=== PATIENT | female | born 1945 | race Caucasian/White ===

== ENCOUNTER 2016-04-18 10:36 | Inpatient (IN) | payer MEDICARE ==
[~2016-04-18] VITALS: Ht 154.9 cm; Wt 52.3 kg
[~2016-04-18 10:36] MED LIST: ALBU1AER INH; ZITH250T PO
[2016-04-18 11:09] VITALS: BP 95/50; PULSE 73; RESP 18; TEMP 98.3; O2SAT 96
[2016-04-18] MEDS: LACTATED RINGER'S 1000 ML IV SCH (11:30)
[2016-04-18] MEDS ORDERED: ceFAZolin 1,000 MG/NS 100 ML IV SCH ×2 (11:45)
[2016-04-18] MEDS ORDERED: METOPROLOL TARTRATE 25 MG TAB PO PRN (11:45)
[2016-04-18] MEDS ORDERED: SODIUM CHLORID 0.9% 500 ML IV SCH (11:45)
[2016-04-18] MEDS ORDERED: INSULIN HUMAN REGULAR 1,000 UNITS/10 ML VIAL SQ PRN (11:45)
[2016-04-18] MEDS ORDERED: PHENYLEPH/NS 1000 MCG/10 ML SYR IV ONE (12:00)
[2016-04-18] MEDS ORDERED: ePHEDrine/NS 50 MG/5 ML SYR IV ONE (12:00)
[2016-04-18] MEDS ORDERED: NITROGLYCERIN 1000 MCG/5 ML VIAL IV ONE (12:00)
[2016-04-18] MEDS ORDERED: PROPOFOL 500 MG/50 ML BTL IV ONE (12:00)
[2016-04-18] MEDS ORDERED: LACTATED RINGER'S 1000 ML INJ 1,000 ML IV ONE (12:00)
[2016-04-18 12:09] LABS: AUTOMATED NEUTROPHIL # 6.6 TH/MM3 (1.8-7.7); BASOPHIL # 0.1 TH/MM3 (0-0.2); BASOPHIL % 0.7 % (0.0-2.0); EOSINOPHIL # 0.3 TH/MM3 (0-0.4); EOSINOPHIL % 2.6 % (0.0-4.0); HEMATOCRIT 39.5 % (35.0-46.0); HEMO FLAGS DIFF FINAL; LYMPH % 18.9 % (9.0-44.0); MEAN CELL VOLUME 97.2 FL (80.0-100.0); MEAN CORPUSCULAR HEMOGLOBIN 33.1 PG (27.0-34.0); MEAN CORPUSCULAR HGB CONC 34.1 % (32.0-36.0); MONO % 14.4 % (0.0-8.0); NEUT % 63.4 % (16.0-70.0); PLATELET COUNT 378 TH/MM3 (150-450); RED BLOOD COUNT 4.06 MIL/MM3 (4.00-5.30); RED CELL DISTRIBUTION WIDTH 13.1 % (11.6-17.2); WHITE BLOOD COUNT 10.4 TH/MM3 (4.0-11.0)
[2016-04-18 12:23] LABS: APTT (PATIENT) 22.2 SEC (24.3-30.1); PROTHROMBIN TIME - PATIENT 10.6 SEC (9.8-11.6)
[2016-04-18 12:29] LABS: HDL CHOLESTEROL 48.1 MG/DL (40.0-60.0)
[2016-04-18 12:34] LABS: BICARBONATE 27.3 MEQ/L (21.0-32.0)
[2016-04-18 12:42] LABS: POTASSIUM 4.2 MEQ/L (3.5-5.1)
[2016-04-18] MEDS ORDERED: BUPIVACAINE/EPINEPHRINE 0.5% PF 10 ML VIAL INFIL ONE (13:13)
[2016-04-18] MEDS ORDERED: IOHEXOL 300 MG/ML 50 ML BTL (for RAD DIAG) OTHER ONE (13:13)
[2016-04-18] MEDS ORDERED: HEPARIN SODIUM - SQ 10,000 UNITS/ML VIAL ONE (13:48)
[2016-04-18] MEDS ORDERED: fentaNYL CITRATE 250 MCG/5 ML AMP ONE (15:10)
[2016-04-18] MEDS ORDERED: MIDAZOLAM HCL 2 MG/2 ML VIAL ONE (15:11)
[2016-04-18 15:29] LABS: BLOOD GAS BASE EXCESS -3.4 mmol/L (-2-2); BLOOD GAS CARBOXYHEMOGLOBIN 0.7 % (0-4); BLOOD GAS HCO3 23 mmol/L (22-26); BLOOD GAS METHEMOGLOBIN 1.4 % (0-2); BLOOD GAS O2 HGB SATURATION 97 % (90-100); BLOOD GAS OXYGEN CONTENT 17.9 Vol % (12.0-20.0); BLOOD GAS PCO2 61 mmHg (38-42); BLOOD GAS PO2 183 mmHg (61-120); BLOOD GAS TOTAL HGB 12.9 G/DL (12.0-16.0); TEMP CORR TO 98.6
[2016-04-18 15:33] LABS: CRITICAL VALUE YES; DRAW SITE OR GAS; OXYGEN DEVICE OR GAS; STAT YES
[2016-04-18] MEDS ORDERED: *morphine SULFATE 8 MG/ML PERIprocedure ONLY ONE ×2 (15:59→16:10)
[2016-04-18] MEDS ORDERED: ONDANSETRON HCL 4 MG/2 ML VIAL IV PRN (16:30)
[2016-04-18] MEDS ORDERED: ENALAPRILAT 1.25 MG/ML VIAL IV PRN (16:30)
[2016-04-18] MEDS ORDERED: POTASSIUM CHLORIDE 20 MEQ CONTROLLED RELEASE TAB PO PRN (16:30)
[2016-04-18] MEDS ORDERED: LABETALOL HCL 100 MG/20 ML VIAL IVP PRN (16:30)
[2016-04-18] MEDS ORDERED: SODIUM NITROPRUSSIDE 50 MG/250 ML D5W IV SCH ×2 (16:30)
[2016-04-18] MEDS ORDERED: METOCLOPRAMIDE HCL 10 MG/2 ML VIAL IVS PRN (16:30)
[2016-04-18] MEDS ORDERED: cloNIDine HCL 0.1 MG TAB PO PRN (16:30)
[2016-04-18] MEDS ORDERED: ATROPINE SULFATE 1 MG/ML VIAL IV PUSH PRN (16:30)
[2016-04-18] MEDS ORDERED: HOLD GLUCOPHAGE, GLUCOPHAGE XR, AND AVANDAMET XX PRN (16:30)
[2016-04-18] MEDS ORDERED: SODIUM CHLORIDE 0.9% 1000 ML @ 75 ML/HR IV SCH (16:30)
[2016-04-18] MEDS ORDERED: SODIUM CHLOR 0.9% 250 ML IV PRN (16:30)
[2016-04-18] MEDS ORDERED: SODIUM CHLORIDE 5 ML FLUSH PRN IVF (16:30)
[2016-04-18] MEDS ORDERED: DO NOT ADM ANY ANTICOAGULANT DRUGS XX PRN (16:30)
--- NOTE | 2016-04-18 16:33 | RADRPT ---
EXAM DATE/TIME: 04/18/2016 15:57 [facility] COMPARISON: CHEST SINGLE AP, September 01, 2015, 12:58. INDICATIONS : Aspiration. MEDICAL HISTORY : Chronic obstructive pulmonary disease. asthma SURGICAL HISTORY : None. ENCOUNTER: Initial ACUITY: 1 day PAIN SCORE: Non-responsive. LOCATION: Bilateral chest FINDINGS: A single view of the chest demonstrates the lungs to be symmetrically aerated without evidence of mas s, infiltrate or effusion. Tracheal calcifications are again noted. There are mild atherosclerotic ch anges in the aorta. The cardiomediastinal contours are unremarkable. Osseous structures are intact. CONCLUSION: No acute disease. There is no evidence of pneumonia. Sang Leahy MD on April 18, 2016 at 16:31 Board Certified Radiologist. This report was verified electronically.
[2016-04-18] MEDS ORDERED: ASPIRIN EC 81 MG TABEC PO ONE (17:00)
[2016-04-18] MEDS: ATORVASTATIN 20 MG TAB PO SCH (17:51)
[2016-04-18] MEDS: ENOXAPARIN SODIUM 40 MG/0.4 ML SYRINGE SQ SCH (17:52)
[2016-04-18] MEDS: ASPIRIN EC 81 MG TABEC PO SCH (18:00)
[2016-04-18 19:00] VITALS: PULSE 60
[2016-04-18 20:00] VITALS: PULSE 63
[2016-04-18 21:00] VITALS: BP_SYST 122; BP_SYST 130; BP_DIAS 56; BP_DIAS 62; PULSE 67; PULSE 69; RESP 20; TEMP 97.3; TEMP 97.6; O2SAT 100
[2016-04-18] MEDS: SODIUM CHLORIDE 5 ML FLUSH BID IVF SCH (21:00)
[2016-04-18 22:00] VITALS: PULSE 73
[2016-04-18 23:00] VITALS: BP 115/68; PULSE 67; PULSE 78; PULSE 88; RESP 20; TEMP 97.3; TEMP 99.3; O2SAT 100
[2016-04-19] VITALS (23 sets, daily range): BP systolic 82–128; BP diastolic 48–64; PULSE 61–89; RESP 18–20; TEMP 98.3–99.4; O2SAT 95–100
[2016-04-19] MEDS: oxyCODONE/ACETAMINOPHEN 5 MG/325 MG TAB PO PRN ×4 (00:31→20:05)
[2016-04-19] MEDS: ENOXAPARIN SODIUM 40 MG/0.4 ML SYRINGE SQ SCH (06:11)
[2016-04-19] MEDS: ATORVASTATIN 20 MG TAB PO SCH (10:16)
[2016-04-19] MEDS: SODIUM CHLORIDE 5 ML FLUSH BID IVF SCH (10:17)
[2016-04-19] MEDS: ASPIRIN EC 81 MG TABEC PO SCH (10:17)
[2016-04-19] MEDS: LACTATED RINGER'S 1000 ML IV SCH (11:45)
--- NOTE | 2016-04-19 23:03 | EKG ---
Date Performed: 04/18/2016 Time Performed: 11:10:03 PTAGE: 71 years EKG: Sinus rhythm POSSIBLE RIGHT VENTRICULAR CONDUCTION DELAY POSSIBLE SEPTAL MYOCARDIAL INFARCTION , OF INDETERMINATE AGE MODERATE T-WAVE ABNORMALITY, CONSIDER ANTERIOR ISCHEMIA ABNORMAL ECG PREVIOUS TRACING : 02/18/2003 17.10 DOCTOR: Elizabeth Cook Interpretating Date/Time 04/19/2016 22:53:41
--- NOTE | 2016-04-23 20:45 | MP ---
cc: WANDA MAHARAJ M.D. DATE OF SURGERY: 04/18/2016. PREOPERATIVE DIAGNOSIS: Limb threatening left lower extremity ischemia - gangrenous necrosis plantar aspect left first metatarsophalangeal joint. POSTOPERATIVE DIAGNOSIS: Limb threatening left lower extremity ischemia - gangrenous necrosis plantar aspect left first metatarsophalangeal joint. OPERATIVE PROCEDURE PERFORMED: Selective left femorotibial angiography, left popliteal and anterior tibial orbital atherectomy / percutaneous balloon angioplasty. SURGEON: Wanda Maharaj M.D. ANESTHESIA: General MAC. PIG CASTER: DALILA Garcia. ANESTHESIA: Local MAC DESCRIPTION OF THE OPERATIVE PROCEDURE IN DETAIL: With the patient in the supine position, IV sedation was induced, the lower abdomen, both groins and thighs were prepped with Betadine and draped in a sterile fashion. One gram of Ancef was administered intravenously and following a protocol time-out, the skin and subcutaneous tissue overlying the proposed left common femoral access site was preemptively infiltrated with 0.5% Marcaine with epinephrine. Utilizing ultrasound guidance, an 18 gauge needle was navigated into the left mid common femoral lumen, antegrade approach. A J-wire was navigated under fluoroscopic guidance into the proximal superficial femoral artery. A 5-Swazi hemostatic sheath was deployed over the J-wire. Dilute contrast was injected through the sheath side-arm in conjunction with digital C-arm fluoroscopic imaging outlining a relatively non-diseased common femoral, profunda and superficial femoral arteries. The popliteal was healthy above the knee but focally stenosed by about 60% immediately at and distal to the knee joint. Severe tibial disease was documented as suggested by preoperative CT angiogram. The posterior tibial was occluded throughout. The peroneal was patent proximally but occluded several centimeters distal to its origin. The anterior tibial was also patent proximally but occluded at the mid calf level. Collaterals reconstituted the anterior tibial just above the ankle but a long segment occlusion of the anterior tibial was noted. A 0.014 Advantage guidewire and Quick-Cross catheter combination were carefully guided into the proximal left anterior tibial artery and utilizing roadmapping guidance, the anterior tibial occlusion carefully crossed intraluminally. The Advantage wire was then replaced with a ViperWire which was parked within the dorsalis pedis artery. Orbital atherectomy of the anterior tibial occlusion was then completed with a CSI micro crown SpineNet 60 and 90,000 RPM followed by a balloon angioplasty of the atherectomized anterior tibial segment with a tapered 2.5 - 3.0 x 210 mm balloon inflated to 12 atmospheres, two separate inflations of 3 minutes each. It should be noted that prior to atherectomy, the patient received 5000 units of heparin, ACT measured ___. An additional 1000 units was delivered and during the atherectomy and balloon angioplasty, several aliquots of nitroglycerin 100 micrograms injected. The popliteal stenosis was also orbitally atherectomized with the CSI MicroCrown spun at 60, 90 and 120,000 RPM followed by angioplasty with a 4 x 40 mm balloon inflated to 8 atmospheres, two separate inflations of 2 minutes each. Completion angiogram revealed wide patency of the popliteal with no residual stenosis. Also, the anterior tibial was patent into the dorsalis pedis with no residual stenotic disease evident. The 5-Swazi sheath was secured with a skin suture. At the conclusion of the procedure, the Doppler flow was robust and biphasic within the left dorsalis pedis. Heparin was not reversed. The patient was returned to the recovery room in stable condition. It should be noted that toward the end of the procedure, the patient experienced an episode of emesis with bilious aspiration. The anesthesiologist, Dr. Krueger, performed bronchoscopy, suction irrigation and reported "minimal aspiration / contamination". She received appropriate aspiration prophylaxis. Chest x-ray will be obtained in recovery along with pulmonary consult. MD ANDRE Peña/NOBLE /4:26 PM /8:28 PM
== END 2016-04-19 20:21 | disposition home or self-care (01) | DRG 272 ==
LOC: HSDC 10:36 → HCIN 18:05 → HSDC 19:25
PROVIDERS: ADMIT Surgery Vascular Surgery; ATTEND Surgery Vascular Surgery
PROC: 04CN3ZZ Extirpation of Matter from Left Popliteal Artery, Percutaneous Approach (ICD-10-PCS; 2016-04-18)
PROC: 047N3ZZ Dilation of Left Popliteal Artery, Percutaneous Approach (ICD-10-PCS; 2016-04-18)
PROC: 0BJ08ZZ Inspection of Tracheobronchial Tree, Via Natural or Artificial Opening Endoscopic (ICD-10-PCS; 2016-04-18)
PROC: 04CQ3ZZ Extirpation of Matter from Left Anterior Tibial Artery, Percutaneous Approach (ICD-10-PCS; principal; 2016-04-18 12:30)
PROC: 047Q3ZZ Dilation of Left Anterior Tibial Artery, Percutaneous Approach (ICD-10-PCS; 2016-04-18 12:30)
DX: I70.262 Atherosclerosis of native arteries of extremities with gangrene, left leg (principal); T17.918A Gastric contents in respiratory tract, part unspecified causing other injury, initial encounter; X58.XXXA Exposure to other specified factors, initial encounter; Y93.89 Activity, other specified; Y92.234 Operating room of hospital as the place of occurrence of the external cause
CPT/HCPCS: 71010; 75710; 76937; 80048; 80061; 82805; 85025; 85610; 85730; 86850; 86900; 86901; 93005; C1725; C1769; C1887; J0690; J1644; J1650; J2250; J2270; J2370; J3010; J7030; J7120; Q9967

== ENCOUNTER 2016-04-29 11:48 | Inpatient (IN) | payer MEDICARE ==
[~2016-04-29] VITALS: Ht 152.4 cm; Wt 52.6 kg
[2016-04-30] MEDS ORDERED: LIDOCAINE HCL 1% 50 ML VIAL ONE (10:14)
[2016-04-30] MEDS ORDERED: BUPIVACAINE/EPINEPHRINE 0.5% 50 ML VIAL ONE (10:14)
[2016-04-30] MEDS ORDERED: HEPARIN SODIUM - IV 10,000 UNITS/10 ML VIAL ONE (10:14)
[2016-04-30] MEDS ORDERED: SODIUM CHLORIDE 0.9% 20 ML VIAL ONE (10:14)
[2016-04-30] MEDS ORDERED: PROTAMINE SULFATE 50 MG/5 ML VIAL ONE (10:15)
[2016-04-30] MEDS ORDERED: HEPARIN SODIUM - SQ 10,000 UNITS/ML VIAL ONE (10:15)
[2016-04-30] MEDS ORDERED: ceFAZolin 1,000 MG/NS 100 ML IV SCH ×2 (10:30)
[2016-04-30] MEDS ORDERED: METOPROLOL TARTRATE 25 MG TAB PO PRN (10:30)
[2016-04-30] MEDS ORDERED: LACTATED RINGER'S 1000 ML IV SCH (10:30)
[2016-04-30] MEDS ORDERED: SODIUM CHLORID 0.9% 500 ML IV SCH (10:30)
[2016-04-30] MEDS ORDERED: INSULIN HUMAN REGULAR 1,000 UNITS/10 ML VIAL SQ PRN (10:30)
[2016-04-30] MEDS ORDERED: CYAN500S SL (11:05)
[2016-04-30] MEDS ORDERED: ATOR20TA15 PO (11:05)
[2016-04-30 11:07] VITALS: BP 96/73; PULSE 105; RESP 18; TEMP 99.1; O2SAT 98
[2016-04-30 11:42] LABS: AUTOMATED NEUTROPHIL # 7.8 TH/MM3 (1.8-7.7); BASOPHIL # 0.1 TH/MM3 (0-0.2); BASOPHIL % 0.6 % (0.0-2.0); EOSINOPHIL # 0.1 TH/MM3 (0-0.4); EOSINOPHIL % 1.1 % (0.0-4.0); HEMATOCRIT 37.8 % (35.0-46.0); HEMO FLAGS DIFF FINAL; LYMPH % 17.9 % (9.0-44.0); MEAN CELL VOLUME 94.5 FL (80.0-100.0); MEAN CORPUSCULAR HEMOGLOBIN 32.3 PG (27.0-34.0); MEAN CORPUSCULAR HGB CONC 34.1 % (32.0-36.0); MONO % 11.8 % (0.0-8.0); NEUT % 68.6 % (16.0-70.0); PLATELET COUNT 578 TH/MM3 (150-450); WHITE BLOOD COUNT 11.3 TH/MM3 (4.0-11.0)
[2016-04-30 12:00] LABS: BICARBONATE 28.1 MEQ/L (21.0-32.0); POTASSIUM 3.9 MEQ/L (3.5-5.1)
[2016-04-30] MEDS ORDERED: fentaNYL CITRATE 250 MCG/5 ML AMP IV ONE (12:00)
[2016-04-30] MEDS ORDERED: NEOSTIGMINE 3 MG/3 ML SYR IV ONE (12:00)
[2016-04-30] MEDS ORDERED: PROPOFOL 200 MG/20 ML AMP IV ONE (12:00)
[2016-04-30] MEDS ORDERED: LACTATED RINGER'S 1000 ML INJ 2,000 ML IV ONE (12:00)
[2016-04-30] MEDS ORDERED: SODIUM CHLOR 0.9% 250 ML INJ 250 ML IV ONE (12:00)
[2016-04-30] MEDS ORDERED: PHENYLEPHRINE HCL 10 MG/ML VIAL IV ONE (12:00)
[2016-04-30 12:03] LABS: PROTHROMBIN TIME - PATIENT 10.9 SEC (9.8-11.6)
[2016-04-30] MEDS ORDERED: RESP: ALBUTEROL 2.5 MG/IPRATROPIUM 0.5 MG NEB (PRN) ONE (12:03)
[2016-04-30] MEDS ORDERED: MIDAZOLAM HCL 2 MG/2 ML VIAL ONE (12:17)
[2016-04-30] MEDS ORDERED: FAMOTIDINE 20 MG/2 ML VIAL ONE (12:17)
[2016-04-30] MEDS ORDERED: IOHEXOL 300 MG/ML 50 ML BTL (for RAD DIAG) OTHER ONE (13:40)
[2016-04-30] MEDS ORDERED: BUPIVACAINE/EPINEPHRINE 0.5% 50 ML VIAL INFIL ONE (15:01)
[2016-04-30] MEDS ORDERED: ceFAZolin INJ 1,000 MG VIAL ONE (15:39)
[2016-04-30] MEDS ORDERED: ACETAMINOPHEN 325 MG TAB PO PRN (18:30)
[2016-04-30] MEDS ORDERED: ONDANSETRON HCL 4 MG/2 ML VIAL IV PUSH PRN (18:30)
[2016-04-30] MEDS ORDERED: REMOVE OLD DURAGESIC (FENTANYL) PATCH TD SCH (18:30)
[2016-04-30] MEDS ORDERED: DO NOT ADM ANY ANTICOAGULANT DRUGS XX PRN (18:30)
[2016-04-30] MEDS ORDERED: fentaNYL 50 MCG/HR PATCH TD SCH (18:30)
[2016-04-30 18:45] VITALS: BP 136/75; PULSE 72; RESP 18; TEMP 97.7; O2SAT 100
[2016-04-30] MEDS ORDERED: SODIUM CHLORIDE 0.9% FLUSH 5 ML FLUSH IV FLUSH PRN (18:45)
[2016-04-30] MEDS: MORPHINE SULFATE 4 MG/ML INJ IV PRN ×2 (19:58→22:18)
[2016-04-30 20:02] VITALS: BP 127/75; PULSE 75; RESP 16; TEMP 97.6; O2SAT 100
[2016-04-30] MEDS: ACETAMINOPHEN/HYDROcodone 325 MG/5 MG TAB PO PRN (22:17)
[2016-04-30] MEDS: SODIUM CHLORIDE 0.9% FLUSH 5 ML FLUSH IV FLUSH SCH (22:18)
[2016-04-30 23:00] VITALS: BP 111/72; PULSE 76; RESP 16; TEMP 97.8; O2SAT 100
[2016-05-01] VITALS (18 sets, daily range): BP systolic 92–108; BP diastolic 50–71; PULSE 71–132; RESP 16–18; TEMP 97.4–98.7; O2SAT 96–99
[2016-05-01] MEDS: ACETAMINOPHEN/HYDROcodone 325 MG/5 MG TAB PO PRN (03:05)
[2016-05-01] MEDS: MORPHINE SULFATE 4 MG/ML INJ IV PRN ×3 (03:05→17:41)
[2016-05-01 07:03] LABS: HEMATOCRIT 30.3 % (35.0-46.0); REVIEW FLAG FINAL
[2016-05-01 07:52] LABS: BICARBONATE 29.7 MEQ/L (21.0-32.0); POTASSIUM 3.8 MEQ/L (3.5-5.1)
[2016-05-01] MEDS: SODIUM CHLORIDE 0.9% FLUSH 5 ML FLUSH IV FLUSH SCH ×2 (09:50→20:28)
[2016-05-01] MEDS: GABAPENTIN 300 MG CAP PO SCH ×3 (09:51→16:41)
[2016-05-01] MEDS: ATORVASTATIN 20 MG TAB PO SCH (09:51)
[2016-05-01] MEDS: PANTOPRAZOLE SOD 40 MG DELAYED RELEASE TAB PO SCH (10:00)
[2016-05-01] MEDS ORDERED: CLOPIDOGREL 300 MG TAB PO ONE (10:00)
[2016-05-01] MEDS: ENOXAPARIN SODIUM 30 MG/0.3 ML SYRINGE SQ SCH ×2 (10:30→20:27)
[2016-05-01] MEDS ORDERED: METOPROLOL TARTRATE 25 MG TAB PO SCH (22:30)
[2016-05-01] MEDS ORDERED: SODIUM CHLORID 0.9% 500 ML INJ 500 ML IV SCH (22:45)
[2016-05-02] VITALS (16 sets, daily range): BP systolic 80–99; BP diastolic 56–60; PULSE 69–104; RESP 18–20; TEMP 98.1–98.8; O2SAT 99–100
[2016-05-02] MEDS: MORPHINE SULFATE 4 MG/ML INJ IV PRN
[2016-05-02] MEDS ORDERED: fentaNYL CITRATE 250 MCG/5 ML AMP ONE (08:15)
[2016-05-02] MEDS: GABAPENTIN 300 MG CAP PO SCH ×3 (08:29→17:46)
[2016-05-02] MEDS: CLOPIDOGREL 75 MG TAB PO SCH (08:29)
[2016-05-02] MEDS: PANTOPRAZOLE SOD 40 MG DELAYED RELEASE TAB PO SCH (08:29)
[2016-05-02] MEDS: SODIUM CHLORIDE 0.9% FLUSH 5 ML FLUSH IV FLUSH SCH ×2 (08:31→21:19)
[2016-05-02] MEDS: ATORVASTATIN 20 MG TAB PO SCH (08:31)
[2016-05-02] MEDS: ENOXAPARIN SODIUM 30 MG/0.3 ML SYRINGE SQ SCH ×2 (10:10→21:19)
[2016-05-03] VITALS (20 sets, daily range): BP systolic 91–126; BP diastolic 57–72; PULSE 61–92; RESP 16–20; TEMP 97.9–98.6; O2SAT 98–100
[2016-05-03] MEDS: ACETAMINOPHEN/HYDROcodone 325 MG/5 MG TAB PO PRN ×4 (02:10→17:57)
--- NOTE | 2016-05-03 06:57 | EKG ---
Date Performed: 05/01/2016 Time Performed: 22:31:16 PTAGE: 71 years EKG: Supraventricular tachycardia Lateral infarct - age undetermined Possible septal infarct - a ge undetermined Inferior T wave changes are nonspecific Abnormal ECG NO PREVIOUS TRACING DOCTOR: Terry Alegre Interpretating Date/Time 05/03/2016 06:56:10
[2016-05-03] MEDS: GABAPENTIN 300 MG CAP PO SCH ×3 (09:32→17:57)
[2016-05-03] MEDS: ENOXAPARIN SODIUM 30 MG/0.3 ML SYRINGE SQ SCH (09:33)
[2016-05-03] MEDS: PANTOPRAZOLE SOD 40 MG DELAYED RELEASE TAB PO SCH (09:33)
[2016-05-03] MEDS: ATORVASTATIN 20 MG TAB PO SCH (09:33)
[2016-05-03] MEDS: CLOPIDOGREL 75 MG TAB PO SCH (09:33)
[2016-05-03] MEDS: SODIUM CHLORIDE 0.9% FLUSH 5 ML FLUSH IV FLUSH SCH (09:33)
[2016-05-03] MEDS ORDERED: PROT40TA PO (15:38)
[2016-05-03] MEDS ORDERED: ATOR20TA15 PO (15:38)
[2016-05-03] MEDS ORDERED: ATOR10TA15 PO (15:38)
[2016-05-03] MEDS ORDERED: NEUR300C PO (15:38)
[2016-05-03] MEDS ORDERED: NORC5TAB PO (15:38)
[2016-05-03] MEDS ORDERED: ENOX30P SQ (15:38)
--- NOTE | 2016-05-06 08:44 | MP ---
cc: CLEMENCIA GONZALEZ JAMES T. M.D. DATE OF SURGERY: 04/30/2016 PREOPERATIVE DIAGNOSIS Progressive ischemic necrosis left forefoot/limb threatening left lower extremity ischemia status post failed left tibial endovascular revascularization on April 18. POSTOPERATIVE DIAGNOSIS Progressive ischemic necrosis left forefoot/limb threatening left lower extremity ischemia status post failed left tibial endovascular revascularization on April 18. OPERATIVE PROCEDURE Left superficial femoral - dorsalis pedis bypass with reverse saphenous vein. Intraoperative arteriogram. SURGEON Kunal Johnson MD ANESTHESIA General endotracheal/local. HISTORY This 71-year-old female presented with progressive ischemic necrosis involving the left first and second toes, distal left forefoot with associated severe, disabling ischemic rest pain. Contrast angiographic evaluation on April 18 disclosed severe infrapopliteal arterial occlusive disease. Both the posterior tibial and peroneal arteries were occluded throughout. The anterior tibial was severely diseased with multiple areas of calcific stenosis and one area of short segment occlusion. Orbital atherectomy reestablished patency of the disease, small anterior tibial. However, postprocedure the vessel reoccluded resulting in recurrent, severe ischemic rest pain. She was admitted today for exploration of the dorsalis pedis artery and potential femoral-tibial bypass for limb salvage versus primary amputation, depending upon the dorsalis pedis angiographic findings. During this procedure, the initial dorsalis pedis angiogram revealed patency of the distal left anterior tibial and dorsalis pedis to the proximal forefoot region. The dorsalis pedis, metatarsal and digital arteries beyond had intervally occluded since the angiographic findings from the . Nonetheless, I felt that retrograde flow within the residual dorsalis pedis/ anterior tibial segment should be adequate to allow bypass success. DESCRIPTION OF OPERATIVE PROCEDURE With the patient in the supine position and under general anesthesia the lower abdomen and left groin and entire left lower extremity were prepped with Betadine and draped in a sterile fashion. Skin and subcutaneous tissue directly overlying the left dorsalis pedis was infiltrated with 0.5% Marcaine with epinephrine. A vertical 3 cm incision was performed through which the dorsalis pedis artery was circumferentially mobilized. The artery was cannulated with an 18-gauge butterfly needle and diluted contrast injected in conjunction with digital C-arm fluoroscopic imaging. This revealed patency of the distal left anterior tibial transitioning into the dorsalis pedis. The dorsalis pedis occluded immediately distal to the access needle puncture site. As noted above, angiographic imaging on April 18 had suggested patency of the dorsalis pedis, tarsal and metatarsal arteries. However, interval occlusion of the forefoot runoff had developed. The skin and subcutaneous tissue overlying the greater saphenous vein was infiltrated with 1% Xylocaine with epinephrine. A vertical incision was performed from the left groin to the left ankle regions. The entire greater saphenous vein was mobilized, branches ligated in continuity with free ties of 4-0 silk and ligated. The vein was ligated proximally and distally with 4-0 silk, divided between ligatures, cannulated with the vein cannula and flushed with cool heparinized saline. It should be noted that the more distal section of the vein, particularly below the proximal calf level was diminished luminal caliber, did not appear to be adequate for use of an arterial conduit. However, the more proximal aspect did appear adequate. Short length of saphenous vein conduit required originating the bypass at the popliteal level. The incision was deepened into the proximal popliteal space. The popliteal artery was circumferentially mobilized distal to the adductor canal and encircled with double loop vessel loops. The patient was systemically heparinized with 5000 units. The dorsalis pedis artery was occluded proximally and distally with Yasargil clips. A vertical 2-cm arteriotomy was performed. The vein was reversed, spatulated on end, anastomosed end-to-side to the dorsalis pedis arteriotomy with interrupted 7-0 Prolene. The vein was placed within the saphenous vein harvest incision/ wound, tunneled through the popliteal space to the proximal popliteal exposure site. The popliteal artery was occluded proximally and distally with double loop vessel loops. A vertical 2-cm arteriotomy was performed along the anteromedial surface. The vein graft was spatulated on end and anastomosed end-to-side to the popliteal arteriotomy with continuous 6-0 Prolene. Yasargil clips and double loop vessel loops were removed establishing pulsatile flow within the vein graft as well as into the [place] circulation. The saphenous vein bypass graft was cannulated immediately distal to the popliteal anastomosis. Diluted contrast was injected in conjunction with digital C-arm fluoroscopic imaging. This confirmed wide patency of the reverse saphenous vein bypass graft and distal anastomosis. It also reconfirmed occlusion of the dorsalis pedis, tarsal and metatarsal arteries distal to the distal anastomosis but robust retrograde flow within the proximal dorsalis pedis and anterior tibial. Heparin was reversed with 20 mg of protamine. Hemostasis was achieved. The incisions were closed with continuous subcutaneous 4-0 Monocryl and xochitl, covered with sterile gauze. Instrument, needle, sponge count correct x2. No operative complications and at the conclusion of the procedure robust triphasic Doppler flow was reconfirmed within the vein graft at the dorsalis pedis anastomosis. Kunal Johnson MD JTS/TLL /2:45 PM /8:17 AM
--- NOTE | 2016-05-07 22:04 | MD ---
cc: CLEMENCIA AHUMADA JAMES ADMISSION DATE: 04/30/2016 DISCHARGE DATE: 05/03/2016 DISCHARGE DIAGNOSES 1. Ischemic necrosis left foot / limb threatening left lower extremity ischemia. 2. Hypercholesterolemia. PROCEDURE Left femoral dorsalis pedis bypass on April 30. HISTORY OF THE PRESENT ILLNESS This 71-year-old female for the past year complained of disabling left calf claudication. Several months ago she began experiencing pain within the left foot. She describes evaluation by various "specialists" without benefit. According to the patient, one of the podiatrists told her that "her shoes were too tight." She eventually saw Dr. Ahumada who detected advanced ischemic changes within the left foot and arranged for vascular surgery consultation. On April 18, I performed contrast angiogram confirming severe left infrapopliteal tibial arterial occlusive disease. A heroic attempt at left anterior tibial atherectomy of a long stenosis / occlusion did not remain patent. She continued to experience ischemic rest pain within the left foot with gradually progressing necrotic changes involving the left great, second and fifth toes. She was hospitalized for revascularization versus a possible primary amputation, depending upon intraoperative angiographic findings. Further historical details along with pertinent physical findings and lab data are documented in my admission summary. HOSPITAL COURSE Ms. Rodrigues was prepared for and on the day of admission underwent left femoral dorsalis pedis bypass. Intraoperative angiograms of the runoff, dorsalis pedis artery disclosed occlusion of the vessel across the forefoot area. In addition the digital arteries which appeared patent on April 18 angiogram, no longer appeared patent. However, retrograde flow into the dorsalis pedis and distal anterior tibial remained fairly robust and for this reason, I have proceeded with an attempt at revascularization for limb salvage. Postprocedure she was maintained on her regular prehospitalization statin. In addition, aspirin, Plavix and subcu Lovenox were added. She has experienced no postoperative complications. Specifically no cardiopulmonary problems. She is tolerating a low cholesterol diet, having regular bowel movements, ambulating with assistance of physical therapy. Her bypass remains patent with robust retrograde flow within the dorsalis pedis and distal anterior tibial artery. The preexisting ischemic necrosis involving the left great and second toe is becoming well demarcated. In addition, her preoperative ischemic rest pain has resolved. DISPOSITION Ms. Rodrigues will be transferred to a rehab facility for ambulatory rehabilitation. Medications are detailed in the discharge medication reconciliation form. I instructed the patient and granddaughter in appropriate activities, restrictions, precautions and diet. I will see her in followup in 2 weeks. She will require readmission within the next month to pursue debridement of necrotic forefoot tissues once demarcation has completed / become well established. Kunal Johnson MD JTS/KK /2:30 PM /9:51 PM
== END 2016-05-03 20:14 | DRG 254 ==
LOC: HSDI 04-30 10:08 → HCIN 04-30 18:40
PROVIDERS: ADMIT Surgery Vascular Surgery; ATTEND Surgery Vascular Surgery
PROC: 041 Lower Arteries, Bypass (ICD-10-PCS; principal; 2016-04-30 12:30)
DX: I70.222 Atherosclerosis of native arteries of extremities with rest pain, left leg (principal); E78.00 Pure hypercholesterolemia, unspecified
CPT/HCPCS: 76000; 80048; 85014; 85018; 85025; 85610; 85730; 86850; 86900; 86901; 93005; J0690; J1644; J1650; J2250; J2270; J2370; J2710; J2720; J3010; J7050; J7120; Q9967

== ENCOUNTER 2016-05-14 11:11 | Observation (INO) | payer MEDICARE ==
[~2016-05-14] VITALS: Ht 152.4 cm; Wt 53.0 kg
[~2016-05-14 11:11] MED LIST changes: -ALBU1AER INH; +ATOR10TA15 PO; +ATOR20TA15 PO; +CYAN500S SL; +ENOX30P SQ; +NEUR300C PO; +NORC5TAB PO; +PROT40TA PO; -ZITH250T PO
[2016-05-14] MEDS ORDERED: PLAV75TA29 PO (11:52)
[2016-05-14] MEDS ORDERED: FERR325T PO (11:52)
[2016-05-14] MEDS ORDERED: ENOX30P SQ (11:52)
[2016-05-14] MEDS ORDERED: CEPH-460 PO (11:52)
[2016-05-14] MEDS ORDERED: ASPI-110 PO (11:52)
[2016-05-14] MEDS ORDERED: LACTCAP8 PO (11:56)
[2016-05-14] MEDS ORDERED: TYLE325T PO (11:56)
[2016-05-14] MEDS ORDERED: ONDANSETRON HCL 4 MG/2 ML VIAL IV PUSH ONE (12:00)
[2016-05-14] MEDS ORDERED: PROPOFOL 200 MG/20 ML AMP IV ONE (12:00)
[2016-05-14] MEDS ORDERED: SODIUM CHLORIDE 0.9% INJ 100 ML ONE (12:04)
[2016-05-14] MEDS ORDERED: ceFAZolin INJ 1,000 MG VIAL ONE (12:04)
[2016-05-14 12:08] VITALS: BP 113/68; PULSE 77; RESP 16; TEMP 98.1; O2SAT 98
[2016-05-14 12:40] LABS: APTT (PATIENT) 28.4 SEC (24.3-30.1); PROTHROMBIN TIME - PATIENT 10.5 SEC (9.8-11.6)
[2016-05-14] MEDS ORDERED: ceFAZolin 1,000 MG/NS 100 ML IV SCH ×2 (13:00)
[2016-05-14] MEDS ORDERED: INSULIN HUMAN REGULAR 1,000 UNITS/10 ML VIAL SQ PRN (13:00)
[2016-05-14] MEDS ORDERED: LACTATED RINGER'S 1000 ML IV SCH (13:00)
[2016-05-14] MEDS ORDERED: METOPROLOL TARTRATE 25 MG TAB PO PRN (13:00)
[2016-05-14] MEDS ORDERED: SODIUM CHLORID 0.9% 500 ML IV SCH (13:00)
[2016-05-14] MEDS ORDERED: LIDOCAINE HCL 1% 50 ML VIAL ONE (14:29)
[2016-05-14] MEDS ORDERED: VANCOMYCIN HCL 1000 MG ON-CALL/NS 250 ML IV SCH ×2 (14:30)
[2016-05-14] MEDS ORDERED: MIDAZOLAM HCL 2 MG/2 ML VIAL ONE (14:30)
[2016-05-14] MEDS ORDERED: FAMOTIDINE 20 MG/2 ML VIAL ONE (14:30)
[2016-05-14] MEDS ORDERED: DEXAMETHASONE SOD PHOS 4 MG/ML VIAL ONE (14:30)
[2016-05-14] MEDS ORDERED: SODIUM CHLOR 0.9% 250 ML INJ 250 ML ONE (14:33)
[2016-05-14] MEDS ORDERED: VANCOMYCIN HCL 1000 MG VIAL ONE (14:33)
[2016-05-14] MEDS ORDERED: DO NOT ADM ANY ANTICOAGULANT DRUGS XX PRN (15:53)
[2016-05-14] MEDS ORDERED: fentaNYL CITRATE 250 MCG/5 ML AMP ONE (15:56)
[2016-05-14] MEDS ORDERED: *morphine SULFATE 8 MG/ML PERIprocedure ONLY ONE ×3 (16:03→16:30)
[2016-05-14] MEDS ORDERED: ACETAMINOPHEN 325 MG TAB PO PRN (17:00)
[2016-05-14] MEDS ORDERED: fentaNYL 25 MCG/HR PATCH TD SCH (18:00)
--- NOTE | 2016-05-14 18:23 | EKG ---
Date Performed: 05/14/2016 Time Performed: 11:54:37 PTAGE: 71 years EKG: Sinus rhythm POSSIBLE RIGHT VENTRICULAR CONDUCTION DELAY MODERATE T-WAVE ABNORMALITY, CONSIDER ANTEROLATERAL ISCH EMIA PT IS NO LONGER IS SVT COMPARED TO THE PRIOR TRACING ABNORMAL ECG PREVIOUS TRACING : 05/01/2016 22.31 DOCTOR: Jay Pimentel Interpretating Date/Time 05/14/2016 18:22:43
[2016-05-14] MEDS: GABAPENTIN 300 MG CAP PO SCH (18:49)
[2016-05-14 20:17] VITALS: BP 93/51; PULSE 89; RESP 16; TEMP 97.6; O2SAT 97
[2016-05-14] MEDS: ENOXAPARIN SODIUM 30 MG/0.3 ML SYRINGE SQ SCH (20:50)
[2016-05-14] MEDS: CEPHALEXIN MONOHYDRATE 500 MG CAP PO SCH (21:01)
[2016-05-14] MEDS: ACETAMINOPHEN/HYDROcodone 325 MG/5 MG TAB PO PRN (21:01)
[2016-05-15] VITALS (8 sets, daily range): BP systolic 100–117; BP diastolic 54–57; PULSE 65–79; RESP 16–19; TEMP 96.4–96.9; O2SAT 93–98
[2016-05-15] MEDS: CEPHALEXIN MONOHYDRATE 500 MG CAP PO SCH ×3 (04:51→22:18)
[2016-05-15] MEDS: ACETAMINOPHEN/HYDROcodone 325 MG/5 MG TAB PO PRN ×4 (04:52→18:10)
[2016-05-15] MEDS: GABAPENTIN 300 MG CAP PO SCH ×3 (07:44→18:07)
[2016-05-15] MEDS: FERROUS SULFATE 325 MG (65 MG ELEMENTAL IRON) TAB PO SCH ×3 (07:45→18:07)
[2016-05-15] MEDS: ENOXAPARIN SODIUM 30 MG/0.3 ML SYRINGE SQ SCH ×2 (07:45→22:19)
[2016-05-15] MEDS: LACTOBACILLUS ACIDOPHILUS TAB PO SCH ×4 (07:45→22:19)
[2016-05-15] MEDS: CLOPIDOGREL 75 MG TAB PO SCH (07:45)
[2016-05-15] MEDS: ASPIRIN EC 81 MG TABEC PO SCH (07:45)
[2016-05-15] MEDS: ATORVASTATIN 20 MG TAB PO SCH (07:45)
[2016-05-15] MEDS: PANTOPRAZOLE SOD 40 MG DELAYED RELEASE TAB PO SCH (07:45)
[2016-05-16 00:20] VITALS: BP 102/54; PULSE 68; RESP 16; TEMP 96.6; O2SAT 94
[2016-05-16] MEDS: CEPHALEXIN MONOHYDRATE 500 MG CAP PO SCH ×2 (04:38→12:52)
--- NOTE | 2016-05-16 06:34 | MP ---
cc: CLEMENCIA GONZALEZ,WANDA Georges M.D. DATE OF SURGERY May 14, 2016 PREOPERATIVE DIAGNOSIS Demarcated, dry ischemic gangrene left medial forefoot - status post limb-salvaging left SFA-dorsalis pedis bypass. POSTOPERATIVE DIAGNOSIS Demarcated, dry ischemic gangrene left medial forefoot - status post limb-salvaging left SFA-dorsalis pedis bypass. PROCEDURE Amputation left first, second toes - transmetatarsal debridement left medial forefoot gangrenous necrosis. SURGEON Jacek Johnson MD [address] [facility] [employer] DALILA Garcia ANESTHESIA General. DESCRIPTION OF THE OPERATIVE PROCEDURE With the patient in the supine position and under general anesthesia, the left foot was prepped with Betadine and draped in a sterile fashion. One gram of Ancef and 1 gram of vancomycin were administered intravenously and following a protocol time-out, an incision was performed around the demarcated, dry necrotic tissue involving the first, second toes and extending across the dorsal and plantar aspects of the medial forefoot. The incision was deepened through the soft tissue, extensor and flexor tendons. The left great toe was disarticulated at the metatarsal/tarsal joint. The second metatarsal was transected near its base and all of the necrotic tissue within the medial forefoot including the two toes removed from the operative field. The skin edges were debrided to viable, bleeding tissue. The wound was then copiously irrigated with saline. Strict hemostasis was assured. A significant plantar flap had been created by removal of the toes and the medial forefoot necrotic tissues allowing a simple, primary closure. The skin was reapproximated with skin xochitl, covered with Xeroform, fluff gauze and Jose. Instrument, needle, sponge counts correct x 2. No operative complications. The patient returned to the recovery room in stable condition having tolerated the procedure well. Wanda Johnson MD JTS/SSB /4:27 PM /6:29 AM
[2016-05-16] MEDS: ACETAMINOPHEN/HYDROcodone 325 MG/5 MG TAB PO PRN ×2 (06:42→12:07)
[2016-05-16 08:00] VITALS: BP 109/59; PULSE 77; RESP 16; TEMP 98.1; O2SAT 97
[2016-05-16] MEDS: LACTOBACILLUS ACIDOPHILUS TAB PO SCH ×2 (09:27→12:06)
[2016-05-16] MEDS: FERROUS SULFATE 325 MG (65 MG ELEMENTAL IRON) TAB PO SCH ×2 (09:27→12:06)
[2016-05-16] MEDS: CLOPIDOGREL 75 MG TAB PO SCH (09:27)
[2016-05-16] MEDS: ENOXAPARIN SODIUM 30 MG/0.3 ML SYRINGE SQ SCH ×2 (09:27→09:31)
[2016-05-16] MEDS: GABAPENTIN 300 MG CAP PO SCH ×2 (09:27→12:06)
[2016-05-16] MEDS: PANTOPRAZOLE SOD 40 MG DELAYED RELEASE TAB PO SCH (09:27)
[2016-05-16] MEDS: ASPIRIN EC 81 MG TABEC PO SCH (09:28)
[2016-05-16] MEDS: ATORVASTATIN 20 MG TAB PO SCH (09:28)
[2016-05-16] MEDS ORDERED: fentaNYL 50 MCG/HR PATCH TD ONE (12:30)
[2016-05-16 12:31] VITALS: O2SAT 96
[2016-05-17] MEDS ORDERED: REMOVE OLD PATCH TD SCH (18:00)
[2016-05-19] MEDS ORDERED: REMOVE OLD DURAGESIC (FENTANYL) PATCH TD SCH (12:30)
== END 2016-05-16 14:18 ==
LOC: HSDC 11:11 → N07B 15:45
PROVIDERS: ADMIT Surgery Vascular Surgery; ATTEND Surgery Vascular Surgery
DX: I70.262 Atherosclerosis of native arteries of extremities with gangrene, left leg (principal); M86.172 Other acute osteomyelitis, left ankle and foot; R94.31 Abnormal electrocardiogram [ECG] [EKG]; I10 Essential (primary) hypertension; J44.9 Chronic obstructive pulmonary disease, unspecified; Z79.01 Long term (current) use of anticoagulants
CPT/HCPCS: 01480; 11042; 28810; 85610; 85730; 88305; 88311; 93005; 97162; G0378; J0690; J1100; J1650; J2250; J2270; J2405; J3010; J3370; J7050

== ENCOUNTER 2016-08-29 09:20 | Inpatient (IN) | payer MEDICARE ==
[2016-08-29] VITALS (11 sets, daily range): BP systolic 120–153; BP diastolic 69–88; PULSE 68–86; RESP 16–18; TEMP 98.2–99; O2SAT 94–97
[~2016-08-29 09:20] MED LIST changes: +ASPI-110 PO; -ATOR10TA15 PO; +CEPH-460 PO; -CYAN500S SL; +FERR325T PO; +LACTCAP8 PO; +PLAV75TA29 PO; +TYLE325T PO
[2016-08-29] MEDS ORDERED: HYDR-3580 PO (11:57)
[2016-08-29 13:03] LABS: AUTOMATED NEUTROPHIL # 8.3 TH/MM3 (1.8-7.7); BASOPHIL # 0.1 TH/MM3 (0-0.2); BASOPHIL % 0.6 % (0.0-2.0); EOSINOPHIL # 0.1 TH/MM3 (0-0.4); EOSINOPHIL % 0.9 % (0.0-4.0); HEMO FLAGS DIFF FINAL; LYMPH % 17.8 % (9.0-44.0); MEAN CELL VOLUME 92.2 FL (80.0-100.0); MEAN CORPUSCULAR HEMOGLOBIN 30.5 PG (27.0-34.0); MEAN CORPUSCULAR HGB CONC 33.1 % (32.0-36.0); MONO % 8.4 % (0.0-8.0); NEUT % 72.3 % (16.0-70.0); PLATELET COUNT 491 TH/MM3 (150-450); RED BLOOD COUNT 4.33 MIL/MM3 (4.00-5.30); RED CELL DISTRIBUTION WIDTH 13.4 % (11.6-17.2); WHITE BLOOD COUNT 11.4 TH/MM3 (4.0-11.0)
[2016-08-29 13:13] LABS: APTT (PATIENT) 27.8 SEC (24.3-30.1); PROTHROMBIN TIME - PATIENT 10.7 SEC (9.8-11.6)
[2016-08-29 13:16] LABS: BICARBONATE 30.1 MEQ/L (21.0-32.0); POTASSIUM 3.8 MEQ/L (3.5-5.1)
[2016-08-29] MEDS ORDERED: MIDAZOLAM HCL 5 MG/5 ML VIAL ONE ×2 (14:34→16:13)
[2016-08-29] MEDS ORDERED: fentaNYL CITRATE 250 MCG/5 ML AMP ONE ×2 (14:34→16:14)
[2016-08-29] MEDS ORDERED: HEPARIN-D5W INJ 250 ML ONE ×2 (14:56→16:38)
[2016-08-29] MEDS ORDERED: ceFAZolin 2 GM PREMIX 50 ML ONE (16:24)
[2016-08-29] MEDS ORDERED: VERAPAMIL HCL 5 MG/2 ML VIAL ONE (16:30)
[2016-08-29] MEDS ORDERED: HEPARIN SODIUM - IV 10,000 UNITS/10 ML VIAL ONE (16:30)
[2016-08-29] MEDS ORDERED: IODIXANOL 320 MG/ML 50 ML VIAL (for RAD SPEC) ONE (16:40)
[2016-08-29] MEDS ORDERED: HEPARIN-D5W INJ 250 ML IV SCH (17:00)
[2016-08-29 17:47] LABS: HEMATOCRIT 37.9 % (35.0-46.0); MEAN CELL VOLUME 91.9 FL (80.0-100.0); MEAN CORPUSCULAR HEMOGLOBIN 30.8 PG (27.0-34.0); MEAN CORPUSCULAR HGB CONC 33.5 % (32.0-36.0); PLATELET COUNT 436 TH/MM3 (150-450); RED BLOOD COUNT 4.13 MIL/MM3 (4.00-5.30); RED CELL DISTRIBUTION WIDTH 13.5 % (11.6-17.2); REVIEW FLAG FINAL; WHITE BLOOD COUNT 9.9 TH/MM3 (4.0-11.0)
[2016-08-29 17:59] LABS: APTT (PATIENT) 69.2 SEC (24.3-30.1); PROTHROMBIN TIME - PATIENT 11.4 SEC (9.8-11.6)
[2016-08-29] MEDS: ACETAMINOPHEN/HYDROcodone 325 MG/5 MG TAB PO PRN (23:14)
[2016-08-30] VITALS (25 sets, daily range): BP systolic 103–133; BP diastolic 65–76; PULSE 70–126; RESP 16–20; TEMP 98.5–99.4; O2SAT 95–97
[2016-08-30 00:37] LABS: APTT (PATIENT) 50.3 SEC (24.3-30.1)
[2016-08-30] MEDS: ACETAMINOPHEN/HYDROcodone 325 MG/5 MG TAB PO PRN ×2 (08:06→20:51)
--- NOTE | 2016-08-30 10:40 | RADRPT ---
EXAM DATE/TIME: 08/29/2016 14:58 [facility] COMPARISON: No previous studies available for comparison. INDICATIONS : Patient with gangrene of left foot in need of angiogram with interventions. MEDICAL HISTORY : Left foot gangrene Asthma HTN CAD COPD HX of right leg DVT HX of PE SURGICAL HISTORY : Limb salvaging SFA-dordalis pedis bypass 05/17 Amputation left first, second toes Appendectomy Cholecystectomy Rt hip repair 2002 ENCOUNTER: Initial ACUITY: 4-6 months PAIN SCORE: 8/10 LOCATION: Left foot FLUORO TIME: 32.8 minutes IMAGE SERIES: 24 ACCESS SITE: Right Femoral artery SEDATION TIME: 90 minutes CONTRAST: 1.) 150 cc Visipaque (iodixanol) MEDICATION(S): 1.) 5 mg midazolam (Versed) IV 2.) 250 mcg fentanyl (Sublimaze) IV DEVICE(S): 1.) Left popliteal artery 5.0mm X 20mm PRESS OPERATOR HELPER balloon 5.0mm X 20mm Theatre Arts Professor 2.) Left SFA-dorsalis pedis bypass PRESS OPERATOR HELPER balloon 2.5mm X 20mm Roland 3.) Right common femoral artery Perclose 6FR PROCEDURE : 1. Ultrasound-guided puncture of the access site. 2. Angiography of the access site prior to closure device. 3. Conscious sedation with continuous EKG and Oximetry monitoring. 4. Percutaneous closure of the access site. 5. Angiography of the left popliteal-dorsalis pedis bypass graft. 6. balloon angioplasty, distal above-knee popliteal 7. balloon angioplasty, popliteal-dorsalis pedis bypass graft The risks, benefits and alternatives to the procedure were explained and verbal and written consent w as obtained. The site was prepped in sterile fashion. Full sterile technique was used, including ca p, mask, sterile gloves and gown and a large sterile sheet. Hand hygiene and 2% chlorhexidine and/or betadine/alcohol prep was utilized per protocol for cutaneous antisepsis. The skin and subcutaneous tissues were infiltrated with local anesthetic solution. With ultrasound and fluoroscopic guidance the selected artery was punctured and a vascular sheath was placed. Angiography of the common femoral artery was performed for evaluation prior to percutaneous closure device placement. An Omni Flush catheter was utilized to select the contralateral iliac system. Contrast injection show ed the distal common and external iliac to be patent. The profunda and SFA were also patent with some calcification of the latter but no significant stenosis. SFA remains patent down to the popliteal. O ff the above-knee popliteal, there is a very small, 2-3 mm bypass graft which tracked medially along the lower leg and anastomosis 2 small full threaded vessels in the region of the dorsalis pedis. The graft is patent there appear to be a moderately severe stenosis in the proximal bypass. Also noted wi th severe atherosclerotic irregularity and significant stenosis in the above-knee popliteal which fed small collateral vessels in the upper calf. We initially traversed the above-knee popliteal and balloon angioplasty the stenotic area to 5 mm wit h an excellent angiographic result. Attempted to traverse the popliteal vascular [place] bypass gra ft with a hockey-stick catheter and angle Glidewire but became subintimal in the region of the stenos is. Eventually was able to reestablish an intraluminal path and the stenotic area was ballooned angio plastied to 2.5 mm again, with an excellent angiographic result. The graft remained patent in the kinga t. At the termination of the procedure, there was a strong palpable pulse in the distribution of the dorsalis pedis. Hemostasis was obtained with the prescribed medicated closure device. Conscious sedation was perform ed with the prescribed dosages and duration as above in the presence of an independent trained radiol ogy nurse to assist in the monitoring of the patient. EKG and oximetry remained stable throughout th e procedure. CONCLUSION: 1. High grade stenosis in the [place] above-knee popliteal. This was successfully balloon angioplastie d to 5 mm. 2. Focal high-grade stenosis in the proximal popliteal-dorsalis pedis bypass graft successfully ballo on angioplastied to 2.5 mm with a good angiographic result. 3. Otherwise, inflow is patent. The bypass graft terminates in small threadlike vessels of the foot i n the region of the dorsalis pedis but does remain patent. Giovanni Phan MD on August 30, 2016 at 9:28 Board Certified Radiologist. This report was verified electronically.
[2016-08-30 12:00] LABS: APTT (PATIENT) 55.3 SEC (24.3-30.1)
--- NOTE | 2016-08-30 14:23 | EKG ---
Date Performed: 08/29/2016 Time Performed: 12:11:48 PTAGE: 71 years EKG: Sinus rhythm . Possible sequence error: V2,V3 omitted Leftward axis Anterolateral T wave changes may be due to flores cardial ischemia Q-waves noted v1-v3, cannot rule out injury, age undetermined No significant change since prior tracing Abnormal ECG PREVIOUS TRACING : 05/14/2016 11.54 DOCTOR: Juan Luis Beach Interpretating Date/Time 08/30/2016 14:23:11
[2016-08-30] MEDS ORDERED: DILTIAZEM 125 MG/NS 100 ML IV SCH ×2 (22:00)
[2016-08-30 22:17] LABS: HEMATOCRIT 37.7 % (35.0-46.0)
[2016-08-31] VITALS (23 sets, daily range): BP systolic 105–119; BP diastolic 62–75; PULSE 58–84; RESP 18–20; TEMP 98–98.5; O2SAT 95–98
[2016-08-31] MEDS: ACETAMINOPHEN/HYDROcodone 325 MG/5 MG TAB PO PRN ×6 (01:41→23:03)
[2016-08-31 05:38] LABS: APTT (PATIENT) 57.4 SEC (24.3-30.1)
--- NOTE | 2016-08-31 15:01 | EKG ---
Date Performed: 08/30/2016 Time Performed: 21:39:56 PTAGE: 71 years EKG: Underlying Sinus rhythm with a rate of 80-85 with runs of PACs of usually five or more in a row with a heart rate of around 135-140. There is some aberrant conduction intermittently. Nonspecific ST-T change Incomplete right b undle branch block Overall axis borderline leftward Since PREVIOUS TRACING 08/29/2016, the supraventricular arrhythmia is new. ST-T changes mery laterally are slightly improved. Clinical correlation is recommended. PREVIOUS TRACIN08/29/2016 12 .11 DOCTOR: Catracho Mcdonnell Interpretating Date/Time 08/31/2016 14:59:53
[2016-08-31] MEDS ORDERED: ASPIRIN 81 MG CHEW TAB CHEW ONE (15:15)
[2016-08-31] MEDS ORDERED: ASPIRIN EC 81 MG TABEC PO ONE ×2 (15:15→16:30)
[2016-08-31] MEDS ORDERED: DILTIAZEM 125 MG/NS 100 ML IV SCH ×4 (15:15→16:30)
[2016-08-31] MEDS: ENOXAPARIN SODIUM 30 MG/0.3 ML SYRINGE SQ SCH (18:00)
[2016-08-31] MEDS: MUPIROCIN 2% OINT 22 GM TUBE TOPICAL SCH (18:00)
[2016-09-01] VITALS (23 sets, daily range): BP systolic 104–148; BP diastolic 58–84; PULSE 54–80; RESP 18–20; TEMP 98–98.3; O2SAT 93–98
[2016-09-01] MEDS: MUPIROCIN 2% OINT 22 GM TUBE TOPICAL SCH ×2 (05:30→18:00)
[2016-09-01] MEDS: ENOXAPARIN SODIUM 30 MG/0.3 ML SYRINGE SQ SCH ×2 (05:30→18:00)
[2016-09-01 05:46] LABS: HEMATOCRIT 34.6 % (35.0-46.0); MEAN CELL VOLUME 90.7 FL (80.0-100.0); MEAN CORPUSCULAR HEMOGLOBIN 31.9 PG (27.0-34.0); MEAN CORPUSCULAR HGB CONC 35.2 % (32.0-36.0); PLATELET COUNT 431 TH/MM3 (150-450); RED BLOOD COUNT 3.81 MIL/MM3 (4.00-5.30); RED CELL DISTRIBUTION WIDTH 13.6 % (11.6-17.2); REVIEW FLAG FINAL; WHITE BLOOD COUNT 9.1 TH/MM3 (4.0-11.0)
[2016-09-01 05:54] LABS: APTT (PATIENT) 27.8 SEC (24.3-30.1)
[2016-09-01] MEDS: ACETAMINOPHEN/HYDROcodone 325 MG/5 MG TAB PO PRN ×4 (07:56→21:13)
[2016-09-01] MEDS: ASPIRIN EC 81 MG TABEC PO SCH (07:56)
[2016-09-01] MEDS ORDERED: ASPIRIN EC 81 MG TABEC PO SCH (09:00)
[2016-09-02] VITALS (25 sets, daily range): BP systolic 112–136; BP diastolic 68–76; PULSE 52–88; RESP 18–20; TEMP 97.9–98.6; O2SAT 96–98
[2016-09-02] MEDS: MUPIROCIN 2% OINT 22 GM TUBE TOPICAL SCH ×2 (05:12→18:00)
[2016-09-02] MEDS: ENOXAPARIN SODIUM 30 MG/0.3 ML SYRINGE SQ SCH (05:12)
[2016-09-02 07:06] LABS: APTT (PATIENT) 28.3 SEC (24.3-30.1)
[2016-09-02] MEDS: ACETAMINOPHEN/HYDROcodone 325 MG/5 MG TAB PO PRN ×3 (10:16→22:54)
[2016-09-02] MEDS: ASPIRIN EC 81 MG TABEC PO SCH (10:16)
[2016-09-02] MEDS ORDERED: PROPOFOL 200 MG/20 ML AMP IV ONE (10:39)
[2016-09-02] MEDS ORDERED: ONDANSETRON HCL 4 MG/2 ML VIAL IV PUSH ONE (10:39)
[2016-09-02] MEDS ORDERED: BUPIVACAINE/EPINEPHRINE 0.5% PF 30 ML VIAL ONE (13:59)
[2016-09-02] MEDS ORDERED: SODIUM CHLOR 0.9% 250 ML INJ 250 ML ONE (15:33)
[2016-09-02] MEDS ORDERED: VANCOMYCIN HCL 1000 MG VIAL ONE (15:33)
[2016-09-02] MEDS ORDERED: DO NOT ADM ANY ANTICOAGULANT DRUGS PRN (16:10)
[2016-09-02] MEDS ORDERED: ENOXAPARIN SODIUM 30 MG/0.3 ML SYRINGE SQ SCH (18:00)
[2016-09-02] MEDS: MORPHINE SULFATE 4 MG/ML INJ IV PUSH PRN (21:28)
[2016-09-03] VITALS (26 sets, daily range): BP systolic 61–151; BP diastolic 39–81; PULSE 64–162; RESP 18–22; TEMP 97–98.6; O2SAT 95–100
[2016-09-03 00:37] LABS: REVIEW FLAG FINAL
[2016-09-03] MEDS ORDERED: DILTIAZEM 125 MG/NS 100 ML IV SCH ×2 (01:30)
[2016-09-03] MEDS ORDERED: SODIUM CHLORID 0.9% 500 ML INJ 500 ML IV ONE (01:30)
[2016-09-03] MEDS ORDERED: DIGOXIN 0.5 MG/2 ML VIAL IV PUSH ONE (05:45)
--- NOTE | 2016-09-03 05:46 | PD.CONS ---
HPI Service Critical Care Medicine Consult Requested By Primary Care Physician No Primary Care Physician History of Present Illness 71-year-old very pleasant female with history of severe peripheral vascular disease status post femoral bypass surgery, never smoked history of asthma per patient some emphysema, she underwent left transmetatarsal amputation due to demarcated ischemic gangrene of the left third toe metatarsophalangeal joint and ischemic necrosis of the left forefoot. She was on [facility] floor where she had multiple episodes of SVTs with low blood pressure. She'll resume the responded well to IV fluids however due to multiple relapses of SVT with hypotension she was transferred to ICU for high level of care. Review of Systems Constitutional: DENIES: Diaphoretic episodes, Fatigue, Fever, Weight gain, Weight loss, Chills, Dizziness, Change in appetite, Night Sweats Endocrine: DENIES: Abnorml menstrual pattern, Heat/cold intolerance, Polydipsia , Polyuria, Polyphagia Eyes: DENIES: Blurred vision, Diplopia, Eye inflammation, Eye pain, Vision loss , Photosensitivity, Double Vision Ears, nose, mouth, throat: DENIES: Tinnitus, Hearing loss, Vertigo, Nasal discharge, Oral lesions, Throat pain, Hoarseness, Ear Pain, Running Nose, Epistaxis, Sinus Pain, Toothache, Odynophagia Respiratory: DENIES: Apneas, Cough, Snoring, Wheezing, Hemoptysis, Sputum production, Shortness of breath Cardiovascular: DENIES: Chest pain, Palpitations, Syncope, Dyspnea on Exertion , PND, Lower Extremity Edema, Orthopnea, Claudication Gastrointestinal: DENIES: Abdominal pain, Black stools, Bloody stools, Constipation, Diarrhea, Nausea, Vomiting, Difficulty Swallowing, Anorexia Genitourinary: DENIES: Abnormal vaginal bleeding, Dysmenorrhea, Dyspareunia, Sexual dysfunction, Urinary frequency, Urinary incontinence, Urgency, Hematuria , Dysuria, Nocturia, Vaginal discharge Past Family Social History Allergies: Coded Allergies: No Known Allergies (Verified , 05/14/16) Past Medical History Peripheral vascular disease Asthma Emphysema Past Surgical History Appendectomy Cholecystectomy Femoral bypass Now status post left transmetatarsal amputation Reported Medications Reported Meds & Active Scripts Active Reported Hydrocodone-Acetaminophen 7.5-325 mg Tab 1 Tab PO Q6H PRN Tylenol (Acetaminophen) 325 Mg Tab 650 Mg PO Q6H PRN Plavix (Clopidogrel Bisulfate) 75 Mg Tab 75 Mg PO DAILY Atorvastatin (Atorvastatin Calcium) 20 Mg Tab 20 Mg PO DAILY Active Ordered Medications Current Medications Medications (Trade) Dose Ordered Sig/Miguel Route PRN Reason Start Time Stop Time Status Last Admin Dose Admin Acetaminophen/ Hydrocodone Bitart (Deary 5-325 Mg) 1 tab Q4H PRN PO PAIN 1-10 08/29/16 12:45 09/02/16 22:54 Aspirin (Ecotrin Ec) 81 mg DAILY PO 09/01/16 09:00 09/02/16 10:16 Mupirocin (Bactroban 2% Oint) 1 applic BID@06,18 TOPICAL 08/31/16 18:00 09/01/16 18:00 Miscellaneous Information ALL NURSING DEPARTME... UNSCH PRN .XX SEE LABEL COMMENTS 09/02/16 16:10 09/03/16 16:09 Enoxaparin Sodium (Lovenox Inj) 30 mg Q12H SQ 09/02/16 18:00 09/02/16 18:14 Morphine Sulfate 2 mg 2 mg Q1H PRN IV PUSH BREAKTHROUGH PAIN 6-09/02/16 21:30 09/02/16 21:28 Diltiazem HCl 125 mg/Sodium Chloride 125 ml @ 0 mls/hr TITRATE IV 09/03/16 01:30 Sodium Chloride 1,000 ml @ 125 mls/hr Q8H IV 09/03/16 06:00 Sodium Chloride (NS 1000 ml Inj) 1,000 ml @ 0 mls/hr BOLUS ONCE IV 09/03/16 06:00 09/03/16 06:01 Family History Noncontributory Social History Never smoked Drinks one beer per day No illicit drug abuse Physical Exam Vital Signs Vital Signs Date Time Temp Pulse Resp B/P Pulse Ox O2 Delivery O2 Flow Rate FiO2 09/03/16 04:35 112/75 09/03/16 04:15 128 09/03/16 04:13 61/39 09/03/16 04:00 102 09/03/16 03:00 96 09/03/16 03:00 97.9 97 18 81/55 98 09/03/16 02:00 94 09/03/16 01:30 100/68 09/03/16 01:16 80/63 09/03/16 01:00 162 09/03/16 00:46 89/57 09/03/16 00:45 158 09/03/16 00:30 144 09/03/16 00:00 99 09/03/16 00:00 98.6 107 18 118/76 98 09/02/16 23:00 88 09/02/16 22:00 74 09/02/16 21:00 21 09/02/16 21:00 84 09/02/16 20:00 62 09/02/16 20:00 98.2 65 18 112/70 98 09/02/16 19:15 Room Air 09/02/16 19:00 66 09/02/16 18:01 62 09/02/16 17:08 57 09/02/16 16:45 97.7 49 14 128/65 100 Room Air 09/02/16 16:30 48 12 129/67 100 Nasal Cannula 3 09/02/16 16:15 55 18 118/62 100 Nasal Cannula 3 09/02/16 16:10 97.5 63 22 107/61 100 Nasal Cannula 3 09/02/16 16:01 98.6 54 18 136/75 98 09/02/16 14:00 66 09/02/16 13:00 54 09/02/16 12:00 54 09/02/16 11:45 98.5 62 18 119/68 97 09/02/16 11:30 18 09/02/16 11:00 65 09/02/16 10:00 70 09/02/16 09:00 66 09/02/16 08:45 97 Room Air 09/02/16 08:45 98.6 88 18 122/76 97 09/02/16 08:00 60 09/02/16 07:01 52 09/02/16 06:00 58 Laboratory Laboratory Tests Test 09/03/16 00:28 Hemoglobin 11.5 Hematocrit 35.0 Result Diagram: 09/03/16 0028 Assessment and Plan Assessment and Plan Paroxysmal atrial fibrillation - Admit to ICU - Telemetry - Digoxin - H&H stat to rule out anemia as a underlying source - IV fluid bolus - No anticoagulation due to blood oozing from the left foot after amputation Hypotension - H&H stat - IV fluid bolus - Rate control History of asthma - DuoNeb's - Chest x-ray - O2 nasal cannula to keep sat above 92 - BiPAP when necessary Demarcated ischemic gangrene of the left third toe with ischemic necrosis of left forefoot - Status post transmetatarsal amputation - Management per vascular surgeon DVT GI prophylaxis Teds SCDs - No chemical pharmacological prophylaxis at this time due to bloody oozing - Pepcid Critical Care: The total critical care time was 35 minutes. Time to perform other separately billable procedures was not included in the critical care time. Nba Schwartz MD Sep 03, 2016 05:46
[2016-09-03] MEDS ORDERED: SODIUM CHLOR 0.9% 1000 ML INJ 1,000 ML IV ONE (06:00)
[2016-09-03] MEDS: MUPIROCIN 2% OINT 22 GM TUBE TOPICAL SCH ×2 (06:00→18:00)
[2016-09-03] MEDS: SODIUM CHLOR 0.9% 1000 ML INJ 1,000 ML IV SCH ×6 (06:00→22:07)
[2016-09-03 06:02] LABS: BASOPHIL # 0.1 TH/MM3 (0-0.2); BASOPHIL % 0.6 % (0.0-2.0); EOSINOPHIL # 0.1 TH/MM3 (0-0.4); EOSINOPHIL % 0.3 % (0.0-4.0); HEMATOCRIT 28.8 % (35.0-46.0); HEMO FLAGS DIFF FINAL; LYMPH % 17.7 % (9.0-44.0); LYMPHOCYTE # 2.8 TH/MM3 (1.0-4.8); MEAN CELL VOLUME 92.1 FL (80.0-100.0); MEAN CORPUSCULAR HEMOGLOBIN 30.3 PG (27.0-34.0); MEAN CORPUSCULAR HGB CONC 32.9 % (32.0-36.0); MONO % 4.8 % (0.0-8.0); NEUT % 76.6 % (16.0-70.0); PLATELET COUNT 485 TH/MM3 (150-450); RED BLOOD COUNT 3.12 MIL/MM3 (4.00-5.30); RED CELL DISTRIBUTION WIDTH 13.6 % (11.6-17.2); WHITE BLOOD COUNT 15.6 TH/MM3 (4.0-11.0)
[2016-09-03] MEDS ORDERED: LACTULOSE SYRUP 20 GM/30 ML CUP PO PRN (06:15)
[2016-09-03] MEDS ORDERED: SODIUM CHLORIDE 0.9% FLUSH 10 ML FLUSH PRN (06:15)
[2016-09-03] MEDS ORDERED: RESP: ALBUTEROL 2.5 MG/IPRATROPIUM 0.5 MG NEB (PRN) INH (06:15)
[2016-09-03] MEDS ORDERED: CHLORHEXIDINE GLUCONATE 2 % 1 PACK (2 CLOTHS) TOP PRN (06:15)
[2016-09-03] MEDS ORDERED: BISACODYL 10 MG SUPP RECTAL PRN (06:15)
[2016-09-03] MEDS ORDERED: ACETAMINOPHEN 325 MG TAB PO PRN (06:15)
[2016-09-03] MEDS ORDERED: MISCELLANEOUS NURSING INFORMATION XX SCH (06:15)
[2016-09-03] MEDS ORDERED: ZOLPIDEM TARTRATE 5 MG TAB PO PRN (06:15)
[2016-09-03] MEDS ORDERED: SENNOSIDES 8.6 MG TAB PO PRN (06:15)
[2016-09-03] MEDS ORDERED: MAGNESIUM HYDROXIDE SUSP 30 ML CUP PO PRN (06:15)
[2016-09-03 06:28] LABS: APTT (PATIENT) 25.6 SEC (24.3-30.1)
[2016-09-03] MEDS ORDERED: TERBUTALINE INJ 1 MG/ML AMP SQ PRN (06:30)
[2016-09-03] MEDS ORDERED: ETOMIDATE 40 MG/20 ML VIAL IV PUSH ONE (06:30)
[2016-09-03] MEDS ORDERED: PHENYLEPHRINE INJ 160 MG in DEXTROSE 5% IN WATE 500 ML INJ 484 ML IV SCH ×2 (06:30)
[2016-09-03] MEDS ORDERED: ROCURONIUM INJ 100 MG/10 ML VIAL IV ONE (06:30)
[2016-09-03 06:39] LABS: POTASSIUM 4.9 MEQ/L (3.5-5.1)
[2016-09-03 06:40] LABS: BICARBONATE 24.5 MEQ/L (21.0-32.0)
--- NOTE | 2016-09-03 06:55 | RADRPT ---
EXAM DATE/TIME: 09/03/2016 06:33 [facility] COMPARISON: CHEST SINGLE AP, April 18, 2016, 15:57. INDICATIONS : Shortness of breath. MEDICAL HISTORY : Chronic obstructive pulmonary disease. asthma. SURGICAL HISTORY : None. ENCOUNTER: Subsequent ACUITY: 1 week PAIN SCORE: 0/10 LOCATION: Bilateral chest FINDINGS: A single view of the chest demonstrates the lungs to be symmetrically aerated without evidence of mas s, infiltrate or effusion. The cardiomediastinal contours are unremarkable. Osseous structures are intact. CONCLUSION: Normal examination. Stable healed fractures of the proximal right humerus Balwinder Salomon MD on September 03, 2016 at 6:54 Board Certified Radiologist. This report was verified electronically.
[2016-09-03 07:15] LABS: MAGNESIUM 2.2 MG/DL (1.5-2.5)
[2016-09-03 07:32] LABS: PROTHROMBIN TIME - PATIENT 10.9 SEC (9.8-11.6)
[2016-09-03] MEDS: RESP: ALBUTEROL 2.5 MG/IPRATROPIUM 0.5 MG NEB (SCH) INH ×5 (08:00→23:52)
--- NOTE | 2016-09-03 08:26 | PD.PROCEDR ---
Central Line Procedure REASON FOR PROCEDURE Central venous access PROCEDURE PERFORMED Central line placement: Left IJ CVL CONSENT Informed consent for procedure was obtained from competent patient. The risks and benefits of the procedure were discussed to include but limited to bleeding , clot formation, infection, and even . ANESTHESIA Local injection of 1% Lidocaine DESCRIPTION OF THE PROCEDURE The patient was placed in supine, mild Trendelenburg position. The area was exposed and cleansed with ChloraPrep, times two. Large sterile drape was used to cover the patient, with the site exposed, under sterile conditions including cap, face mask, sterile gown, and sterile gloves. On single attempt, the introducer needle was inserted with negative pressure in syringe and venous flash was obtained. The guide wire was then advanced without any restriction and the needle was removed. The dilator was used without any complications. Using Seldinger technique the triple-lumen antibiotic-coated catheter was advanced over the guide wire to a depth of 20 centimeters. The guide wire was removed. All ports were aspirated with dark venous blood return and flushed easily with sterile saline. All ports were capped. Antibiotic disc was placed around central line at puncture site. The central line was secured to the skin with two interrupted 2.0 silk sutures. The area was bandaged with sterile see- through central line bandage. RADIOLOGICAL DATA Ultrasound guidance was used to locate left internal jugular vein. Doppler/ color flow was used to confirm venous flow. COMPLICATIONS: No apparent complications ESTIMATED BLOOD LOSS: Less than 1 cc. Vince Subramanian MD Sep 03, 2016 08:26
[2016-09-03] MEDS ORDERED: RESP: ALBUTEROL 2.5 MG/3 ML NEB (PRN) NEB (08:30)
[2016-09-03] MEDS ORDERED: SODIUM CHLORIDE 0.9% FLUSH 10 ML FLUSH IVF PRN (08:30)
--- NOTE | 2016-09-03 08:46 | HHI.CCPN ---
Subjective Remarks/Hospital Course 71-year-old very pleasant female with history of severe peripheral vascular disease status post femoral bypass surgery, never smoked history of asthma per patient some emphysema, she underwent left transmetatarsal amputation due to demarcated ischemic gangrene of the left third toe metatarsophalangeal joint and ischemic necrosis of the left forefoot. She was on [facility] floor where she had multiple episodes of SVTs with low blood pressure. She'll resume the responded well to IV fluids however due to multiple relapses of SVT with hypotension she was transferred to ICU for high level of care. Subjective 09/03: Discussed with Dr. Johnson. Discussed with Dr. Jackson. Discussed with patient. Denies chest pain. Remains in A. fib with RVR and relative hypotension. Graft remains intact with good perfusion. Central line placed. Not shortness of breath on BiPAP. Will remove after ABG and see responds. Per chest x-ray revealed no acute cardio pulmonary findings. Objective Vital Signs Date Time Temp Pulse Resp B/P Pulse Ox O2 Delivery O2 Flow Rate FiO2 09/03/16 05:10 95 40 09/03/16 04:35 112/75 09/03/16 04:15 128 09/03/16 03:00 97.9 18 09/02/16 19:15 Room Air 09/02/16 16:30 3 Intake and Output 09/02/16 09/02/16 09/03/16 08:00 16:00 00:00 Intake Total 490 ml 590 ml Output Total 750 ml 305 ml Balance -260 ml 285 ml Result Diagram: 09/03/16 0544 09/03/16 0544 Imaging Last Impressions Chest X-Ray 09/03/16 0000 Signed Impressions: Service Date/Time: Saturday, September 03, 2016 06:33 - CONCLUSION: Normal examination. Stable healed fractures of the proximal right humerus Balwinder Salomon MD Lower Extremity Angiography 08/29/16 0000 Signed Impressions: Service Date/Time: August 14:58 - CONCLUSION: 1. High grade stenosis in the holy cross above-knee popliteal. This was successfully balloon angioplastied to 5 mm. 2. Focal high-grade stenosis in the proximal popliteal-dorsalis pedis bypass graft successfully balloon angioplastied to 2.5 mm with a good angiographic result. 3. Otherwise, inflow is patent. The bypass graft terminates in small threadlike vessels of the foot in the region of the dorsalis pedis but does remain patent. Giovanni Phan MD Objective Remarks GENERAL: 71-year-old female, critically ill currently resting in bed on BiPAP SKIN: Warm and dry. See muscle skeletal HEAD: Atraumatic. Normocephalic. EYES: Pupils equal and round around 3 Olivia's bilaterally and reactive. No scleral icterus. No injection or drainage. ENT: No nasal bleeding or discharge. Poor dentition Mucous membranes pink and dry. Oropharynx without erythema NECK: Trachea midline. No JVD. Supple. No thyromegaly CARDIOVASCULAR: Tachycardia, IR. S1, S2 no S4 without murmur RESPIRATORY: Essentially clear to auscultation without wheezes GASTROINTESTINAL: Abdomen soft, non-tender, nondistended. I Hernández bowel sounds MUSCULOSKELETAL: Patent anterior tibial graft left lower extremity. Warm and perfused with oozing granulation tissue NEUROLOGICAL: Awake and alert. No obvious cranial nerve deficits. Motor grossly within normal limits. Five out of 5 muscle strength in the arms and legs. Normal speech. Urinary Catheter: Yes Assessment to: Continue Mack insert reason: Prolonged Immobilization Vascular Central Line Catheter: Yes Assessment to: Continue Date of Insertion: Sep 03, 2016 Line: Central Venous Catheter Side: Left Location: Internal, Jugular A/P Assessment and Plan Neuro/Psych: Anxiety disorder [place] Acetaminophen for fever [place]/Morphine as needed for pain management CV: ST elevation in leads V2 through V4 Postop day #1 left third toe transmetatarsal amputation secondary ischemic gangrene/Dr. Johnson History of left infrapopliteal anterior tibial bypass History of first/second toe amputation secondary to gangrene Coronary artery disease Peripheral vascular disease Peripheral arterial disease Discussed with Dr. Johnson - kelli for heparin drip Discussed with Dr. Jackson - currently on aspirin/atorvastatin 20 mg daily for dyslipidemia and heparin drip Rate control important. 1 dose Lopressor iv now and start Cardizem drip with Johnathan-Synephrine for vasopressors support if needed Serial troponins Check echocardiogram Postoperative cares per Dr. Johnson Resp: Acute hypoxemic respiratory failure History of COPD/asthma? PFTs in past revealed restrictive lung disease? Currently on duo nebs every 4 hours with albuterol every 2 hours when necessary dyspnea Oxygen to maintain saturations greater than equal to 92%. Currently on BiPAP hopefully will wean off after ABG Incentive spirometry while awake Chest x-ray reveals no acute cardiopulmonary findings. ABG pending GI: Currently nothing by mouth medications Pepcid for GI prophylaxis Eryn-Colace for bowel regimen : Mack catheter will be placed for accurate I's nose any critically ill patient Endo: Sliding-scale insulin if indicated to maintain euglycemia Check TSH with A. fib with RVR Renal: Creatinine currently within normal limits Accurate I's and O's Monitor urine output Heme: Leukocytosis Normocytic anemia Serial hemoglobins every 6 hours Transfuse 1 unit. She is currently at 9.5 ID: Monitor for infection MSK: History gangrene left lower extremity Postop care per Dr. Johnson. Keep left lower extremity elevated. Do not occlude left anterior tibial graft graft FEN: Replace electrolytes as clinically indicated Access - Left IJ CVL day 1 placed 09/03 Prophylaxis - GI - Pepcid - DVT - SCD/heparin drip (okayed with Dr. Johnson) Critical Care: The total critical care time was 35 minutes. Time to perform other separately billable procedures was not included in the critical care time. Vince Subramanian MD Sep 03, 2016 08:46
[2016-09-03] MEDS: ASPIRIN EC 81 MG TABEC PO SCH (09:00)
[2016-09-03] MEDS ORDERED: METOPROLOL TARTRATE 5 MG/5 ML VIAL IV PUSH ONE (09:00)
[2016-09-03] MEDS: FAMOTIDINE 20 MG TAB PO SCH ×2 (09:00→20:45)
[2016-09-03] MEDS ORDERED: DILTIAZEM INJ 125 MG in SODIUM CHLORIDE 0.9% INJ 100 ML IV SCH (09:00)
[2016-09-03] MEDS ORDERED: DILTIAZEM HCL 25 MG/5 ML VIAL IVP ONE (09:00)
[2016-09-03] MEDS: DOCUSATE SODIUM 50 MG/SENNA 8.6 MG TAB PO SCH ×2 (09:00→20:45)
[2016-09-03] MEDS: SODIUM CHLORIDE 0.9% FLUSH 10 ML FLUSH IVF SCH (09:00)
--- NOTE | 2016-09-03 09:37 | RADRPT ---
EXAM DATE/TIME: 09/03/2016 08:26 [facility] COMPARISON: CHEST SINGLE AP, September 03, 2016, 6:33. INDICATIONS : Central line placement. MEDICAL HISTORY : Left foot gangrene SURGICAL HISTORY : Limb salvaging SFA-dordalis pedis bypass 05/17 ENCOUNTER: Subsequent ACUITY: 4 - 6 days PAIN SCORE: 0/10 LOCATION: Bilateral chest FINDINGS: Interval placement of left internal jugular central venous catheter with tip near the atrial junction . No pneumothorax. No significant new pleural or parenchymal opacities. Cardiomedial contours are sta ble. Redemonstration of right humeral fracture. Remainder of the exam is unchanged. CONCLUSION: 1. Left IJ central line in good position. No pneumothorax. Caio Cuellar MD on September 03, 2016 at 9:34 Board Certified Radiologist. This report was verified electronically.
[2016-09-03 09:41] LABS: HEMATOCRIT 23.6 % (35.0-46.0); MEAN CELL VOLUME 92.5 FL (80.0-100.0); MEAN CORPUSCULAR HEMOGLOBIN 30.2 PG (27.0-34.0); MEAN CORPUSCULAR HGB CONC 32.6 % (32.0-36.0); PLATELET COUNT 390 TH/MM3 (150-450); RED BLOOD COUNT 2.55 MIL/MM3 (4.00-5.30); RED CELL DISTRIBUTION WIDTH 13.4 % (11.6-17.2); REVIEW FLAG FINAL; WHITE BLOOD COUNT 13.4 TH/MM3 (4.0-11.0)
[2016-09-03 09:43] LABS: BLOOD GAS BASE EXCESS -4.5 mmol/L (-2-2); BLOOD GAS CARBOXYHEMOGLOBIN 0.4 % (0-4); BLOOD GAS HCO3 20 mmol/L (22-26); BLOOD GAS METHEMOGLOBIN 0.9 % (0-2); BLOOD GAS PCO2 36 mmHg (38-42); BLOOD GAS PO2 164 mmHg (61-120)
[2016-09-03 09:44] LABS: BLOOD GAS O2 HGB SATURATION 98 % (90-100); BLOOD GAS OXYGEN CONTENT 11.1 Vol % (12.0-20.0); BLOOD GAS TOTAL HGB 7.9 G/DL (12.0-16.0); CRITICAL VALUE NO; DRAW SITE RT RADIAL; FIO2 35 %; NUMBER OF ARTERIAL PUNCTURES 1; OXYGEN DEVICE BIPAP; STAT YES; TEMP CORR TO 98.6; ULNAR PULSE PRESENT; VENT SETTINGS IPAP 10/EPAP 5
[2016-09-03 09:50] LABS: APTT (PATIENT) 23.4 SEC (24.3-30.1); PROTHROMBIN TIME - PATIENT 11.2 SEC (9.8-11.6)
[2016-09-03] MEDS: HEPARIN-D5W INJ 250 ML IV SCH (09:59)
[2016-09-03 10:18] LABS: INDIRECT BILIRUBIN 0.1 MG/DL (0.0-0.8); TOTAL BILIRUBIN ADULT 0.2 MG/DL (0.2-1.0)
[2016-09-03] MEDS ORDERED: FUROSEMIDE 20 MG/2 ML VIAL IV PUSH ONE (15:00)
[2016-09-03 18:00] LABS: APTT (PATIENT) 37.4 SEC (24.3-30.1)
--- NOTE | 2016-09-03 19:02 | MB ---
cc: JAIRO CRUZ M.D. DATE OF CONSULTATION 09/03/2016 HISTORY Bernie Rodrigues is a very pleasant 71-year-old lady who underwent transmetatarsal amputation of the left foot. I was called by Dr. Subramanian this morning due to EKG showing a fib with rapid ventricular spots and new ST elevation lead V3. The patient is completely asymptomatic, denying chest pain, denies shortness of breath. We did a stat CK and troponin elevation. There was no significant CK elevation and troponin was mildly elevated. The patient's hemoglobin also dropped very significantly from 12 down to 9 and then a repeat later this morning was down to 7. Currently she is undergoing blood transfusion, appears comfortable. She is actually asleep, easily arousable. Denies chest pain, shortness of breath, fever, chills, cough, GI or bleeding, paroxysmal nocturnal dyspnea, orthopnea, syncope or dizziness. PAST MEDICAL HISTORY As per history of present illness. 1. History of asthma. 2. Emphysema. 3. Appendectomy. 4. Cholecystectomy. 5. Femoral bypass. SOCIAL HISTORY Never smoked. Drinks one beer per day. No illicit drug use. MEDICATIONS 1. Pepcid 20. Q.12h. 2. Eryn-Colace twice a day. 3. Cardizem drip. 4. Albuterol. 5. IV heparin. 6. Aspirin 81 mg a day. PHYSICAL EXAMINATION VITAL SIGNS: Blood pressure 138/66, pulse 74, temperature 98.2, pulse 92. GENERAL: She is alert and oriented times three in no acute distress. NECK: Supple. No JVD, no bruit. CARDIOVASCULAR: S1-S2. No murmurs, rubs or gallops. LUNGS: Clear to auscultation bilaterally. ABDOMEN: Soft, nontender, nondistended with positive bowel sounds. EXTREMITIES: No lower extremity edema. IMAGING Chest x-ray no pneumothorax. Normal examination. Stable healed fractures of the proximal right humerus. EKG at 06:15 a.m. showed SVT at a rate of 135 beats per minute. 1-[address]-segment elevation in lead V1, V2, V3. EKG at 07:45 a.m. showed again 1-[address]-segment elevation in lead V1, V2, V3, V4 and SVT at a rate of 148 beats per minute. EKG on 08/30/2016 shows T-wave inversion V1, V2, V3 with biphasic T-waves V4, V5, left anterior fascicular block. LABORATORY DATA White count 13.4, hemoglobin 7.7, hematocrit 23.6, platelet count 390. Lactic acid 2.2. Troponin is 0.02 followed by 0.10. CK is 102, followed by 41. TSH is 1.380. INR is 1.0. Blood gas pH 7.36, pCO2 36, pO2 164 on 35% BiPap. DIAGNOSES She has the following diagnoses: 1. Non ST-elevation myocardial infarction. 2. Anemia. 3. Elevated white count. 4. Profound hypotension. 5. Lactic acidosis. 6. Peripheral vascular disease. 7. SVT. DISCUSSION At this point in time I doubt the patient is actually having a STEMI although her EKG does suggest at baseline she has ischemia in the LAD distribution. I agree that the repeat EKGs definitely were concerning for ST-elevation however, the patient is completely asymptomatic with negative serial troponin and CK. I do think she should have another CK and troponin checked. Due to her precipitous drop in hemoglobin and also given the fact that she is asymptomatic, it is reasonable to treat her medically in the short run. I have recommended transfusion with 3 units of blood to keep the hemoglobin greater than 10. She is being treated with a Cardizem drip for the SVT. Obviously we will need to monitor her CBC. I suspect her troponin elevation was probably more likely due to severe hypotension, pressure was documented to be in the 60s systolic. Recommend continued supportive care and again will continue to follow. MD OSMAN Lowry/KK /4:20 PM /6:36 PM
[2016-09-03] MEDS: SODIUM CHLORIDE 0.9% FLUSH 10 ML FLUSH SCH ×2 (20:45→23:05)
--- NOTE | 2016-09-03 22:36 | MP ---
cc: WANDA JOHNSON DATE OF SURGERY 09/03/16 PREOPERATIVE DIAGNOSIS Demarcated ischemic necrosis left third toe, left forefoot status post re-establishment of left femoral dorsalis pedis bypass patency. POSTOPERATIVE DIAGNOSIS Demarcated ischemic necrosis left third toe, left forefoot status post re-establishment of left femoral dorsalis pedis bypass patency. OPERATIVE PROCEDURE Transmetatarsal amputation left third toe, debridement demarcated ischemic necrosis distal left forefoot. SURGEON Michelle Johnson MD ANESTHESIA General DESCRIPTION OF PROCEDURE With the patient in the supine position, general anesthesia was induced. The left foot prepped with Betadine, draped in a sterile fashion. One gram of vancomycin was administered intravenously and, following a protocol time-out, left third toe digital block was accomplished at the distal metatarsal level with 1% Xylocaine. The demarcated gangrenous third toe was excised. Dissection was continued along the third metatarsal shaft which was transected at the mid shaft level. Demarcated necrotic tissue along the dorsal and plantar aspects of the third toe were sharply debrided to viable, well-perfused bleeding tissue. The wound was then copiously irrigated with saline. Strict hemostasis was assured. The wound was then dressed with hydrogel, fluff gauze and Jose. There were no operative complications. The patient returned to the recovery room in stable condition having tolerated procedure well. Wanda Johnson MD JTS/ /6:27 PM /10:25 PM
[2016-09-04] VITALS (12 sets, daily range): BP systolic 114–157; BP diastolic 55–74; PULSE 60–83; RESP 12–31; TEMP 98.3–99; O2SAT 97–100
[2016-09-04 01:17] LABS: HEMATOCRIT 33.7 % (35.0-46.0); REVIEW FLAG FINAL
[2016-09-04 01:35] LABS: APTT (PATIENT) 36.8 SEC (24.3-30.1)
[2016-09-04] MEDS: RESP: ALBUTEROL 2.5 MG/IPRATROPIUM 0.5 MG NEB (SCH) INH ×5 (02:56→20:00)
[2016-09-04] MEDS: SODIUM CHLOR 0.9% 1000 ML INJ 1,000 ML IV SCH (06:00)
[2016-09-04] MEDS: MUPIROCIN 2% OINT 22 GM TUBE TOPICAL SCH ×2 (06:00→18:00)
[2016-09-04] MEDS: CHLORHEXIDINE GLUCONATE 2 % 1 PACK (2 CLOTHS) TOP SCH (06:05)
--- NOTE | 2016-09-04 07:01 | EKG ---
Date Performed: 09/03/2016 Time Performed: 00:21:16 PTAGE: 71 years EKG: Sinus tachycardia with aberrantly conducted supraventricular complexes with multifocal PVCs . Septal and lateral ST-T changes are nonspecific Compared to the previous tracing there are runs of probable atrial tachycardia and occasional sinus beats Abnormal ECG PREVIOUS TRACING : 08/30/2016 21.39 DOCTOR: Sandro Case Interpretating Date/Time 09/04/2016 06:59:58
--- NOTE | 2016-09-04 07:01 | EKG ---
Date Performed: 09/03/2016 Time Performed: 06:40:50 PTAGE: 71 years EKG: CONSIDER ACUTE ST ELEVATION [place] Sinus tachycardia with sinus arrhythmia with PVC(s) Anteroseptal ST elevation, CONSIDER ACUTE INFARCT Lateral T wave changes are nonspecific Compared to the previous tracing there is now some ST elevation anteriorly suggesting acute anteroseptal infarcti on Abnormal ECG PREVIOUS TRACING : 08/03/16@00:21 DOCTOR: Sandro Case Interpretating Date/Time 09/04/2016 07:01:29
--- NOTE | 2016-09-04 07:04 | EKG ---
Date Performed: 09/03/2016 Time Performed: 07:45:32 PTAGE: 71 years EKG: Atrial flutter with rapid ventricular response with 2:1 A-V block. Leftward axis Inferior/l ateral ST-T changes are nonspecific Compared to previous tracing there is evidence of an acute mery septal infarction, there may presence of new atrial flutter, clinical correlation strongly recommende d Abnormal ECG PREVIOUS TRACING : 09/03/2016 00.21 DOCTOR: Sandro Case Interpretating Date/Time 09/04/2016 07:03:29
[2016-09-04 07:05] LABS: AUTOMATED NEUTROPHIL # 8.9 TH/MM3 (1.8-7.7); BASOPHIL % 0.3 % (0.0-2.0); EOSINOPHIL # 0.2 TH/MM3 (0-0.4); EOSINOPHIL % 1.6 % (0.0-4.0); HEMATOCRIT 32.1 % (35.0-46.0); HEMO FLAGS DIFF FINAL; LYMPH % 24.7 % (9.0-44.0); LYMPHOCYTE # 3.4 TH/MM3 (1.0-4.8); MEAN CELL VOLUME 90.4 FL (80.0-100.0); MEAN CORPUSCULAR HEMOGLOBIN 30.3 PG (27.0-34.0); MEAN CORPUSCULAR HGB CONC 33.6 % (32.0-36.0); NEUT % 64.4 % (16.0-70.0); PLATELET COUNT 283 TH/MM3 (150-450); RED BLOOD COUNT 3.55 MIL/MM3 (4.00-5.30); RED CELL DISTRIBUTION WIDTH 14.4 % (11.6-17.2); WHITE BLOOD COUNT 13.9 TH/MM3 (4.0-11.0)
[2016-09-04 07:08] LABS: PROTHROMBIN TIME - PATIENT 10.7 SEC (9.8-11.6)
[2016-09-04 07:23] LABS: ALT (GPT) 19 U/L (10-53); ANION GAP 7 MEQ/L (5-15); AST (GOT) 15 U/L (15-37); BICARBONATE 27.5 MEQ/L (21.0-32.0); BLOOD UREA NITROGEN 13 MG/DL (7-18); CHLORIDE 107 MEQ/L (98-107); GLOMERULAR FILTRATION RATE 96 ML/MIN (>89); POTASSIUM 3.6 MEQ/L (3.5-5.1); SODIUM (NA) 141 MEQ/L (136-145)
[2016-09-04 07:26] LABS: ALKALINE PHOSPHATASE 65 U/L (45-117); TOTAL BILIRUBIN ADULT 0.6 MG/DL (0.2-1.0)
[2016-09-04 07:42] LABS: APTT (PATIENT) 41.5 SEC (24.3-30.1)
[2016-09-04] MEDS: DOCUSATE SODIUM 50 MG/SENNA 8.6 MG TAB PO SCH ×2 (09:00→23:51)
[2016-09-04] MEDS: FAMOTIDINE 20 MG TAB PO SCH ×2 (09:49→23:50)
[2016-09-04] MEDS: SODIUM CHLORIDE 0.9% FLUSH 10 ML FLUSH IVF SCH (09:50)
[2016-09-04] MEDS: ASPIRIN EC 81 MG TABEC PO SCH (09:50)
[2016-09-04] MEDS: SODIUM CHLORIDE 0.9% FLUSH 10 ML FLUSH SCH ×2 (09:50→23:50)
[2016-09-04] MEDS: HEPARIN-D5W INJ 250 ML IV SCH (10:00)
[2016-09-04] MEDS: ACETAMINOPHEN/HYDROcodone 325 MG/5 MG TAB PO PRN ×2 (10:03→23:50)
--- NOTE | 2016-09-04 10:29 | HHI.CCPN ---
Subjective Remarks/Hospital Course 71-year-old very pleasant female with history of severe peripheral vascular disease status post femoral bypass surgery, never smoked history of asthma per patient some emphysema, she underwent left transmetatarsal amputation due to demarcated ischemic gangrene of the left third toe metatarsophalangeal joint and ischemic necrosis of the left forefoot. [facility] where she had multiple episodes of SVTs with low blood pressure. She'll resume the responded well to IV fluids however due to multiple relapses of SVT with hypotension she was transferred to ICU for high level of care. 09/03: Discussed with Dr. Johnson. Discussed with Dr. Jackson. Discussed with patient. Denies chest pain. Remains in A. fib with RVR and relative hypotension. Graft remains intact with good perfusion. Central line placed. Not shortness of breath on BiPAP. Will remove after ABG and see responds. Per chest x-ray revealed no acute cardio pulmonary findings. Subjective 09/04: Afebrile. More awake and alert and appropriate. Back in normal sinus rhythm. Graft remains intact some perfusion. Minimal bleeding from her lower extremity dressing site. Objective Vital Signs Date Time Temp Pulse Resp B/P Pulse Ox O2 Delivery O2 Flow Rate FiO2 09/04/16 10:00 83 09/04/16 08:21 98 09/04/16 08:00 98.6 24 157/74 09/04/16 07:00 Nasal Cannula 2.00 09/03/16 05:10 40 Intake and Output 09/03/16 09/03/16 09/04/16 08:00 16:00 00:00 Intake Total 1240 ml 2777 ml 3465 ml Output Total 250 ml 275 ml 2650 ml Balance 990 ml 2502 ml 815 ml Result Diagram: 09/04/16 0626 09/04/16 0626 Imaging Last Impressions Chest X-Ray 09/03/16 0000 Signed Impressions: Service Date/Time: Saturday, September 03, 2016 06:33 - CONCLUSION: Normal examination. Stable healed fractures of the proximal right humerus Balwinder Salomon MD Lower Extremity Angiography 08/29/16 0000 Signed Impressions: Service Date/Time: August 14:58 - CONCLUSION: 1. High grade stenosis in the [place] above-knee popliteal. This was successfully balloon angioplastied to 5 mm. 2. Focal high-grade stenosis in the proximal popliteal-dorsalis pedis bypass graft successfully balloon angioplastied to 2.5 mm with a good angiographic result. 3. Otherwise, inflow is patent. The bypass graft terminates in small threadlike vessels of the foot in the region of the dorsalis pedis but does remain patent. Giovanni Phan MD Objective Remarks GENERAL: 71-year-old female, critically ill currently resting in bed on BiPAP SKIN: Warm and dry. See muscle skeletal HEAD: Atraumatic. Normocephalic. EYES: Pupils equal and round around 3 Olivia's bilaterally and reactive. No scleral icterus. No injection or drainage. ENT: No nasal bleeding or discharge. Poor dentition Mucous membranes pink and dry. Oropharynx without erythema NECK: Trachea midline. No JVD. Supple. No thyromegaly CARDIOVASCULAR: Tachycardia, IR. S1, S2 no S4 without murmur RESPIRATORY: Essentially clear to auscultation without wheezes GASTROINTESTINAL: Abdomen soft, non-tender, nondistended. I Hernández bowel sounds MUSCULOSKELETAL: Patent anterior tibial graft left lower extremity. Warm and perfused with oozing granulation tissue NEUROLOGICAL: Awake and alert. No obvious cranial nerve deficits. Motor grossly within normal limits. Five out of 5 muscle strength in the arms and legs. Normal speech. Date of Insertion: Sep 03, 2016 Line: Central Venous Catheter Side: Left Location: Internal, Jugular A/P Assessment and Plan Neuro/Psych: Anxiety disorder [place] Acetaminophen for fever [place]/Morphine as needed for pain management CV: ST elevation in leads V2 through V4 -likely from hypotension Elevated troponin peaked at 0.36 Postop day #2 left third toe transmetatarsal amputation secondary ischemic gangrene/Dr. Johnson History of left infrapopliteal anterior tibial bypass History of first/second toe amputation secondary to gangrene Coronary artery disease Peripheral vascular disease Peripheral arterial disease Discussed with Dr. Johnson - kelli for heparin drip Discussed with Dr. Jackson - currently on aspirin 81 mg daily/atorvastatin 20 mg daily for dyslipidemia and heparin drip. Following up today Serial troponins peaked at 0.36 Check echocardiogram - completed 09/03. Results pending. Preliminary 35% EF. Postoperative cares per Dr. Johnson Resp: Acute hypoxemic respiratory failure - History of COPD/asthma? PFTs in past revealed restrictive lung disease? Currently on duo nebs every 4 hours with albuterol every 2 hours when necessary dyspnea Oxygen to maintain saturations greater than equal to 92%. Currently on room air Incentive spirometry while awake Chest x-ray reveals no acute cardiopulmonary findings. GI: Currently on healthy diet Pepcid for GI prophylaxis Eryn-Colace for bowel regimen : Mack catheter will be placed for accurate I's and O's in a critically ill patient Endo: Sliding-scale insulin if indicated to maintain euglycemia TSH normal Renal: Creatinine currently within normal limits Accurate I's and O's Monitor urine output Heme: Leukocytosis Normocytic anemia Serial hemoglobins every 6 hours Transfuse 3 unit PRBCs since admission. She is currently at 10.8 ID: Monitor for infection MSK: History gangrene left lower extremity Postop care per Dr. Johnson. Keep left lower extremity elevated. Do not occlude left anterior tibial graft graft FEN: Replace electrolytes as clinically indicated Access - Left IJ CVL day 2 placed 09/03 Prophylaxis - GI - Pepcid - DVT - SCD/heparin drip (okayed with Dr. Johnson) Critical Care: The total care time was 35 minutes. Time to perform other separately billable procedures was not included in the critical care time. Vince Subramanian MD Sep 04, 2016 10:29
[2016-09-04] MEDS ORDERED: POTASSIUM CHLORIDE 10 MEQ CONTROLLED RELEASE TAB PO ONE (15:00)
--- NOTE | 2016-09-04 15:14 | PD.CARD.PN ---
Subjective Subjective Remarks alert in nad Objective Vital Signs / I&O Vital Signs Date Time Temp Pulse Resp B/P Pulse Ox O2 Delivery O2 Flow Rate FiO2 09/04/16 12:00 98.8 61 12 114/56 97 09/04/16 12:00 61 09/04/16 10:00 83 09/04/16 08:21 98 09/04/16 08:00 98.6 60 24 157/74 100 09/04/16 08:00 60 09/04/16 07:00 100 Nasal Cannula 2.00 09/04/16 06:00 60 09/04/16 04:00 64 09/04/16 04:00 98.6 68 17 123/59 100 09/04/16 02:00 69 09/04/16 00:00 69 09/04/16 00:00 99.0 69 19 142/71 100 09/03/16 22:00 81 09/03/16 20:00 98.6 70 20 151/68 100 09/03/16 20:00 100 Nasal Cannula 2.00 09/03/16 20:00 64 09/03/16 19:00 100 Nasal Cannula 2.00 09/03/16 18:00 64 09/03/16 16:00 79 I/O 09/03/16 09/03/16 09/03/16 09/04/16 09/04/16 09/04/16 07:00 15:00 23:00 07:00 15:00 23:00 Intake Total 1240 ml 2777 ml 3465 ml 319 ml Output Total 250 ml 275 ml 2650 ml 200 ml Balance 990 ml 2502 ml 815 ml 119 ml Intake Oral 240 ml 120 ml 238 ml IV Total 1000 ml 2477 ml 3045 ml 81 ml Packed Cells 300 ml 300 ml Output Urine Total 250 ml 275 ml 2650 ml 200 ml # Bowel Movements 0 Laboratory GENERAL: SKIN: Warm and dry. HEAD: Normocephalic. EYES: No scleral icterus. No injection or drainage. NECK: Supple, trachea midline. No JVD or lymphadenopathy. CARDIOVASCULAR: Regular rate and rhythm without murmurs, gallops, or rubs. RESPIRATORY: Breath sounds equal bilaterally. No accessory muscle use. GASTROINTESTINAL: Abdomen soft, non-tender, nondistended. MUSCULOSKELETAL: No cyanosis, or edema. BACK: Nontender without obvious deformity. No CVA tenderness. Laboratory Tests Test 09/03/16 09/03/16 09/04/16 09/04/16 17:30 18:30 00:28 06:26 Activated Partial 37.4 SEC 36.8 SEC 41.5 SEC Thromboplast Time Total Creatine Kinase 73 U/L Troponin I 0.39 NG/ML 0.36 NG/ML Hemoglobin 11.5 GM/DL 10.8 GM/DL Hematocrit 33.7 % 32.1 % White Blood Count 13.9 TH/MM3 Red Blood Count 3.55 MIL/MM3 Mean Corpuscular Volume 90.4 FL Mean Corpuscular Hemoglobin 30.3 PG Mean Corpuscular Hemoglobin 33.6 % Concent Red Cell Distribution Width 14.4 % Platelet Count 283 TH/MM3 Mean Platelet Volume 7.5 FL Neutrophils (%) (Auto) 64.4 % Lymphocytes (%) (Auto) 24.7 % Monocytes (%) (Auto) 9.0 % Eosinophils (%) (Auto) 1.6 % Basophils (%) (Auto) 0.3 % Neutrophils # (Auto) 8.9 TH/MM3 Lymphocytes # (Auto) 3.4 TH/MM3 Monocytes # (Auto) 1.2 TH/MM3 Eosinophils # (Auto) 0.2 TH/MM3 Basophils # (Auto) 0.0 TH/MM3 CBC Comment DIFF FINAL Differential Comment Prothrombin Time 10.7 SEC Prothromb Time International 1.0 RATIO Ratio Sodium Level 141 MEQ/L Potassium Level 3.6 MEQ/L Chloride Level 107 MEQ/L Carbon Dioxide Level 27.5 MEQ/L Anion Gap 7 MEQ/L Blood Urea Nitrogen 13 MG/DL Creatinine 0.61 MG/DL Estimat Glomerular Filtration 96 ML/MIN Rate Random Glucose 121 MG/DL Calcium Level 8.3 MG/DL Phosphorus Level 2.5 MG/DL Magnesium Level 2.0 MG/DL Total Bilirubin 0.6 MG/DL Aspartate Amino Transf 15 U/L (AST/SGOT) Alanine Aminotransferase 19 U/L (ALT/SGPT) Alkaline Phosphatase 65 U/L Total Protein 5.4 GM/DL Albumin 2.2 GM/DL Test 09/04/16 14:15 Hemoglobin 10.4 GM/DL Assessment and Plan Problem List: (1) Anemia (2) Arrhythmia (3) SVT (supraventricular tachycardia) (4) PVD (peripheral vascular disease) (5) Cardiomyopathy (6) NSTEMI (non-ST elevated myocardial infarction) Assessment and Plan 1.) PVD - check lipids 2.) NSTEMI - due to hypotension, anemia, resolved, continue aspirin 81 mg qd, dc heparin 3.) Cardiomyopathy - apical wma, suspect cad, continue aspirin 81 mg qd, check lipids, start coreg/kavitha if/when hemodynamically stable; rec rhc/lhc when hgb stable Pravin Jackson MD Sep 04, 2016 15:14
[2016-09-04] MEDS ORDERED: CARVEDILOL 3.125 MG TAB PO ONE (15:15)
[2016-09-04] MEDS ORDERED: RAMIPRIL 2.5 MG CAP PO ONE (15:15)
[2016-09-04 15:34] LABS: POTASSIUM 2.9 MEQ/L (3.5-5.1)
[2016-09-04] MEDS ORDERED: POTASSIUM CHLOR 40 MEQ PREMIX 100 ML IV ONE (16:30)
[2016-09-04] MEDS: POTASSIUM CHLOR 20 MEQ PREMIX 100 ML IV SCH ×2 (16:33→18:38)
[2016-09-04] MEDS: ENOXAPARIN SODIUM 30 MG/0.3 ML SYRINGE SQ SCH (16:47)
--- NOTE | 2016-09-04 17:22 | ECHRPT ---
Indication: Indication: CONCLUSIONS The left ventricular systolic function is cfjmkdul-[id number] reduced with an estimated ejection fra ction in the range of 35-40%. Akinetic apical cap wall motion.The left atrial size is upper limits of normal.Calcification of both mitral valve leaflets.There is trace tricuspid valve regurgitationThe p ulmonary valve is not well visualized.There is no pericardial effusion. BP: 130 / 66 HR: 74 Rhythm: Other MEASUREMENTS (Male / Female) Normal Values Technical Quality:Fair 2D ECHO LVOT Diameter 1.9 cm LV Ejection Fraction MOD 4C 35.1 % LV Cardiac Index MOD 4C 1307.6 cm/minm LV Ejection Fraction 4C AL 35.8 % LV Cardiac Index 4C AL 1367.4 cm/minm M-MODE Aortic Root Diameter MM 2.7 cm AV Cusp Separation MM 1.9 cm DOPPLER AV Peak Velocity 169.0 cm/s AV Peak Gradient 11.4 mmHg LVOT Peak Velocity 99.7 cm/s LVOT Peak Gradient 4.0 mmHg AV Area Cont Eq pk 1.7 cm MV Peak Velocity 111.0 cm/s MV Peak Gradient 4.9 mmHg MV Mean Velocity 61.3 cm/s MV Mean Gradient 2.0 mmHg MV Area PHT 4.2 cm Mitral E Point Velocity 59.7 cm/s Mitral A Point Velocity 101.0 cm/s Mitral E to A Ratio 0.6 LV E' Lateral Velocity 4.8 cm/s Mitral E to LV E' Lateral Ratio 12.5 LV E' Septal Velocity 5.0 cm/s Mitral E to LV E' Septal Ratio 12.0 TV Peak Velocity 244.0 cm/s PV Peak Velocity 90.2 cm/s PV Peak Gradient 3.3 mmHg FINDINGS Left Ventricle The left ventricular systolic function is jinpusmy-ce-gkfgowu reduced with an estimated ejection fra ction in the range of 35-40%. Akinetic apical cap wall motion. Right Ventricle Normal right ventricular size and systolic function. Left Atrium The left atrial size is upper limits of normal. Right Atrium The right atrial size is normal. Atrial Septum Normal atrial septal thickness without atrial level shunting by limited color doppler interrogation. Aorta The aortic root and proximal ascending aorta are normal in size on limited imaging. Mitral Valve Calcification of both mitral valve leaflets. Aortic Valve Trileaflet aortic valve. No aortic valve stenosis or regurgitation. Tricuspid Valve Structurally normal tricuspid valve. There is trace tricuspid valve regurgitation Pulmonary Valve The pulmonary valve is not well visualized. Vessels The inferior vena cava is normal in size. Pericardium There is no pericardial effusion. Pravin Jackson MD, FACC, FSCAI Edited by: [employer] Paraprofessional (Electronically Signed) Final Date:04 September 2016 14:36 Amended: 04 September 2016 17:21
--- NOTE | 2016-09-04 19:18 | EKG ---
Date Performed: 09/03/2016 Time Performed: 18:01:57 PTAGE: 71 years EKG: Sinus rhythm WITH OCCASIONAL VENTRICULAR PREMATURE COMPLEXES POSSIBLE RIGHT VENTRICULAR CONDUCTION DELAY PROBABLE SEPTAL MYOCARDIAL INFARCTION , OF INDETERMINATE AGE NON-SPECIFIC ST/T WAVE CHANGES ABNORMAL ECG PREVIOUS TRACING : 09/03/2016 13.19 Compared to prior tracing no significant change DOCTOR: Aydin Del Valle Interpretating Date/Time 09/04/2016 19:15:57
--- NOTE | 2016-09-04 19:53 | EKG ---
Date Performed: 09/03/2016 Time Performed: 13:19:23 PTAGE: 71 years EKG: Sinus rhythm POSSIBLE RIGHT VENTRICULAR CONDUCTION DELAY PROBABLE SEPTAL MYOCARDIAL INFARCTION , OF INDETERMINATE AGE ABNORMAL ECG PREVIOUS TRACING : 09/03/2016 07.45 Compared to the previous tracing, rhythm is now normal sinu s rhythm, ST elevations have resolved DOCTOR: Aydin Del Valle Interpretating Date/Time 09/04/2016 19:52:28
[2016-09-04] MEDS ORDERED: ATORVASTATIN 10 MG TAB PO SCH (21:00)
[2016-09-04] MEDS: CARVEDILOL 3.125 MG TAB PO SCH (23:50)
[2016-09-05] VITALS (9 sets, daily range): BP systolic 107–146; BP diastolic 52–63; PULSE 58–88; RESP 19–22; TEMP 97.7–98.7; O2SAT 95–99
[2016-09-05] MEDS: RESP: ALBUTEROL 2.5 MG/IPRATROPIUM 0.5 MG NEB (SCH) INH ×7 (02:53→23:54)
[2016-09-05 05:23] LABS: HEMATOCRIT 31.4 % (35.0-46.0); MEAN CORPUSCULAR HEMOGLOBIN 31.1 PG (27.0-34.0); MEAN CORPUSCULAR HGB CONC 34.5 % (32.0-36.0); PLATELET COUNT 282 TH/MM3 (150-450); RED BLOOD COUNT 3.49 MIL/MM3 (4.00-5.30); RED CELL DISTRIBUTION WIDTH 13.9 % (11.6-17.2); REVIEW FLAG FINAL; WHITE BLOOD COUNT 11.6 TH/MM3 (4.0-11.0)
[2016-09-05] MEDS: CHLORHEXIDINE GLUCONATE 2 % 1 PACK (2 CLOTHS) TOP SCH (05:24)
[2016-09-05] MEDS: ENOXAPARIN SODIUM 30 MG/0.3 ML SYRINGE SQ SCH ×2 (05:35→15:01)
[2016-09-05] MEDS: MUPIROCIN 2% OINT 22 GM TUBE TOPICAL SCH ×2 (06:00→17:02)
[2016-09-05 06:07] LABS: POTASSIUM 4.1 MEQ/L (3.5-5.1)
[2016-09-05 06:09] LABS: HDL CHOLESTEROL 33.8 MG/DL (40.0-60.0)
[2016-09-05] MEDS: SODIUM CHLORIDE 0.9% FLUSH 10 ML FLUSH IVF SCH (09:00)
[2016-09-05] MEDS: RAMIPRIL 2.5 MG CAP PO SCH (09:10)
[2016-09-05] MEDS: FAMOTIDINE 20 MG TAB PO SCH ×2 (09:11→21:22)
[2016-09-05] MEDS: ASPIRIN EC 81 MG TABEC PO SCH (09:11)
[2016-09-05] MEDS: DOCUSATE SODIUM 50 MG/SENNA 8.6 MG TAB PO SCH ×2 (09:11→21:22)
[2016-09-05] MEDS: ACETAMINOPHEN/HYDROcodone 325 MG/5 MG TAB PO PRN ×3 (09:11→23:34)
[2016-09-05] MEDS: CARVEDILOL 3.125 MG TAB PO SCH ×2 (09:11→21:22)
[2016-09-05] MEDS: SODIUM CHLORIDE 0.9% FLUSH 10 ML FLUSH SCH ×2 (09:12→21:00)
--- NOTE | 2016-09-05 09:54 | HHI.CCPN ---
Subjective Remarks/Hospital Course 71-year-old very pleasant female with history of severe peripheral vascular disease status post femoral bypass surgery, never smoked history of asthma per patient some emphysema, she underwent left transmetatarsal amputation due to demarcated ischemic gangrene of the left third toe metatarsophalangeal joint and ischemic necrosis of the left forefoot. She was on [facility] floor where she had multiple episodes of SVTs with low blood pressure. She'll resume the responded well to IV fluids however due to multiple relapses of SVT with hypotension she was transferred to ICU for high level of care. 09/03: Discussed with Dr. Johnson. Discussed with Dr. Jackson. Discussed with patient. Denies chest pain. Remains in A. fib with RVR and relative hypotension. Graft remains intact with good perfusion. Central line placed. Not shortness of breath on BiPAP. Will remove after ABG and see responds. Per chest x-ray revealed no acute cardio pulmonary findings. 09/04: Afebrile. More awake and alert and appropriate. Back in normal sinus rhythm. Graft remains intact some perfusion. Minimal bleeding from her lower extremity dressing site. Subjective 09/05: Awake and alert. Episodic dystrophy yesterday likely secondary to hypokalemia resolved. Tolerating low-dose beta derik and RUSSELL inhibitor. Currently no acute distress. Objective Vital Signs Date Time Temp Pulse Resp B/P Pulse Ox O2 Delivery O2 Flow Rate FiO2 09/05/16 08:21 96 21 09/05/16 08:00 98.0 78 22 122/56 09/05/16 07:00 Room Air 09/04/16 07:00 2.00 Intake and Output 09/04/16 09/04/16 09/05/16 08:00 16:00 00:00 Intake Total 319 ml 200 ml Output Total 200 ml 475 ml Balance 119 ml -275 ml Result Diagram: 09/05/16 0510 09/05/16 0510 Imaging Last Impressions Chest X-Ray 09/03/16 0823 Signed Impressions: Service Date/Time: Saturday, September 03, 2016 08:26 - CONCLUSION: 1. Left IJ central line in good position. No pneumothorax. Caio Cuellar MD Lower Extremity Angiography 08/29/16 0000 Signed Impressions: Service Date/Time: August 14:58 - CONCLUSION: 1. High grade stenosis in the [place] above-knee popliteal. This was successfully balloon angioplastied to 5 mm. 2. Focal high-grade stenosis in the proximal popliteal-dorsalis pedis bypass graft successfully balloon angioplastied to 2.5 mm with a good angiographic result. 3. Otherwise, inflow is patent. The bypass graft terminates in small threadlike vessels of the foot in the region of the dorsalis pedis but does remain patent. Giovanni Phan MD Objective Remarks GENERAL: 71-year-old female, critically ill currently resting in bed on room air in no acute distress SKIN: Warm and dry. See muscle skeletal HEAD: Atraumatic. Normocephalic. EYES: Pupils equal and round around 3 mm bilaterally and reactive. No scleral icterus. No injection or drainage. ENT: No nasal bleeding or discharge. Poor dentition Mucous membranes pink and dry. Oropharynx without erythema NECK: Trachea midline. No JVD. Supple. No thyromegaly CARDIOVASCULAR: RRR. S1, S2 no S4 without murmur RESPIRATORY: Essentially clear to auscultation without wheezes GASTROINTESTINAL: Abdomen soft, non-tender, nondistended. Hypoactive bowel sounds MUSCULOSKELETAL: Patent anterior tibial graftwith palpable pulse left lower extremity. Warm and perfused with minimally oozing granulation tissue NEUROLOGICAL: Awake and alert. No obvious cranial nerve deficits. Motor grossly within normal limits. Five out of 5 muscle strength in the arms and legs. Normal speech. Vascular Central Line Catheter: Yes Assessment to: Continue Date of Insertion: Sep 03, 2016 Line: Central Venous Catheter Side: Left Location: Internal, Jugular A/P Assessment and Plan Neuro/Psych: Anxiety disorder [place] Acetaminophen for fever [place]/Morphine as needed for pain management CV: ST elevation in leads V2 through V4 -likely from hypotension Elevated troponin peaked at 0.36 Postop day #3 left third toe transmetatarsal amputation secondary ischemic gangrene/Dr. Johnson History of left infrapopliteal anterior tibial bypass History of first/second toe amputation secondary to gangrene Coronary artery disease Peripheral vascular disease Peripheral arterial disease Systolic heart failure ejection fraction 35%. Unknown if acute or chronic. Discussed with Dr. Johnson - kelli for heparin drip since discontinued back on subcutaneous Lovenox 30 mg subcutaneous twice a day Discussed with Dr. Jackson - currently on aspirin 81 mg daily/atorvastatin 20 mg daily for dyslipidemia Heart on Coreg 3.125 mg twice a day, Altase 2.5 mg daily for hypertension/ congestive heart failure Serial troponins peaked at 0.36 Check echocardiogram - completed 09/03. EF 35%. Apical akinesis. Postoperative cares per Dr. Johnson Resp: Acute hypoxemic respiratory failure - History of COPD/asthma? PFTs in past revealed restrictive lung disease? Currently on duo nebs every 4 hours with albuterol every 2 hours when necessary dyspnea Oxygen to maintain saturations greater than equal to 92%. Currently on room air Incentive spirometry while awake Chest x-ray reveals no acute cardiopulmonary findings. GI: Currently on healthy diet Pepcid for GI prophylaxis Eryn-Colace for bowel regimen : Mack catheter will be placed for accurate I's and O's in a critically ill patient. Can discontinue today Endo: Sliding-scale insulin if indicated to maintain euglycemia TSH normal Renal: Creatinine currently within normal limits Accurate I's and O's Monitor urine output Heme: Leukocytosis Normocytic anemia Serial hemoglobins can be discontinued Transfuse 3 unit PRBCs since admission. She is currently at around 10 ID: Monitor for infection MSK: History gangrene left lower extremity Postop care per Dr. Johnson. Keep left lower extremity elevated. Do not occlude left anterior tibial graft graft FEN: Replace electrolytes as clinically indicated Access - Left IJ CVL day 3 placed 09/03 Prophylaxis - GI - Pepcid - DVT - SCD/Lovenox 30 mg subcutaneous twice a day Critical Care: The total care time was 35 minutes. Time to perform other separately billable procedures was not included in the critical care time. Patient is stable from a critical care medicine standpoint. We'll sign off. Call if questions arise. Vince Subramanian MD Sep 05, 2016 09:53
--- NOTE | 2016-09-05 13:29 | PD.CARD.PN ---
Subjective Subjective Remarks alert in nad Objective Vital Signs / I&O Vital Signs Date Time Temp Pulse Resp B/P Pulse Ox O2 Delivery O2 Flow Rate FiO2 09/05/16 12:00 98.7 66 19 146/63 96 09/05/16 12:00 66 09/05/16 10:11 22 09/05/16 08:21 96 21 09/05/16 08:00 98.0 78 22 122/56 95 09/05/16 08:00 88 09/05/16 07:00 100 Room Air 09/05/16 04:00 58 09/05/16 04:00 97.7 58 19 107/52 95 09/05/16 00:00 98.0 66 20 112/62 96 09/05/16 00:00 66 09/04/16 22:00 64 09/04/16 20:17 99 Nasal Cannula 09/04/16 20:00 70 09/04/16 20:00 98.3 70 20 119/55 99 09/04/16 19:00 100 Room Air 09/04/16 16:00 98.5 76 31 130/62 98 09/04/16 16:00 76 I/O 09/04/16 09/04/16 09/04/16 09/05/16 09/05/16 09/05/16 07:00 15:00 23:00 07:00 15:00 23:00 Intake Total 319 ml 200 ml 120 ml Output Total 200 ml 475 ml Balance 119 ml -275 ml 120 ml Intake Oral 238 ml 120 ml IV Total 81 ml 200 ml Output Urine Total 200 ml 475 ml # Voids 2 2 # Bowel Movements 0 1 Laboratory Laboratory Tests Test 09/04/16 09/05/16 09/05/16 14:15 00:00 05:10 Hemoglobin 10.4 GM/DL 10.8 GM/DL Potassium Level 2.9 MEQ/L 4.0 MEQ/L 4.1 MEQ/L Calcium Level 7.7 MG/DL 8.4 MG/DL Magnesium Level 2.0 MG/DL White Blood Count 11.6 TH/MM3 Red Blood Count 3.49 MIL/MM3 Hematocrit 31.4 % Mean Corpuscular Volume 90.0 FL Mean Corpuscular Hemoglobin 31.1 PG Mean Corpuscular Hemoglobin 34.5 % Concent Red Cell Distribution Width 13.9 % Platelet Count 282 TH/MM3 Mean Platelet Volume 7.6 FL Sodium Level 143 MEQ/L Chloride Level 105 MEQ/L Carbon Dioxide Level 30.0 MEQ/L Anion Gap 8 MEQ/L Blood Urea Nitrogen 11 MG/DL Creatinine 0.57 MG/DL Estimat Glomerular Filtration 104 ML/MIN Rate Random Glucose 93 MG/DL Triglycerides Level 114 MG/DL Cholesterol Level 93 MG/DL LDL Cholesterol 36 MG/DL HDL Cholesterol 33.8 MG/DL Cholesterol/HDL Ratio 2.75 RATIO Assessment and Plan Problem List: (1) Anemia (2) Arrhythmia (3) SVT (supraventricular tachycardia) (4) PVD (peripheral vascular disease) (5) Cardiomyopathy (6) NSTEMI (non-ST elevated myocardial infarction) Assessment and Plan 1.) PVD - check lipids 2.) NSTEMI - due to hypotension, anemia, resolved, continue aspirin 81 mg qd, dc heparin 3.) Cardiomyopathy - apical wma, suspect cad, continue aspirin 81 mg qd, check lipids, cont coreg/kavitha, rec rhc/lhc when hgb stable, patient undecided, statin held due to low ldl=36 Pravin Jackson MD Sep 05, 2016 13:29
--- NOTE | 2016-09-05 15:16 | PD.VS.PN ---
Subjective Subjective/Hospital Course Asked to see patient re: L foot wound. Pt doing well Foot feels ok, no complaints. Objective Vitals/I&O Date Time Temp Pulse Resp B/P Pulse Ox O2 Delivery O2 Flow Rate FiO2 09/05/16 14:34 20 09/05/16 12:00 98.7 66 19 146/63 96 09/05/16 12:00 66 09/05/16 08:21 96 21 09/05/16 08:00 98.0 78 22 122/56 95 09/05/16 08:00 88 09/05/16 07:00 100 Room Air 09/05/16 04:00 58 09/05/16 04:00 97.7 58 19 107/52 95 09/05/16 00:00 98.0 66 20 112/62 96 09/05/16 00:00 66 09/04/16 22:00 64 09/04/16 20:17 99 Nasal Cannula 09/04/16 20:00 70 09/04/16 20:00 98.3 70 20 119/55 99 09/04/16 19:00 100 Room Air 09/04/16 16:00 98.5 76 31 130/62 98 09/04/16 16:00 76 09/05/16 09/05/16 09/05/16 07:00 15:00 23:00 Intake Total 120 ml 400 ml Output Total 500 ml Balance 120 ml -100 ml Physical Exam L bypass with palpable graft pulse foot dressed from OR Laboratory Laboratory Tests Test 09/05/16 09/05/16 00:00 05:10 Potassium Level 4.0 4.1 White Blood Count 11.6 Red Blood Count 3.49 Hemoglobin 10.8 Hematocrit 31.4 Mean Corpuscular Volume 90.0 Mean Corpuscular Hemoglobin 31.1 Mean Corpuscular Hemoglobin 34.5 Concent Red Cell Distribution Width 13.9 Platelet Count 282 Mean Platelet Volume 7.6 Sodium Level 143 Chloride Level 105 Carbon Dioxide Level 30.0 Anion Gap 8 Blood Urea Nitrogen 11 Creatinine 0.57 Estimat Glomerular Filtration 104 Rate Random Glucose 93 Calcium Level 8.4 Triglycerides Level 114 Cholesterol Level 93 LDL Cholesterol 36 HDL Cholesterol 33.8 Cholesterol/HDL Ratio 2.75 Assessment and Plan Plan continue to monitor graft will coordinate with wound care re: foot dressing changes Daniel Astorga MD Sep 05, 2016 15:16
[2016-09-05] MEDS: MORPHINE SULFATE 4 MG/ML INJ IV PRN (15:55)
--- NOTE | 2016-09-05 17:39 | PD.WCN.NOT ---
Wound Consult Description: Patient seen on [address] [place] [address] for evaluation of L foot wound management. Removed rolled gauze, and gauze dressing in place to L foot to reveal L foot surgical wound. Wound bed presents with ~30% clean red non granulation tissue,~ 50% dried sanguinous drainage in wound bed that obscures depth and ~20% white tissue.Periwound is unremarkable. Wound has minimal sero-sanguinous drainage without odor. Cleansed wound with normal saline and applied oil emulsion gauze just over wound bed and covered wound with Optifoam basic. Secured dressing with rolled gauze and tape. Dated dressing. Patient tolerated dressing change fairly with some complaints of intense pain with dressing removal. Patient was pre-medicated for pain prior to dressing change. Dressings that were removed were moistened with normal saline prior to removal. Communicated with: MATT Lee 3rd floor [facility] and Joie JOSEPH for vascular surgery. OPAL Salter is in agreement with recommendations and will write orders Recommendation: Recommend to apply wound VAC dressing to L foot surgical wound starting tomorrow. Please change Friday-Friday and Friday. Please apply oil emulsion gauze to wound bed covering exposed tendon or bone. Me[facility]shi [facility]uevas [facility] Sep 05, 2016 17:39
[2016-09-06] VITALS (12 sets, daily range): BP systolic 87–125; BP diastolic 51–73; PULSE 54–70; RESP 18–23; TEMP 97.3–98.4; O2SAT 94–100
[2016-09-06] MEDS: CHLORHEXIDINE GLUCONATE 2 % 1 PACK (2 CLOTHS) TOP SCH (03:37)
[2016-09-06] MEDS: ENOXAPARIN SODIUM 30 MG/0.3 ML SYRINGE SQ SCH ×2 (03:37→16:51)
[2016-09-06] MEDS: RESP: ALBUTEROL 2.5 MG/IPRATROPIUM 0.5 MG NEB (SCH) INH ×5 (03:53→23:06)
[2016-09-06 04:22] LABS: HEMATOCRIT 33.9 % (35.0-46.0); MEAN CELL VOLUME 91.4 FL (80.0-100.0); MEAN CORPUSCULAR HEMOGLOBIN 30.4 PG (27.0-34.0); MEAN CORPUSCULAR HGB CONC 33.3 % (32.0-36.0); PLATELET COUNT 325 TH/MM3 (150-450); RED BLOOD COUNT 3.71 MIL/MM3 (4.00-5.30); RED CELL DISTRIBUTION WIDTH 14.4 % (11.6-17.2); REVIEW FLAG FINAL; WHITE BLOOD COUNT 12.9 TH/MM3 (4.0-11.0)
[2016-09-06 04:54] LABS: BICARBONATE 30.6 MEQ/L (21.0-32.0); POTASSIUM 4.1 MEQ/L (3.5-5.1)
[2016-09-06] MEDS: MUPIROCIN 2% OINT 22 GM TUBE TOPICAL SCH ×2 (06:00→18:00)
[2016-09-06] MEDS: MORPHINE SULFATE 4 MG/ML INJ IV PRN ×2 (06:39→14:32)
--- NOTE | 2016-09-06 07:06 | PD.VS.PN ---
Subjective Subjective/Hospital Course Pt c/o pain in foot at wound, unchanged no fevers Objective Vitals/I&O Date Time Temp Pulse Resp B/P Pulse Ox O2 Delivery O2 Flow Rate FiO2 09/06/16 04:00 60 09/06/16 04:00 98.4 60 20 121/51 96 09/06/16 00:00 58 09/06/16 00:00 98.1 58 20 125/62 96 09/05/16 22:00 62 09/05/16 21:22 99 21 09/05/16 20:00 98.3 77 21 112/57 99 09/05/16 20:00 67 09/05/16 19:00 99 Room Air 09/05/16 16:00 77 09/05/16 16:00 98.2 77 20 132/60 96 09/05/16 16:00 20 09/05/16 14:34 20 09/05/16 12:00 98.7 66 19 146/63 96 09/05/16 12:00 66 09/05/16 08:21 96 21 09/05/16 08:00 98.0 78 22 122/56 95 09/05/16 08:00 88 Physical Exam palpable graft pulse foot without erythema wound healing - changed at BS this morning Laboratory Laboratory Tests Test 09/06/16 03:43 White Blood Count 12.9 Red Blood Count 3.71 Hemoglobin 11.3 Hematocrit 33.9 Mean Corpuscular Volume 91.4 Mean Corpuscular Hemoglobin 30.4 Mean Corpuscular Hemoglobin 33.3 Concent Red Cell Distribution Width 14.4 Platelet Count 325 Mean Platelet Volume 7.6 Sodium Level 141 Potassium Level 4.1 Chloride Level 103 Carbon Dioxide Level 30.6 Anion Gap 7 Blood Urea Nitrogen 11 Creatinine 0.64 Estimat Glomerular Filtration 91 Rate Random Glucose 99 Calcium Level 8.3 Assessment and Plan Plan continue to monitor graft ok to place VAC on foot OOB and WBAT, needs PT Daniel Astorga MD Sep 06, 2016 07:06
[2016-09-06] MEDS: FAMOTIDINE 20 MG TAB PO SCH ×2 (08:03→20:28)
[2016-09-06] MEDS: CARVEDILOL 3.125 MG TAB PO SCH ×2 (08:03→20:27)
[2016-09-06] MEDS: DOCUSATE SODIUM 50 MG/SENNA 8.6 MG TAB PO SCH ×2 (08:03→20:28)
[2016-09-06] MEDS: RAMIPRIL 2.5 MG CAP PO SCH (08:03)
[2016-09-06] MEDS: ASPIRIN EC 81 MG TABEC PO SCH (08:03)
[2016-09-06] MEDS: SODIUM CHLORIDE 0.9% FLUSH 10 ML FLUSH SCH ×2 (08:03→20:28)
[2016-09-06] MEDS: SODIUM CHLORIDE 0.9% FLUSH 10 ML FLUSH IVF SCH (08:04)
--- NOTE | 2016-09-06 09:25 | PD.CARD.PN ---
Subjective Subjective Remarks alert in nad Objective Vital Signs / I&O Vital Signs Date Time Temp Pulse Resp B/P Pulse Ox O2 Delivery O2 Flow Rate FiO2 09/06/16 08:59 96 21 09/06/16 08:00 58 09/06/16 08:00 97.3 58 23 123/73 94 09/06/16 07:00 99 Room Air 09/06/16 06:44 18 09/06/16 04:00 60 09/06/16 04:00 98.4 60 20 121/51 96 09/06/16 00:00 58 09/06/16 00:00 98.1 58 20 125/62 96 09/05/16 22:00 62 09/05/16 21:22 99 21 09/05/16 20:00 98.3 77 21 112/57 99 09/05/16 20:00 67 09/05/16 19:00 99 Room Air 09/05/16 16:00 77 09/05/16 16:00 98.2 77 20 132/60 96 09/05/16 14:34 20 09/05/16 12:00 98.7 66 19 146/63 96 09/05/16 12:00 66 I/O 09/05/16 09/05/16 09/05/16 09/06/16 09/06/16 09/06/16 06:59 14:59 22:59 06:59 14:59 22:59 Intake Total 120 ml 400 ml 460 ml 460 ml Output Total 500 ml 550 ml 600 ml Balance 120 ml -100 ml -90 ml -140 ml Intake Oral 120 ml 400 ml 460 ml 460 ml Output Urine Total 500 ml 550 ml 600 ml # Voids 2 3 # Bowel Movements 1 1 0 0 Laboratory GENERAL: SKIN: Warm and dry. HEAD: Normocephalic. EYES: No scleral icterus. No injection or drainage. NECK: Supple, trachea midline. No JVD or lymphadenopathy. CARDIOVASCULAR: Regular rate and rhythm without murmurs, gallops, or rubs. RESPIRATORY: Breath sounds equal bilaterally. No accessory muscle use. GASTROINTESTINAL: Abdomen soft, non-tender, nondistended. MUSCULOSKELETAL: No cyanosis, or edema. BACK: Nontender without obvious deformity. No CVA tenderness. Laboratory Tests Test 09/06/16 03:43 White Blood Count 12.9 TH/MM3 Red Blood Count 3.71 MIL/MM3 Hemoglobin 11.3 GM/DL Hematocrit 33.9 % Mean Corpuscular Volume 91.4 FL Mean Corpuscular Hemoglobin 30.4 PG Mean Corpuscular Hemoglobin 33.3 % Concent Red Cell Distribution Width 14.4 % Platelet Count 325 TH/MM3 Mean Platelet Volume 7.6 FL Sodium Level 141 MEQ/L Potassium Level 4.1 MEQ/L Chloride Level 103 MEQ/L Carbon Dioxide Level 30.6 MEQ/L Anion Gap 7 MEQ/L Blood Urea Nitrogen 11 MG/DL Creatinine 0.64 MG/DL Estimat Glomerular Filtration 91 ML/MIN Rate Random Glucose 99 MG/DL Calcium Level 8.3 MG/DL Assessment and Plan Problem List: (1) Anemia (2) Arrhythmia (3) SVT (supraventricular tachycardia) (4) PVD (peripheral vascular disease) (5) Cardiomyopathy (6) NSTEMI (non-ST elevated myocardial infarction) Assessment and Plan 1.) PVD - check lipids 2.) NSTEMI - due to hypotension, anemia, resolved, continue aspirin 81 mg qd, dc heparin 3.) Cardiomyopathy - apical wma, suspect cad, continue aspirin 81 mg qd, check lipids, cont coreg/kavitha, rec rhc/lhc when hgb stable, patient undecided, statin held due to low ldl=36 Pravin Jackson MD Sep 06, 2016 09:25
[2016-09-06] MEDS: ACETAMINOPHEN/HYDROcodone 325 MG/5 MG TAB PO PRN (10:00)
[2016-09-06] MEDS: MORPHINE SULFATE 4 MG/ML INJ IV PUSH PRN (15:14)
--- NOTE | 2016-09-06 17:32 | PD.WCN.NOT ---
Wound Consult Description: Patient seen on [address] [place] [address] for evaluation of L foot wound management. Removed rolled gauze, and gauze dressing in place to L foot to reveal L foot surgical wound. Wound bed presents with ~30% clean red non granulation tissue,~ 50% dried sanguinous drainage in wound bed that obscures depth and ~20% white tissue.Periwound is unremarkable. Wound has minimal sero-sanguinous drainage without odor. Cleansed wound with normal saline and applied oil emulsion gauze just over wound bed and covered wound with Optifoam basic. Secured dressing with rolled gauze and tape. Dated dressing. Patient tolerated dressing change fairly with some complaints of intense pain with dressing removal. Patient was pre-medicated for pain prior to dressing change. Dressings that were removed were moistened with normal saline prior to removal. Recommendation: Recommend to apply wound VAC dressing to L foot surgical wound starting tomorrow. Please change Friday-Friday and Friday. Please apply oil emulsion gauze to wound bed covering exposed tendon or bone. Neg Pressure Wound Therapy Wound Location Wound Location: Patient seen on [address] [place] [address] for evaluation of L foot wound management. Removed rolled gauze, and gauze dressing in place to L foot to reveal L foot surgical wound. Wound bed presents with ~30% clean red non granulation tissue,~ 50% dried sanguinous drainage in wound bed that obscures depth and ~20% white tissue.Periwound is unremarkable. Wound has minimal sero-sanguinous drainage without odor. Cleansed wound with normal saline and applied oil emulsion gauze just over wound bed and covered wound with Optifoam basic. Secured dressing with rolled gauze and tape. Dated dressing. Patient tolerated dressing change fairly with some complaints of intense pain with dressing removal. Patient was pre-medicated for pain prior to dressing change. Dressings that were removed were moistened with normal saline prior to removal. Meenakshi Cuevas [facility] Sep 06, 2016 17:32
--- NOTE | 2016-09-06 17:45 | PD.WCN.NOT ---
Neg Pressure Wound Therapy Wound Location Wound Location: L foot surgical wound Wound Description Length: 5.2 Width: 2.4 Depth: 0.6 Wound bed appearance: Wound bed presents with ~30% clean red non granulation tissue,~ 50% dried sanguinous drainage in wound bed that obscures depth and ~20% white tissue.Periwound is unremarkable. Wound has minimal sero-sanguinous drainage without odor. Periwound appearance: Unremarkable Settings Suction: 125 mmHg, Continuous Intensity: Low Other Information: Bridged, Windowpaned Foam type: Black Number of pieces: 1 Additonal Information One piece of black granufoam was placed in wound bed. Second piece of black granufoam was cut in one long strip and bridged to L anterior batista. Third piece of black foam cut into mushroom cap and placed on bridge. Placed sensi trac pad over mushroom cap. Covered all exposed foam with VAC drape. Stoma paste applied to base of toe to seal wound VAC. Wound VAC suctioning without leaks upon leaving the room. [facility]vas [facility] Sep 06, 2016 17:45
[2016-09-07] VITALS (27 sets, daily range): BP systolic 94–117; BP diastolic 45–68; PULSE 52–70; RESP 16; TEMP 97.8–98.6; O2SAT 94–100
[2016-09-07] MEDS: CHLORHEXIDINE GLUCONATE 2 % 1 PACK (2 CLOTHS) TOP SCH (04:00)
[2016-09-07] MEDS: RESP: ALBUTEROL 2.5 MG/IPRATROPIUM 0.5 MG NEB (SCH) INH ×2 (04:15→08:00)
[2016-09-07] MEDS: MUPIROCIN 2% OINT 22 GM TUBE TOPICAL SCH ×2 (05:12→16:25)
[2016-09-07] MEDS: ENOXAPARIN SODIUM 30 MG/0.3 ML SYRINGE SQ SCH ×2 (05:50→15:12)
[2016-09-07] MEDS: MORPHINE SULFATE 4 MG/ML INJ IV PRN (06:04)
[2016-09-07] MEDS: ASPIRIN EC 81 MG TABEC PO SCH (08:16)
[2016-09-07] MEDS: ACETAMINOPHEN/HYDROcodone 325 MG/5 MG TAB PO PRN ×2 (08:17→15:12)
[2016-09-07] MEDS: FAMOTIDINE 20 MG TAB PO SCH ×2 (08:17→22:06)
[2016-09-07] MEDS: RAMIPRIL 2.5 MG CAP PO SCH (08:17)
[2016-09-07] MEDS: DOCUSATE SODIUM 50 MG/SENNA 8.6 MG TAB PO SCH ×2 (08:17→22:06)
[2016-09-07] MEDS: CARVEDILOL 3.125 MG TAB PO SCH ×2 (08:17→22:06)
[2016-09-07] MEDS: SODIUM CHLORIDE 0.9% FLUSH 10 ML FLUSH IVF SCH (08:18)
[2016-09-07] MEDS: SODIUM CHLORIDE 0.9% FLUSH 10 ML FLUSH SCH ×2 (08:18→22:07)
--- NOTE | 2016-09-07 10:04 | PD.CARD.PN ---
Subjective Subjective Remarks alert in nad Objective Vital Signs / I&O Vital Signs Date Time Temp Pulse Resp B/P Pulse Ox O2 Delivery O2 Flow Rate FiO2 09/07/16 09:08 97 21 09/07/16 08:57 16 09/07/16 08:00 97.8 67 16 113/68 97 09/07/16 08:00 59 09/07/16 07:46 Room Air 09/07/16 06:37 70 09/07/16 05:00 62 09/07/16 04:16 66 09/07/16 04:06 98.6 63 108/58 94 09/07/16 03:00 58 09/07/16 02:00 68 09/07/16 01:00 60 09/07/16 00:46 63 09/07/16 00:18 98.2 64 107/56 96 09/06/16 23:00 58 09/06/16 22:00 64 09/06/16 21:00 70 09/06/16 20:35 65 95/53 98 09/06/16 20:32 95 21 09/06/16 20:00 65 09/06/16 19:00 Room Air 09/06/16 16:04 97.9 65 18 108/58 100 09/06/16 16:04 65 09/06/16 15:19 16 09/06/16 14:44 16 09/06/16 12:00 98.2 54 18 87/52 94 09/06/16 12:00 54 I/O 09/06/16 09/06/16 09/06/16 09/07/16 09/07/16 09/07/16 07:00 15:00 23:00 07:00 15:00 23:00 Intake Total 460 ml 600 ml 480 ml 480 ml Output Total 600 ml 500 ml 300 ml 300 ml Balance -140 ml 100 ml 180 ml 180 ml Intake Oral 460 ml 600 ml 480 ml 480 ml Output Urine Total 600 ml 500 ml 300 ml 300 ml # Voids 2 # Bowel Movements 0 2 Laboratory GENERAL: SKIN: Warm and dry. HEAD: Normocephalic. EYES: No scleral icterus. No injection or drainage. NECK: Supple, trachea midline. No JVD or lymphadenopathy. CARDIOVASCULAR: Regular rate and rhythm without murmurs, gallops, or rubs. RESPIRATORY: Breath sounds equal bilaterally. No accessory muscle use. GASTROINTESTINAL: Abdomen soft, non-tender, nondistended. MUSCULOSKELETAL: No cyanosis, or edema. BACK: Nontender without obvious deformity. No CVA tenderness. Assessment and Plan Problem List: (1) Anemia (2) Arrhythmia (3) SVT (supraventricular tachycardia) (4) PVD (peripheral vascular disease) (5) Cardiomyopathy (6) NSTEMI (non-ST elevated myocardial infarction) Assessment and Plan 1.) PVD - check lipids 2.) NSTEMI - due to hypotension, anemia, resolved, continue aspirin 81 mg qd, dc heparin 3.) Cardiomyopathy - apical wma, suspect cad, continue aspirin 81 mg qd, check lipids, cont coreg/kavitha, rec rhc/lhc, her left toe appears necrotic, may need to delay cath until healing improves, also patient undecided, statin held due to low ldl=36 Pravin Jackson MD Sep 07, 2016 10:04
[2016-09-08] VITALS (21 sets, daily range): BP systolic 92–108; BP diastolic 52–63; PULSE 46–74; RESP 12–18; TEMP 97.5–98.7; O2SAT 96–98
[2016-09-08] MEDS: ENOXAPARIN SODIUM 30 MG/0.3 ML SYRINGE SQ SCH ×2 (03:30→17:33)
[2016-09-08] MEDS: ACETAMINOPHEN/HYDROcodone 325 MG/5 MG TAB PO PRN ×3 (03:31→23:03)
[2016-09-08] MEDS: CHLORHEXIDINE GLUCONATE 2 % 1 PACK (2 CLOTHS) TOP SCH (04:00)
[2016-09-08] MEDS: MUPIROCIN 2% OINT 22 GM TUBE TOPICAL SCH ×2 (06:00→17:05)
[2016-09-08] MEDS: CARVEDILOL 3.125 MG TAB PO SCH ×2 (09:01→21:14)
[2016-09-08] MEDS: RAMIPRIL 2.5 MG CAP PO SCH (09:01)
[2016-09-08] MEDS: DOCUSATE SODIUM 50 MG/SENNA 8.6 MG TAB PO SCH ×2 (09:01→21:14)
[2016-09-08] MEDS: FAMOTIDINE 20 MG TAB PO SCH ×2 (09:01→21:14)
[2016-09-08] MEDS: ASPIRIN EC 81 MG TABEC PO SCH (09:01)
[2016-09-08] MEDS: SODIUM CHLORIDE 0.9% FLUSH 10 ML FLUSH SCH ×2 (09:02→21:16)
[2016-09-08] MEDS: SODIUM CHLORIDE 0.9% FLUSH 10 ML FLUSH IVF SCH (09:02)
--- NOTE | 2016-09-08 10:27 | PD.CARD.PN ---
Subjective Subjective Remarks alert in nad Objective Vital Signs / I&O Vital Signs Date Time Temp Pulse Resp B/P Pulse Ox O2 Delivery O2 Flow Rate FiO2 09/08/16 08:13 63 09/08/16 08:00 98.3 54 18 107/63 97 09/08/16 08:00 100 Room Air 09/08/16 06:00 46 09/08/16 05:00 50 09/08/16 04:00 98.2 53 12 108/60 97 09/08/16 04:00 50 09/08/16 03:00 59 09/08/16 02:00 56 09/08/16 01:00 54 09/08/16 00:00 54 09/08/16 00:00 98.7 56 12 93/52 96 09/07/16 23:00 53 09/07/16 22:00 64 09/07/16 21:00 66 09/07/16 20:00 97.9 62 16 94/45 100 09/07/16 20:00 66 09/07/16 19:00 100 Room Air 09/07/16 19:00 70 09/07/16 18:00 52 09/07/16 17:00 54 09/07/16 16:00 57 09/07/16 16:00 98.1 60 16 117/65 97 09/07/16 15:51 16 09/07/16 15:00 56 09/07/16 14:00 54 09/07/16 13:00 52 09/07/16 12:00 53 09/07/16 12:00 97.9 67 16 97/46 95 09/07/16 11:00 56 I/O 09/07/16 09/07/16 09/07/16 09/08/16 09/08/16 09/08/16 07:00 15:00 23:00 07:00 15:00 23:00 Intake Total 480 ml 600 ml 240 ml Output Total 300 ml 800 ml 350 ml Balance 180 ml -200 ml -110 ml Intake Oral 480 ml 600 ml 240 ml Output Urine Total 300 ml 800 ml 350 ml # Voids 2 1 # Bowel Movements 0 Laboratory GENERAL: SKIN: Warm and dry. HEAD: Normocephalic. EYES: No scleral icterus. No injection or drainage. NECK: Supple, trachea midline. No JVD or lymphadenopathy. CARDIOVASCULAR: Regular rate and rhythm without murmurs, gallops, or rubs. RESPIRATORY: Breath sounds equal bilaterally. No accessory muscle use. GASTROINTESTINAL: Abdomen soft, non-tender, nondistended. MUSCULOSKELETAL: No cyanosis, or edema. BACK: Nontender without obvious deformity. No CVA tenderness. Assessment and Plan Problem List: (1) Anemia (2) Arrhythmia (3) SVT (supraventricular tachycardia) (4) PVD (peripheral vascular disease) (5) Cardiomyopathy (6) NSTEMI (non-ST elevated myocardial infarction) Assessment and Plan 1.) PVD - check lipids 2.) NSTEMI - due to hypotension, anemia, resolved, continue aspirin 81 mg qd, dc heparin 3.) Cardiomyopathy - apical wma, suspect cad, continue aspirin 81 mg qd, check lipids, cont coreg/kavitha, rec rhc/lhc, her left toe appears necrotic, will delay cath until healing improves, also patient undecided, statin held due to low ldl= 36 4.) OK to dc from cv standpoint f/u in my office buzz; d/w patient and nurse Pravin Jackson MD Sep 08, 2016 10:27
--- NOTE | 2016-09-08 10:43 | PD.VS.PN ---
Subjective Subjective/Hospital Course Pt feels well, notes tired Foot ok; vac in place Objective Vitals/I&O Date Time Temp Pulse Resp B/P Pulse Ox O2 Delivery O2 Flow Rate FiO2 09/08/16 08:13 63 09/08/16 08:00 98.3 54 18 107/63 97 09/08/16 08:00 100 Room Air 09/08/16 06:00 46 09/08/16 05:00 50 09/08/16 04:00 98.2 53 12 108/60 97 09/08/16 04:00 50 09/08/16 03:00 59 09/08/16 02:00 56 09/08/16 01:00 54 09/08/16 00:00 54 09/08/16 00:00 98.7 56 12 93/52 96 09/07/16 23:00 53 09/07/16 22:00 64 09/07/16 21:00 66 09/07/16 20:00 97.9 62 16 94/45 100 09/07/16 20:00 66 09/07/16 19:00 100 Room Air 09/07/16 19:00 70 09/07/16 18:00 52 09/07/16 17:00 54 09/07/16 16:00 57 09/07/16 16:00 98.1 60 16 117/65 97 09/07/16 15:51 16 09/07/16 15:00 56 09/07/16 14:00 54 09/07/16 13:00 52 09/07/16 12:00 53 09/07/16 12:00 97.9 67 16 97/46 95 09/07/16 11:00 56 09/08/16 09/08/16 09/08/16 07:00 15:00 23:00 Intake Total 240 ml Output Total 350 ml Balance -110 ml Physical Exam palpable graft pulse VAC sealed on foot Assessment and Plan Plan continue PT/pain meds continue pulse checks VAC down tomorrow Daniel Astorga MD Sep 08, 2016 10:43
[2016-09-09] VITALS (25 sets, daily range): BP systolic 89–123; BP diastolic 48–77; PULSE 54–85; RESP 12–16; TEMP 97.7–98.5; O2SAT 93–100
[2016-09-09] MEDS: ENOXAPARIN SODIUM 30 MG/0.3 ML SYRINGE SQ SCH ×2 (03:00→15:29)
[2016-09-09] MEDS: CHLORHEXIDINE GLUCONATE 2 % 1 PACK (2 CLOTHS) TOP SCH (03:39)
[2016-09-09] MEDS: MUPIROCIN 2% OINT 22 GM TUBE TOPICAL SCH ×2 (06:00→17:37)
[2016-09-09] MEDS: SODIUM CHLORIDE 0.9% FLUSH 10 ML FLUSH IVF SCH (09:00)
[2016-09-09] MEDS: SODIUM CHLORIDE 0.9% FLUSH 10 ML FLUSH SCH ×2 (09:00→21:36)
[2016-09-09] MEDS: CARVEDILOL 3.125 MG TAB PO SCH ×2 (09:05→21:35)
[2016-09-09] MEDS: RAMIPRIL 2.5 MG CAP PO SCH (09:05)
[2016-09-09] MEDS: FAMOTIDINE 20 MG TAB PO SCH ×2 (09:05→21:35)
[2016-09-09] MEDS: ASPIRIN EC 81 MG TABEC PO SCH (09:05)
[2016-09-09] MEDS: DOCUSATE SODIUM 50 MG/SENNA 8.6 MG TAB PO SCH ×2 (09:05→21:35)
[2016-09-09] MEDS: ACETAMINOPHEN/HYDROcodone 325 MG/5 MG TAB PO PRN ×3 (09:08→19:18)
--- NOTE | 2016-09-09 13:27 | PD.CARD.PN ---
Subjective Subjective Remarks asleep in nad Objective Vital Signs / I&O Vital Signs Date Time Temp Pulse Resp B/P Pulse Ox O2 Delivery O2 Flow Rate FiO2 09/09/16 13:08 79 09/09/16 12:08 62 09/09/16 12:05 97.7 64 16 101/48 95 09/09/16 11:25 61 09/09/16 10:33 16 09/09/16 10:32 63 09/09/16 09:23 64 09/09/16 08:18 71 09/09/16 08:17 94 Room Air 09/09/16 08:13 97.9 71 16 117/67 94 09/09/16 06:00 58 09/09/16 05:00 60 09/09/16 04:00 98.4 60 12 89/52 97 09/09/16 04:00 58 09/09/16 03:00 55 09/09/16 02:00 58 09/09/16 01:00 56 09/09/16 00:00 54 09/09/16 00:00 98.3 62 12 114/65 100 09/08/16 23:00 60 09/08/16 22:00 60 09/08/16 21:00 60 09/08/16 20:00 60 09/08/16 20:00 98.4 57 12 92/52 98 09/08/16 19:00 57 09/08/16 19:00 98 Room Air 09/08/16 18:22 61 09/08/16 17:04 63 09/08/16 16:56 49 09/08/16 16:50 98.4 56 18 97/58 98 09/08/16 15:00 72 I/O 09/08/16 09/08/16 09/08/16 09/09/16 09/09/16 09/09/16 07:00 15:00 23:00 07:00 15:00 23:00 Intake Total 240 ml 480 ml 240 ml Output Total 350 ml 650 ml 750 ml Balance -110 ml -170 ml -510 ml Intake Oral 240 ml 480 ml 240 ml Output Urine Total 350 ml 650 ml 750 ml # Bowel Movements 2 Laboratory GENERAL: SKIN: Warm and dry. HEAD: Normocephalic. EYES: No scleral icterus. No injection or drainage. NECK: Supple, trachea midline. No JVD or lymphadenopathy. CARDIOVASCULAR: Regular rate and rhythm without murmurs, gallops, or rubs. RESPIRATORY: Breath sounds equal bilaterally. No accessory muscle use. GASTROINTESTINAL: Abdomen soft, non-tender, nondistended. MUSCULOSKELETAL: No cyanosis, or edema. BACK: Nontender without obvious deformity. No CVA tenderness. Assessment and Plan Problem List: (1) Anemia (2) Arrhythmia (3) SVT (supraventricular tachycardia) (4) PVD (peripheral vascular disease) (5) Cardiomyopathy (6) NSTEMI (non-ST elevated myocardial infarction) Assessment and Plan 1.) PVD - check lipids 2.) NSTEMI - due to hypotension, anemia, resolved, continue aspirin 81 mg qd, dc heparin 3.) Cardiomyopathy - apical wma, suspect cad, continue aspirin 81 mg qd, check lipids, cont coreg/kavitha, rec rhc/lhc, her left toe appears necrotic, will delay cath until healing improves, also patient undecided, statin held due to low ldl= 36 4.) OK to dc from cv standpoint f/u in my office buzz; d/w patient and nurse Pravin Jackson MD Sep 09, 2016 13:27
[2016-09-10] VITALS (18 sets, daily range): BP systolic 92–107; BP diastolic 49–62; PULSE 56–70; RESP 12; TEMP 97.8–98; O2SAT 98–99
[2016-09-10] MEDS: CHLORHEXIDINE GLUCONATE 2 % 1 PACK (2 CLOTHS) TOP SCH (04:00)
[2016-09-10] MEDS: ENOXAPARIN SODIUM 30 MG/0.3 ML SYRINGE SQ SCH ×2 (04:58→16:00)
[2016-09-10] MEDS: MUPIROCIN 2% OINT 22 GM TUBE TOPICAL SCH (05:00)
[2016-09-10] MEDS: ACETAMINOPHEN/HYDROcodone 325 MG/5 MG TAB PO PRN (06:09)
--- NOTE | 2016-09-10 08:28 | PD.WCN.NOT ---
Wound Consult Description: L foot surgical wound Neg Pressure Wound Therapy Wound Location Wound Location: L foot surgical wound Wound Description Length: 5 Width: 2 Depth: 0.6 Wound bed appearance: Wound bed presents with ~70% red granulation tissue,and ~30% pink tissue.Periwound is unremarkable. Wound has minimal sero-sanguinous drainage without odor.Wound has improved in appearance since previous assessment. Periwound appearance: Unremarkable Settings Suction: 125 mmHg, Continuous Intensity: Low Other Information: Bridged, Windowpaned Foam type: Black Number of pieces: 1 Additonal Information Late Entry from 09/09/2016 1500: One piece of black granufoam was placed in wound bed. Second piece of black granufoam was cut in one long strip and bridged to L anterior batista. Third piece of black foam cut into mushroom cap and placed on bridge. Placed sensi trac pad over mushroom cap. Covered all exposed foam with VAC drape. Stoma paste applied to base of toe to seal wound VAC. Wound VAC suctioning without leaks upon leaving the room. Meenakshi Cuevas [facility] Sep 10, 2016 08:27
[2016-09-10] MEDS: SODIUM CHLORIDE 0.9% FLUSH 10 ML FLUSH IVF SCH (09:00)
[2016-09-10] MEDS: SODIUM CHLORIDE 0.9% FLUSH 10 ML FLUSH SCH (09:00)
[2016-09-10] MEDS: DOCUSATE SODIUM 50 MG/SENNA 8.6 MG TAB PO SCH (09:07)
[2016-09-10] MEDS: FAMOTIDINE 20 MG TAB PO SCH (09:07)
[2016-09-10] MEDS: ASPIRIN EC 81 MG TABEC PO SCH (09:07)
[2016-09-10] MEDS: CARVEDILOL 3.125 MG TAB PO SCH (09:07)
[2016-09-10] MEDS: RAMIPRIL 2.5 MG CAP PO SCH (09:07)
[2016-09-10] MEDS ORDERED: ALTA2.5C4 PO (11:37)
[2016-09-10] MEDS ORDERED: CARV3.125 PO (11:37)
--- NOTE | 2016-09-10 13:41 | PD.CARD.PN ---
Subjective Subjective Remarks alert in nad Objective Vital Signs / I&O Vital Signs Date Time Temp Pulse Resp B/P Pulse Ox O2 Delivery O2 Flow Rate FiO2 09/10/16 13:02 60 09/10/16 12:18 97.8 67 12 92/49 98 09/10/16 12:18 56 09/10/16 11:12 61 09/10/16 10:20 60 09/10/16 09:09 65 09/10/16 08:51 68 09/10/16 08:48 97.9 62 12 106/60 99 09/10/16 07:37 99 Room Air 09/10/16 07:37 61 09/10/16 07:37 16 09/10/16 06:00 64 09/10/16 05:00 70 09/10/16 04:00 98.0 69 12 107/62 98 09/10/16 04:00 60 09/10/16 03:00 68 09/10/16 02:00 64 09/10/16 01:00 66 09/10/16 00:00 60 09/10/16 00:00 98.0 64 12 97/57 99 09/09/16 23:00 58 09/09/16 22:00 58 09/09/16 21:00 60 09/09/16 20:00 97.9 85 14 123/77 93 09/09/16 20:00 62 09/09/16 19:00 70 09/09/16 19:00 93 Room Air 09/09/16 18:04 65 09/09/16 17:28 67 09/09/16 16:36 98.5 78 16 119/69 98 09/09/16 16:36 77 09/09/16 15:36 78 09/09/16 14:35 76 I/O 09/09/16 09/09/16 09/09/16 09/10/16 09/10/16 09/10/16 07:00 15:00 23:00 07:00 15:00 23:00 Intake Total 240 ml 480 ml 720 ml Output Total 750 ml 500 ml 1050 ml Balance -510 ml -20 ml -330 ml Intake Oral 240 ml 480 ml 720 ml Output Urine Total 750 ml 500 ml 1050 ml # Bowel Movements 1 1 Laboratory GENERAL: SKIN: Warm and dry. HEAD: Normocephalic. EYES: No scleral icterus. No injection or drainage. NECK: Supple, trachea midline. No JVD or lymphadenopathy. CARDIOVASCULAR: Regular rate and rhythm without murmurs, gallops, or rubs. RESPIRATORY: Breath sounds equal bilaterally. No accessory muscle use. GASTROINTESTINAL: Abdomen soft, non-tender, nondistended. MUSCULOSKELETAL: No cyanosis, or edema. BACK: Nontender without obvious deformity. No CVA tenderness. Assessment and Plan Problem List: (1) Anemia (2) Arrhythmia (3) SVT (supraventricular tachycardia) (4) PVD (peripheral vascular disease) (5) Cardiomyopathy (6) NSTEMI (non-ST elevated myocardial infarction) Assessment and Plan 1.) PVD - check lipids 2.) NSTEMI - due to hypotension, anemia, resolved, continue aspirin 81 mg qd, dc heparin 3.) Cardiomyopathy - apical wma, suspect cad, continue aspirin 81 mg qd, check lipids, cont coreg/kavitha, rec rhc/lhc, her left toe appears necrotic, will delay cath until healing improves, also patient undecided, statin held due to low ldl= 36 4.) OK to dc from cv standpoint f/u in my office buzz; d/w patient and nurse Pravin Jackson MD Sep 10, 2016 13:41
--- NOTE | 2016-09-11 11:12 | MD ---
cc: WANDA MAHARAJ M.D. ADMISSION DATE: 08/29/2016 DISCHARGE DATE: 09/10/2016 DISCHARGE DIAGNOSES 1. 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 2. Hypertension. PROCEDURE 1. Endovascular percutaneous balloon angioplasty/revascularization left SFA dorsalis pedis bypass on August 29. 2. Amputation left third toe, debridement ischemic necrosis left mid forefoot on September 02, 2016. HISTORY This 71-year-old hypertensive female smoker on April 30 of this year underwent left SFA dorsalis pedis bypass for ischemic necrosis of the left forefoot. Subsequently, left first, second toes and medial forefoot demarcated and the necrosis was removed. Her left medial forefoot open wound was granulating and gradually epithelializing. Two weeks prior to this admission, she suddenly developed ischemic symptoms within her left foot which she did not report. When I saw her in my office on August 28, we discovered the interval ischemic symptoms and at that point, developing ischemic necrosis within the third toe and mid forefoot. Her bypass graft was obviously occluded. Further historical details along with pertinent physical findings are detailed in my admission summary. HOSPITAL COURSE Ms. Rodrigues was prepared for and on the day of admission underwent endovascular revascularization to reestablish patency of her left SFA dorsalis pedis bypass. Four days later, I removed the ischemically demarcated left third toe and additional necrotic tissue within the mid forefoot. Postprocedure, she experienced quite a bit of oozing from the debridement wound, became hypotensive and tachycardia. She was transferred to the intensive care unit, transfused to a hemoglobin of above 10 and heart rate controlled with Cardizem. She was seen in consultation by Pravin Jackson MD. He added Coreg and Altace to her medical regimen and recommended cardiac catheterization for non-STEMI. The patient declined cardiac catheterization. She presently is tolerating a regular diet and is ambulating with weightbearing on her left heel. A Vac-pack dressing has been applied to the left forefoot wound. The bypass remains patent with adequate perfusion of the left foot. She has had no further cardiopulmonary complaints or instability. DISPOSITION Ms. Rodrigues will be transferred to a rehab facility. Medications are detailed in the discharge medication reconciliation form. She will continue a heart healthy diet. I will see her in followup in my office in one week or sooner if needed. MD ANDRE Peña/GEREMIAS /2:56 PM /11:05 AM
== END 2016-09-10 16:50 | DRG 252 ==
LOC: HCIS 11:33 → N03B 09-03 04:59 → HCIS 09-06 14:15
PROVIDERS: ADMIT Surgery Vascular Surgery; ATTEND Surgery Vascular Surgery
PROC: 047N3ZZ Dilation of Left Popliteal Artery, Percutaneous Approach (ICD-10-PCS; principal; 2016-08-29)
PROC: 047Y3ZZ Dilation of Lower Artery, Percutaneous Approach (ICD-10-PCS; 2016-08-29)
PROC: 0Y6U0Z0 Detachment at Left 3rd Toe, Complete, Open Approach (ICD-10-PCS; 2016-09-02)
PROC: 5A09357 Assistance with Respiratory Ventilation, Less than 24 Consecutive Hours, Continuous Positive Airway Pressure (ICD-10-PCS; 2016-09-03)
PROC: 02HV33Z Insertion of Infusion Device into Superior Vena Cava, Percutaneous Approach (ICD-10-PCS; 2016-09-03)
PROC: B544ZZA Ultrasonography of Left Jugular Veins, Guidance (ICD-10-PCS; 2016-09-03)
PROC: 30233N1 Transfusion of Nonautologous Red Blood Cells into Peripheral Vein, Percutaneous Approach (ICD-10-PCS; 2016-09-03)
DX: I70.262 Atherosclerosis of native arteries of extremities with gangrene, left leg (principal); J96.01 Acute respiratory failure with hypoxia; I21.4 Non-ST elevation (NSTEMI) myocardial infarction; I95.9 Hypotension, unspecified; E87.2 Acidosis; I42.9 Cardiomyopathy, unspecified; I11.0 Hypertensive heart disease with heart failure; I50.20 Unspecified systolic (congestive) heart failure; I47.1 Supraventricular tachycardia; I70.462 Atherosclerosis of autologous vein bypass graft(s) of the extremities with gangrene, left leg; I48.0 Paroxysmal atrial fibrillation; I44.4 Left anterior fascicular block; D64.9 Anemia, unspecified; I25.10 Atherosclerotic heart disease of native coronary artery without angina pectoris; J43.9 Emphysema, unspecified; J45.909 Unspecified asthma, uncomplicated; D72.829 Elevated white blood cell count, unspecified; E87.6 Hypokalemia; F41.9 Anxiety disorder, unspecified; Z86.711 Personal history of pulmonary embolism; Z86.718 Personal history of other venous thrombosis and embolism; Z89.422 Acquired absence of other left toe(s)
CPT/HCPCS: 36247; 36430; 36556; 36600; 37224; 37228; 71010; 75710; 76937; 80048; 80053; 80061; 80076; 82310; 82550; 82805; 82948; 83605; 83735; 84100; 84132; 84443; 84484; 85014; 85018; 85025; 85027; 85384; 85610; 85730; 86850; 86900; 86901; 86920; 88305; 88311; 93005; 93306; 94002; 94640; 99152; 99153; C1725; C1760; C1769; C1887; C1894; J0690; J1160; J1644; J1650; J1940; J2250; J2270; J2405; J3010; J3370; J3480; J7030; J7040; J7050; P9016; Q9967

== ENCOUNTER 2017-04-15 16:01 | Emergency (ER) | payer MEDICARE ==
[~2017-04-15] VITALS: Ht 152.4 cm; Wt 57.0 kg
[~2017-04-15 16:01] MED LIST changes: +ALTA2.5C4 PO; -ASPI-110 PO; +CARV3.125 PO; -CEPH-460 PO; -ENOX30P SQ; -FERR325T PO; +HYDR-3580 PO; -LACTCAP8 PO; -NEUR300C PO; -NORC5TAB PO; -PROT40TA PO
[2017-04-15 16:07] VITALS: BP 114/59; PULSE 66; RESP 18; TEMP 97.4; O2SAT 99
[2017-04-15] MEDS ORDERED: RANI150T PO (16:23)
[2017-04-15 17:15] VITALS: O2SAT 97
--- NOTE | 2017-04-15 17:15 | PD ---
HPI Chief Complaint: Pain: Acute or Chronic Time Seen by Provider: 17:00 Travel History International Travel<30 days: No Contact w/Intl Traveler<30days: No Traveled to known affect area: No History of Present Illness HPI 72-year-old female states that last summer she had a clot in her leg that they fixed. She states she's not on any current blood thinners. She states they had to do bypass to her leg. She states now she is having pain to her right leg and is also had history of DVTs. She is concerned she has a clot. She denies any fever, trauma or other concurrent complaints. LOCATION: Right leg QUALITY: Cramp SEVERITY: Moderate TIMING: intermittent DURATION: couple days CONTACTS: h/o dvt MODIFYING FACTORS: with movement ASSOCIATED TIME AND SYMPTOMS: denies PFSH Past Medical History Hx Anticoagulant Therapy: Yes Asthma: Yes Autoimmune Disease: No Anxiety: No Depression: No Heart Rhythm Problems: No Cancer: No Cardiovascular Problems: Yes (NH, DVT) High Cholesterol: No Chest Pain: No Congestive Heart Failure: No COPD: Yes Diabetes: No Diminished Hearing: No Endocrine: No Genitourinary: No Hepatitis: No Hiatal Hernia: No Hypertension: Yes Immune Disorder: No Medical other: Yes (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) Neurologic: No Psychiatric: No Reproductive: No Respiratory: Yes (COPD) Immunizations Current: Yes (FLU AND PNEUMONIA VACCINES) Sleep Apnea: No Thyroid Disease: No Tetanus Vaccination: > 5 Years Influenza Vaccination: Yes ?: Not Menopausal: Yes Tubal Ligation: Yes Past Surgical History Abdominal Surgery: No AICD: No Appendectomy: Yes Cardiac Surgery: Yes (LEFT FEM BYPASS ) Cholecystectomy: Yes Ear Surgery: No Endocrine Surgery: No Eye Surgery: No Genitourinary Surgery: No Gynecologic Surgery: No Joint Replacement: No Oral Surgery: No Pacemaker: No Thoracic Surgery: No Other Surgery: Yes Social History Alcohol Use: Yes (BEER 2XWEEK) Tobacco Use: No Substance Use: No Allergies-Medications (Allergen,Severity, Reaction): Coded Allergies: No Known Allergies (Verified Adverse Reaction, Unknown, 04/15/17) Reported Meds & Prescriptions Reported Meds & Active Scripts Active Reported Ranitidine (Ranitidine HCl) 150 Mg Tab 150 Mg PO BID Coreg (Carvedilol) 3.125 Mg Tab 3.125 Mg PO BID Hydrocodone-Acetaminophen 7.5-325 mg Tab 1 Tab PO Q6H PRN Atorvastatin (Atorvastatin Calcium) 20 Mg Tab 20 Mg PO DAILY Review of Systems Except as stated in HPI: all other systems reviewed are Neg Physical Exam Narrative GENERAL: Well-nourished, well-developed patient. SKIN: Warm and dry. HEAD: Normocephalic and atraumatic. EYES: No injection or drainage. ENT: No nasal drainage noted. NECK: Supple, trachea midline. CARDIOVASCULAR: Regular rate and rhythm RESPIRATORY: no increased effort. No accessory muscle use. GASTROINTESTINAL: Abdomen soft, non-tender, nondistended. EXTREMITIES: No edema. Pain with palpation of right calf, no pain with other joints , neurovascularly intact, no lacerations over, compartments soft. NEUROLOGICAL: Awake. Motor and sensory grossly within normal limits. Normal speech. Data Data Last Documented VS Vital Signs Date Time Temp Pulse Resp B/P (MAP) Pulse Ox O2 Delivery O2 Flow Rate FiO2 04/15/17 18:12 59 16 106/60 (75) 97 Room Air 04/15/17 16:07 97.4 Orders Orders Complete Blood Count With Diff (04/15/17 17:03) Basic Metabolic Panel (Bmp) (04/15/17 17:03) Act Partial Throm Time (Ptt) (04/15/17 17:03) Prothrombin Time / Inr (Pt) (04/15/17 17:03) Iv Access Insert/Monitor (04/15/17 17:03) Ecg Monitoring (04/15/17 17:03) Oximetry (04/15/17 17:03) Us Leg Venous Doppler (04/15/17 ) Labs Laboratory Tests Test 04/15/17 17:10 White Blood Count 7.2 TH/MM3 Red Blood Count 4.41 MIL/MM3 Hemoglobin 13.4 GM/DL Hematocrit 42.0 % Mean Corpuscular Volume 95.3 FL Mean Corpuscular Hemoglobin 30.4 PG Mean Corpuscular Hemoglobin Concent 31.9 % Red Cell Distribution Width 14.3 % Platelet Count 239 TH/MM3 Mean Platelet Volume 7.6 FL Neutrophils (%) (Auto) 57.0 % Lymphocytes (%) (Auto) 31.1 % Monocytes (%) (Auto) 9.3 % Eosinophils (%) (Auto) 1.9 % Basophils (%) (Auto) 0.7 % Neutrophils # (Auto) 4.1 TH/MM3 Lymphocytes # (Auto) 2.2 TH/MM3 Monocytes # (Auto) 0.7 TH/MM3 Eosinophils # (Auto) 0.1 TH/MM3 Basophils # (Auto) 0.1 TH/MM3 CBC Comment DIFF FINAL Differential Comment Prothrombin Time 9.7 SEC Prothromb Time International Ratio 1.0 RATIO Activated Partial Thromboplast Time 24.0 SEC Blood Urea Nitrogen 12 MG/DL Creatinine 1.10 MG/DL Random Glucose 106 MG/DL Calcium Level 9.2 MG/DL Sodium Level 141 MEQ/L Potassium Level 3.9 MEQ/L Chloride Level 105 MEQ/L Carbon Dioxide Level 32.0 MEQ/L Anion Gap 4 MEQ/L Estimat Glomerular Filtration Rate 49 ML/MIN MDM Medical Decision Making Medical Screen Exam Complete: Yes Emergency Medical Condition: Yes Medical Record Reviewed: Yes (pmh confirmed) Interpretation(s) CBC & BMP Diagram 04/15/17 17:10 Calcium Level 9.2 Differential Diagnosis DVT, strain, claudication Narrative Course Will check blood work, ultrasound and reevaluate. Patient with strong pulse currently Physician Communication Physician Communication dr sanders to follow ultrasound and reevaluate Joan Boss MD Apr 15, 2017 17:15
[2017-04-15 17:23] LABS: AUTOMATED NEUTROPHIL # 4.1 TH/MM3 (1.8-7.7); BASOPHIL # 0.1 TH/MM3 (0-0.2); BASOPHIL % 0.7 % (0.0-2.0); EOSINOPHIL # 0.1 TH/MM3 (0-0.4); EOSINOPHIL % 1.9 % (0.0-4.0); HEMOGLOBIN 13.4 GM/DL (11.6-15.3); LYMPH % 31.1 % (9.0-44.0); LYMPHOCYTE # 2.2 TH/MM3 (1.0-4.8); MEAN CELL VOLUME 95.3 FL (80.0-100.0); MEAN CORPUSCULAR HEMOGLOBIN 30.4 PG (27.0-34.0); MEAN CORPUSCULAR HGB CONC 31.9 % (32.0-36.0); MEAN PLATELET VOLUME 7.6 FL (7.0-11.0); MONO % 9.3 % (0.0-8.0); MONOCYTE # 0.7 TH/MM3 (0-0.9); PLATELET COUNT 239 TH/MM3 (150-450); RED BLOOD COUNT 4.41 MIL/MM3 (4.00-5.30); RED CELL DISTRIBUTION WIDTH 14.3 % (11.6-17.2); WHITE BLOOD COUNT 7.2 TH/MM3 (4.0-11.0)
[2017-04-15 17:36] LABS: CALCIUM 9.2 MG/DL (8.5-10.1)
[2017-04-15 17:40] LABS: CREATININE 1.1 MG/DL (0.50-1.00)
[2017-04-15 18:02] LABS: PROTHROMBIN TIME - PATIENT 9.7 SEC (9.8-11.6)
[2017-04-15 18:12] VITALS: BP 106/60; PULSE 59; RESP 16; O2SAT 97
--- NOTE | 2017-04-15 19:06 | PD ---
Physical Exam Date Seen by Provider: Apr 15, 2017 Time Seen by Provider: 19:04 Narrative The patient is a 72-year-old female was initially evaluate by the previous physician, Dr. Boss. Please refer to the initial history, physical, diagnostic evaluation, and treatment modality plan. The patient was signed out at 7 PM with ultrasound of lower extremity pending for calf pain and cramping. Data Data Last Documented VS Vital Signs Date Time Temp Pulse Resp B/P (MAP) Pulse Ox O2 Delivery O2 Flow Rate FiO2 04/15/17 18:12 59 16 106/60 (75) 97 Room Air 04/15/17 16:07 97.4 Orders Orders Complete Blood Count With Diff (04/15/17 17:03) Basic Metabolic Panel (Bmp) (04/15/17 17:03) Act Partial Throm Time (Ptt) (04/15/17 17:03) Prothrombin Time / Inr (Pt) (04/15/17 17:03) Iv Access Insert/Monitor (04/15/17 17:03) Ecg Monitoring (04/15/17 17:03) Oximetry (04/15/17 17:03) Us Leg Venous Doppler (04/15/17 ) Rivaroxaban (Xarelto) (04/15/17 20:15) Labs Laboratory Tests Test 04/15/17 17:10 White Blood Count 7.2 TH/MM3 Red Blood Count 4.41 MIL/MM3 Hemoglobin 13.4 GM/DL Hematocrit 42.0 % Mean Corpuscular Volume 95.3 FL Mean Corpuscular Hemoglobin 30.4 PG Mean Corpuscular Hemoglobin Concent 31.9 % Red Cell Distribution Width 14.3 % Platelet Count 239 TH/MM3 Mean Platelet Volume 7.6 FL Neutrophils (%) (Auto) 57.0 % Lymphocytes (%) (Auto) 31.1 % Monocytes (%) (Auto) 9.3 % Eosinophils (%) (Auto) 1.9 % Basophils (%) (Auto) 0.7 % Neutrophils # (Auto) 4.1 TH/MM3 Lymphocytes # (Auto) 2.2 TH/MM3 Monocytes # (Auto) 0.7 TH/MM3 Eosinophils # (Auto) 0.1 TH/MM3 Basophils # (Auto) 0.1 TH/MM3 CBC Comment DIFF FINAL Differential Comment Prothrombin Time 9.7 SEC Prothromb Time International Ratio 1.0 RATIO Activated Partial Thromboplast Time 24.0 SEC Blood Urea Nitrogen 12 MG/DL Creatinine 1.10 MG/DL Random Glucose 106 MG/DL Calcium Level 9.2 MG/DL Sodium Level 141 MEQ/L Potassium Level 3.9 MEQ/L Chloride Level 105 MEQ/L Carbon Dioxide Level 32.0 MEQ/L Anion Gap 4 MEQ/L Estimat Glomerular Filtration Rate 49 ML/MIN [facility] Medical Record Reviewed: Yes Supervised Visit with AICHA: No Interpretation(s) Laboratory Tests Test 04/15/17 17:10 White Blood Count 7.2 TH/MM3 Red Blood Count 4.41 MIL/MM3 Hemoglobin 13.4 GM/DL Hematocrit 42.0 % Mean Corpuscular Volume 95.3 FL Mean Corpuscular Hemoglobin 30.4 PG Mean Corpuscular Hemoglobin Concent 31.9 % Red Cell Distribution Width 14.3 % Platelet Count 239 TH/MM3 Mean Platelet Volume 7.6 FL Neutrophils (%) (Auto) 57.0 % Lymphocytes (%) (Auto) 31.1 % Monocytes (%) (Auto) 9.3 % Eosinophils (%) (Auto) 1.9 % Basophils (%) (Auto) 0.7 % Neutrophils # (Auto) 4.1 TH/MM3 Lymphocytes # (Auto) 2.2 TH/MM3 Monocytes # (Auto) 0.7 TH/MM3 Eosinophils # (Auto) 0.1 TH/MM3 Basophils # (Auto) 0.1 TH/MM3 CBC Comment DIFF FINAL Differential Comment Prothrombin Time 9.7 SEC Prothromb Time International Ratio 1.0 RATIO Activated Partial Thromboplast Time 24.0 SEC Blood Urea Nitrogen 12 MG/DL Creatinine 1.10 MG/DL Random Glucose 106 MG/DL Calcium Level 9.2 MG/DL Sodium Level 141 MEQ/L Potassium Level 3.9 MEQ/L Chloride Level 105 MEQ/L Carbon Dioxide Level 32.0 MEQ/L Anion Gap 4 MEQ/L Estimat Glomerular Filtration Rate 49 ML/MIN Ultrasound of the right leg reveals small volume nonocclusive thrombus involving the posterior tibial vein. Differential Diagnosis Differential diagnosis includes DVT, hypokalemia, hyperkalemia, hypocalcemia, claudication, arterial occlusion, ischemic lower extremity. Narrative Course The patient was initially evaluated by the previous physician, Dr. Boss. Please refer to the initial history, physical, diagnostic evaluation, and treatment modality plan. The patient was signed out at 7 PM with ultrasound of the lower extremity pending. I evaluated the patient at 7:30 PM. We attempted to palpate pulses, I cannot palpate a dorsalis pedis or posterior tibialis on the right. We then attempted to Doppler the pulses, unable to Doppler either pulse. I then placed the linear probe from the ultrasound machine over the affected areas and marked the arteries. With pressure there was no visible pulsations. With Doppler over the actual artery I could not Doppler the dorsalis or posterior tibialis pulse. The right foot was cool to touch, however, she did not have any pain. I was able to Doppler of the right popliteal pulse and I was able to palpate the right femoral pulse. Ultrasound reveals small volume nonocclusive thrombus involving the posterior tibial vein. The patient does have a nonocclusive thrombus involving the posterior tibial vein, however, her pain has been over the last 3-4 days, worse with ambulation, relieved at rest. It appears to be claudication pain. The patient does have a history of significant peripheral vascular disease and is followed by her vascular surgeon, Dr. Johnson. The right lower extremity is cool over the foot, however, she is currently without pain. The patient may have collaterals that she does have a dopplerable popliteal pulse. Therefore, call was placed to the patient's vascular surgeon, Dr. Johnson, at 7:51 PM. I discussed the patient with Dr. Johnson at 7:57 PM who agrees with appropriate anticoagulation for the DVT and he recommends that the patient call the office in the morning to be evaluated for the claudication pain. The patient is currently pain-free, is worse with activity, consistent with claudication. Diagnosis Primary Impression: DVT (deep venous thrombosis) Qualified Codes: I82.431 - Acute embolism and thrombosis of right popliteal vein Additional Impression: Claudication, intermittent Patient Instructions: General Instructions Additional Instruction: Please provide the patient a copy of her lab work and ultrasound report at discharge. Call Dr. Johnson's office in the morning to make an appointment. Return if symptoms worsen or progress. Med/Other Pt SpecificInfo: Prescription(s) given Scripts Rivaroxaban (Xarelto) 15 Mg Tab 15 MG PO Q12HR for Blood Clot Prevention for 21 Days, TAB 0 Refills Prov: Agustin Mcgill MD 04/15/17 Disposition: 01 DISCHARGE HOME Condition: Stable Agustin Mcgill MD Apr 15, 2017 19:06
--- NOTE | 2017-04-15 19:50 | RADRPT ---
EXAM DATE/TIME: 04/15/2017 18:59 [facility] COMPARISON: No previous studies available for comparison. INDICATIONS : Right leg pain. MEDICAL HISTORY : Myocardial infarction. Chronic obstructive pulmonary disease. Hard of hearing. Deep vein thrombos is. Asthma. Gangrene left foot. SURGICAL HISTORY : Appendectomy. Cholecystectomy. Tubal ligation. Left femoral bypass. Right hip surgery. Left great an d second toe amputation. ENCOUNTER: Subsequent ACUITY: 4 - 6 days PAIN SCORE: 6/10 LOCATION: Right leg. TECHNIQUE: Venous ultrasound of the leg was performed from the inguinal ligament to the proximal calf. Real-jeremy e, color Doppler and spectral tracing, compression and augmentation techniques were used. FINDINGS: There is normal compressibility of the deep venous system from the inguinal region to the proximal ca lf. Echogenic noncompressible material seen involving the posterior tibial vein. The remaining deep v enous structures are free of thrombus. Normal venous waveforms and augmentation. CONCLUSION: 1. Small volume nonocclusive thrombus involving the posterior tibial vein. Ancelmo Hernandez Jr., MD on April 15, 2017 at 19:46 Board Certified Radiologist. This report was verified electronically.
[2017-04-15] MEDS ORDERED: XARE15TA PO (20:04)
[2017-04-15] MEDS ORDERED: RIVAROXABAN 15 MG TAB PO ONE (20:15)
== END 2017-04-15 20:35 | disposition home or self-care (01) ==
LOC: PHEFT 16:01
DX: I82.431 Acute embolism and thrombosis of right popliteal vein (principal); I73.9 Peripheral vascular disease, unspecified; I25.2 Old myocardial infarction; I10 Essential (primary) hypertension; J44.9 Chronic obstructive pulmonary disease, unspecified; Z86.718 Personal history of other venous thrombosis and embolism
CPT/HCPCS: 80048; 85025; 85610; 85730; 93971; 99284

== ENCOUNTER 2017-04-22 13:22 | Inpatient (IN) | payer MEDICARE ==
[~2017-04-22] VITALS: Ht 152.4 cm; Wt 55.0 kg
[~2017-04-22 13:22] MED LIST changes: -ALTA2.5C4 PO; -PLAV75TA29 PO; +RANI150T PO; -TYLE325T PO; +XARE15TA PO
[2017-04-22 13:30] VITALS: BP 125/66; PULSE 71; RESP 16; TEMP 98.3; O2SAT 97
--- NOTE | 2017-04-22 14:22 | PD ---
HPI Chief Complaint: Musculoskeletal Complaint Time Seen by Provider: 13:34 Travel History International Travel<30 days: No Contact w/Intl Traveler<30days: No Traveled to known affect area: No History of Present Illness HPI This 72-year-old female is complaining of pain in her right great toe. The pain started 2 or 3 days ago. She says is been quite severe. She has taken some pain medication without much response. She has a history of DVT and she has had vascular bypass surgery on her left leg. 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 Her right leg generally has not been affected. She was here a few days ago with pain in the right leg and had an ultrasound which showed a small clot. She was started on Xarelto at that time. 2 days after starting the Xarelto she woke up with significant pain in her right great toe. The pain has been unrelenting and has not responded to medication. She does not smoke PFSH Past Medical History Hx Anticoagulant Therapy: Yes Asthma: Yes Autoimmune Disease: No Anxiety: No Depression: No Heart Rhythm Problems: No Cancer: No Cardiovascular Problems: Yes (AR, DVT) High Cholesterol: No Chest Pain: No Congestive Heart Failure: No COPD: Yes Diabetes: No Diminished Hearing: No Endocrine: No Genitourinary: No Hepatitis: No Hiatal Hernia: No Hypertension: Yes Immune Disorder: No Musculoskeletal: Yes (LEFT FOOT GANGRENE) Neurologic: No Psychiatric: No Reproductive: No Respiratory: Yes (COPD) Immunizations Current: Yes (FLU AND PNEUMONIA VACCINES) Sleep Apnea: No Thyroid Disease: No Menopausal: Yes Tubal Ligation: Yes Past Surgical History Abdominal Surgery: No AICD: No Appendectomy: Yes Cardiac Surgery: Yes (LEFT FEM BYPASS ) Cholecystectomy: Yes Ear Surgery: No Endocrine Surgery: No Eye Surgery: No Genitourinary Surgery: No Gynecologic Surgery: No Joint Replacement: No Oral Surgery: No Pacemaker: No Thoracic Surgery: No Other Surgery: Yes Social History Alcohol Use: Yes (BEER 2XWEEK) Tobacco Use: No Substance Use: No Allergies-Medications (Allergen,Severity, Reaction): Coded Allergies: No Known Allergies (Verified Adverse Reaction, Unknown, 04/22/17) Reported Meds & Prescriptions Reported Meds & Active Scripts Active Xarelto (Rivaroxaban) 15 Mg Tab 15 Mg PO Q12HR 21 Days Reported Ranitidine (Ranitidine HCl) 150 Mg Tab 150 Mg PO BID Coreg (Carvedilol) 3.125 Mg Tab 3.125 Mg PO BID Hydrocodone-Acetaminophen 7.5-325 mg Tab 1 Tab PO Q6H PRN Atorvastatin (Atorvastatin Calcium) 20 Mg Tab 20 Mg PO DAILY Review of Systems General / Constitutional: No: Fever, Chills Eyes: No: Diploplia, Blurred Vision HENT: No: Headaches, Vertigo Cardiovascular: No: Chest Pain or Discomfort, Palpitations Respiratory: No: Cough, Shortness of Breath Gastrointestinal: No: Vomiting, Diarrhea Genitourinary: No: Urgency, Frequency Musculoskeletal: Positive: Pain, No: Myalgias Skin: No Rash, No Itching Neurologic: No: Weakness, Dizziness Endocrine: No: Heat Intolerance, Cold Intolerance Hematologic/Lymphatic: No: Easy Bruising Physical Exam Narrative GENERAL: Thin female complaining of pain SKIN: Focused skin assessment warm/dry. HEAD: Atraumatic. Normocephalic. EYES: Pupils equal and round. No scleral icterus. No injection or drainage. ENT: No nasal bleeding or discharge. Mucous membranes pink and moist. NECK: Trachea midline. No JVD. CARDIOVASCULAR: Regular rate and rhythm. No murmur appreciated. RESPIRATORY: No accessory muscle use. Clear to auscultation. Breath sounds equal bilaterally. GASTROINTESTINAL: Abdomen soft, non-tender, nondistended. Hepatic and splenic margins not palpable. MUSCULOSKELETAL: No obvious deformities. No clubbing. No cyanosis. No edema. There is been an amputation of the medial aspect of the left foot. The right toe is tender to palpation. There is no warmth or erythema. The nailbed appears somewhat pale. I am not able to obtain pulses in either the posterior tibial or the dorsalis pedal on the right. I am able to obtain a popliteal pulse with the vascular Doppler. NEUROLOGICAL: Awake and alert. No obvious cranial nerve deficits. Motor grossly within normal limits. Normal speech. PSYCHIATRIC: Appropriate mood and affect; insight and judgment normal. Data Data Last Documented VS Vital Signs Date Time Temp Pulse Resp B/P (MAP) Pulse Ox O2 Delivery O2 Flow Rate FiO2 04/22/17 13:30 98.3 71 16 125/66 (85) 97 Orders Orders Electrocardiogram (04/22/17 14:05) Complete Blood Count With Diff (04/22/17 14:05) Basic Metabolic Panel (Bmp) (04/22/17 14:05) Prothrombin Time / Inr (Pt) (04/22/17 14:05) Act Partial Throm Time (Ptt) (04/22/17 14:05) Ondansetron Inj (Zofran Inj) (04/22/17 14:30) Morphine Inj (Morphine Inj) (04/22/17 14:30) MDM Medical Decision Making Medical Screen Exam Complete: Yes Emergency Medical Condition: Yes Medical Record Reviewed: Yes Differential Diagnosis Differential includes ischemic pain, vascular insufficiency, Narrative Course Patient There is no redness or other symptoms of inflammation. There appears to be poor circulation to the right foot which was initiated with the left foot also. I have spoken with Dr. Astorga and he asked that the patient be transferred to the main hospital. Diagnosis Primary Impression: Vascular insufficiency of extremity Admitting Information Admitting Physician Requests: Admit Delfino Cuenca MD Apr 22, 2017 14:22
[2017-04-22] MEDS ORDERED: MORPHINE SULFATE 4 MG/ML INJ IV PUSH ONE (14:30)
[2017-04-22] MEDS ORDERED: ONDANSETRON HCL 4 MG/2 ML VIAL IV PUSH ONE (14:30)
[2017-04-22 14:51] LABS: AUTOMATED NEUTROPHIL # 5.2 TH/MM3 (1.8-7.7); BASOPHIL % 0.3 % (0.0-2.0); EOSINOPHIL # 0.1 TH/MM3 (0-0.4); EOSINOPHIL % 1.6 % (0.0-4.0); HEMATOCRIT 41.2 % (35.0-46.0); LYMPH % 23.1 % (9.0-44.0); LYMPHOCYTE # 1.9 TH/MM3 (1.0-4.8); MEAN CELL VOLUME 96.8 FL (80.0-100.0); MEAN CORPUSCULAR HEMOGLOBIN 30.6 PG (27.0-34.0); MEAN CORPUSCULAR HGB CONC 31.6 % (32.0-36.0); MEAN PLATELET VOLUME 7.6 FL (7.0-11.0); MONO % 11.2 % (0.0-8.0); MONOCYTE # 0.9 TH/MM3 (0-0.9); NEUT % 63.8 % (16.0-70.0); PLATELET COUNT 278 TH/MM3 (150-450); RED BLOOD COUNT 4.26 MIL/MM3 (4.00-5.30); RED CELL DISTRIBUTION WIDTH 14.4 % (11.6-17.2); WHITE BLOOD COUNT 8.1 TH/MM3 (4.0-11.0)
[2017-04-22] MEDS: SODIUM CHLOR 0.9% 1000 ML INJ 1,000 ML IV SCH (15:07)
[2017-04-22 15:11] LABS: BICARBONATE 28.6 MEQ/L (21.0-32.0); CALCIUM 8.9 MG/DL (8.5-10.1)
[2017-04-22 15:13] LABS: INTERNATIONAL NORMALIZED RATIO 1.7 RATIO
[2017-04-22 15:15] LABS: CREATININE 0.97 MG/DL (0.50-1.00)
--- NOTE | 2017-04-22 15:49 | HHI.HP ---
[facility] Unknown Admission Diagnosis VASCULAR INSUFFICIENCY RIGHT LEG Diagnoses: Chief Complaint: Foot pain Travel History International Travel<30 Days: No Contact w/Intl Traveler <30 Da: No Traveled to Known Affected Are: No History of Present Illness 72-year-old white female being a minute for possible cold foot. Patient was in her usual state of health until a few days ago she began noticing worsening of her right foot pain, mainly in her great toe. States that the pain would fluctuate from a throbbing to a burning sensation and has progressed from being intermittent and not being constant. Ambulating does not worsen the pain but simply touching the medial aspect of her great toe irritates it and palpating any further causes exacerbation. She was just recently diagnosed with a DVT in the same leg and states that her calf pain is better but this toe pain is now overshadowing. Says she's been compliant with her Xarelto. Walks with a cane at home. She denies any past medical history of coronary artery disease. She does report a history of left foot surgeries didn't appear to involve amputations to which the patient cannot specify as to whether this was gangrene or a cold foot, etc. Review of Systems Except as stated in HPI: all other systems reviewed are Neg Past Family Social History Past Medical History DVT Past Surgical History Left foot partial amputation Allergies: Coded Allergies: No Known Allergies (Verified Adverse Reaction, Unknown, 04/22/17) Family History Hypertension Social History Denies ever smoking Physical Exam Vital Signs Vital Signs Date Time Temp Pulse Resp B/P (MAP) Pulse Ox O2 Delivery O2 Flow Rate FiO2 04/22/17 15:37 16 04/22/17 13:30 98.3 71 16 125/66 (85) 97 Physical Exam VS: afebrile GENERAL: Elderly white female, well-nourished, lying in bed, mild distress secondary to pain SKIN: Warm and dry. EYES: No scleral icterus. No injection or drainage. ENT: No nasal bleeding or discharge. Mucous membranes pink and moist. CARDIOVASCULAR: Regular rate and rhythm. no murmurs. Entire right foot is cool to the touch, Refill is about 1-2 seconds in all 4 lesser toes, great toe on the other hand has a Refill is around 2-3 seconds. Patient has tenderness to deep palpation over the great toe as well as the medial aspect of the first MTP joint and medial aspect of the first metatarsal. No tenderness on the plantar aspect of the entire foot. Has intact pulse over the ankle joint anteriorly on the left foot. Has intact sensation over entire right foot including great toe. RESPIRATORY: No accessory muscle use. Clear to auscultation. GASTROINTESTINAL: Abdomen soft, non-tender, nondistended. Extremities: No clubbing, cyanosis, or edema. No edema of right foot. chronic left foot deformity of left foot postsurgically. MUSCULOSKELETAL: Grossly intact range of motion of all 4 extremities NEUROLOGICAL: Awake and alert. No obvious cranial nerve deficits. No facial droop nor slurred speech noted. PSYCHIATRIC: Appropriate mood and affect; insight and judgment normal. Laboratory Laboratory Tests Test 04/22/17 14:15 White Blood Count 8.1 Red Blood Count 4.26 Hemoglobin 13.0 Hematocrit 41.2 Mean Corpuscular Volume 96.8 Mean Corpuscular Hemoglobin 30.6 Mean Corpuscular Hemoglobin Concent 31.6 Red Cell Distribution Width 14.4 Platelet Count 278 Mean Platelet Volume 7.6 Neutrophils (%) (Auto) 63.8 Lymphocytes (%) (Auto) 23.1 Monocytes (%) (Auto) 11.2 Eosinophils (%) (Auto) 1.6 Basophils (%) (Auto) 0.3 Neutrophils # (Auto) 5.2 Lymphocytes # (Auto) 1.9 Monocytes # (Auto) 0.9 Eosinophils # (Auto) 0.1 Basophils # (Auto) 0.0 CBC Comment DIFF FINAL Differential Comment Prothrombin Time 17.0 Prothromb Time International Ratio 1.7 Activated Partial Thromboplast Time 40.9 Blood Urea Nitrogen 19 Creatinine 0.97 Random Glucose 101 Calcium Level 8.9 Sodium Level 139 Potassium Level 4.0 Chloride Level 105 Carbon Dioxide Level 28.6 Anion Gap 5 Estimat Glomerular Filtration Rate 56 Result Diagram: 04/22/17 1415 04/22/17 1415 Caprini VTE Risk Assessment Caprini VTE Risk Assessment: Mod/High Risk (score >= 2) Caprini Risk Assessment Model Point Value = 1 Point Value = 2 Point Value = 3 Point Value = 5 Age 41-60 Minor surgery BMI > 25 kg/m2 Swollen legs Varicose veins or History of unexplained or recurrent spontaneous Oral contraceptives or hormone replacement Sepsis (< 1 month) Serious lung disease, including pneumonia (< 1 month) Abnormal pulmonary function Acute myocardial infarction Congestive heart failure (< 1 month) History of inflammatory bowel disease Medical patient at bed rest Age 61-74 Arthroscopic surgery Major open surgery (> 45 min) Laparoscopic surgery (> 45 min) Malignancy Confined to bed (> 72 hours) Immobilizing plaster cast Central venous access Age >= 75 History of VTE Family history of VTE Factor V Leiden Prothrombin [id number] Lupus anticoagulant Anticardiolipin antibodies Elevated serum homocysteine Heparin-induced thrombocytopenia Other congenital or acquired thrombophilia Stroke (< 1 month) Elective arthroplasty Hip, pelvis, or leg fracture Acute spinal cord injury (< 1 month) Prophylaxis Regimen Total Risk Factor Score Risk Level Prophylaxis Regimen 0-1 Low Early ambulation 2 Moderate Order ONE of the following: *Sequential Compression Device (SCD) *Heparin 5000 units SQ BID 3-4 Higher Order ONE of the following medications: *Heparin 5000 units SQ TID *Enoxaparin/Lovenox 40 mg SQ daily (WT < 150 kg, CrCl > 30 mL/min) *Enoxaparin/Lovenox 30 mg SQ daily (WT < 150 kg, CrCl > 10-29 mL/min) *Enoxaparin/Lovenox 30 mg SQ BID (WT < 150 kg, CrCl > 30 mL/min) AND/OR *Sequential Compression Device (SCD) 5 or more Highest Order ONE of the following medications: *Heparin 5000 units SQ TID (Preferred with Epidurals) *Enoxaparin/Lovenox 40 mg SQ daily (WT < 150 kg, CrCl > 30 mL/min) *Enoxaparin/Lovenox 30 mg SQ daily (WT < 150 kg, CrCl > 10-29 mL/min) *Enoxaparin/Lovenox 30 mg SQ BID (WT < 150 kg, CrCl > 30 mL/min) AND *Sequential Compression Device (SCD) Assessment and Plan Assessment and Plan 72-year-old white female being admitted for possible right cold foot Right great toe pain - Possible acute arterial occlusion. Consulting vascular surgery. We'll increase patient's home Lipitor from 20-40 mg and start heparin drip, we'll hold home Xarelto, last dose taken earlier this morning. DVT in right leg - Diagnosed a few days ago, see above treatment with heparin for now HTN - Resume home medications D/w vasc surgery, may need angioplasty. heparin Physician Certification 2 Midnight Certification Type: Admission for Inpatient Services Order for Inpatient Services The services are ordered in accordance with Medicare regulations or non- Medicare payer requirements, as applicable. In the case of services not specified as inpatient-only, they are appropriately provided as inpatient services in accordance with the 2-midnight benchmark. Estimated LOS (days): 2 2 days is the estimated time the patient will need to remain in the hospital, assuming treatment plan goals are met and no additional complications. Post-Hospital Plan: Not yet determined Robin Holland MD Apr 22, 2017 15:49
[2017-04-22 16:47] VITALS: BP 128/81; PULSE 66; RESP 16; O2SAT 97
[2017-04-22] MEDS: HEPARIN-D5W 25,000 U/250 ML 250 ML IV PRN (17:19)
[2017-04-22 18:35] VITALS: BP 114/59; PULSE 59; RESP 18; O2SAT 97
[2017-04-22 19:35] VITALS: BP 132/64; PULSE 56; RESP 16; O2SAT 99
[2017-04-22 20:00] VITALS: BP 159/69; PULSE 56; RESP 18; TEMP 97.4; O2SAT 100
--- NOTE | 2017-04-22 21:33 | EKG ---
Date Performed: 04/22/2017 Time Performed: 14:20:10 PTAGE: 72 years EKG: Sinus rhythm POSSIBLE RIGHT VENTRICULAR CONDUCTION DELAY POSSIBLE SEPTAL MYOCARDIAL INFARCTION MODERATE T-WAVE AB NORMALITY ABNORMAL ECG PREVIOUS TRACING : 09/03/2016 18.01 Since previous tracing, no significant change noted DOCTOR: Li Ordaz Interpretating Date/Time 04/22/2017 21:32:06
[2017-04-22] MEDS: ATORVASTATIN 40 MG TAB PO SCH (21:40)
[2017-04-22] MEDS: CARVEDILOL 3.125 MG TAB PO SCH (21:40)
[2017-04-23] VITALS: BP 139/62; PULSE 54; RESP 18; TEMP 97.2; O2SAT 97
[2017-04-23] MEDS: SODIUM CHLOR 0.9% 1000 ML INJ 1,000 ML IV SCH ×4 (00:30→19:04)
--- NOTE | 2017-04-23 07:05 | PD.VS.CON ---
History of Present Illness Chief Complaint: great toe pain Consult Requested by: Medical service History of Present Illness 72 yo female with R LE great toe pain that has been present for about a week, slightly improved at present. No rest pain and no tissue loss. Questionable antecedent claudication. Able to bear weight on it at present. No wounds. Pt has a history of L LE bypass and then angioplasty of bypass last year for tissue loss, with partial foot amputation. That has healed. She denies DM. Past/Family/Social History Past Medical History HTN PAD R LE DVT diagnosed last week denies other medical troubles Past Surgical History L LE bypass L toe amputations Social History nonsmoker Family History NC Home Medications Active Scripts Rivaroxaban (Xarelto) 15 Mg Tab, 15 MG PO Q12HR for Blood Clot Prevention for 21 Days, TAB 0 Refills Prov:Agustin Mcgill MD 04/15/17 Reported Medications Ranitidine (Ranitidine) 150 Mg Tab, 150 MG PO BID for Heartburn Management, #60 TAB 0 Refills 04/15/17 Carvedilol (Coreg) 3.125 Mg Tab, 3.125 MG PO BID, #60 TAB 0 Refills 09/10/16 Atorvastatin (Atorvastatin) 20 Mg Tab, 20 MG PO DAILY for Cholesterol Management , #30 TAB 0 Refills 04/30/16 Discontinued Reported Medications Hydrocodone-Acetaminophen (Hydrocodone-Acetaminophen) 7.5-325 mg Tab, 1 TAB PO Q6H Y for PAIN, TAB 0 Refills 08/29/16 Coded Allergies: No Known Allergies (Verified Adverse Reaction, Unknown, 04/22/17) Review of Systems Constitutional: DENIES: Fever, Chills Cardiovascular: COMPLAINS OF: Claudication, DENIES: Chest pain, Lower Extremity Edema Physical Exam Vitals/I&O Date Time Temp Pulse Resp B/P (MAP) Pulse Ox O2 Delivery O2 Flow Rate FiO2 04/23/17 00:00 97.2 54 18 139/62 (87) 97 04/22/17 20:05 04/22/17 20:00 97.4 56 18 159/69 (99) 100 04/22/17 19:35 56 16 132/64 (86) 99 Room Air 04/22/17 19:30 56 16 04/22/17 18:35 59 18 114/59 (77) 97 Room Air 04/22/17 16:47 66 16 128/81 (97) 97 Room Air 04/22/17 15:37 16 04/22/17 13:30 98.3 71 16 125/66 (85) 97 04/23/17 04/23/17 04/23/17 07:00 15:00 23:00 Intake Total 1036 ml Balance 1036 ml Neuro: alert, oriented, no distress HEENT: NC/AT, poor dentition Neck: no JVD trachea midline Heart: reg rate, no M Lungs: clear B Abdomen: NT Vascular: difficult to appreciate femoral pulses no palpable pedal pulses R LE Extremities: Palpable L LE graft pulse. Healed partial foot amputation, no ongoing tissue loss R great toe with dependent erythema but no kayley tissue loss Laboratory Tests Test 04/22/17 14:15 04/22/17 23:01 04/23/17 03:38 White Blood Count 8.1 Red Blood Count 4.26 Hemoglobin 13.0 Hematocrit 41.2 Mean Corpuscular Volume 96.8 Mean Corpuscular Hemoglobin 30.6 Mean Corpuscular Hemoglobin Concent 31.6 Red Cell Distribution Width 14.4 Platelet Count 278 Mean Platelet Volume 7.6 Neutrophils (%) (Auto) 63.8 Lymphocytes (%) (Auto) 23.1 Monocytes (%) (Auto) 11.2 Eosinophils (%) (Auto) 1.6 Basophils (%) (Auto) 0.3 Neutrophils # (Auto) 5.2 Lymphocytes # (Auto) 1.9 Monocytes # (Auto) 0.9 Eosinophils # (Auto) 0.1 Basophils # (Auto) 0.0 CBC Comment DIFF FINAL Differential Comment Prothrombin Time 17.0 Prothromb Time International Ratio 1.7 Activated Partial Thromboplast Time 40.9 93.1 38.9 Blood Urea Nitrogen 19 Creatinine 0.97 Random Glucose 101 Calcium Level 8.9 Sodium Level 139 Potassium Level 4.0 Chloride Level 105 Carbon Dioxide Level 28.6 Anion Gap 5 Estimat Glomerular Filtration Rate 56 ABIs pending Assessment and Plan Plan Likely chronic arterial insufficiency R LE 1. ABIs today - ordered 2. LE vein survey 3. Tentatively plan for angiogram tomorrow () Daniel Astorga MD FACS RPVI hay sorter [facility] - [facility] V[facility] at [facility] [phone] Daniel Astorga MD Apr 23, 2017 07:05
[2017-04-23 08:00] VITALS: BP 129/60; PULSE 55; RESP 15; TEMP 97.3; O2SAT 98
--- NOTE | 2017-04-23 08:40 | RADRPT ---
EXAM DATE/TIME: 04/23/2017 08:07 [facility] COMPARISON: No previous studies available for comparison. INDICATIONS : Lower extremity arterial bypass. MEDICAL HISTORY : Myocardial infarction. Chronic obstructive pulmonary disease. Hard of hearing. DVT. Asthma. Gangre ne left foot. SURGICAL HISTORY : Appendectomy. Cholecystectomy. Tubal ligation. Left femoral bypass.Right hip surgery. Left great and second toe amputation. ENCOUNTER: Initial ACUITY: 2 day PAIN SCORE: 7/10 LOCATION: Right leg. GREATER SAPHENOUS VEIN THIGH: PROXIMAL: 3 mm MID: 3 mm DISTAL: 3 mm CALF: PROXIMAL: 2 mm MID: 1 mm DISTAL: 2 mm FINDINGS: The venous system of the lower extremity is patent by color Doppler imaging. Measurements of the leg veins (in mm) are listed above. CONCLUSION: 1. Right lower extremity mapping, as above. Caio Cuellar MD on April 23, 2017 at 8:36 Board Certified Radiologist. This report was verified electronically.
--- NOTE | 2017-04-23 08:42 | RADRPT ---
EXAM DATE/TIME: 04/23/2017 07:58 [facility] COMPARISON: No previous studies available for comparison. INDICATIONS : Lower extremity arterial bypass. MEDICAL HISTORY : Myocardial infarction. Chronic obstructive pulmonary disease. Hard of hearing. DVT. Asthma. Gangre ne left foot. SURGICAL HISTORY : Appendectomy. Cholecystectomy. Tubal ligation. Left femoral bypass.Right hip surgery. Left great and second toe amputation. ENCOUNTER: Subsequent ACUITY: 2 day PAIN SCORE: 7/10 LOCATION: Right leg. TECHNIQUE: Venous ultrasound of the leg was performed from the inguinal ligament to the proximal calf. Real-jeremy e, color Doppler and spectral tracing, compression and augmentation techniques were used. FINDINGS: There is normal compressibility of the deep venous system from the inguinal region to the proximal ca lf. No echogenic clot is seen in the lumen of the common femoral, femoral, popliteal, and posterior tibial veins. There is a normal response of the venous system to proximal and distal augmentation an d respiration. Atherosclerotic vascular disease. CONCLUSION: No DVT in right leg. Giles Cleaning MD on April 23, 2017 at 8:34 Board Certified Radiologist. This report was verified electronically.
--- NOTE | 2017-04-23 08:54 | RADRPT ---
EXAM DATE/TIME: 04/23/2017 00:00 [facility] COMPARISON: ANGIOGRAM, LEFT LEG, August 29, 2016, 14:58. INDICATIONS : Vascular insufficiency right leg TECHNIQUE: Four-cuff ankle and brachial pressures were obtained. Pulse cuff waveform tracings of the ankles were recorded, and ankle-brachial indices were calculated. PRESSURES (mmHg): Brachial (arm): Right 134 Left IV SITE Ankle: Right 18 Left 125 JEOVANY: Right 0.13 Left 0.93 TBI: Right 0.00 Left 0.31 TECH NOTE: 3RD DIGIT USED FOR LEFT TBI- 1, 2 ND DIGIT AMPUTEDAVIN DAMIAN MR#: [id number] Exam D T/Desc: April 23, 2017[facility] ANKLE BRACHIAL INDEX PULSED CUFF WAVEFORMS: Critical nearly flat line amplitude on the right. Normal-appearing on the left. CONCLUSION: 1. Severe right lower extremity peripheral arterial disease with no detectable pressures in the right foot. 2. Normal range left JEOVANY with evidence for left lower extremity small vessel disease. Caio Cuellar MD on April 23, 2017 at 8:45 Board Certified Radiologist. This report was verified electronically.
[2017-04-23] MEDS: CARVEDILOL 3.125 MG TAB PO SCH ×2 (09:28→20:15)
[2017-04-23 12:00] VITALS: BP 126/58; PULSE 61; RESP 16; TEMP 96.3; O2SAT 97
[2017-04-23] MEDS ORDERED: ACETAMINOPHEN/HYDROcodone 325 MG/5 MG TAB PO PRN (13:15)
[2017-04-23] MEDS ORDERED: ACETAMINOPHEN 325 MG TAB PO PRN (13:15)
[2017-04-23 16:00] VITALS: BP 115/60; PULSE 59; RESP 16; TEMP 96.6; O2SAT 90
--- NOTE | 2017-04-23 16:22 | HHI.PR ---
Subjective Remarks Pain is under control with [place]. Further imaging and process. Intervention anticipated. Objective Vital Signs Date Time Temp Pulse Resp B/P (MAP) Pulse Ox O2 Delivery O2 Flow Rate FiO2 04/23/17 14:30 18 04/23/17 12:00 96.3 61 16 126/58 (80) 97 04/23/17 08:00 97.3 55 15 129/60 (83) 98 04/23/17 00:00 97.2 54 18 139/62 (87) 97 04/22/17 20:05 04/22/17 20:00 97.4 56 18 159/69 (99) 100 04/22/17 19:35 56 16 132/64 (86) 99 Room Air 04/22/17 19:30 56 16 04/22/17 18:35 59 18 114/59 (77) 97 Room Air 04/22/17 16:47 66 16 128/81 (97) 97 Room Air I/O 04/22/17 04/22/17 04/22/17 04/23/17 04/23/17 04/23/17 07:00 15:00 23:00 07:00 15:00 23:00 Intake Total 1036 ml Balance 1036 ml Intake Oral 360 ml IV Total 676 ml # Voids 1 Result Diagram: 04/22/17 1415 04/22/17 1415 Objective Remarks GENERAL: NAD, A&Ox3 HEAD: Normocephalic. NECK: Supple, trachea midline. No lymphadenopathy. EYES: No scleral icterus. No injection or drainage. CARDIOVASCULAR: Regular rate and rhythm without murmurs, gallops, or rubs. RESPIRATORY: Breath sounds equal bilaterally. No accessory muscle use. GASTROINTESTINAL: Abdomen soft, non-tender, nondistended. MUSCULOSKELETAL: No cyanosis, or edema. Right foot has some erythema distally and is cold to touch. Left foot has medial aspect of distal foot amputated. SKIN: Warm and dry. NEURO: No focal neurological deficitis. A/P Problem List: (1) Vascular insufficiency of extremity ICD Code: I99.8 - Other disorder of circulatory system Status: Acute Assessment and Plan 72-year-old white female being admitted for arterial occlusion of the right distal foot arterial occlusion of the right distal foot Right great toe pain Vascular surgery following Continue statin Continue heparin IV Patient had been on Xarelto during onset of clot Continue pain treatments as needed History of DVT in right leg Continuing heparin Follow clinically Hypertension Continue baseline treatment Follow blood pressures Adjust treatments as needed DVT prophylaxis heparin Albert Olivia MD Apr 23, 2017 16:22
[2017-04-23 20:00] VITALS: BP 165/74; PULSE 70; RESP 20; TEMP 97.9; O2SAT 98
[2017-04-23] MEDS: ATORVASTATIN 40 MG TAB PO SCH (20:15)
[2017-04-24] VITALS: BP 153/67; PULSE 62; RESP 20; TEMP 97.5; O2SAT 97
[2017-04-24] MEDS ORDERED: CHLORHEXIDINE GLUCONATE 2 % 1 PACK (2 CLOTHS) TOPICAL PRN (01:30)
[2017-04-24] MEDS ORDERED: POVIDONE IODINE 5% (ANTISEPSIS KIT) 4 APPLICATIONS EACH NARE PRN (01:30)
[2017-04-24] MEDS ORDERED: LACTATED RINGER'S 1000 ML IV PRN (01:30)
[2017-04-24] MEDS: SODIUM CHLOR 0.9% 1000 ML INJ 1,000 ML IV SCH ×2 (04:02→17:14)
[2017-04-24 07:23] LABS: AUTOMATED NEUTROPHIL # 3.4 TH/MM3 (1.8-7.7); BASOPHIL % 0.5 % (0.0-2.0); EOSINOPHIL # 0.3 TH/MM3 (0-0.4); EOSINOPHIL % 3.3 % (0.0-4.0); HEMATOCRIT 33.9 % (35.0-46.0); HEMOGLOBIN 11.7 GM/DL (11.6-15.3); LYMPH % 41.2 % (9.0-44.0); LYMPHOCYTE # 3.2 TH/MM3 (1.0-4.8); MEAN CELL VOLUME 94.8 FL (80.0-100.0); MEAN CORPUSCULAR HEMOGLOBIN 32.6 PG (27.0-34.0); MEAN CORPUSCULAR HGB CONC 34.4 % (32.0-36.0); MEAN PLATELET VOLUME 7.9 FL (7.0-11.0); MONOCYTE # 0.9 TH/MM3 (0-0.9); PLATELET COUNT 242 TH/MM3 (150-450); RED BLOOD COUNT 3.58 MIL/MM3 (4.00-5.30); RED CELL DISTRIBUTION WIDTH 14.4 % (11.6-17.2); WHITE BLOOD COUNT 7.9 TH/MM3 (4.0-11.0)
[2017-04-24 07:56] LABS: ALBUMIN 2.8 GM/DL (3.4-5.0); AST (GOT) 21 U/L (15-37); BICARBONATE 26.8 MEQ/L (21.0-32.0); BLOOD UREA NITROGEN 15 MG/DL (7-18); CALCIUM 8.8 MG/DL (8.5-10.1); CHLORIDE 108 MEQ/L (98-107); CREATININE 0.88 MG/DL (0.50-1.00); GLOMERULAR FILTRATION RATE 63 ML/MIN (>89); GLUCOSE,RANDOM 92 MG/DL (74-106); SODIUM (NA) 141 MEQ/L (136-145)
[2017-04-24 07:57] LABS: ALT (GPT) 16 U/L (10-53)
[2017-04-24] MEDS ORDERED: IOHEXOL 350 MG/ML 50 ML BTL (for Cath Lab) OTHER ONE (07:57)
[2017-04-24 08:00] VITALS: BP 157/75; PULSE 62; RESP 17; TEMP 97.1; O2SAT 98
[2017-04-24 08:00] LABS: ALKALINE PHOSPHATASE 63 U/L (45-117); TOTAL BILIRUBIN ADULT 0.4 MG/DL (0.2-1.0); TOTAL PROTEIN 6.3 GM/DL (6.4-8.2)
[2017-04-24] MEDS: CARVEDILOL 3.125 MG TAB PO SCH ×2 (08:58→21:24)
[2017-04-24] MEDS: HEPARIN-D5W 25,000 U/250 ML 250 ML IV PRN (09:06)
--- NOTE | 2017-04-24 11:24 | HHI.PR ---
Subjective Remarks Imaging shows severe right lower extremity peripheral artery disease without measurable pressures in the right foot. Patient still has symptoms. No fevers. No new complaints. Objective Vital Signs Date Time Temp Pulse Resp B/P (MAP) Pulse Ox O2 Delivery O2 Flow Rate FiO2 04/24/17 08:00 97.1 62 17 157/75 (102) 98 04/24/17 00:00 97.5 62 20 153/67 (95) 97 04/23/17 20:00 97.9 70 20 165/74 (104) 98 04/23/17 16:00 96.6 59 16 115/60 (78) 90 04/23/17 14:30 18 04/23/17 12:00 96.3 61 16 126/58 (80) 97 I/O 04/23/17 04/23/17 04/23/17 04/24/17 04/24/17 04/24/17 06:59 14:59 22:59 06:59 14:59 22:59 Intake Total 1036 ml 1677.5 ml 1176 ml Balance 1036 ml 1677.5 ml 1176 ml Intake Oral 360 ml 480 ml 360 ml IV Total 676 ml 1197.5 ml 816 ml # Voids 1 3 6 # Bowel Movements 0 0 Result Diagram: 04/24/17 0545 04/24/17 0545 Objective Remarks GENERAL: NAD, A&Ox3 HEAD: Normocephalic. NECK: Supple, trachea midline. No lymphadenopathy. EYES: No scleral icterus. No injection or drainage. CARDIOVASCULAR: Regular rate and rhythm without murmurs, gallops, or rubs. RESPIRATORY: Breath sounds equal bilaterally. No accessory muscle use. GASTROINTESTINAL: Abdomen soft, non-tender, nondistended. MUSCULOSKELETAL: No cyanosis, or edema. Right foot has some erythema distally and is cold to touch. Left foot has medial aspect of distal foot amputated. SKIN: Warm and dry. NEURO: No focal neurological deficitis. A/P Problem List: (1) Vascular insufficiency of extremity ICD Code: I99.8 - Other disorder of circulatory system Status: Acute Assessment and Plan 72-year-old white female being admitted for arterial occlusion of the right distal foot. Determination for intervention pending. Continue to monitor for evidence of bleeding. Follow CBC. Labs ordered for a.m. arterial occlusion of the right distal foot Right great toe pain Vascular surgery following Continue statin Continue heparin IV Patient had been on Xarelto during onset of clot Continue pain treatments as needed History of DVT in right leg Continuing heparin Follow clinically Hypertension Continue baseline treatment Follow blood pressures Adjust treatments as needed DVT prophylaxis heparin Albert Olivia MD Apr 24, 2017 11:24
[2017-04-24 12:00] VITALS: BP 153/71; PULSE 64; RESP 16; TEMP 96.3; O2SAT 97
[2017-04-24 16:00] VITALS: BP 168/79; PULSE 61; RESP 17; TEMP 98; O2SAT 98
[2017-04-24] MEDS ORDERED: HEPARIN SODIUM - IV 10,000 UNITS/10 ML VIAL ONE (17:17)
[2017-04-24] MEDS ORDERED: MIDAZOLAM HCL 2 MG/2 ML VIAL ONE (17:17)
[2017-04-24] MEDS ORDERED: HEPARIN-NS/PF INJ 500 ML ONE (17:17)
--- NOTE | 2017-04-24 18:03 | HHI.PR ---
cc: Daniel Astorga MD Immediate Post Op Note Procedure Date: Apr 24, 2017 Pre Op Diagnosis: ischemic rest pain R LE, PAD Post Op Diagnosis: ischemic rest pain R LE, PAD Surgeon: Daniel Astorga Implementation Project Manager(s): none Procedure: Aortogram w/ R LE angiogram Findings: 1. Occluded popliteal, PT, peroneal 2. Reconstitution at distal AT Additional Information: will need fem-AT vs continued pain control Complications: none Specimen(s) removed: none Estimated blood loss: 10mL Anesthesia: MAC Drains: None Fluids: 200mL IVF Patient to: Other (DOCU) Patient Condition: Good Date/Time of Procedure: SEE SURGICAL CARE RECORD Daniel Astorga MD Apr 24, 2017 18:03
--- NOTE | 2017-04-24 18:11 | CATHPROC ---
Tripology HIS Report Study Information Study Number Admission Scheduled Start Study Start [id number] Apr 22 2017 2:35PM 04/24/2017 Apr 24 2017 5:24PM [place] Service Cath Endovascular Study Admit Source Facility Department Emergency department [facility] - Tire Adjuster Physician and Clinical Staff Initial Daniel Carranza Chemical Production EngineerHillary Torres BSN Chemical Production Engineer Ericka Law,MATT Recorder Jose Manuel Fraser,RT(R) Scrub Nicolás Oh,RT(R) Procedures Performed Procedure Location (Site) Vessel Name Abdominal Angiogram Abd Aorta (A3) Aorta Abdominal Angiogram Fem R. Com (R7) Femoral Art Abdominal Angiogram Popliteal R (R10) Popliteal Abdominal Angiogram SFA (right) Femoral Art Abdominal Angiogram Tib, Ant. (right) Popliteal Equipment Time Experimental Mechanic Spacecraft Description Size Mfg Part Number Used/Scraped [id number] 17:45 ANGIO-DYNAMICS OMNI FLUSH 65CM CATHETER FR 4 Used *[id number] INTRODUCER SET, 17:45 [employer] FR 5 [id number] *[id number] Used MICROPUNCTURE, STIFFENED [id number] 17:45 [employer] IND[employer]RIES PACK, CCL CUSTOM * Used *[id number] 17:45 [employer] MEDICAL PRESSURE TUBING 48" 48" [id number] 17:45 NAMIC TUBING, HIGH PRESSURE 20" 20" Used *[id number] TUBING, PRESSURE MONITORING [id number] 17:45 NAMIC PACER 72" Used 72" *[id number] 17:45 [employer]ED OMNIPAQUE, 300 MG, 150ML 150ML [id number] Used 17:45 [employer] OMNIPAQUE, 300 MG, 50ML 50ML [id number] Used [id number] 17:45 [employer],WARM AIR CCL * Used *[id number] 17:45 [employer] MEDICAL SHEATH, FR4 TERUMO (10CM) FR 4 Used *[id number] WIRE, ANGLED GLIDE .035 [id number] 17:45 [employer]UM[employer] MEDICAL/ALEXANDRO 260CM Used 260CM *[id number] History: Allergies Allergy Reaction No Known Allergies Medication Medication Total Dose (Bolus/Oral) Medication Total Dosage/Unit 1% XYLOCAINE 20 mL FENTANYL 50 mcg VERSED 2 mg Medications (Bolus/Oral) Medication Time Given Dosage/Unit Administered By Reason VERSED 04/24/2017 5:45:31 PM 2 mg Hillary Calderón 2 mg VERSED given in lab by Hillary Calderón BSN via Peripheral IV. Ordered by Daniel Astorga. 1% XYLOCAINE 04/24/2017 5:46:07 PM 20 mL Daniel Astorga 20 mL 1% XYLOCAINE given in lab by Daniel Astorga in Right Groin via Subcutaneous. Ordered by Daniel Astorga. FENTANYL 04/24/2017 5:46:41 PM 50 mcg Hillary Calderón 50 mcg FENTANYL given in lab by Hillary Claderón BSN via Peripheral IV. Ordered by Daniel Astorga . Medication (Drip) Medication Time Given Dosage/Unit Concentration/Unit Diluent (ml) Solution IV Solutions 04/24/2017 5:42:07 PM 0 mL (IV) 500 NaCl .9 Patient arrived on IV Solutions given by Daniel Astorga in Left Antecubital via Peripheral IV. Pump/D rip Flow = 20 ml/hr using NaCl .9. Ordered by Daniel Astorga. Initial Case Assessment Cardiovascular HR Rhythm NIBP Chest Pain 73 sr 185/100 0 Edema Present Skin color Skin None Normal Warm Dry Circulatory - Right Pulses Femoral 3 Scale (0,1,2,3,4,d) Circulatory - Left Pulses Femoral 3 Scale (0,1,2,3,4,d) Neurological State Oriented to time-place- Alert Moves all extremities person Respiration - General Respiration Rate SpO2 (%) O2 (lpm) (B/min) 16 100 0 Chronological Log Time Study Chronological Log 17:32:14 Patient arrived via Bed. 17:32:15 Patient Name, D.O.B, / Armband Verified By R.N. 17:32:17 Consent signed by the physician and the patient and verified by the T[employer] Adjuster staff. 17:32:18 Pre-op and post- op instructions given; patient acknowledges understanding of instructions. 17:32:55 Verbal Stimulation=2 Physical Stimulation=2 Airway=2 Respiration=2 TOTAL=8. (0=absent, 1=li mited, 2=present) 17:33:05 Presedation assessment performed by Tire Adjuster RN. Vitals capture started with the following parameters, Patient=Adult, Interval=5 min, Initial Pr rznryb=734 mmHg, 17:40:50 Deflation Rate=5 mmHg, Cuff placed on Right Arm 17:41:12 Patient has been NPO for More than 6Hrs. 17:41:17 Skin Breakdown-wound present on right great toe. 17:41:53 A # 20 IV was noted in the Antecubital (left). Grade = 0 Patient arrived on IV Solutions given by Daniel Astorga in Left Antecubital via Peripheral IV. Pump/Drip Flow = 20 ml/hr 17:42:07 using NaCl .9. Ordered by Daniel Astorga. 17:42:18 HR=74 bpm, FEJM=311/100 mmhg, EhA7=799.0 %, Resp=13 B/min, Leo=2 17:42:28 History and physical on the chart or being dictated. 17:42:39 Reference ECG taken Assessment: Initial Case, HR=73 BPM, Rhythm=sr, NFCK=712/100 mmhg, Chest Pain=0, Edema=None, Co neva=Normal, Skin = Warm, Dry Right Pulses: Femoral=3 17:43:46 Left Pulses: Femoral=3 Neurological: State=Alert, Ox3, CHEATHAM Respiration: Resp=16 B/min, RcZ0=183 %, O2=0 lpm 17:44:34 Bilateral groins prepped with 2% chlorhexidine, and draped after a 3 minute waiting time. Time Out. Correct patient, correct procedure, correct physician, power injector loaded with con trast with surgical team 17:45:18 present. Time Out Concurred by MD and individual staff in procedure. Loaded by Franny Law rn, ve rified by Nicolás Oh. 17:45:31 2 mg VERSED given in lab by Hillary Calderón BSN via Peripheral IV. Ordered by Daniel Astorga. 17:46:03 Presedation re-assessment performed by Tire Adjuster RN. 17:46:05 Case Start 17:46:07 20 mL 1% XYLOCAINE given in lab by Daniel Astorga in Right Groin via Subcutaneous. Ordered by Daniel Astorga. 17:46:30 HR=77 bpm, QUPM=318/95 mmhg, CnR8=789.0 %, Resp=10 B/min, Leo=2 17:46:41 50 mcg FENTANYL given in lab by Hillary Calderón BSN via Peripheral IV. Ordered by Daniel Harris. 17:47:35 Access site was Left Femoral Artery. A INTRODUCER SET, MICROPUNCTURE, STIFFENED FR 5 was advanced into the Fem Art (left) using the Percutaneous 17:47:42 technique. A SHEATH, FR4 TERUMO (10CM) FR 4 was exchanged in the Fem Art (left). This was necessary in ord er to 17:48:11 accomodate a larger catheter. A OMNI FLUSH 65CM CATHETER FR 4 was advanced over a wire. OMNIPAQUE, 300 MG, 150ML 150ML was us ed for 17:48:53 injections. 17:49:43 Wire removed 17:50:22 Through a OMNI FLUSH 65CM CATHETER FR 4, The Abdominal Aorta was injected with 10 cc's of c ontrast. 17:51:03 Through a OMNI FLUSH 65CM CATHETER FR 4, The r fem. com was injected with 4 cc's of contras t. 17:51:33 HR=57 bpm, QHAP=236/78 mmhg, SpO2=99.0 %, Resp=15 B/min, Leo=2 17:53:07 Through a OMNI FLUSH 65CM CATHETER FR 4, right sfa was injected with 4 cc's of contrast. 17:54:50 Through a OMNI FLUSH 65CM CATHETER FR 4, The Abdominal Aorta was injected with 4 cc's of co ntrast. 17:55:05 Through a OMNI FLUSH 65CM CATHETER FR 4, The Abdominal Aorta was injected with 4 cc's of co ntrast. 17:56:28 HR=57 bpm, LHOV=599/78 mmhg, SpO2=99.0 %, Resp=18 B/min, Leo=2 17:57:53 Catheter was removed OTW 17:58:43 Case End 17:58:46 No case complications noted. 18:00:35 Sheath removed; pressure applied to access site. 18:01:20 Cine recording checked. 18:01:22 Bedside Report will be given. 18:01:25 Contrast Scanned 18:01:27 HR=57 bpm, VDRQ=621/82 mmhg, UyK9=914.0 %, Resp=10 B/min, Leo=2 18:06:30 HR=57 bpm, WJAH=373/80 mmhg, SsP2=655.0 %, Resp=13 B/min, Leo=2 18:10:57 Sterile dressing applied to site 18:11:11 Patient moved to stretcher End Study - Contrast Media Used In Study Contrast Total Opened (mL) Total Used (mL) Total Wasted (mL) Omnipaque 30 30 0 End Study - Radiation Exposure Fluoro Time (minutes) 1.4 End Study - Patient Disposition Complications Transferred To Telemetry Bed
[2017-04-24] MEDS: ATORVASTATIN 40 MG TAB PO SCH (21:24)
[2017-04-24 21:30] VITALS: BP 171/82; PULSE 62; RESP 18; TEMP 97.1; O2SAT 99
[2017-04-25] VITALS: BP 134/68; PULSE 62; RESP 18; TEMP 97.6; O2SAT 97
[2017-04-25] MEDS: SODIUM CHLOR 0.9% 1000 ML INJ 1,000 ML IV SCH (00:43)
[2017-04-25 07:28] LABS: AUTOMATED NEUTROPHIL # 3.8 TH/MM3 (1.8-7.7); BASOPHIL % 0.6 % (0.0-2.0); EOSINOPHIL # 0.2 TH/MM3 (0-0.4); EOSINOPHIL % 3.2 % (0.0-4.0); HEMATOCRIT 35.4 % (35.0-46.0); HEMOGLOBIN 12.3 GM/DL (11.6-15.3); LYMPH % 36.4 % (9.0-44.0); LYMPHOCYTE # 2.8 TH/MM3 (1.0-4.8); MEAN CELL VOLUME 94.5 FL (80.0-100.0); MEAN CORPUSCULAR HGB CONC 34.9 % (32.0-36.0); MONOCYTE # 0.8 TH/MM3 (0-0.9); NEUT % 49.8 % (16.0-70.0); PLATELET COUNT 266 TH/MM3 (150-450); RED BLOOD COUNT 3.75 MIL/MM3 (4.00-5.30); RED CELL DISTRIBUTION WIDTH 14.3 % (11.6-17.2); WHITE BLOOD COUNT 7.6 TH/MM3 (4.0-11.0)
[2017-04-25 07:37] LABS: ALBUMIN 2.9 GM/DL (3.4-5.0); ALT (GPT) 16 U/L (10-53); AST (GOT) 21 U/L (15-37); BICARBONATE 29.1 MEQ/L (21.0-32.0); CALCIUM 8.6 MG/DL (8.5-10.1); CHLORIDE 106 MEQ/L (98-107); CREATININE 0.78 MG/DL (0.50-1.00); GLOMERULAR FILTRATION RATE 72 ML/MIN (>89); GLUCOSE,RANDOM 82 MG/DL (74-106); SODIUM (NA) 141 MEQ/L (136-145)
[2017-04-25 07:42] LABS: ALKALINE PHOSPHATASE 72 U/L (45-117); BLOOD UREA NITROGEN 10 MG/DL (7-18); TOTAL BILIRUBIN ADULT 0.5 MG/DL (0.2-1.0); TOTAL PROTEIN 6.7 GM/DL (6.4-8.2)
[2017-04-25 08:00] VITALS: BP 146/77; PULSE 68; RESP 18; TEMP 96.8; O2SAT 97
--- NOTE | 2017-04-25 08:10 | PD.VS.PN ---
Subjective Subjective/Hospital Course POD#1 s/p R LE angiogram Pt majo procedure well and no troubles Objective Vitals/I&O Date Time Temp Pulse Resp B/P (MAP) Pulse Ox O2 Delivery O2 Flow Rate FiO2 04/25/17 00:00 97.6 62 18 134/68 (90) 97 04/24/17 21:30 97.1 62 18 171/82 (111) 99 04/24/17 16:00 98.0 61 17 168/79 (108) 98 04/24/17 12:00 96.3 64 16 153/71 (98) 97 04/25/17 04/25/17 04/25/17 07:00 15:00 23:00 Intake Total 1360 ml Output Total 1550 ml Balance -190 ml Physical Exam L groin soft, NT R foot perfused, no tissue loss Laboratory Laboratory Tests Test 04/24/17 13:04 04/25/17 05:15 Activated Partial Thromboplast Time 45.5 34.5 White Blood Count 7.6 Red Blood Count 3.75 Hemoglobin 12.3 Hematocrit 35.4 Mean Corpuscular Volume 94.5 Mean Corpuscular Hemoglobin 33.0 Mean Corpuscular Hemoglobin Concent 34.9 Red Cell Distribution Width 14.3 Platelet Count 266 Mean Platelet Volume 8.0 Neutrophils (%) (Auto) 49.8 Lymphocytes (%) (Auto) 36.4 Monocytes (%) (Auto) 10.0 Eosinophils (%) (Auto) 3.2 Basophils (%) (Auto) 0.6 Neutrophils # (Auto) 3.8 Lymphocytes # (Auto) 2.8 Monocytes # (Auto) 0.8 Eosinophils # (Auto) 0.2 Basophils # (Auto) 0.0 CBC Comment DIFF FINAL Differential Comment Blood Urea Nitrogen 10 Creatinine 0.78 Random Glucose 82 Total Protein 6.7 Albumin 2.9 Calcium Level 8.6 Alkaline Phosphatase 72 Aspartate Amino Transf (AST/SGOT) 21 Alanine Aminotransferase (ALT/SGPT) 16 Total Bilirubin 0.5 Sodium Level 141 Potassium Level 3.6 Chloride Level 106 Carbon Dioxide Level 29.1 Anion Gap 6 Estimat Glomerular Filtration Rate 72 Date/Time Source Procedure Growth Status 04/24/17 16:32 Stool Stool Stool Occult Blood (NACHO) - Final HEMOCCULT NEGATIVE Complete Assessment and Plan Plan R LE ischemic rest pain 1. Will need distal bypass - discussed with patient 2. Ok to d/c home with pain meds and anticoagulation 3. Will schedule surgery within 1-2 weeks Discussed with patient who agrees. Daniel Astorga MD FACS RPVI flight coordinator [facility] - Heart and Vascular Surgery at [facility] [phone] Daniel Astorga MD Apr 25, 2017 08:10
[2017-04-25] MEDS: CARVEDILOL 3.125 MG TAB PO SCH (09:19)
[2017-04-25 09:47] VITALS: O2SAT 98
[2017-04-25] MEDS ORDERED: XARE15TA PO (10:08)
[2017-04-25] MEDS ORDERED: XARE20TA PO (10:08)
[2017-04-25] MEDS ORDERED: HYDR-3516 PO (10:08)
--- NOTE | 2017-04-25 11:08 | HHI.FF ---
Face to Face Verification Diagnosis: (1) Vascular insufficiency of extremity (2) PVD (peripheral vascular disease) Home Health Nursing Order: Signs/symptoms of disease process Instructions: Right foot ischemia, outpatient surgery planned - distal bypass planned. Monitor for symptoms of pain and temperature/color; to ensure no worsening. I have seen patient Bernie Rodrigues on 04/25/17. My clinical findings support the need for the requested home health care services because: Ltd mobility - disease progression Deconditioned w/ increased weakness Limited ability to care for self I certify that my clinical findings support that this patient is homebound because: Unsteady gait/balance Unsafe to leave home unassisted Unable to use public transportation Albert Olivia MD Apr 25, 2017 11:08
[2017-04-25 12:00] VITALS: BP 124/58; PULSE 66; RESP 17; TEMP 96.1; O2SAT 98
--- NOTE | 2017-04-25 14:20 | HHI.DS ---
Discharge Summary Admission Date Apr 22, 2017 at 14:35 Discharge Date: Apr 25, 2017 Admitting Diagnosis VASCULAR INSUFFICIENCY RIGHT LEG (1) Vascular insufficiency of extremity ICD Code: I99.8 - Other disorder of circulatory system Diagnosis: Principal Status: Acute (2) PVD (peripheral vascular disease) ICD Code: I73.9 - Peripheral vascular disease, unspecified Diagnosis: Principal Status: Acute Procedures Angiogram Brief History - From Admission 72-year-old white female being a minute for possible cold foot. Patient was in her usual state of health until a few days ago she began noticing worsening of her right foot pain, mainly in her great toe. States that the pain would fluctuate from a throbbing to a burning sensation and has progressed from being intermittent and not being constant. Ambulating does not worsen the pain but simply touching the medial aspect of her great toe irritates it and palpating any further causes exacerbation. She was just recently diagnosed with a DVT in the same leg and states that her calf pain is better but this toe pain is now overshadowing. Says she's been compliant with her Xarelto. Walks with a cane at home. She denies any past medical history of coronary artery disease. She does report a history of left foot surgeries didn't appear to involve amputations to which the patient cannot specify as to whether this was gangrene or a cold foot, etc. CBC/BMP: 04/25/17 0515 04/25/17 0515 Significant Findings Laboratory Tests Test 04/22/17 23:01 04/23/17 03:38 04/23/17 12:35 04/23/17 20:57 Activated Partial Thromboplast Time 93.1 SEC (24.3-30.1) 38.9 SEC (24.3-30.1) 34.5 SEC (24.3-30.1) 35.0 SEC (24.3-30.1) Test 04/24/17 05:30 04/24/17 05:45 04/24/17 13:04 04/25/17 05:15 Activated Partial Thromboplast Time 43.5 SEC (24.3-30.1) 45.5 SEC (24.3-30.1) 34.5 SEC (24.3-30.1) Red Blood Count 3.58 MIL/MM3 (4.00-5.30) 3.75 MIL/MM3 (4.00-5.30) Hematocrit 33.9 % (35.0-46.0) Monocytes (%) (Auto) 12.0 % (0.0-8.0) 10.0 % (0.0-8.0) Total Protein 6.3 GM/DL (6.4-8.2) Albumin 2.8 GM/DL (3.4-5.0) 2.9 GM/DL (3.4-5.0) Chloride Level 108 MEQ/L (98-107) Estimat Glomerular Filtration Rate 63 ML/MIN (>89) 72 ML/MIN (>89) Hospital Course Mrs. Rodrigues is a 72-year-old female. She was admitted secondary to an acute onset of a painful and cold right distal foot was prominent at the right great toe. Workup was done here and patient was found not to be a candidate for an acute intravascular treatment. Distal bypass is recommended as a modality to treat her condition. Her vascular surgeon has recommended outpatient follow-up and arrangements for outpatient vascular bypass surgery. Patient has been cleared by vascular surgery for discharge to home. She will discharge to home today and is medically stable for this. As recommended by vascular surgery she is discharged home with pain medicines and anticoagulants. Reiterated that she needs to follow up with outpatient vascular surgery is recommended. Additionally home health will be sent to her home for monitoring. Pt Condition on Discharge: Stable Discharge Disposition: Disch w/ Home Health Serv Discharge Time: <= 30 minutes Discharge Instructions DIET: Follow Instructions for: As Tolerated, No Restrictions Activities you can perform: Regular-No Restrictions Follow up Referrals: PCP Follow-up - 2 Weeks PCP Follow-up Vascular Surgery - 1 Week with Daniel Astorga MD Vascular Surgery New Medications: Rivaroxaban (Xarelto) 20 Mg Tab 20 MG PO DAILY for Blood Clot Prevention, #30 TAB 0 Refills This perscription is to start AFTER 15mg Xarelto script completed. Hydrocodone/Acetaminophen (Hydrocodone-Acetamin 5-325 mg) 5 Mg-325 Mg Tablet 1 TAB PO Q6HR PRN for Pain, #60 TAB Continued Medications: Atorvastatin (Atorvastatin) 20 Mg Tab 20 MG PO DAILY for Cholesterol Management, #30 TAB 0 Refills Carvedilol (Coreg) 3.125 Mg Tab 3.125 MG PO BID, #60 TAB 0 Refills Ranitidine (Ranitidine) 150 Mg Tab 150 MG PO BID for Heartburn Management, #60 TAB 0 Refills Rivaroxaban (Xarelto) 15 Mg Tab 15 MG PO Q12HR for Blood Clot Prevention, #42 TAB 0 Refills (This prescription has been renewed) Albert Olivia MD Apr 25, 2017 14:20
--- NOTE | 2017-04-28 06:18 | MP ---
cc: DANIEL ASTORGA MD DATE OF SURGERY 04/24/2017 PREOPERATIVE DIAGNOSIS Right lower extremity rest pain of her hallux. POSTOPERATIVE DIAGNOSIS Right lower extremity rest pain of her hallux. PROCEDURE Aortogram and right lower extremity angiogram. ATTENDING SURGEON Daniel Astorga MD ANESTHESIA Local with sedation. INDICATION Ms. Rodrigues is a 72-year-old lady with a previous left lower exam bypass who presents to the emergency department with right lower extremity rest pain. She was taken to the operating room for angiographic evaluation and treatment. There is no prior cath-based imaging available for my review. DESCRIPTION OF PROCEDURE Informed consent was obtained from the patient. She was taken to the operating room and placed supine on the operating room table. An appropriate time-out was taken to ensure the patient's identify, the operative site and the planned procedure. The administration of antibiotics was not necessary as this was a clean procedure without a planned implantation of any foreign object. Everyone in the room agreed with the time-out and we proceeded. Her bilateral groins were prepped and draped. The left groin was anesthetized with 1% lidocaine. A 21-gauge micropuncture needle was used to access the left common femoral artery. This was exchanged using Seldinger technique for a micropuncture sheath through which a 0.035 Glidewire was introduced and the micropuncture sheath was exchanged for a 4-Armenian sheath. A VCF catheter was placed over the wire into the sheath and the aortogram and pelvic arteriograms obtained. The Glidewire was reintroduced and navigated down to the right common femoral artery and the VCF catheter advanced over this and the right lower extremity arteriograms obtained. The wire was reintroduced. The wire, catheter and sheath were removed and pressure held for hemostasis. There were no complications. I was present and scrubbed and performed the entire procedure. INTERPRETATION OF IMAGES The patient has a patent infrarenal aorta with no hemodynamically significant stenoses. The common iliac arteries, hypogastric arteries and external iliac arteries are all patent. The right common femoral artery and SFA are patent. The popliteal artery has an abrupt occlusion and nasreen-geniculate collaterals and profunda-based collaterals give rise to a very distal anterior tibial artery as her only main runoff to the foot. MD SID Lowe/SSB /7:06 PM /6:04 AM
== END 2017-04-25 14:39 | disposition home health service (06) | DRG 301 ==
LOC: PHED 13:22 → PHEDA 14:35 → N07A 20:35
PROVIDERS: ADMIT Hospitalist; ATTEND Hospitalist
PROC: B41D1ZZ Fluoroscopy of Aorta and Bilateral Lower Extremity Arteries using Low Osmolar Contrast (ICD-10-PCS; principal; 2017-04-24 16:30)
DX: I73.9 Peripheral vascular disease, unspecified (principal); I10 Essential (primary) hypertension; Z79.02 Long term (current) use of antithrombotics/antiplatelets; Z86.718 Personal history of other venous thrombosis and embolism
CPT/HCPCS: 36245; 75625; 75710; 80048; 80053; 82272; 85025; 85610; 85730; 93005; 93922; 93971; 99152; 99285; C1769; C1893; J1644; J2250; J2270; J2405; J3010; J7030; Q9967

== ENCOUNTER 2017-05-12 07:47 | Inpatient (IN) | payer MEDICARE ==
[~2017-05-12] VITALS: Ht 152.4 cm; Wt 52.5 kg
[2017-05-12] VITALS (13 sets, daily range): BP systolic 115–160; BP diastolic 58–70; PULSE 51–74; RESP 16–19; TEMP 97.5–97.6; O2SAT 95–100
[~2017-05-12 07:47] MED LIST changes: +HYDR-3516 PO; -HYDR-3580 PO; +XARE20TA PO
[2017-05-12] MEDS ORDERED: METOPROLOL TARTRATE 25 MG TAB PO PRN (08:45)
[2017-05-12] MEDS: CHLORHEXIDINE GLUCONATE 2 % 1 PACK (2 CLOTHS) TOPICAL PRN (08:45)
[2017-05-12] MEDS ORDERED: SODIUM CHLORID 0.9% 500 ML IV PRN (08:45)
[2017-05-12] MEDS ORDERED: POVIDONE IODINE 5% (ANTISEPSIS KIT) 4 APPLICATIONS EACH NARE PRN (08:45)
[2017-05-12] MEDS ORDERED: INSULIN HUMAN REGULAR 1,000 UNITS/10 ML VIAL SQ PRN (08:45)
[2017-05-12] MEDS ORDERED: LACTATED RINGER'S 1000 ML IV PRN (08:45)
[2017-05-12 08:58] LABS: AUTOMATED NEUTROPHIL # 6.9 TH/MM3 (1.8-7.7); BASOPHIL # 0.1 TH/MM3 (0-0.2); BASOPHIL % 0.7 % (0.0-2.0); EOSINOPHIL # 0.4 TH/MM3 (0-0.4); EOSINOPHIL % 3.3 % (0.0-4.0); HEMATOCRIT 38.6 % (35.0-46.0); HEMOGLOBIN 13.3 GM/DL (11.6-15.3); LYMPH % 23.5 % (9.0-44.0); LYMPHOCYTE # 2.7 TH/MM3 (1.0-4.8); MEAN CELL VOLUME 93.1 FL (80.0-100.0); MEAN CORPUSCULAR HEMOGLOBIN 32.1 PG (27.0-34.0); MEAN CORPUSCULAR HGB CONC 34.5 % (32.0-36.0); MEAN PLATELET VOLUME 6.9 FL (7.0-11.0); MONO % 11.5 % (0.0-8.0); MONOCYTE # 1.3 TH/MM3 (0-0.9); PLATELET COUNT 427 TH/MM3 (150-450); RED BLOOD COUNT 4.14 MIL/MM3 (4.00-5.30); RED CELL DISTRIBUTION WIDTH 13.7 % (11.6-17.2); WHITE BLOOD COUNT 11.3 TH/MM3 (4.0-11.0)
--- NOTE | 2017-05-12 09:04 | HHI.HP ---
History of Present Illness Chief Complaint: R LE rest pain History of Present Illness 72 yo female with PAD and profound R LE ischemia and new tissue loss Past/Family/Social History Past Medical History PAD HTN COPD Past Surgical History L LE bypass with vein L foot partial amputation Social History + tobacco Family History NC Home Medications Active Scripts Rivaroxaban (Xarelto) 20 Mg Tab, 20 MG PO DAILY for Blood Clot Prevention, #30 TAB 0 Refills This perscription is to start AFTER 15mg Xarelto script completed. Prov:Albert Olivia MD 04/25/17 Hydrocodone/Acetaminophen (Hydrocodone-Acetamin 5-325 mg) 5 Mg-325 Mg Tablet, 1 TAB PO Q6HR Y for Pain, #60 TAB Prov:Albert Olivia MD 04/25/17 Rivaroxaban (Xarelto) 15 Mg Tab, 15 MG PO Q12HR for Blood Clot Prevention, #42 TAB 0 Refills Prov:Albert Olivia MD 04/25/17 Reported Medications Ranitidine (Ranitidine) 150 Mg Tab, 150 MG PO BID for Heartburn Management, #60 TAB 0 Refills 04/15/17 Carvedilol (Coreg) 3.125 Mg Tab, 3.125 MG PO BID, #60 TAB 0 Refills 09/10/16 Atorvastatin (Atorvastatin) 20 Mg Tab, 20 MG PO DAILY for Cholesterol Management , #30 TAB 0 Refills 04/30/16 Coded Allergies: No Known Allergies (Verified Adverse Reaction, Unknown, 05/12/17) Review of Systems Constitutional: DENIES: Fever, Chills Cardiovascular: DENIES: Chest pain Physical Exam Neuro: alert, oriented HEENT: NC/AT Neck: no JVD Heart: reg rate, no M Lungs: clear B Vascular: palpable R femoral but no pedal pulses Extremities: profound forefoot ischemia rubor Laboratory Tests Test 05/12/17 08:41 White Blood Count 11.3 Red Blood Count 4.14 Hemoglobin 13.3 Hematocrit 38.6 Mean Corpuscular Volume 93.1 Mean Corpuscular Hemoglobin 32.1 Mean Corpuscular Hemoglobin Concent 34.5 Red Cell Distribution Width 13.7 Platelet Count 427 Mean Platelet Volume 6.9 Neutrophils (%) (Auto) 61.0 Lymphocytes (%) (Auto) 23.5 Monocytes (%) (Auto) 11.5 Eosinophils (%) (Auto) 3.3 Basophils (%) (Auto) 0.7 Neutrophils # (Auto) 6.9 Lymphocytes # (Auto) 2.7 Monocytes # (Auto) 1.3 Eosinophils # (Auto) 0.4 Basophils # (Auto) 0.1 CBC Comment DIFF FINAL Differential Comment angio reviewed Caprini VTE Risk Assessment Caprini VTE Risk Assessment: Mod/High Risk (score >= 2) Caprini Risk Assessment Model Point Value = 1 Point Value = 2 Point Value = 3 Point Value = 5 Age 41-60 Minor surgery BMI > 25 kg/m2 Swollen legs Varicose veins or History of unexplained or recurrent spontaneous Oral contraceptives or hormone replacement Sepsis (< 1 month) Serious lung disease, including pneumonia (< 1 month) Abnormal pulmonary function Acute myocardial infarction Congestive heart failure (< 1 month) History of inflammatory bowel disease Medical patient at bed rest Age 61-74 Arthroscopic surgery Major open surgery (> 45 min) Laparoscopic surgery (> 45 min) Malignancy Confined to bed (> 72 hours) Immobilizing plaster cast Central venous access Age >= 75 History of VTE Family history of VTE Factor V Leiden Prothrombin [id number] Lupus anticoagulant Anticardiolipin antibodies Elevated serum homocysteine Heparin-induced thrombocytopenia Other congenital or acquired thrombophilia Stroke (< 1 month) Elective arthroplasty Hip, pelvis, or leg fracture Acute spinal cord injury (< 1 month) Prophylaxis Regimen Total Risk Factor Score Risk Level Prophylaxis Regimen 0-1 Low Early ambulation 2 Moderate Order ONE of the following: *Sequential Compression Device (SCD) *Heparin 5000 units SQ BID 3-4 Higher Order ONE of the following medications: *Heparin 5000 units SQ TID *Enoxaparin/Lovenox 40 mg SQ daily (WT < 150 kg, CrCl > 30 mL/min) *Enoxaparin/Lovenox 30 mg SQ daily (WT < 150 kg, CrCl > 10-29 mL/min) *Enoxaparin/Lovenox 30 mg SQ BID (WT < 150 kg, CrCl > 30 mL/min) AND/OR *Sequential Compression Device (SCD) 5 or more Highest Order ONE of the following medications: *Heparin 5000 units SQ TID (Preferred with Epidurals) *Enoxaparin/Lovenox 40 mg SQ daily (WT < 150 kg, CrCl > 30 mL/min) *Enoxaparin/Lovenox 30 mg SQ daily (WT < 150 kg, CrCl > 10-29 mL/min) *Enoxaparin/Lovenox 30 mg SQ BID (WT < 150 kg, CrCl > 30 mL/min) AND *Sequential Compression Device (SCD) Assessment and Plan Plan R LE revascularization, hybrid or open bypass discussed risks again with patient and daughter Discharge Planning likely 5 days Daughter [phone] Daniel Astorga MD May 12, 2017 09:04
[2017-05-12 09:07] LABS: INTERNATIONAL NORMALIZED RATIO 1.1 RATIO; PROTHROMBIN TIME - PATIENT 10.7 SEC (9.8-11.6)
--- NOTE | 2017-05-12 09:07 | RADRPT ---
EXAM DATE/TIME: 05/12/2017 08:14 [place] COMPARISON: CHEST SINGLE AP, September 03, 2016, 8:26. INDICATIONS : Evaluate for pneumonia, pneumothorx and communicable diseases. Pre-op for distal bypass. MEDICAL HISTORY : Deep venous thrombosis. Chronic obstructive pulmonary disease. Myocardial infarction. Asthma. SURGICAL HISTORY : Appendectomy. Cholecystectomy. Tubal ligation. Left femoral bypass.Right hip surgery. Left great and second toe amputation. ENCOUNTER: Initial ACUITY: 1 day PAIN SCORE: 0/10 LOCATION: Bilateral chest FINDINGS: No new focal pleural or parenchymal opacities. Cardiomediastinal contours are within normal limits. R edemonstration of healed right humeral fracture. Remainder of the exam is unchanged. CONCLUSION: 1. No acute abnormality or significant interval change. Caio Cuellar MD on May 12, 2017 at 9:04 Board Certified Radiologist. This report was verified electronically.
[2017-05-12 09:21] LABS: BICARBONATE 28.5 MEQ/L (21.0-32.0); CALCIUM 9.5 MG/DL (8.5-10.1); CREATININE 1.14 MG/DL (0.50-1.00)
--- NOTE | 2017-05-12 09:33 | HHI.HP ---
History of Present Illness History of Present Illness 72 yo female with PAD and profound R LE ischemia and new tissue loss Past/Family/Social History Home Medications Active Scripts Hydrocodone/Acetaminophen (Hydrocodone-Acetamin 5-325 mg) 5 Mg-325 Mg Tablet, 1 TAB PO Q6HR Y for Pain, #60 TAB Prov:Albert Olivia MD 04/25/17 Rivaroxaban (Xarelto) 15 Mg Tab, 15 MG PO Q12HR for Blood Clot Prevention, #42 TAB 0 Refills Prov:Albert Olivia MD 04/25/17 Reported Medications Ranitidine (Ranitidine) 150 Mg Tab, 150 MG PO BID for Heartburn Management, #60 TAB 0 Refills 04/15/17 Carvedilol (Coreg) 3.125 Mg Tab, 3.125 MG PO BID, #60 TAB 0 Refills 09/10/16 Atorvastatin (Atorvastatin) 20 Mg Tab, 20 MG PO DAILY for Cholesterol Management , #30 TAB 0 Refills 04/30/16 Discontinued Scripts Rivaroxaban (Xarelto) 20 Mg Tab, 20 MG PO DAILY for Blood Clot Prevention, #30 TAB 0 Refills This perscription is to start AFTER 15mg Xarelto script completed. Prov:Albert Olivia MD 04/25/17 Coded Allergies: No Known Allergies (Verified Adverse Reaction, Unknown, 05/12/17) Physical Exam Vitals/I&O Date Time Temp Pulse Resp B/P (MAP) Pulse Ox O2 Delivery O2 Flow Rate FiO2 05/12/17 08:51 98.7 77 18 129/72 (91) 98 Laboratory Tests Test 05/12/17 08:41 White Blood Count 11.3 Red Blood Count 4.14 Hemoglobin 13.3 Hematocrit 38.6 Mean Corpuscular Volume 93.1 Mean Corpuscular Hemoglobin 32.1 Mean Corpuscular Hemoglobin Concent 34.5 Red Cell Distribution Width 13.7 Platelet Count 427 Mean Platelet Volume 6.9 Neutrophils (%) (Auto) 61.0 Lymphocytes (%) (Auto) 23.5 Monocytes (%) (Auto) 11.5 Eosinophils (%) (Auto) 3.3 Basophils (%) (Auto) 0.7 Neutrophils # (Auto) 6.9 Lymphocytes # (Auto) 2.7 Monocytes # (Auto) 1.3 Eosinophils # (Auto) 0.4 Basophils # (Auto) 0.1 CBC Comment DIFF FINAL Differential Comment Prothrombin Time 10.7 Prothromb Time International Ratio 1.1 Blood Urea Nitrogen 15 Creatinine 1.14 Random Glucose 129 Calcium Level 9.5 Sodium Level 134 Potassium Level 4.4 Chloride Level 98 Carbon Dioxide Level 28.5 Anion Gap 8 Estimat Glomerular Filtration Rate 47 Last 48 hours Impressions Chest X-Ray 05/12/17 0000 Signed Impressions: Service Date/Time: Friday, May 12, 2017 08:14 - CONCLUSION: 1. No acute abnormality or significant interval change. MD Josee Licea VTE Risk Assessment Josee VTE Risk Assessment: Mod/High Risk (score >= 2) Caprini Risk Assessment Model Point Value = 1 Point Value = 2 Point Value = 3 Point Value = 5 Age 41-60 Minor surgery BMI > 25 kg/m2 Swollen legs Varicose veins or History of unexplained or recurrent spontaneous Oral contraceptives or hormone replacement Sepsis (< 1 month) Serious lung disease, including pneumonia (< 1 month) Abnormal pulmonary function Acute myocardial infarction Congestive heart failure (< 1 month) History of inflammatory bowel disease Medical patient at bed rest Age 61-74 Arthroscopic surgery Major open surgery (> 45 min) Laparoscopic surgery (> 45 min) Malignancy Confined to bed (> 72 hours) Immobilizing plaster cast Central venous access Age >= 75 History of VTE Family history of VTE Factor V Leiden Prothrombin [id number] Lupus anticoagulant Anticardiolipin antibodies Elevated serum homocysteine Heparin-induced thrombocytopenia Other congenital or acquired thrombophilia Stroke (< 1 month) Elective arthroplasty Hip, pelvis, or leg fracture Acute spinal cord injury (< 1 month) Prophylaxis Regimen Total Risk Factor Score Risk Level Prophylaxis Regimen 0-1 Low Early ambulation 2 Moderate Order ONE of the following: *Sequential Compression Device (SCD) *Heparin 5000 units SQ BID 3-4 Higher Order ONE of the following medications: *Heparin 5000 units SQ TID *Enoxaparin/Lovenox 40 mg SQ daily (WT < 150 kg, CrCl > 30 mL/min) *Enoxaparin/Lovenox 30 mg SQ daily (WT < 150 kg, CrCl > 10-29 mL/min) *Enoxaparin/Lovenox 30 mg SQ BID (WT < 150 kg, CrCl > 30 mL/min) AND/OR *Sequential Compression Device (SCD) 5 or more Highest Order ONE of the following medications: *Heparin 5000 units SQ TID (Preferred with Epidurals) *Enoxaparin/Lovenox 40 mg SQ daily (WT < 150 kg, CrCl > 30 mL/min) *Enoxaparin/Lovenox 30 mg SQ daily (WT < 150 kg, CrCl > 10-29 mL/min) *Enoxaparin/Lovenox 30 mg SQ BID (WT < 150 kg, CrCl > 30 mL/min) AND *Sequential Compression Device (SCD) Assessment and Plan Plan R LE revascularization, hybrid or open bypass discussed risks again with patient and daughter Discharge Planning likely 5 days Daughter [phone] Daniel Astorga MD May 12, 2017 09:33
[2017-05-12] MEDS ORDERED: HEPARIN SODIUM - SQ 10,000 UNITS/ML VIAL ONE ×2 (09:47→10:49)
[2017-05-12] MEDS ORDERED: HEPARIN-NS/PF INJ 500 ML ONE (09:47)
[2017-05-12] MEDS ORDERED: PROTAMINE SULFATE 50 MG/5 ML VIAL ONE (09:51)
[2017-05-12] MEDS ORDERED: BUPIVACAINE HCL PF 0.5% 30 ML VIAL ONE (09:51)
[2017-05-12] MEDS ORDERED: ceFAZolin 2 GM PREMIX 0 ML ONE (09:51)
[2017-05-12] MEDS ORDERED: THROMBIN (TOPICAL) 20,000 UNIT SPRAY KIT ONE (09:51)
[2017-05-12] MEDS ORDERED: HEPARIN SODIUM - IV 10,000 UNITS/10 ML VIAL ONE ×2 (09:51→11:49)
[2017-05-12] MEDS ORDERED: ceFAZolin INJ 1,000 MG VIAL ONE (10:49)
--- NOTE | 2017-05-12 11:07 | EKG ---
Date Performed: 05/12/2017 Time Performed: 08:23:59 PTAGE: 72 years EKG: Sinus rhythm POSSIBLE RIGHT VENTRICULAR CONDUCTION DELAY MINIMAL VOLTAGE CRITERIA FOR LVH, CONSIDER NORMAL VARIAN T PROBABLE SEPTAL MYOCARDIAL INFARCTION , OF INDETERMINATE AGE MODERATE T-WAVE ABNORMALITY, CONSIDER ANTEROLATERAL ISCHEMIA ABNORMAL ECG Since the prior tracing, there has been no significant change PREVIOUS TRACING : 04/22/2017 14.20 DOCTOR: Royer Perera Interpretating Date/Time 05/12/2017 11:02:55
[2017-05-12] MEDS ORDERED: ceFAZolin INJ 1,000 MG VIAL IV ONE (12:00)
[2017-05-12] MEDS ORDERED: PROPOFOL 200 MG/20 ML AMP IV ONE (12:00)
[2017-05-12] MEDS ORDERED: NEOSTIGMINE 5 MG/5 ML SYRINGE IV PUSH ONE (12:00)
[2017-05-12] MEDS ORDERED: DEXAMETHASONE SOD PHOS 4 MG/ML VIAL IV ONE (12:00)
[2017-05-12] MEDS ORDERED: PHENYLEPH/NS 1000 MCG/10 ML SYR IV ONE (12:00)
[2017-05-12] MEDS ORDERED: SODIUM CHLORIDE 0.9% 20 ML VIAL IV ONE (12:00)
[2017-05-12] MEDS ORDERED: ROCURONIUM INJ 50 MG/5 ML SYRINGE IV PUSH ONE (12:00)
[2017-05-12] MEDS ORDERED: ONDANSETRON HCL 4 MG/2 ML VIAL IV ONE (12:00)
[2017-05-12] MEDS ORDERED: LIDOCAINE HCL 1% PF 5 ML SYRINGE OTHER ONE (12:00)
[2017-05-12] MEDS ORDERED: GLYCOPYRROLATE 1 MG/5 ML SYRINGE IV PUSH ONE (12:00)
[2017-05-12] MEDS ORDERED: IOHEXOL 300 INJ 50 ML IV ONE (12:04)
--- NOTE | 2017-05-12 12:41 | HHI.PR ---
cc: Daniel Astorga MD Immediate Post Op Note Procedure Date: May 12, 2017 Pre Op Diagnosis: PAD, ischemic rest pain R LE Post Op Diagnosis: PAD, ischemic rest pain R LE Surgeon: Daniel Astorga Shackler(s): Daniel Amezcua Procedure: R SFA-AT bypass (cryo) Findings: small, calcified vessels Additional Information: patent bypass at conclusion Complications: none Specimen(s) removed: none Estimated blood loss: 50mL Anesthesia: General Drains: None Fluids: 1500mL IVF Urinary Output (mLs): 400 Patient to: PACU Patient Condition: Good Implant/Devices: SEE IMPLANT LOG (if applicable) Date/Time of Procedure: SEE SURGICAL CARE RECORD Daniel Astorga MD May 12, 2017 12:41
[2017-05-12] MEDS ORDERED: SENNOSIDES 8.6 MG TAB PO PRN (12:45)
[2017-05-12] MEDS ORDERED: ASPIRIN 81 MG CHEW TAB PO ONE (12:45)
[2017-05-12] MEDS ORDERED: MAGNESIUM HYDROXIDE SUSP 30 ML CUP PO PRN (12:45)
[2017-05-12] MEDS ORDERED: LACTULOSE SYRUP 20 GM/30 ML CUP PO PRN (12:45)
[2017-05-12] MEDS ORDERED: BISACODYL 10 MG SUPP RECTAL PRN (12:45)
[2017-05-12] MEDS ORDERED: *morphine SULFATE 10 MG/ML PERIprocedure ONLY ONE ×2 (13:26→13:57)
[2017-05-12 13:40] LABS: HEMATOCRIT 35.5 % (35.0-46.0); HEMOGLOBIN 12.4 GM/DL (11.6-15.3); MEAN CELL VOLUME 92.7 FL (80.0-100.0); MEAN CORPUSCULAR HEMOGLOBIN 32.4 PG (27.0-34.0); MEAN CORPUSCULAR HGB CONC 34.9 % (32.0-36.0); MEAN PLATELET VOLUME 6.9 FL (7.0-11.0); PLATELET COUNT 419 TH/MM3 (150-450); RED BLOOD COUNT 3.83 MIL/MM3 (4.00-5.30); RED CELL DISTRIBUTION WIDTH 13.7 % (11.6-17.2); WHITE BLOOD COUNT 10.1 TH/MM3 (4.0-11.0)
[2017-05-12] MEDS ORDERED: DO NOT ADM ANY ANTICOAGULANT DRUGS PRN (13:45)
[2017-05-12 14:01] LABS: INTERNATIONAL NORMALIZED RATIO 1.1 RATIO; PROTHROMBIN TIME - PATIENT 11.4 SEC (9.8-11.6)
--- NOTE | 2017-05-12 14:39 | PD.VS.PN ---
Subjective POD #: 0 Procedure(s): RIGHT femoral anterior tibial bypass w/ cryovein Subjective/Hospital Course 72/F with a hx of PAD and profound R LE ischemia/rest pain Pt S/p RIGHT femoral anterior tibial bypass w/ cryovein Pain controlled R LE w/ Biphasic DP/PT heard via Doppler LE warm Objective Vitals/I&O Date Time Temp Pulse Resp B/P (MAP) Pulse Ox O2 Delivery O2 Flow Rate FiO2 05/12/17 08:51 98.7 77 18 129/72 (91) 98 05/12/17 05/12/17 05/12/17 07:00 15:00 23:00 Intake Total 1500 ml Output Total 550 ml Balance 950 ml Exam: GENERAL: Pt post op RIGHT femoral anterior tibial bypass w/ cryo/ Alert in NAD SKIN: LE Warm and dry Incisions to R LE I/C/D MUSCULOSKELETAL: No cyanosis, or edema. Right foot with dependent erythema (mid to distal end) R foot Cap Refill less than 3 sec Biphasic R DP/PT heard via Doppler Triphasic L DP heard via Doppler Laboratory Laboratory Tests Test 05/12/17 08:41 05/12/17 13:05 White Blood Count 11.3 10.1 Red Blood Count 4.14 3.83 Hemoglobin 13.3 12.4 Hematocrit 38.6 35.5 Mean Corpuscular Volume 93.1 92.7 Mean Corpuscular Hemoglobin 32.1 32.4 Mean Corpuscular Hemoglobin Concent 34.5 34.9 Red Cell Distribution Width 13.7 13.7 Platelet Count 427 419 Mean Platelet Volume 6.9 6.9 Neutrophils (%) (Auto) 61.0 Lymphocytes (%) (Auto) 23.5 Monocytes (%) (Auto) 11.5 Eosinophils (%) (Auto) 3.3 Basophils (%) (Auto) 0.7 Neutrophils # (Auto) 6.9 Lymphocytes # (Auto) 2.7 Monocytes # (Auto) 1.3 Eosinophils # (Auto) 0.4 Basophils # (Auto) 0.1 CBC Comment DIFF FINAL Differential Comment Prothrombin Time 10.7 11.4 Prothromb Time International Ratio 1.1 1.1 Blood Urea Nitrogen 15 Creatinine 1.14 Random Glucose 129 Calcium Level 9.5 Sodium Level 134 Potassium Level 4.4 Chloride Level 98 Carbon Dioxide Level 28.5 Anion Gap 8 Estimat Glomerular Filtration Rate 47 Activated Partial Thromboplast Time GREATER THAN 277.5 Assessment and Plan Assessment: (1) Ischemia of right lower extremity (2) PVD (peripheral vascular disease) Status: Acute Plan Pt s/p R LE revascularization POD 0 Doing well/pain controlled LE warm Biphasic R DP/PT heard via Doppler Plan Continue Pain control Continue Distal pulse checks Continue post op orders as written Joie Kruse NP [facility]/[employer] [phone] Discharge Planning likely 5 days Daughter [phone] Joie Kruse [facility] May 12, 2017 14:39
[2017-05-12] MEDS: HEPARIN-D5W 25,000 U/250 ML 250 ML IV PRN (18:58)
[2017-05-12] MEDS: DOCUSATE SODIUM 50 MG/SENNA 8.6 MG TAB PO SCH (20:13)
[2017-05-12] MEDS: FAMOTIDINE 20 MG TAB PO SCH (20:13)
[2017-05-12] MEDS: CARVEDILOL 3.125 MG TAB PO SCH (20:13)
[2017-05-12] MEDS: ATORVASTATIN 40 MG TAB PO SCH (20:14)
[2017-05-12] MEDS: MORPHINE SULFATE 2 MG/ML INJ IV PUSH PRN (20:16)
[2017-05-13] VITALS (29 sets, daily range): BP systolic 120–149; BP diastolic 31–78; PULSE 52–132; RESP 16–19; TEMP 97.5–98.1; O2SAT 95–99
[2017-05-13 01:38] LABS: HEMATOCRIT 35.4 % (35.0-46.0); HEMOGLOBIN 12.1 GM/DL (11.6-15.3); MEAN CELL VOLUME 94.1 FL (80.0-100.0); MEAN CORPUSCULAR HEMOGLOBIN 32.2 PG (27.0-34.0); MEAN CORPUSCULAR HGB CONC 34.2 % (32.0-36.0); MEAN PLATELET VOLUME 7.1 FL (7.0-11.0); PLATELET COUNT 396 TH/MM3 (150-450); RED BLOOD COUNT 3.76 MIL/MM3 (4.00-5.30); RED CELL DISTRIBUTION WIDTH 13.8 % (11.6-17.2); WHITE BLOOD COUNT 10.7 TH/MM3 (4.0-11.0)
[2017-05-13 02:03] LABS: BICARBONATE 32.8 MEQ/L (21.0-32.0); CALCIUM 8.6 MG/DL (8.5-10.1); CREATININE 0.84 MG/DL (0.50-1.00)
[2017-05-13] MEDS: HYDROmorphone HCL 2 MG TAB PO PRN (06:38)
--- NOTE | 2017-05-13 07:02 | PD.VS.PN ---
Subjective POD #: 1 Procedure(s): RIGHT femoral anterior tibial bypass w/ cryovein Subjective/Hospital Course No problems overnight except complaints of leg pain Mack removed on hep gtt for graft protection Objective Vitals/I&O Date Time Temp Pulse Resp B/P (MAP) Pulse Ox O2 Delivery O2 Flow Rate FiO2 05/13/17 06:01 53 05/13/17 05:05 52 05/13/17 04:09 17 05/13/17 04:00 59 05/13/17 03:18 97.6 54 16 132/70 (90) 97 05/13/17 03:00 56 05/13/17 02:05 55 05/13/17 01:00 54 05/13/17 00:00 54 05/12/17 23:32 97.6 58 16 133/63 (86) 100 05/12/17 23:01 51 05/12/17 22:00 56 05/12/17 21:00 57 05/12/17 20:48 16 05/12/17 20:00 56 05/12/17 19:59 97.5 67 17 115/58 (77) 99 05/12/17 19:00 55 05/12/17 18:09 123/65 (84) 05/12/17 18:00 67 05/12/17 18:00 68 05/12/17 17:00 65 05/12/17 16:00 64 05/12/17 15:00 62 05/12/17 14:45 97.5 74 19 160/70 (100) 95 05/12/17 14:00 68 16 147/73 (97) 97 Nasal Cannula 2 05/12/17 13:45 70 16 147/78 (101) 97 Nasal Cannula 2 05/12/17 13:30 70 16 159/83 (108) 98 Nasal Cannula 2 05/12/17 13:15 72 16 156/72 (100) 98 Nasal Cannula 2 05/12/17 13:02 97.4 88 16 170/82 (111) 100 Nasal Cannula 2 05/12/17 08:51 98.7 77 18 129/72 (91) 98 05/13/17 05/13/17 05/13/17 07:00 15:00 23:00 Intake Total 720 ml Output Total 425 ml Balance 295 ml Exam: R thigh incisions ok x 2 distal leg incision covered palpable graft pulse and DP Laboratory Laboratory Tests Test 05/12/17 08:41 05/12/17 13:05 05/12/17 16:43 05/12/17 21:01 White Blood Count 11.3 10.1 Red Blood Count 4.14 3.83 Hemoglobin 13.3 12.4 Hematocrit 38.6 35.5 Mean Corpuscular Volume 93.1 92.7 Mean Corpuscular Hemoglobin 32.1 32.4 Mean Corpuscular Hemoglobin Concent 34.5 34.9 Red Cell Distribution Width 13.7 13.7 Platelet Count 427 419 Mean Platelet Volume 6.9 6.9 Neutrophils (%) (Auto) 61.0 Lymphocytes (%) (Auto) 23.5 Monocytes (%) (Auto) 11.5 Eosinophils (%) (Auto) 3.3 Basophils (%) (Auto) 0.7 Neutrophils # (Auto) 6.9 Lymphocytes # (Auto) 2.7 Monocytes # (Auto) 1.3 Eosinophils # (Auto) 0.4 Basophils # (Auto) 0.1 CBC Comment DIFF FINAL Differential Comment Prothrombin Time 10.7 11.4 Prothromb Time International Ratio 1.1 1.1 Blood Urea Nitrogen 15 Creatinine 1.14 Random Glucose 129 Calcium Level 9.5 Sodium Level 134 Potassium Level 4.4 Chloride Level 98 Carbon Dioxide Level 28.5 Anion Gap 8 Estimat Glomerular Filtration Rate 47 Activated Partial Thromboplast Time GREATER THAN 277.5 32.6 40.1 Test 05/13/17 01:02 05/13/17 03:55 White Blood Count 10.7 Red Blood Count 3.76 Hemoglobin 12.1 Hematocrit 35.4 Mean Corpuscular Volume 94.1 Mean Corpuscular Hemoglobin 32.2 Mean Corpuscular Hemoglobin Concent 34.2 Red Cell Distribution Width 13.8 Platelet Count 396 Mean Platelet Volume 7.1 Activated Partial Thromboplast Time 54.6 51.1 Blood Urea Nitrogen 13 Creatinine 0.84 Random Glucose 175 Calcium Level 8.6 Sodium Level 137 Potassium Level 4.4 Chloride Level 100 Carbon Dioxide Level 32.8 Anion Gap 4 Estimat Glomerular Filtration Rate 66 Assessment and Plan Assessment: (1) Ischemia of right lower extremity (2) PVD (peripheral vascular disease) Status: Acute Plan Pt s/p R LE revascularization POD 1 Graft patent 1. OOB TC - PT consulted 2. Mack removed - waiting to void 3. Reg diet, meds 4. Transition hep gtt to Xarelto (home med) starting tomorrow Discharge Planning Potentially end of the week to rehab Daughter [phone] Daniel Astorga MD May 13, 2017 07:02
[2017-05-13] MEDS: DOCUSATE SODIUM 50 MG/SENNA 8.6 MG TAB PO SCH ×2 (09:39→20:57)
[2017-05-13] MEDS: CARVEDILOL 3.125 MG TAB PO SCH ×2 (09:39→20:57)
[2017-05-13] MEDS: FAMOTIDINE 20 MG TAB PO SCH ×2 (09:39→20:57)
[2017-05-13] MEDS: MORPHINE SULFATE 2 MG/ML INJ IV PUSH PRN (09:40)
--- NOTE | 2017-05-13 13:49 | MP ---
cc: ANDERS ASTORGA MD DATE OF SURGERY 05/12/2017 PREOPERATIVE DIAGNOSIS Right lower extremity ischemic rest pain. POSTOPERATIVE DIAGNOSIS Right lower extremity ischemic rest pain. PROCEDURE Right SFA to anterior tibial artery bypass with cryopreserved vein. ATTENDING SURGEON Anders Astorga MD ELEMENTARY ESL TEACHER SURGEON Laura Kilgore ANESTHESIA General INDICATIONS Ms. Rodrigues is a 72-year lady with peripheral arterial occlusive disease and a profoundly ischemic foot. Preoperative imaging suggested she had a popliteal occlusion with reconstitution at her anterior tibial artery just above the ankle joint. The patient had no autogenous conduit and so cryopreserved conduit was selected. DESCRIPTION OF PROCEDURE Informed consent was obtained from the patient. She was taken to the operating room, placed supine on the operating room table and appropriate time-out was taken to ensure the patient's identity, operative site and planned procedure. With the administration of 1 gram of Ancef was initiated prior to the skin incision and will be discontinued after a single preoperative dose. Everyone in the room agreed with the time-out and we proceeded. She was prepped from her nipples to her toes and an incision made over the patient's lower lateral calf, carried down through the subcutaneous tissue with electrocautery. The anterior tibial artery was identified and dissected free for several centimeters. It was noted to be reasonably soft. A 21 gauge micropuncture needle was used to access the anterior tibial artery. This was exchanged using Seldinger's technique for micropuncture sheath through which a 0.035 Glidewire was attempted to be passed back up retrograde. This was unsuccessful. The wire, catheter and sheath were removed and the artery was repaired temporarily with a 6-0 Prolene suture. An incision made over the patient's anterior thigh, carried down through the subcutaneous tissue with electrocautery. The superficial femoral artery was dissected free. A lateral thigh incision was then made with a 10 blade and carried down through the subcutaneous tissue with electrocautery and a tunnel was then created beneath the anterior thigh muscles from the SFA exposure to the distal thigh incision and along the lateral aspect of the leg using a tunneler. The cryopreserved vein was brought up on the field and sewn and repaired in the standard fashion. The patient was systemically heparinized. ACT was kept greater than 250 with additional boluses of heparin. Proximal and distal control of the superficial femoral artery were obtained with profunda clamps and a longitudinal arteriotomy was made with an 11 blade and extended with [place] scissors. The vein was spatulated and sewn end-to-side with running 5-0 Prolene suture. At the completion, it was flushed and noted to be hemostatic. The vein was marked for orientation, distended and passed through the tunnel taking caution not to twist it. Proximal and distal control of the anterior tibial artery was obtained with profunda clamps and a longitudinal arteriotomy was made with an 11 blade and extended with [place] scissors. The vein was cut to an appropriate length, spatulated and sewn end-to-side with a running 6-0 Prolene suture. This was flushed and noted to be hemostatic. There is a nice palpable pulse in the foot. The wounds were all irrigated, infiltrated with Marcaine and closed with 2-0 Polysorb, 3-0 Polysorb, 4-0 Monocryl. Sponge and needle counts were correct at the end of the case and I was present and scrubbed and performed the entire procedure. MD SID Lowe/GEREMIAS /6:12 AM /1:24 PM
[2017-05-13] MEDS: HEPARIN-D5W 25,000 U/250 ML 250 ML IV PRN (17:32)
[2017-05-13] MEDS: ATORVASTATIN 40 MG TAB PO SCH (20:57)
[2017-05-13] MEDS ORDERED: METOPROLOL TARTRATE 5 MG/5 ML VIAL IV PUSH PRN (22:15)
[2017-05-13] MEDS ORDERED: METOPROLOL TARTRATE 5 MG/5 ML VIAL IV PUSH ONE (22:15)
[2017-05-14] VITALS (22 sets, daily range): BP systolic 102–153; BP diastolic 63–76; PULSE 64–143; RESP 17–20; TEMP 97.8–98.2; O2SAT 95–98
[2017-05-14] MEDS: DILTIAZEM HCL 25 MG/5 ML VIAL IV PRN ×3 (01:23→04:06)
[2017-05-14] MEDS: HYDROmorphone HCL 2 MG TAB PO PRN ×2 (05:15→13:36)
--- NOTE | 2017-05-14 06:58 | PD.VS.PN ---
Subjective POD #: 2 Procedure(s): RIGHT femoral anterior tibial bypass w/ cryovein Subjective/Hospital Course tachycardic overnight, treated with IV dilt. BP ok no lightheadedness, pain modestly controlled was OOB to chair yesterday majo po voiding Objective Vitals/I&O Date Time Temp Pulse Resp B/P (MAP) Pulse Ox O2 Delivery O2 Flow Rate FiO2 05/14/17 06:01 70 05/14/17 06:00 17 05/14/17 05:02 70 05/14/17 04:00 112 05/14/17 03:11 98.2 110 17 107/75 (86) 97 05/14/17 03:09 112 05/14/17 02:00 110 05/14/17 01:00 122 05/14/17 00:00 143 05/13/17 23:21 97.5 132 17 120/78 (92) 95 05/13/17 23:18 17 05/13/17 23:00 109 05/13/17 22:00 122 05/13/17 21:00 106 05/13/17 20:00 80 05/13/17 19:00 97.6 72 17 149/64 (92) 99 05/13/17 19:00 68 05/13/17 18:00 68 05/13/17 17:00 92 05/13/17 16:00 70 05/13/17 15:34 97.9 75 19 131/31 (64) 99 05/13/17 15:00 71 05/13/17 14:00 58 05/13/17 13:00 64 05/13/17 12:36 63 05/13/17 11:53 75 05/13/17 11:23 97.8 67 17 144/63 (90) 99 05/13/17 10:00 66 05/13/17 09:00 58 05/13/17 08:00 62 05/13/17 07:54 98.1 65 19 129/65 (86) 98 05/13/17 07:00 71 05/14/17 05/14/17 05/14/17 07:00 15:00 23:00 Intake Total 540 ml Output Total 350 ml Balance 190 ml Exam: R thigh incision without fullness or erythema palpable graft pulse palpable DP Laboratory Laboratory Tests Test 05/14/17 04:43 Activated Partial Thromboplast Time 58.5 Assessment and Plan Assessment: (1) Ischemia of right lower extremity (2) PVD (peripheral vascular disease) Status: Acute Plan POD#2 s/p R LE bypass, graft patent 1. Aggressive PT 2. Increased beta blockage 3. Encourage po 4. Transitioned from hep gtt to Xarelto, which will be continued for 3-6 months post-operatively Discharge Planning Potentially end of the week to home vs rehab Daughter [phone] Daniel Astorga MD May 14, 2017 06:58
[2017-05-14] MEDS: FAMOTIDINE 20 MG TAB PO SCH ×2 (09:00→20:45)
[2017-05-14] MEDS: DOCUSATE SODIUM 50 MG/SENNA 8.6 MG TAB PO SCH ×2 (09:19→20:44)
[2017-05-14] MEDS: CARVEDILOL 6.25 MG TAB PO SCH ×2 (09:20→20:45)
[2017-05-14] MEDS: RIVAROXABAN 15 MG TAB PO SCH (17:56)
[2017-05-14] MEDS: ATORVASTATIN 40 MG TAB PO SCH (20:45)
[2017-05-15] VITALS (22 sets, daily range): BP systolic 125–138; BP diastolic 62–75; PULSE 66–144; RESP 16–17; TEMP 97.2–98.5; O2SAT 96–98
[2017-05-15] MEDS: RIVAROXABAN 15 MG TAB PO SCH ×2 (05:37→18:14)
[2017-05-15] MEDS: DOCUSATE SODIUM 50 MG/SENNA 8.6 MG TAB PO SCH ×2 (09:48→21:00)
[2017-05-15] MEDS: FAMOTIDINE 20 MG TAB PO SCH ×2 (09:49→21:00)
[2017-05-15] MEDS: CARVEDILOL 6.25 MG TAB PO SCH ×2 (09:49→21:52)
--- NOTE | 2017-05-15 10:28 | PD.VS.PN ---
Subjective POD #: 3 Procedure(s): RIGHT femoral anterior tibial bypass w/ cryovein Subjective/Hospital Course Afebrile 72/F s/p R LE revascularization Pt w/ improved dependent rubor (R foot) LE warm w/ motor intact Pain controlled Objective Vitals/I&O Date Time Temp Pulse Resp B/P (MAP) Pulse Ox O2 Delivery O2 Flow Rate FiO2 05/15/17 09:00 74 05/15/17 08:00 66 05/15/17 08:00 98.1 66 16 131/62 (85) 97 05/15/17 07:00 68 05/15/17 04:04 97.2 76 17 127/67 (87) 96 05/15/17 04:03 76 05/15/17 03:00 74 05/15/17 00:45 98.1 74 17 130/66 (87) 96 05/15/17 00:00 82 05/14/17 22:00 71 05/14/17 20:32 98.2 72 17 153/74 (100) 95 05/14/17 20:00 70 05/14/17 19:00 75 05/14/17 16:00 69 05/14/17 16:00 98.1 65 18 125/63 (83) 97 05/14/17 15:00 68 05/14/17 14:07 16 05/14/17 14:00 64 05/14/17 13:00 64 05/14/17 12:00 65 05/14/17 12:00 97.8 67 18 128/76 (93) 98 05/14/17 11:00 68 05/15/17 05/15/17 05/15/17 07:00 15:00 23:00 Intake Total 240 ml Output Total 350 ml Balance -110 ml Exam: GENERAL: A&OX3, GCS15, NAD SKIN: Warm and dry/ Right LE incisions intact with surgical glue/No erythema,drainage , or swelling present CARDIOVASCULAR: Regular rate and rhythm without murmurs, gallops, or rubs. RESPIRATORY: Breath sounds equal bilaterally. No accessory muscle use. GASTROINTESTINAL: Abdomen soft, non-tender, nondistended. MUSCULOSKELETAL: No cyanosis, or edema. Palpable R/L DP Pt with improved dependent rubor (R foot) LE warm w/ motor intact Assessment and Plan Assessment: (1) Ischemia of right lower extremity (2) PVD (peripheral vascular disease) Status: Acute Plan POD#3 s/p R LE bypass, graft patent Plan D/C planning Continue Aggressive PT/OOB/Ambulate Pain control Joie Kruse NP [facility] [phone] Discharge Planning Tomorrow with out pt PT Daughter [phone] Joie Kruse May 15, 2017 10:28
--- NOTE | 2017-05-15 10:45 | HHI.FF ---
Face to Face Verification Diagnosis: (1) Ischemia of right lower extremity (2) PVD (peripheral vascular disease) Physical Therapy Order: Evaluate and Treat, Improve ambulation, Strength and gait training Instructions: Pt s/p R LE revascularization Home Health Nursing Order: Medical education Signs/symptoms of disease process I have seen patient Bernie Rodrigues on 05/15/17. My clinical findings support the need for the requested home health care services because: Pt is medically clear for D/C and will benefit from out pt PT for improved ambulation. Ltd mobility - disease progression Deconditioned w/ increased weakness High risk of falls I certify that my clinical findings support that this patient is homebound because: Pt is medically clear for D/C and will benefit from out pt PT for improved ambulation. Post-op weakness Unsteady gait/balance Joie Kruse May 15, 2017 10:45
[2017-05-15] MEDS: DILTIAZEM HCL 25 MG/5 ML VIAL IV PRN ×2 (12:57→20:36)
--- NOTE | 2017-05-15 13:15 | PD.VS.PN ---
Subjective Subjective/Hospital Course Afebrile 72/F s/p R LE revascularization Atrial Fibrillation on CM (HR 80-140's) No Hx of Pt denied CP/SOB/Dizziness/Weakness Objective Vitals/I&O Date Time Temp Pulse Resp B/P (MAP) Pulse Ox O2 Delivery O2 Flow Rate FiO2 05/15/17 12:12 98.1 128 16 125/74 (91) 97 05/15/17 09:00 74 05/15/17 08:00 66 05/15/17 08:00 98.1 66 16 131/62 (85) 97 05/15/17 07:00 68 05/15/17 04:04 97.2 76 17 127/67 (87) 96 05/15/17 04:03 76 05/15/17 03:00 74 05/15/17 00:45 98.1 74 17 130/66 (87) 96 05/15/17 00:00 82 05/14/17 22:00 71 05/14/17 20:32 98.2 72 17 153/74 (100) 95 05/14/17 20:00 70 05/14/17 19:00 75 05/14/17 16:00 69 05/14/17 16:00 98.1 65 18 125/63 (83) 97 05/14/17 15:00 68 05/14/17 14:07 16 05/14/17 14:00 64 05/14/17 13:00 64 05/15/17 05/15/17 05/15/17 07:00 15:00 23:00 Intake Total 240 ml Output Total 350 ml Balance -110 ml Physical Exam GENERAL: Pt alert in NAD, GCS 15 CARDIOVASCULAR: Irregular rate and rhythm RESPIRATORY: Breath sounds equal bilaterally. No accessory muscle use. Pt denied Cp/SOB/Weakness Assessment and Plan Assessment: (1) Ischemia of right lower extremity (2) PVD (peripheral vascular disease) Status: Acute Plan POD#3 Pt s/p R LE bypass, graft patent Pt A fib on CM Pt denied Hx of Pt asymptomatic w/o CP/SOB/weakness Plan Diltazem ordered Cardiology consult- Pt w/ new onset A fib Joie Kruse MANAGER CCU [facility]/[employer] [phone] Discharge Planning Tomorrow with out pt PT Daughter [phone] Joie KruseP May 15, 2017 13:15
--- NOTE | 2017-05-15 18:41 | MB ---
cc: JAIRO CRUZ MD DATE OF CONSULTATION 05/15/17 Bernie is a very pleasant movement 72 year old lady with history of severe peripheral vascular disease. She says she has never smoked and she does not have diabetes. She is status post revascularization. Post procedure, she developed A. fib with rapid ventricular response. She was treated with Cardizem. She has already been placed on Eliquis. She is asymptomatic. Denies any chest pain, fever, chills, cough, or GI bleeding, PND, orthopnea, syncope or dizziness. Telemetry reveals baseline artifact. It does appear to be irregular QRS complex which is narrow, indeterminate source of the rhythm due to baseline artifact. PAST MEDICAL HISTORY Per history of present illness. 1. According to the chart, she does smoke. 2. History of peripheral arterial disease, 3. Hypertension, 4. Chronic obstructive pulmonary disease 5. Status post left lower extremity bypass of vein 6. Left foot partial amputation. MEDICATIONS Prior to admission 1. Xarelto 20 mg daily. 2. Hydrocodone. 3. Ranitidine. 4. Coreg 3.25 b.i.d. 5. Atorvastatin 20 daily. ALLERGIES None. MEDICATIONS Currently in the hospital 1. Xarelto 15 mg q.12 h. 2. Coreg 6.25 b.i.d. 3. Potassium 5 mg IV continuous. 4. Famotidine 20 mg b.i.d. 5. Atorvastatin 40 at bedtime 6. Senna 1 tablet b.i.d. PHYSICAL EXAMINATION VITAL SIGNS: Blood pressure 125/74, pulse ranging between 71 and 128, currently 80, temperature 98.1, respiratory rate 16. GENERAL: She is alert and oriented times three in no acute distress. NECK: Supple. No JVD or bruits. CARDIOVASCULAR: S1, S2. No murmurs, rubs or gallops. LUNGS: Clear to auscultation bilaterally. ABDOMEN: Soft, nontender, nondistended, positive bowel sounds. EXTREMITIES: No lower extremity edema. She does have amputations in lower extremity. LABORATORY DATA White count 11.3 initially, currently 10.71, May 13 hemoglobin 12.1, hematocrit 35.4, platelet count 396. Sodium 134, potassium 4.4, chloride 98, BUN 15, creatinine 1.14, glucose 129, INR is 58.5. IMAGING STUDIES Chest x-ray - No acute abnormality or significant interval change. CARDIOLOGY STUDIES EKG on May 12 shows normal sinus rhythm at 80 beats per minute, T-wave inversion V4, V5, V6, V3, V2 left anterior fascicular block, borderline LVH. DIAGNOSES 1. New onset atrial fibrillation with rapid ventricular response 2. Peripheral vascular disease. 3. Chronic obstructive pulmonary disease 4. Tobacco abuse 5. Abnormal EKG with resting ischemia. 6. Hyperglycemia 7. Hyponatremia, 8. Elevated white count. DISCUSSION The patient's CHADS VAS score is three. She is being appropriately anticoagulated with Xarelto. Her rate is controlled with IV Cardizem, which can be converted to p.o. based on her 24-hour requirement. She is otherwise asymptomatic. I do think she can be discharged from a cardiovascular standpoint with further evaluation and workup as an outpatient in my office which I have explained to her nurse, Sang, and to the patient and have her follow up with me the very next day post discharge and I strongly recommend smoking cessation. MD OSMAN Lowry/ /3:02 PM /6:23 PM
[2017-05-15] MEDS: ATORVASTATIN 40 MG TAB PO SCH (21:52)
[2017-05-16] VITALS (17 sets, daily range): BP systolic 103–139; BP diastolic 55–66; PULSE 60–80; RESP 18–19; TEMP 98.1–98.9; O2SAT 96–98
[2017-05-16] MEDS: RIVAROXABAN 15 MG TAB PO SCH (06:19)
[2017-05-16] MEDS: FAMOTIDINE 20 MG TAB PO SCH (08:39)
[2017-05-16] MEDS: CARVEDILOL 6.25 MG TAB PO SCH (08:39)
[2017-05-16] MEDS: DOCUSATE SODIUM 50 MG/SENNA 8.6 MG TAB PO SCH (08:39)
--- NOTE | 2017-05-16 08:39 | PD.VS.PN ---
Subjective POD #: 4 Procedure(s): RIGHT femoral anterior tibial bypass w/ cryovein Subjective/Hospital Course Looks good HR controlled no SOB or lightheadedness OOB TC majo po voiding Objective Vitals/I&O Date Time Temp Pulse Resp B/P (MAP) Pulse Ox O2 Delivery O2 Flow Rate FiO2 05/16/17 08:00 67 05/16/17 08:00 98.4 67 19 127/66 (86) 98 05/16/17 07:15 61 05/16/17 06:00 60 05/16/17 05:00 60 05/16/17 04:00 98.1 69 139/63 (88) 98 05/16/17 04:00 61 05/16/17 03:00 65 05/16/17 02:00 66 05/16/17 01:00 66 05/16/17 00:42 16 05/16/17 00:00 68 05/16/17 00:00 98.9 80 111/58 (75) 96 05/15/17 23:00 70 05/15/17 22:00 80 05/15/17 21:00 70 05/15/17 20:00 140 05/15/17 20:00 98.5 112 138/75 (96) 98 05/15/17 19:00 144 05/15/17 18:00 120 05/15/17 17:00 70 05/15/17 16:00 74 05/15/17 16:00 98.1 73 16 130/67 (88) 96 05/15/17 15:00 70 05/15/17 14:00 80 05/15/17 13:00 114 05/15/17 12:12 98.1 128 16 125/74 (91) 97 05/15/17 11:00 126 05/15/17 10:00 70 05/15/17 09:00 74 05/16/17 05/16/17 05/16/17 07:00 15:00 23:00 Intake Total 240 ml Output Total 200 ml Balance 40 ml Exam: RLE incisions ok palpable graft pulse and DP foot warm Assessment and Plan Assessment: (1) Ischemia of right lower extremity (2) PVD (peripheral vascular disease) Status: Acute Plan POD#4 graft patent ready for d/c Discharge Planning today with outpatient PT Daniel Astorga MD May 16, 2017 08:39
--- NOTE | 2017-05-16 08:40 | PD.VS.DC ---
cc: Daniel Astorga MD Discharge Summary Admission Date: May 12, 2017 at 07:47 Discharge Date: May 16, 2017 Admission Diagnosis: Discharge Diagnosis: (1) Ischemia of right lower extremity ICD Codes: I99.8 - Other disorder of circulatory system (2) PVD (peripheral vascular disease) ICD Codes: I73.9 - Peripheral vascular disease, unspecified Status: Acute Brief History from admission 72 yo female with PAD and profound R LE ischemia and new tissue loss Procedure(s): RIGHT femoral anterior tibial bypass w/ cryovein Significant Findings Laboratory Tests Test 05/14/17 04:43 Activated Partial Thromboplast Time 58.5 SEC (24.3-30.1) Hospital Course: Pt was admitted post op. Pain controlled and slow resumption of normal activity. A-fib x 2 controlled with chronotropic agents. Cardiology f/u arranged. Ready for dc on POD#4 Discharge Condition: Good Discharge Disposition: Disch w/ Home Health Serv Any questions or concerns: Call [facility] at [facility] [phone] Daniel Astorga MD May 16, 2017 08:40
--- NOTE | 2017-05-16 10:04 | PD.CARD.PN ---
Subjective Subjective Remarks alert in nad, denies chest pain Objective Medications Current Medications Medications (Trade) Dose Ordered Sig/Miguel Route Start Time Stop Time Status Last Admin (Pepcid) 20 mg BID PO 05/12/17 21:00 05/16/17 08:39 (Lipitor) 40 mg HS PO 05/12/17 21:00 05/15/17 21:52 (Roxicodone) 5 mg Q4H PRN PO 05/12/17 12:45 05/15/17 23:41 (Dilaudid) 2 mg Q4H PRN PO 05/12/17 12:45 05/14/17 13:36 (Morphine Inj) 2 mg Q1H PRN IV PUSH 05/12/17 12:45 05/13/17 09:40 (Eryn-Colace) 1 tab BID PO 05/12/17 21:00 05/15/17 09:48 (Milk Of Magnesia Liq) 30 ml Q12H PRN PO 05/12/17 12:45 (Senokot) 17.2 mg Q12H PRN PO 05/12/17 12:45 (Dulcolax Supp) 10 mg DAILY PRN RECTAL 05/12/17 12:45 (Lactulose Liq) 30 ml DAILY PRN PO 05/12/17 12:45 (Cardizem Inj) 5 mg Q1H PRN IV 05/14/17 01:15 05/15/17 20:36 (Xarelto) 15 mg Q12H PO 05/14/17 18:00 05/16/17 06:19 (Coreg) 6.25 mg BID PO 05/14/17 09:00 05/16/17 08:39 Vital Signs / I&O Vital Signs Date Time Temp Pulse Resp B/P (MAP) Pulse Ox O2 Delivery O2 Flow Rate FiO2 05/16/17 10:00 65 05/16/17 09:00 68 05/16/17 08:00 67 05/16/17 08:00 98.4 67 19 127/66 (86) 98 05/16/17 07:15 61 05/16/17 06:00 60 05/16/17 05:00 60 05/16/17 04:00 98.1 69 139/63 (88) 98 05/16/17 04:00 61 05/16/17 03:00 65 05/16/17 02:00 66 05/16/17 01:00 66 05/16/17 00:42 16 05/16/17 00:00 68 05/16/17 00:00 98.9 80 111/58 (75) 96 05/15/17 23:00 70 05/15/17 22:00 80 05/15/17 21:00 70 05/15/17 20:00 140 05/15/17 20:00 98.5 112 138/75 (96) 98 05/15/17 19:00 144 05/15/17 18:00 120 05/15/17 17:00 70 05/15/17 16:00 74 05/15/17 16:00 98.1 73 16 130/67 (88) 96 05/15/17 15:00 70 05/15/17 14:00 80 05/15/17 13:00 114 05/15/17 12:12 98.1 128 16 125/74 (91) 97 05/15/17 11:00 126 I/O 05/15/17 05/15/17 05/15/17 05/16/17 05/16/17 05/16/17 07:00 15:00 23:00 07:00 15:00 23:00 Intake Total 240 ml 700 ml 240 ml Output Total 350 ml 500 ml 200 ml Balance -110 ml 200 ml 40 ml Intake Oral 240 ml 700 ml 240 ml Output Urine Total 350 ml 500 ml 200 ml # Voids 1 # Bowel Movements 1 2 1 Laboratory GENERAL: SKIN: Warm and dry. HEAD: Normocephalic. EYES: No scleral icterus. No injection or drainage. NECK: Supple, trachea midline. No JVD or lymphadenopathy. CARDIOVASCULAR: Regular rate and rhythm without murmurs, gallops, or rubs. RESPIRATORY: Breath sounds equal bilaterally. No accessory muscle use. GASTROINTESTINAL: Abdomen soft, non-tender, nondistended. MUSCULOSKELETAL: No cyanosis, or edema. BACK: Nontender without obvious deformity. No CVA tenderness. Assessment and Plan Problem List: (1) Atrial fibrillation ICD Codes: I48.91 - Unspecified atrial fibrillation (2) Anemia ICD Codes: D64.9 - Anemia, unspecified Status: Acute (3) Cardiomyopathy ICD Codes: I42.9 - Cardiomyopathy, unspecified Status: Acute (4) PVD (peripheral vascular disease) ICD Codes: I73.9 - Peripheral vascular disease, unspecified Status: Acute Assessment and Plan 1.) Afib - assymptomatic, rate controlled, continue xarelto due to [id number] score = 3, f/u with me in my office 05/19/17, d/w patient and nurse at bedside Pravin Jackson MD May 16, 2017 10:04
== END 2017-05-16 17:00 | disposition home health service (06) | DRG 253 ==
LOC: HSDI 07:47 → HCPC 14:30
PROVIDERS: ADMIT Surgery; ATTEND Surgery
PROC: 041K0KQ Bypass Right Femoral Artery to Lower Extremity Artery with Nonautologous Tissue Substitute, Open Approach (ICD-10-PCS; principal; 2017-05-12 09:46)
DX: I73.9 Peripheral vascular disease, unspecified (principal); E87.1 Hypo-osmolality and hyponatremia; I42.9 Cardiomyopathy, unspecified; I48.91 Unspecified atrial fibrillation; J44.9 Chronic obstructive pulmonary disease, unspecified; I10 Essential (primary) hypertension; Z72.0 Tobacco use; I99.8 Other disorder of circulatory system; R00.0 Tachycardia, unspecified
CPT/HCPCS: 71045; 80048; 85025; 85027; 85610; 85730; 86850; 86900; 86901; 93005; C1769; J0690; J1100; J1644; J2270; J2370; J2405; J2710; J2720; J3010; J7120; Q9967

== ENCOUNTER 2017-06-25 08:00 | Inpatient (IN) | payer MEDICARE ==
[~2017-06-25] VITALS: Ht 152.4 cm; Wt 44.5 kg
[~2017-06-25 08:00] MED LIST changes: -XARE20TA PO
[2017-06-25] MEDS ORDERED: LACTATED RINGER'S 1000 ML IV PRN (10:00)
[2017-06-25] MEDS ORDERED: CHLORHEXIDINE GLUCONATE 2 % 1 PACK (2 CLOTHS) TOPICAL PRN (10:00)
[2017-06-25] MEDS ORDERED: SODIUM CHLORID 0.9% 500 ML IV PRN (10:00)
[2017-06-25] MEDS ORDERED: POVIDONE IODINE 5% (ANTISEPSIS KIT) 4 APPLICATIONS EACH NARE PRN (10:00)
[2017-06-25] MEDS ORDERED: METOPROLOL TARTRATE 25 MG TAB PO PRN (10:00)
--- NOTE | 2017-06-25 10:34 | HHI.HP ---
History of Present Illness Chief Complaint: R foot gangrene, unreconstructable PAD History of Present Illness 72 yo female with PAD s/p B LE bypasses, the RIGHT one has failed (target was distal AT) and needs amputation. Discussed options and wants to proceed with BKA. Past/Family/Social History Past Medical History PAD XOL HTN COPD Past Surgical History B LE bypasses Social History + tobacco Family History NC Home Medications Active Scripts Hydrocodone/Acetaminophen (Hydrocodone-Acetamin 5-325 mg) 5 Mg-325 Mg Tablet, 1 TAB PO Q6HR Y for Pain, #60 TAB Prov:Albert Olivia MD 04/25/17 Rivaroxaban (Xarelto) 15 Mg Tab, 15 MG PO Q12HR for Blood Clot Prevention, #42 TAB 0 Refills Prov:Albert Olivia MD 04/25/17 Reported Medications Ranitidine (Ranitidine) 150 Mg Tab, 150 MG PO BID for Heartburn Management, #60 TAB 0 Refills 04/15/17 Carvedilol (Coreg) 3.125 Mg Tab, 3.125 MG PO BID, #60 TAB 0 Refills 09/10/16 Atorvastatin (Atorvastatin) 20 Mg Tab, 20 MG PO DAILY for Cholesterol Management , #30 TAB 0 Refills 04/30/16 Coded Allergies: No Known Allergies (Verified Adverse Reaction, Unknown, 06/25/17) Review of Systems Constitutional: COMPLAINS OF: Fatigue, DENIES: Fever Cardiovascular: DENIES: Chest pain Physical Exam Vitals/I&O Date Time Temp Pulse Resp B/P (MAP) Pulse Ox O2 Delivery O2 Flow Rate FiO2 06/25/17 10:21 98.3 71 20 135/73 (93) 99 Neuro: frail appearing, mild distress from anxiety and pain HEENT: NC/AT; anicteric sclera Neck: no JVD Heart: reg rate Lungs: clear Vascular: nonpalpable R LE pulses Extremities: R foot with extensive dry gangrene Hct 35 Caprini VTE Risk Assessment Caprini VTE Risk Assessment: Mod/High Risk (score >= 2) Caprini Risk Assessment Model Point Value = 1 Point Value = 2 Point Value = 3 Point Value = 5 Age 41-60 Minor surgery BMI > 25 kg/m2 Swollen legs Varicose veins or History of unexplained or recurrent spontaneous Oral contraceptives or hormone replacement Sepsis (< 1 month) Serious lung disease, including pneumonia (< 1 month) Abnormal pulmonary function Acute myocardial infarction Congestive heart failure (< 1 month) History of inflammatory bowel disease Medical patient at bed rest Age 61-74 Arthroscopic surgery Major open surgery (> 45 min) Laparoscopic surgery (> 45 min) Malignancy Confined to bed (> 72 hours) Immobilizing plaster cast Central venous access Age >= 75 History of VTE Family history of VTE Factor V Leiden Prothrombin [id number] Lupus anticoagulant Anticardiolipin antibodies Elevated serum homocysteine Heparin-induced thrombocytopenia Other congenital or acquired thrombophilia Stroke (< 1 month) Elective arthroplasty Hip, pelvis, or leg fracture Acute spinal cord injury (< 1 month) Prophylaxis Regimen Total Risk Factor Score Risk Level Prophylaxis Regimen 0-1 Low Early ambulation 2 Moderate Order ONE of the following: *Sequential Compression Device (SCD) *Heparin 5000 units SQ BID 3-4 Higher Order ONE of the following medications: *Heparin 5000 units SQ TID *Enoxaparin/Lovenox 40 mg SQ daily (WT < 150 kg, CrCl > 30 mL/min) *Enoxaparin/Lovenox 30 mg SQ daily (WT < 150 kg, CrCl > 10-29 mL/min) *Enoxaparin/Lovenox 30 mg SQ BID (WT < 150 kg, CrCl > 30 mL/min) AND/OR *Sequential Compression Device (SCD) 5 or more Highest Order ONE of the following medications: *Heparin 5000 units SQ TID (Preferred with Epidurals) *Enoxaparin/Lovenox 40 mg SQ daily (WT < 150 kg, CrCl > 30 mL/min) *Enoxaparin/Lovenox 30 mg SQ daily (WT < 150 kg, CrCl > 10-29 mL/min) *Enoxaparin/Lovenox 30 mg SQ BID (WT < 150 kg, CrCl > 30 mL/min) AND *Sequential Compression Device (SCD) Assessment and Plan Plan R BKA Consent obtained. Operative site marked. Daughter [phone] Daniel Astorga MD Jun 25, 2017 10:34
[2017-06-25 10:55] LABS: AUTOMATED NEUTROPHIL # 7.8 TH/MM3 (1.8-7.7); BASOPHIL % 0.3 % (0.0-2.0); EOSINOPHIL # 0.1 TH/MM3 (0-0.4); EOSINOPHIL % 1.1 % (0.0-4.0); HEMATOCRIT 34.1 % (35.0-46.0); HEMOGLOBIN 11.4 GM/DL (11.6-15.3); LYMPH % 24.3 % (9.0-44.0); LYMPHOCYTE # 2.9 TH/MM3 (1.0-4.8); MEAN CELL VOLUME 89.1 FL (80.0-100.0); MEAN CORPUSCULAR HEMOGLOBIN 29.6 PG (27.0-34.0); MEAN CORPUSCULAR HGB CONC 33.3 % (32.0-36.0); MEAN PLATELET VOLUME 6.8 FL (7.0-11.0); MONOCYTE # 1.1 TH/MM3 (0-0.9); NEUT % 65.3 % (16.0-70.0); PLATELET COUNT 603 TH/MM3 (150-450); RED BLOOD COUNT 3.83 MIL/MM3 (4.00-5.30); RED CELL DISTRIBUTION WIDTH 13.7 % (11.6-17.2)
[2017-06-25 11:01] LABS: INTERNATIONAL NORMALIZED RATIO 1.1 RATIO; PROTHROMBIN TIME - PATIENT 11.5 SEC (9.8-11.6)
[2017-06-25 11:08] LABS: BICARBONATE 26.3 MEQ/L (21.0-32.0); CALCIUM 9.1 MG/DL (8.5-10.1); CREATININE 0.8 MG/DL (0.50-1.00)
[2017-06-25] MEDS ORDERED: ceFAZolin INJ 1,000 MG VIAL ONE (11:20)
--- NOTE | 2017-06-25 11:24 | PD.CAR.PN ---
CVT Progress Note Subjective/Hospital Course: Patient with dry gangrene of R foot. Patient has been under therapy of vascular surgery and underwent limb salvage operations as noted in the record. Unfortunately due to the severity of patient's disease and extent of atherosclerotic changes all the options have been exhausted. Gangrene of the foot is now extending all the way over the forefoot toward the ankle and no other procedures are available. Patients needs amputation at this time Agree fully with Dr Astorga. Julian Objective: Vital Signs Date Time Temp Pulse Resp B/P (MAP) Pulse Ox O2 Delivery O2 Flow Rate FiO2 06/25/17 10:21 98.3 71 20 135/73 (93) 99 Labs: Laboratory Tests Test 06/25/17 10:20 White Blood Count 12.0 TH/MM3 (4.0-11.0) Red Blood Count 3.83 MIL/MM3 (4.00-5.30) Hemoglobin 11.4 GM/DL (11.6-15.3) Hematocrit 34.1 % (35.0-46.0) Mean Corpuscular Volume 89.1 FL (80.0-100.0) Mean Corpuscular Hemoglobin 29.6 PG (27.0-34.0) Mean Corpuscular Hemoglobin Concent 33.3 % (32.0-36.0) Red Cell Distribution Width 13.7 % (11.6-17.2) Platelet Count 603 TH/MM3 (150-450) Mean Platelet Volume 6.8 FL (7.0-11.0) Neutrophils (%) (Auto) 65.3 % (16.0-70.0) Lymphocytes (%) (Auto) 24.3 % (9.0-44.0) Monocytes (%) (Auto) 9.0 % (0.0-8.0) Eosinophils (%) (Auto) 1.1 % (0.0-4.0) Basophils (%) (Auto) 0.3 % (0.0-2.0) Neutrophils # (Auto) 7.8 TH/MM3 (1.8-7.7) Lymphocytes # (Auto) 2.9 TH/MM3 (1.0-4.8) Monocytes # (Auto) 1.1 TH/MM3 (0-0.9) Eosinophils # (Auto) 0.1 TH/MM3 (0-0.4) Basophils # (Auto) 0.0 TH/MM3 (0-0.2) CBC Comment DIFF FINAL Differential Comment Prothrombin Time 11.5 SEC (9.8-11.6) Prothromb Time International Ratio 1.1 RATIO Blood Urea Nitrogen 12 MG/DL (7-18) Creatinine 0.80 MG/DL (0.50-1.00) Random Glucose 119 MG/DL (74-106) Calcium Level 9.1 MG/DL (8.5-10.1) Sodium Level 136 MEQ/L (136-145) Potassium Level 4.1 MEQ/L (3.5-5.1) Chloride Level 101 MEQ/L (98-107) Carbon Dioxide Level 26.3 MEQ/L (21.0-32.0) Anion Gap 9 MEQ/L (5-15) Estimat Glomerular Filtration Rate 70 ML/MIN (>89) Result Diagram: 06/25/17 1020 06/25/17 1020 Kaylyn Miller MD Jun 25, 2017 11:24
[2017-06-25] MEDS ORDERED: PROPOFOL 200 MG/20 ML AMP IV ONE (12:00)
[2017-06-25] MEDS ORDERED: LIDOCAINE HCL 1% PF 5 ML SYRINGE OTHER ONE (12:00)
--- NOTE | 2017-06-25 12:13 | HHI.PR ---
cc: Daniel Astorga MD Immediate Post Op Note Procedure Date: Jun 25, 2017 Pre Op Diagnosis: unreconstructable PAD, tissue loss Post Op Diagnosis: unreconstructable PAD, tissue loss Surgeon: Daniel Astorga Material Mixer(s): Laura Ames Procedure: R BKA Findings: no infection at level of amputation Complications: none Specimen(s) removed: R Leg Estimated blood loss: 50mL Anesthesia: General Drains: None Fluids: 300mL IVF Patient to: PACU Patient Condition: Good Date/Time of Procedure: SEE SURGICAL CARE RECORD Daniel Astorga MD Jun 25, 2017 12:13
[2017-06-25] MEDS ORDERED: ENOXAPARIN SODIUM 30 MG/0.3 ML SYRINGE SQ SCH (12:15)
[2017-06-25] MEDS ORDERED: LACTULOSE SYRUP 20 GM/30 ML CUP PO PRN (12:15)
[2017-06-25] MEDS ORDERED: MAGNESIUM HYDROXIDE SUSP 30 ML CUP PO PRN (12:15)
[2017-06-25] MEDS ORDERED: SENNOSIDES 8.6 MG TAB PO PRN (12:15)
[2017-06-25] MEDS ORDERED: BISACODYL 10 MG SUPP RECTAL PRN (12:15)
[2017-06-25] MEDS ORDERED: *diphenhydrAMINE HCL 50 MG/ML VIAL PERIprocedural Use ONLY ONE (12:19)
[2017-06-25] MEDS ORDERED: DO NOT ADM ANY ANTICOAGULANT DRUGS PRN (12:20)
[2017-06-25] MEDS ORDERED: *MEPERIDINE 25 MG INJ VIAL PERIprocedural Use ONLY ONE (12:23)
[2017-06-25] MEDS ORDERED: *morphine SULFATE 8 MG/ML PERIprocedure ONLY ONE ×2 (13:00→13:47)
[2017-06-25] MEDS: MORPHINE SULFATE 2 MG/ML SYRINGE IV PUSH PRN ×3 (16:15→22:16)
--- NOTE | 2017-06-25 17:23 | MP ---
cc: Daniel Astorga MD, Robert J MD DATE OF OPERATION: 06/25/2017 PREOPERATIVE DIAGNOSIS: Non-reconstructable peripheral arterial occlusive disease with gangrene, right foot. POSTOPERATIVE DIAGNOSIS: Non-reconstructable peripheral arterial occlusive disease with gangrene, right foot. PROCEDURE: Right below-knee amputation. ATTENDING SURGEON: Daniel Astorga MD ANESTHESIA: General. INDICATIONS: Ms. Rodrigues is a 72-year-old lady with bilateral lower extremity occlusive disease. She has a failed right lower extremity bypass and is taken to the operating room for a below-knee amputation. Two attending surgeons agreed that the amputation was the appropriate next step. DESCRIPTION OF PROCEDURE: Informed consent was obtained from the patient. She was taken to the operating room and placed supine on the operating table. An appropriate timeout was taken to ensure the patient identity, the operative site and the planned procedure. A gram of Ancef was initiated prior to skin incision and will be discontinued after a single preop dose. Everyone in the room agreed with the timeout and we proceeded. Her right leg was prepped and draped. An incision was made a handbreadth below the tibial tuberosity, carried down through subcutaneous tissue with electrocautery. A long posterior flap was then created with a 10 blade and created and carried down to subcutaneous tissue with electrocautery. The tibia was transected with an oscillating saw and the fibula was transected at the same level. The muscle was divided posteriorly with the electrocautery. The specimen was passed off the table. The fibula was resected up to 1 cm cephalad to the tibia transection and the anterior border of the tibia was bevelled without difficulty. The wound was made hemostatic, irrigated and closed with 2-0 Polysorb and skin xochitl. Sponge and needle counts were correct at the end of the case. I was present, scrubbed and performed the entire procedure. Daniel Astorga MD RJF/SA/ , 05:01 PM , 05:14 PM
[2017-06-25 17:36] VITALS: BP 136/63; PULSE 66; RESP 16; TEMP 97.9; O2SAT 97
[2017-06-25] MEDS: HYDROmorphone HCL 2 MG TAB PO PRN (17:48)
[2017-06-25 18:00] VITALS: PULSE 64
[2017-06-25 19:00] VITALS: BP 126/58; PULSE 69; RESP 18; TEMP 98.2; O2SAT 99
[2017-06-25] MEDS: DOCUSATE SODIUM 50 MG/SENNA 8.6 MG TAB PO SCH (20:26)
[2017-06-25] MEDS: CARVEDILOL 3.125 MG TAB PO SCH (20:26)
[2017-06-25] MEDS: FAMOTIDINE 20 MG TAB PO SCH (20:26)
[2017-06-25] MEDS ORDERED: ATORVASTATIN 40 MG TAB PO SCH (21:00)
[2017-06-25 23:00] VITALS: BP 148/60; PULSE 69; RESP 18; TEMP 98.6; O2SAT 98
[2017-06-26] VITALS (24 sets, daily range): BP systolic 101–154; BP diastolic 55–95; PULSE 63–124; RESP 16–20; TEMP 98.2–99; O2SAT 94–100
[2017-06-26] MEDS: MORPHINE SULFATE 2 MG/ML SYRINGE IV PUSH PRN ×3 (04:07→23:11)
[2017-06-26 05:12] LABS: HEMATOCRIT 31.7 % (35.0-46.0); HEMOGLOBIN 10.7 GM/DL (11.6-15.3); MEAN CELL VOLUME 88.3 FL (80.0-100.0); MEAN CORPUSCULAR HEMOGLOBIN 29.8 PG (27.0-34.0); MEAN CORPUSCULAR HGB CONC 33.8 % (32.0-36.0); PLATELET COUNT 584 TH/MM3 (150-450); RED BLOOD COUNT 3.59 MIL/MM3 (4.00-5.30); RED CELL DISTRIBUTION WIDTH 14.1 % (11.6-17.2); WHITE BLOOD COUNT 11.4 TH/MM3 (4.0-11.0)
[2017-06-26 05:31] LABS: BICARBONATE 27.9 MEQ/L (21.0-32.0); CALCIUM 8.5 MG/DL (8.5-10.1); CREATININE 0.66 MG/DL (0.50-1.00)
--- NOTE | 2017-06-26 06:58 | PD.VS.PN ---
Subjective POD #: 1 Procedure(s): R BKA Subjective/Hospital Course itching under RUSSELL but pain seems to be well controlled Objective Vitals/I&O Date Time Temp Pulse Resp B/P (MAP) Pulse Ox O2 Delivery O2 Flow Rate FiO2 06/26/17 06:00 70 06/26/17 05:16 64 06/26/17 04:15 18 06/26/17 03:00 63 06/26/17 03:00 99.0 77 20 135/63 (87) 94 06/25/17 23:00 69 06/25/17 23:00 98.6 69 18 148/60 (89) 98 06/25/17 19:00 69 06/25/17 19:00 98.2 69 18 126/58 (80) 99 06/25/17 18:00 64 06/25/17 17:36 97.9 66 16 136/63 (87) 97 06/25/17 17:00 68 16 134/63 (86) 96 Room Air 06/25/17 16:00 64 16 134/80 (98) 96 Room Air 06/25/17 15:00 64 16 129/66 (87) 96 Room Air 06/25/17 14:00 60 16 133/82 (99) 97 Room Air 06/25/17 13:30 58 16 155/70 (98) 100 Room Air 06/25/17 13:15 58 16 135/76 (95) 100 06/25/17 13:00 58 16 148/85 (106) 100 Nasal Cannula 2 06/25/17 12:45 62 16 151/89 (109) 100 Nasal Cannula 2 06/25/17 12:30 70 16 161/88 (112) 100 Nasal Cannula 2 06/25/17 12:20 97.6 62 16 125/77 (93) 92 Nasal Cannula 2 06/25/17 10:21 98.3 71 20 135/73 (93) 99 06/26/17 06/26/17 06/26/17 07:00 15:00 23:00 Intake Total 240 ml Output Total 350 ml Balance -110 ml Exam: R BKA RUSSELL wrap intact no overall distress Laboratory Laboratory Tests Test 06/25/17 10:20 06/26/17 04:22 White Blood Count 12.0 11.4 Red Blood Count 3.83 3.59 Hemoglobin 11.4 10.7 Hematocrit 34.1 31.7 Mean Corpuscular Volume 89.1 88.3 Mean Corpuscular Hemoglobin 29.6 29.8 Mean Corpuscular Hemoglobin Concent 33.3 33.8 Red Cell Distribution Width 13.7 14.1 Platelet Count 603 584 Mean Platelet Volume 6.8 7.0 Neutrophils (%) (Auto) 65.3 Lymphocytes (%) (Auto) 24.3 Monocytes (%) (Auto) 9.0 Eosinophils (%) (Auto) 1.1 Basophils (%) (Auto) 0.3 Neutrophils # (Auto) 7.8 Lymphocytes # (Auto) 2.9 Monocytes # (Auto) 1.1 Eosinophils # (Auto) 0.1 Basophils # (Auto) 0.0 CBC Comment DIFF FINAL Differential Comment Prothrombin Time 11.5 Prothromb Time International Ratio 1.1 Blood Urea Nitrogen 12 9 Creatinine 0.80 0.66 Random Glucose 119 115 Calcium Level 9.1 8.5 Sodium Level 136 137 Potassium Level 4.1 3.9 Chloride Level 101 101 Carbon Dioxide Level 26.3 27.9 Anion Gap 9 8 Estimat Glomerular Filtration Rate 70 88 Assessment and Plan Plan POD#1 s/p R BKA 1. Normalize 2. PT/OOB - discussed with patient the importance of knee straightening 3. D/C planning Discharge Planning likely 2 days Daughter [phone] Daniel Astorga MD Jun 26, 2017 06:58
[2017-06-26] MEDS: HYDROmorphone HCL 2 MG TAB PO PRN ×3 (08:28→20:05)
[2017-06-26] MEDS: ATORVASTATIN 20 MG TAB PO SCH (08:28)
[2017-06-26] MEDS: CARVEDILOL 3.125 MG TAB PO SCH ×2 (08:28→20:05)
[2017-06-26] MEDS: FAMOTIDINE 20 MG TAB PO SCH ×2 (08:29→20:04)
[2017-06-26] MEDS: DOCUSATE SODIUM 50 MG/SENNA 8.6 MG TAB PO SCH ×2 (08:29→20:05)
[2017-06-26] MEDS: ASPIRIN 325 MG TAB PO SCH (08:29)
[2017-06-26] MEDS: RIVAROXABAN 15 MG TAB PO SCH ×2 (08:29→20:05)
[2017-06-27] VITALS (23 sets, daily range): BP systolic 102–151; BP diastolic 54–84; PULSE 66–130; RESP 16–20; TEMP 97.3–99.4; O2SAT 96–100
[2017-06-27] MEDS: HYDROmorphone HCL 2 MG TAB PO PRN ×5 (03:23→22:47)
[2017-06-27] MEDS: MORPHINE SULFATE 2 MG/ML SYRINGE IV PUSH PRN ×3 (03:24→14:36)
--- NOTE | 2017-06-27 06:54 | PD.VS.PN ---
Subjective POD #: 2 Procedure(s): R BKA Subjective/Hospital Course pain better controlled pt notes PT did not see her yesterday Objective Vitals/I&O Date Time Temp Pulse Resp B/P (MAP) Pulse Ox O2 Delivery O2 Flow Rate FiO2 06/26/17 19:59 98.2 66 16 151/65 (93) 98 06/26/17 18:00 86 06/26/17 17:00 108 06/26/17 16:00 124 06/26/17 15:30 98.6 82 18 101/68 (79) 100 06/26/17 15:00 79 06/26/17 14:00 74 06/26/17 13:00 71 06/26/17 12:01 66 06/26/17 11:15 98.6 69 18 112/55 (74) 97 06/26/17 11:00 65 06/26/17 10:00 70 06/26/17 09:00 76 06/26/17 08:15 98.6 74 18 140/65 (90) 97 06/26/17 08:00 74 06/26/17 07:01 85 Exam: R BKA dressing intact. able to nearly straighten leg/knee Assessment and Plan Plan POD#2 s/p R BKA 1. Normalize 2. needs PT - discussed again with patient the importance of knee straightening 3. D/C planning Discharge Planning Friday/Friday to rehab Daughter [phone] Daniel Astorga MD Jun 27, 2017 06:54
[2017-06-27] MEDS: ATORVASTATIN 20 MG TAB PO SCH (08:39)
[2017-06-27] MEDS: RIVAROXABAN 15 MG TAB PO SCH ×2 (08:39→20:16)
[2017-06-27] MEDS: CARVEDILOL 3.125 MG TAB PO SCH ×2 (08:39→20:16)
[2017-06-27] MEDS: DOCUSATE SODIUM 50 MG/SENNA 8.6 MG TAB PO SCH ×2 (08:39→20:16)
[2017-06-27] MEDS: ASPIRIN 325 MG TAB PO SCH (08:40)
[2017-06-27] MEDS: FAMOTIDINE 20 MG TAB PO SCH ×2 (08:40→20:16)
[2017-06-28] VITALS (26 sets, daily range): BP systolic 99–150; BP diastolic 56–71; PULSE 63–85; RESP 16–21; TEMP 97.5–98.9; O2SAT 96–99
[2017-06-28] MEDS: HYDROmorphone HCL 2 MG TAB PO PRN ×5 (03:49→21:28)
--- NOTE | 2017-06-28 08:40 | PD.VS.PN ---
Subjective POD #: 3 Procedure(s): R BKA Subjective/Hospital Course leg splint applied yesterday pain controlled majo po Objective Vitals/I&O Date Time Temp Pulse Resp B/P (MAP) Pulse Ox O2 Delivery O2 Flow Rate FiO2 06/28/17 08:00 72 06/28/17 07:23 98.9 71 16 130/60 (83) 97 06/28/17 07:00 67 06/28/17 06:17 80 06/28/17 04:44 78 06/28/17 03:50 98.4 72 19 132/64 (86) 98 06/28/17 03:50 72 06/28/17 02:00 71 06/28/17 01:02 67 06/28/17 00:04 72 06/27/17 23:50 98.4 74 20 124/69 (87) 97 06/27/17 23:50 66 06/27/17 22:00 69 06/27/17 21:00 72 06/27/17 20:30 70 06/27/17 19:50 98.6 73 20 151/64 (93) 97 06/27/17 19:50 69 06/27/17 18:02 75 06/27/17 17:59 16 06/27/17 17:03 70 06/27/17 16:01 72 06/27/17 15:24 16 06/27/17 15:16 79 06/27/17 15:16 97.8 75 16 109/58 (75) 98 06/27/17 14:42 16 06/27/17 14:32 70 06/27/17 13:55 75 06/27/17 12:27 79 06/27/17 11:11 69 06/27/17 11:11 97.7 68 16 106/57 (73) 98 06/27/17 10:08 112 06/27/17 09:34 73 06/27/17 08:45 97.3 90 18 147/84 (105) 100 06/27/17 08:45 66 06/28/17 06/28/17 06/28/17 07:00 15:00 23:00 Intake Total 480 ml Output Total 750 ml Balance -270 ml Exam: resting comfortably no distress able to straighten leg Assessment and Plan Plan POD#3 s/p R BKA 1. Normalize 2. PT/OOB 3. D/C planning Discharge Planning ready for rehab tomorrow (Friday) Daughter [phone] Daniel Astorga MD Jun 28, 2017 08:40
[2017-06-28] MEDS: DOCUSATE SODIUM 50 MG/SENNA 8.6 MG TAB PO SCH ×2 (09:05→21:27)
[2017-06-28] MEDS: ATORVASTATIN 20 MG TAB PO SCH (09:05)
[2017-06-28] MEDS: ASPIRIN 325 MG TAB PO SCH (09:05)
[2017-06-28] MEDS: CARVEDILOL 3.125 MG TAB PO SCH ×2 (09:05→21:27)
[2017-06-28] MEDS: FAMOTIDINE 20 MG TAB PO SCH ×2 (09:05→21:27)
[2017-06-28] MEDS: RIVAROXABAN 15 MG TAB PO SCH ×2 (09:06→21:27)
[2017-06-29] VITALS (27 sets, daily range): BP systolic 107–131; BP diastolic 56–86; PULSE 70–115; RESP 16–20; TEMP 98–99.4; O2SAT 97–98
[2017-06-29] MEDS: HYDROmorphone HCL 2 MG TAB PO PRN ×5 (01:31→21:44)
[2017-06-29] MEDS: MORPHINE SULFATE 2 MG/ML SYRINGE IV PUSH PRN (04:54)
--- NOTE | 2017-06-29 08:20 | PD.VS.PN ---
Subjective POD #: 4 Procedure(s): R BKA Subjective/Hospital Course sitting OOB pain modestly controlled majo po Objective Vitals/I&O Date Time Temp Pulse Resp B/P (MAP) Pulse Ox O2 Delivery O2 Flow Rate FiO2 06/29/17 07:23 98.3 80 16 116/86 (96) 97 06/29/17 06:22 86 06/29/17 05:30 84 06/29/17 04:46 86 06/29/17 03:50 72 06/29/17 03:50 99.4 82 18 131/62 (85) 97 06/29/17 02:20 70 06/29/17 01:46 71 06/29/17 00:35 74 06/28/17 23:50 98.1 73 21 150/71 (97) 99 06/28/17 23:50 70 06/28/17 22:28 73 06/28/17 21:10 70 06/28/17 20:24 75 06/28/17 19:50 98.0 85 20 140/70 (93) 98 06/28/17 19:50 72 06/28/17 18:00 73 06/28/17 17:00 68 06/28/17 16:00 63 06/28/17 15:07 97.5 69 16 128/58 (81) 96 06/28/17 15:00 64 06/28/17 14:00 69 06/28/17 13:00 72 06/28/17 12:00 68 06/28/17 11:11 97.9 72 18 99/56 (70) 97 06/28/17 11:00 71 06/28/17 10:00 64 06/28/17 09:00 80 06/29/17 06/29/17 06/29/17 07:00 15:00 23:00 Intake Total 480 ml Output Total 350 ml Balance 130 ml Exam: R BKA incision c/d/i minimal bruising Assessment and Plan Plan POD#4 s/p R BKA 1. po ad mray 2. PT/OOB 3. D/C planning Discharge Planning ready for rehab anytime Daughter [phone] Daniel Astorga MD Jun 29, 2017 08:20
[2017-06-29] MEDS: DOCUSATE SODIUM 50 MG/SENNA 8.6 MG TAB PO SCH ×2 (08:30→21:43)
[2017-06-29] MEDS: RIVAROXABAN 15 MG TAB PO SCH ×2 (08:30→21:44)
[2017-06-29] MEDS: ASPIRIN 325 MG TAB PO SCH (08:30)
[2017-06-29] MEDS: FAMOTIDINE 20 MG TAB PO SCH ×2 (08:30→22:13)
[2017-06-29] MEDS: CARVEDILOL 3.125 MG TAB PO SCH ×2 (08:30→21:44)
[2017-06-29] MEDS: ATORVASTATIN 20 MG TAB PO SCH (08:30)
[2017-06-29] MEDS ORDERED: METOPROLOL TARTRATE 25 MG TAB PO ONE (17:15)
[2017-06-29] MEDS: METOPROLOL TARTRATE 25 MG TAB PO SCH (21:43)
[2017-06-30] VITALS (25 sets, daily range): BP systolic 102–142; BP diastolic 55–66; PULSE 66–102; RESP 14–18; TEMP 98–100.5; O2SAT 97–98
--- NOTE | 2017-06-30 07:15 | PD.VS.PN ---
Subjective POD #: 5 Procedure(s): R BKA Subjective/Hospital Course tachycardic yesterday - controlled with po beta derik pain controlled majo po Objective Vitals/I&O Date Time Temp Pulse Resp B/P (MAP) Pulse Ox O2 Delivery O2 Flow Rate FiO2 06/30/17 04:00 99.1 72 16 115/60 (78) 98 06/30/17 04:00 70 06/30/17 00:00 77 06/30/17 00:00 100.5 74 18 110/66 (81) 97 06/29/17 22:44 18 06/29/17 20:00 84 06/29/17 20:00 98.1 84 20 128/56 (80) 98 06/29/17 18:00 83 06/29/17 17:00 115 06/29/17 16:00 98 06/29/17 15:15 98.9 92 16 107/75 (86) 97 06/29/17 15:00 93 06/29/17 14:00 72 06/29/17 13:00 73 06/29/17 12:00 71 06/29/17 11:06 98.0 70 18 109/59 (76) 97 06/29/17 11:00 70 06/29/17 10:00 74 06/29/17 09:00 80 06/29/17 08:00 97 06/29/17 07:23 98.3 80 16 116/86 (96) 97 06/30/17 06/30/17 06/30/17 07:00 15:00 23:00 Intake Total 480 ml Output Total 300 ml Balance 180 ml Exam: R stump marginal; + bruising on anterior flap and overlying tibia Assessment and Plan Plan POD#5 s/p R BKA 1.stump marginal but will observe for now 2. continue PT Discharge Planning ,rehab today Daughter [phone] Daniel Astorga MD Jun 30, 2017 07:15
--- NOTE | 2017-06-30 08:31 | PD.VS.DC ---
Discharge Summary Admission Date: Jun 25, 2017 at 09:15 Discharge Date: Jun 30, 2017 Admission Diagnosis: (1) PVD (peripheral vascular disease) Discharge Diagnosis: (1) PVD (peripheral vascular disease) ICD Codes: I73.9 - Peripheral vascular disease, unspecified Status: Acute (2) S/P BKA (below knee amputation) ICD Codes: Z89.519 - Acquired absence of unspecified leg below knee Brief History from admission 72 yo female with PAD s/p B LE bypasses, the RIGHT one has failed (target was distal AT) and needs amputation. Discussed options and wants to proceed with BKA Procedure(s): R BKA Significant Findings GENERAL: A&OX3,GCS 15 SKIN: Warm and dry. R BKA w/ ecchymosis noted at the incision line and medial aspect/ White circular dry patch below the knee present CARDIOVASCULAR: Regular rate and rhythm without murmurs, gallops, or rubs. RESPIRATORY: Breath sounds equal bilaterally. No accessory muscle use. GASTROINTESTINAL: Abdomen soft, non-tender, nondistended. MUSCULOSKELETAL: No cyanosis, or edema. BACK: Nontender without obvious deformity. No CVA tenderness. Hospital Course: 72 yo female with PAD s/p B LE bypasses, The RIGHT one has failed (target was distal AT) and needs amputation. Pt admitted for R BKA POD 1 Pt c/o itching under RUSSELL but pain seems to be well controlled Normalize PT/OOB - discussed with patient the importance of knee straightening POD 2 Pain better controlled pt notes PT did not see her yesterday POD 3 leg splint applied yesterday pain controlled majo po POD 4 sitting OOB pain modestly controlled majo po POD 5 tachycardic yesterday - controlled with po beta derik pain controlled majo po stump marginal but will observe for now continue PT D/C to Rehab today Arranged out pt f/u in 1m Allergies Coded Allergies Type Severity Reaction Last Updated Verified No Known Allergies Adverse Reaction Unknown 06/25/17 Yes 3/31/18 3/31/18 4/1/18 4/1/18 4/2/18 4/2/18 05:59 17:59 05:59 17:59 05:59 17:59 Intake Total 1320 ml 480 ml 720 ml 480 ml Output Total 1650 ml 350 ml 700 ml 400 ml Balance -330 ml 130 ml 20 ml 80 ml Intake Oral 1320 ml 480 ml 720 ml 480 ml Output Urine Total 1650 ml 350 ml 700 ml 400 ml # Voids 1 # Bowel Movements 1 Orders Procedure Category Date Status Time Metoprolol Tartrate MED 06/29/17 Complete (Lopressor) 17:15 Metoprolol Tartrate MED 06/29/17 In Process (Lopressor) 21:00 Electrocardiogram CAV 06/29/17 Complete 16:47 Attending Discharge DISCHARGE 06/30/17 Transmitted Order Vital Signs Date Time Temp Pulse Resp B/P (MAP) Pulse Ox O2 Delivery O2 Flow Rate FiO2 06/30/17 06:00 74 06/30/17 05:00 72 06/30/17 04:00 99.1 72 16 115/60 (78) 98 06/30/17 04:00 70 06/30/17 03:00 72 06/30/17 02:00 78 06/30/17 01:00 102 06/30/17 00:00 77 06/30/17 00:00 100.5 74 18 110/66 (81) 97 06/29/17 23:00 100 06/29/17 22:44 18 06/29/17 22:00 80 06/29/17 21:00 78 06/29/17 20:00 84 06/29/17 20:00 98.1 84 20 128/56 (80) 98 06/29/17 19:00 82 06/29/17 18:00 83 06/29/17 17:00 115 06/29/17 16:00 98 06/29/17 15:15 98.9 92 16 107/75 (86) 97 06/29/17 15:00 93 06/29/17 14:00 72 06/29/17 13:00 73 06/29/17 12:00 71 06/29/17 11:06 98.0 70 18 109/59 (76) 97 06/29/17 11:00 70 06/29/17 10:00 74 06/29/17 09:00 80 06/29/17 08:00 97 06/29/17 07:23 98.3 80 16 116/86 (96) 97 06/29/17 07:00 74 06/29/17 06:22 86 06/29/17 05:30 84 06/29/17 04:46 86 06/29/17 03:50 72 06/29/17 03:50 99.4 82 18 131/62 (85) 97 06/29/17 02:20 70 06/29/17 01:46 71 06/29/17 00:35 74 06/28/17 23:50 98.1 73 21 150/71 (97) 99 06/28/17 23:50 70 06/28/17 22:28 73 06/28/17 21:10 70 06/28/17 20:24 75 06/28/17 19:50 98.0 85 20 140/70 (93) 98 06/28/17 19:50 72 06/28/17 18:00 73 06/28/17 17:00 68 06/28/17 16:00 63 06/28/17 15:07 97.5 69 16 128/58 (81) 96 06/28/17 15:00 64 06/28/17 14:00 69 06/28/17 13:00 72 06/28/17 12:00 68 06/28/17 11:11 97.9 72 18 99/56 (70) 97 06/28/17 11:00 71 06/28/17 10:00 64 06/28/17 09:00 80 06/28/17 08:00 72 06/28/17 07:23 98.9 71 16 130/60 (83) 97 06/28/17 07:00 67 06/28/17 06:17 80 06/28/17 04:44 78 06/28/17 03:50 98.4 72 19 132/64 (86) 98 06/28/17 03:50 72 06/28/17 02:00 71 06/28/17 01:02 67 06/28/17 00:04 72 06/27/17 23:50 98.4 74 20 124/69 (87) 97 06/27/17 23:50 66 06/27/17 22:00 69 06/27/17 21:00 72 06/27/17 20:30 70 06/27/17 19:50 98.6 73 20 151/64 (93) 97 06/27/17 19:50 69 06/27/17 18:02 75 06/27/17 17:03 70 06/27/17 16:01 72 06/27/17 15:24 16 06/27/17 15:16 79 06/27/17 15:16 97.8 75 16 109/58 (75) 98 06/27/17 14:42 16 06/27/17 14:32 70 06/27/17 13:55 75 06/27/17 12:27 79 06/27/17 11:11 69 06/27/17 11:11 97.7 68 16 106/57 (73) 98 06/27/17 10:08 112 06/27/17 09:34 73 06/27/17 08:45 97.3 90 18 147/84 (105) 100 06/27/17 08:45 66 Discharge Condition: Good Discharge Disposition: Rehab Inpatient Discharge Instructions: ACTIVITIES Activities as tolerated DIET May resume a heart healthy diet WOUND CARE May leave R BKA site open to air Report any increased redness, drainage or swelling MEDICATIONS May resume all home medications FOLLOW-UP Your f/u appt is scheduled in 4W in our out pt clinic Any questions or concerns: Call [facility] at [facility] [phone] Joie Kruse Jun 30, 2017 08:31
--- NOTE | 2017-06-30 08:58 | EKG ---
Date Performed: 06/29/2017 Time Performed: 16:47:20 PTAGE: 72 years EKG: Sinus tachycardia with PAC(s) Leftward axis Ant/septal and lateral T wave changes Abnormal ECG Compared to PREVIOUS TRACING , SR no longer present DOCTOR: Li Ordaz Interpretating Date/Time 06/30/2017 08:57:34
[2017-06-30] MEDS: CARVEDILOL 3.125 MG TAB PO SCH ×2 (10:10→21:06)
[2017-06-30] MEDS: ATORVASTATIN 20 MG TAB PO SCH (10:10)
[2017-06-30] MEDS: METOPROLOL TARTRATE 25 MG TAB PO SCH ×2 (10:10→21:06)
[2017-06-30] MEDS: ASPIRIN 325 MG TAB PO SCH (10:10)
[2017-06-30] MEDS: DOCUSATE SODIUM 50 MG/SENNA 8.6 MG TAB PO SCH ×2 (10:11→21:06)
[2017-06-30] MEDS: FAMOTIDINE 20 MG TAB PO SCH ×2 (10:11→21:06)
[2017-06-30] MEDS: RIVAROXABAN 15 MG TAB PO SCH ×2 (10:11→21:06)
[2017-07-01] VITALS (24 sets, daily range): BP systolic 103–145; BP diastolic 55–78; PULSE 63–113; RESP 14–20; TEMP 97.9–99; O2SAT 95–98
[2017-07-01] MEDS: METOPROLOL TARTRATE 25 MG TAB PO SCH ×2 (08:51→20:35)
[2017-07-01] MEDS: ASPIRIN 325 MG TAB PO SCH (08:51)
[2017-07-01] MEDS: FAMOTIDINE 20 MG TAB PO SCH ×2 (08:51→20:35)
[2017-07-01] MEDS: RIVAROXABAN 15 MG TAB PO SCH ×2 (08:51→20:35)
[2017-07-01] MEDS: ATORVASTATIN 20 MG TAB PO SCH (08:51)
[2017-07-01] MEDS: DOCUSATE SODIUM 50 MG/SENNA 8.6 MG TAB PO SCH ×2 (08:51→20:35)
[2017-07-01] MEDS: CARVEDILOL 3.125 MG TAB PO SCH ×2 (08:51→20:37)
[2017-07-01] MEDS ORDERED: ONDANSETRON HCL 4 MG/2 ML VIAL IV PUSH PRN (09:30)
--- NOTE | 2017-07-01 10:00 | PD.VS.PN ---
Subjective POD #: 6 Procedure(s): R BKA Subjective/Hospital Course Pt in bed resting comfortably this am Pt awaits Rehab placement R BKA incision intact Objective Vitals/I&O Date Time Temp Pulse Resp B/P (MAP) Pulse Ox O2 Delivery O2 Flow Rate FiO2 07/01/17 09:00 77 07/01/17 08:00 76 07/01/17 07:00 79 07/01/17 07:00 98.6 79 14 145/78 (100) 98 07/01/17 06:27 68 07/01/17 05:35 66 07/01/17 04:11 67 07/01/17 03:43 97.9 71 17 114/60 (78) 95 07/01/17 03:02 68 07/01/17 02:33 70 07/01/17 01:29 65 07/01/17 00:01 65 06/30/17 23:30 98.0 69 16 142/62 (88) 98 06/30/17 22:30 67 06/30/17 22:06 67 06/30/17 21:53 72 06/30/17 20:15 70 06/30/17 19:36 98.2 74 17 104/57 (73) 98 06/30/17 19:36 72 06/30/17 18:00 72 06/30/17 17:00 69 06/30/17 16:00 97 06/30/17 15:00 98.0 75 16 129/60 (83) 98 06/30/17 15:00 98 06/30/17 14:00 66 06/30/17 13:00 70 06/30/17 12:00 66 06/30/17 11:00 72 06/30/17 11:00 98.4 67 14 102/55 (71) 98 06/30/17 10:00 72 07/01/17 07/01/17 07/01/17 07:00 15:00 23:00 Intake Total 240 ml Output Total 200 ml Balance 40 ml Exam: GENERAL: A&OX3,GCS 15 SKIN: Warm and dry. R BKA w/ ecchymosis noted at the incision line and medial aspect/ White circular dry patch below the knee present no change since last assessment CARDIOVASCULAR: Regular rate and rhythm without murmurs, gallops, or rubs. RESPIRATORY: Breath sounds equal bilaterally. No accessory muscle use. GASTROINTESTINAL: Abdomen soft, non-tender, nondistended. MUSCULOSKELETAL: No cyanosis, or edema. BACK: Nontender without obvious deformity. No CVA tenderness. Laboratory Laboratory Tests Test 07/01/17 09:32 Assessment and Plan Assessment: (1) PVD (peripheral vascular disease) Status: Acute (2) S/P BKA (below knee amputation) Plan POD#6 Pt s/p R BKA Plan Pt awaits Rehab placement Continue PT/OOB Arranged out pt f/u Joie Kruse [employer] [facility] [phone] Discharge Planning Rehab today Daughter [phone] Problem Qualifiers (1) S/P BKA (below knee amputation): Qualified Codes: Z89.511 - Acquired absence of right leg below knee Joie Kruse [facility] Jul 01, 2017 10:00
[2017-07-01 10:24] LABS: TROPONIN I LESS THAN 0.02 NG/ML (0.02-0.05)
--- NOTE | 2017-07-01 10:47 | PD.VS.PN ---
Subjective Subjective/Hospital Course Pt c/o nausea with 1 episode of vomiting Pt denied CP/SOB/Abdominal pain Objective Vitals/I&O Date Time Temp Pulse Resp B/P (MAP) Pulse Ox O2 Delivery O2 Flow Rate FiO2 07/01/17 10:00 66 07/01/17 09:00 77 07/01/17 08:00 76 07/01/17 07:00 79 07/01/17 07:00 98.6 79 14 145/78 (100) 98 07/01/17 06:27 68 07/01/17 05:35 66 07/01/17 04:11 67 07/01/17 03:43 97.9 71 17 114/60 (78) 95 07/01/17 03:02 68 07/01/17 02:33 70 07/01/17 01:29 65 07/01/17 00:01 65 06/30/17 23:30 98.0 69 16 142/62 (88) 98 06/30/17 22:30 67 06/30/17 22:06 67 06/30/17 21:53 72 06/30/17 20:15 70 06/30/17 19:36 98.2 74 17 104/57 (73) 98 06/30/17 19:36 72 06/30/17 18:00 72 06/30/17 17:00 69 06/30/17 16:00 97 06/30/17 15:00 98.0 75 16 129/60 (83) 98 06/30/17 15:00 98 06/30/17 14:00 66 06/30/17 13:00 70 06/30/17 12:00 66 06/30/17 11:00 72 06/30/17 11:00 98.4 67 14 102/55 (71) 98 07/01/17 07/01/17 07/01/17 07:00 15:00 23:00 Intake Total 240 ml Output Total 200 ml Balance 40 ml Physical Exam GENERAL: A&OX3,NAD,GCS15 SKIN: Warm and dry. CARDIOVASCULAR: RRR/ Pt denied CP RESPIRATORY: BS CTA/Pt denied SOB GASTROINTESTINAL: Abdomen soft, non-tender, nondistended/ LAST BM yesterday/+ BS all 4 quad MUSCULOSKELETAL: No cyanosis, or edema. Laboratory Laboratory Tests Test 07/01/17 09:32 Total Creatine Kinase 2521 Creatine Kinase MB 8.1 Creatine Kinase MB % 0.3 Troponin I LESS THAN 0.02 Assessment and Plan Assessment: (1) PVD (peripheral vascular disease) Status: Acute (2) S/P BKA (below knee amputation) Plan POD#6 Pt s/p R BKA Pt w/o CP/SOB/Abdominal pain Plan Ordered Zofran IV PRN fro nausea Ordered STAT EKG with cardiac enzymes Will review once completed IF cardiac enzymes and EKG normal will proceed with D/C to skilled rehab facility Joie Kruse [facility]/[employer] [phone] Discharge Planning Rehab today Daughter [phone] Problem Qualifiers (1) S/P BKA (below knee amputation): Qualified Codes: Z89.511 - Acquired absence of right leg below knee Joie Kruse Jul 01, 2017 10:47
[2017-07-02] VITALS (27 sets, daily range): BP systolic 89–146; BP diastolic 51–76; PULSE 54–124; RESP 16–20; TEMP 97.5–99; O2SAT 97–100
--- NOTE | 2017-07-02 07:12 | PD.VS.PN ---
Subjective POD #: 7 Procedure(s): R BKA Subjective/Hospital Course no nausea overnight did not require any pain meds overnight Objective Vitals/I&O Date Time Temp Pulse Resp B/P (MAP) Pulse Ox O2 Delivery O2 Flow Rate FiO2 07/02/17 06:38 70 07/02/17 05:34 67 07/02/17 04:22 68 07/02/17 03:20 99.0 78 20 102/59 (73) 98 07/02/17 03:20 67 07/02/17 02:34 77 07/02/17 01:07 67 07/02/17 00:05 124 07/01/17 23:47 98.7 75 19 107/71 (83) 97 07/01/17 23:47 105 07/01/17 22:57 113 07/01/17 21:02 93 07/01/17 20:00 96 07/01/17 19:00 85 07/01/17 19:00 99.0 78 20 103/55 (71) 98 07/01/17 17:00 87 07/01/17 16:00 80 07/01/17 15:00 98.5 76 16 110/55 (73) 96 07/01/17 15:00 87 07/01/17 14:00 77 07/01/17 13:00 64 07/01/17 12:00 65 07/01/17 11:00 63 07/01/17 11:00 98.3 70 16 115/65 (82) 98 07/01/17 10:00 66 07/01/17 09:00 77 07/01/17 08:00 76 07/02/17 07/02/17 07/02/17 07:00 15:00 23:00 Intake Total 240 ml Output Total 200 ml Balance 40 ml Exam: R BKA with ecchymoses anteriorly but stump flap looks good Laboratory Laboratory Tests Test 07/01/17 09:32 Total Creatine Kinase 2521 Creatine Kinase MB 8.1 Creatine Kinase MB % 0.3 Troponin I LESS THAN 0.02 Assessment and Plan Assessment: (1) PVD (peripheral vascular disease) Status: Acute (2) S/P BKA (below knee amputation) Plan POD#7 s/p R BKA Ready for rehab Discharge Planning Rehab today Daughter [phone] Problem Qualifiers (1) S/P BKA (below knee amputation): Qualified Codes: Z89.511 - Acquired absence of right leg below knee Daniel Astorga MD Jul 02, 2017 07:12
[2017-07-02] MEDS: DOCUSATE SODIUM 50 MG/SENNA 8.6 MG TAB PO SCH ×2 (09:10→21:31)
[2017-07-02] MEDS: ACETAMINOPHEN 325 MG TAB PO PRN ×2 (09:10→21:38)
[2017-07-02] MEDS: ATORVASTATIN 20 MG TAB PO SCH (09:10)
[2017-07-02] MEDS: CARVEDILOL 3.125 MG TAB PO SCH ×2 (09:10→21:30)
[2017-07-02] MEDS: FAMOTIDINE 20 MG TAB PO SCH ×2 (09:10→21:30)
[2017-07-02] MEDS: ASPIRIN 325 MG TAB PO SCH (09:11)
[2017-07-02] MEDS: METOPROLOL TARTRATE 25 MG TAB PO SCH ×2 (09:11→21:30)
[2017-07-02] MEDS: RIVAROXABAN 15 MG TAB PO SCH ×2 (09:11→21:30)
--- NOTE | 2017-07-02 13:29 | EKG ---
Date Performed: 07/01/2017 Time Performed: 09:26:52 PTAGE: 72 years EKG: Sinus rhythm . Possible septal infarct - age undetermined Lateral T wave changes may be due to myocardial ischemia Abnormal ECG PREVIOUS TRACING : 06/29/2017 16.47 DOCTOR: Balwinder Morris Interpretating Date/Time 07/02/2017 13:26:53
[2017-07-02] MEDS ORDERED: PILL SPLITTER OTHER PRN (21:00)
[2017-07-03] VITALS (8 sets, daily range): BP systolic 121–135; BP diastolic 60–63; PULSE 56–67; RESP 16–17; TEMP 98.2–98.8; O2SAT 97–99
[2017-07-03] MEDS: ACETAMINOPHEN 325 MG TAB PO PRN ×2 (03:30→08:29)
[2017-07-03] MEDS: ASPIRIN 325 MG TAB PO SCH (08:28)
[2017-07-03] MEDS: CARVEDILOL 3.125 MG TAB PO SCH (08:28)
[2017-07-03] MEDS: RIVAROXABAN 15 MG TAB PO SCH (08:28)
[2017-07-03] MEDS: DOCUSATE SODIUM 50 MG/SENNA 8.6 MG TAB PO SCH (08:28)
[2017-07-03] MEDS: ATORVASTATIN 20 MG TAB PO SCH (08:28)
[2017-07-03] MEDS: METOPROLOL TARTRATE 25 MG TAB PO SCH (08:29)
[2017-07-03] MEDS: FAMOTIDINE 20 MG TAB PO SCH (08:29)
--- NOTE | 2017-07-03 09:12 | PD.VS.PN ---
Subjective POD #: 8 Procedure(s): R BKA Subjective/Hospital Course POD 8 S/P R BKA Pt with significant ecchymosis anterior/medial aspect or R BKA site Blister present Medial aspect of R LE Incision intact with staple closure LE warm w/ motor intact Pain controlled Objective Vitals/I&O Date Time Temp Pulse Resp B/P (MAP) Pulse Ox O2 Delivery O2 Flow Rate FiO2 07/03/17 06:09 57 07/03/17 05:04 60 07/03/17 04:03 58 07/03/17 03:56 56 07/03/17 03:56 98.2 61 17 121/60 (80) 97 07/03/17 02:08 58 07/03/17 01:22 65 07/03/17 00:01 62 07/02/17 23:47 61 07/02/17 23:47 97.5 58 16 115/56 (75) 98 07/02/17 22:10 66 07/02/17 21:00 58 07/02/17 20:20 56 07/02/17 19:35 55 07/02/17 19:35 98.0 64 17 146/76 (99) 100 07/02/17 18:00 54 07/02/17 17:00 60 07/02/17 16:00 56 07/02/17 15:24 98.1 60 19 122/59 (80) 98 07/02/17 15:00 64 07/02/17 14:00 58 07/02/17 13:00 62 07/02/17 12:00 64 07/02/17 11:20 97.7 68 19 89/51 (64) 97 07/02/17 11:00 59 07/02/17 10:00 66 07/03/17 07/03/17 07/03/17 07:00 15:00 23:00 Intake Total 360 ml Output Total 800 ml Balance -440 ml Exam: Pt with significant ecchymosis anterior/medial aspect or R BKA site Blister present Medial aspect of R LE Incision intact with staple closure LE warm w/ motor intact Assessment and Plan Assessment: (1) PVD (peripheral vascular disease) Status: Acute (2) S/P BKA (below knee amputation) Plan POD#8 s/p R BKA Plan D/C to [facility] Out pt F/U arranged Joie Uriah X RAY TECHNICIAN [facility]/[employer] [phone] Discharge Planning Rehab today Daughter [phone] Problem Qualifiers (1) S/P BKA (below knee amputation): Qualified Codes: Z89.511 - Acquired absence of right leg below knee Joie Kruse [facility] Jul 03, 2017 09:12
== END 2017-07-03 09:20 | DRG 240 ==
LOC: HSDI 09:15 → HCPC 17:43
PROVIDERS: ADMIT Surgery; ATTEND Surgery
PROC: 0Y6H0Z1 Detachment at Right Lower Leg, High, Open Approach (ICD-10-PCS; principal; 2017-06-25 11:09)
DX: T82.858A Stenosis of other vascular prosthetic devices, implants and grafts, initial encounter (principal); I70.261 Atherosclerosis of native arteries of extremities with gangrene, right leg; J44.9 Chronic obstructive pulmonary disease, unspecified; I10 Essential (primary) hypertension; I70.202 Unspecified atherosclerosis of native arteries of extremities, left leg; Z95.820 Peripheral vascular angioplasty status with implants and grafts
CPT/HCPCS: 80048; 82550; 82552; 84484; 85025; 85027; 85610; 86850; 86900; 86901; 88307; 88311; 93005; J0690; J1200; J2175; J2270; J2405; J3010; J7120

== ENCOUNTER 2017-08-11 12:50 | Inpatient (IN) | payer MEDICARE ==
[~2017-08-11] VITALS: Ht 152.4 cm; Wt 46.7 kg
[~2017-08-11 12:50] MED LIST changes: +ACET325T15 PO; +CLOT1CRE8 TOPICAL; +COMMODE 3-IN-11 MIS; +DEXAMETHASONE SOD PHOS 4 MG/ML VIAL IV ONE; +GABA100C4 PO; -HYDR-3516 PO; +HYDR-3580 PO; +LIDOCAINE HCL 1% PF 5 ML SYRINGE OTHER ONE; +ONDANSETRON HCL 4 MG/2 ML VIAL IV ONE; +PERI PO; +POLY17S PO; +PROPOFOL 200 MG/20 ML AMP IV ONE; +SODIUM CHLORIDE 0.9% 10 ML VIAL IV ONE; +WHEE1EAC; +ePHEDrine/NS 25 MG/5 ML SYRINGE IV ONE
[2017-08-11] MEDS ORDERED: CHLORHEXIDINE GLUCONATE 2 % 1 PACK (2 CLOTHS) TOPICAL PRN (13:30)
[2017-08-11] MEDS ORDERED: POVIDONE IODINE 5% (ANTISEPSIS KIT) 4 APPLICATIONS EACH NARE PRN (13:30)
[2017-08-11] MEDS ORDERED: INSULIN HUMAN REGULAR 1,000 UNITS/10 ML VIAL SQ PRN (13:30)
[2017-08-11] MEDS ORDERED: LACTATED RINGER'S 1000 ML IV PRN (13:30)
[2017-08-11] MEDS ORDERED: METOPROLOL TARTRATE 25 MG TAB PO PRN (13:30)
[2017-08-11] MEDS ORDERED: SODIUM CHLORID 0.9% 500 ML IV PRN (13:30)
[2017-08-11] MEDS ORDERED: MULT-142 PO (14:07)
[2017-08-11] MEDS ORDERED: OMEP20TA93 PO (14:07)
[2017-08-11] MEDS ORDERED: ASCO500T PO (14:07)
[2017-08-11] MEDS ORDERED: ZOFR4TAB PO (14:07)
[2017-08-11] MEDS ORDERED: FERR150C PO (14:07)
[2017-08-11] MEDS ORDERED: IPRASOL INH (14:07)
[2017-08-11 14:20] LABS: AUTOMATED NEUTROPHIL # 6.4 TH/MM3 (1.8-7.7); BASOPHIL % 0.3 % (0.0-2.0); EOSINOPHIL # 0.2 TH/MM3 (0-0.4); EOSINOPHIL % 1.7 % (0.0-4.0); HEMATOCRIT 33.3 % (35.0-46.0); HEMOGLOBIN 10.9 GM/DL (11.6-15.3); LYMPHOCYTE # 3.2 TH/MM3 (1.0-4.8); MEAN CELL VOLUME 85.7 FL (80.0-100.0); MEAN CORPUSCULAR HGB CONC 32.7 % (32.0-36.0); MONOCYTE # 1.2 TH/MM3 (0-0.9); PLATELET COUNT 606 TH/MM3 (150-450); RED BLOOD COUNT 3.89 MIL/MM3 (4.00-5.30); WHITE BLOOD COUNT 11.1 TH/MM3 (4.0-11.0)
[2017-08-11 14:27] LABS: PROTHROMBIN TIME - PATIENT 10.4 SEC (9.8-11.6)
[2017-08-11 14:38] LABS: BICARBONATE 28.4 MEQ/L (21.0-32.0); CALCIUM 8.9 MG/DL (8.5-10.1); CREATININE 0.67 MG/DL (0.50-1.00)
[2017-08-11] MEDS ORDERED: THROMBIN (TOPICAL) 20,000 UNIT SPRAY KIT ONE (15:17)
[2017-08-11] MEDS ORDERED: ceFAZolin 2 GM PREMIX 0 ML ONE (15:17)
[2017-08-11] MEDS ORDERED: VANCOMYCIN HCL 1000 MG VIAL ONE (15:17)
--- NOTE | 2017-08-11 15:36 | HHI.HP ---
History of Present Illness Chief Complaint: nonhealing R BKA History of Present Illness 72 yo female with R BKA after failed pedal bypass, nonhealing and now with odor. No F/C. Presents for AKA Past/Family/Social History Past Medical History HTN PAD Past Surgical History L LE bypass L foot amputation R LE bypass R BKA Social History + tobacco history Family History NC Home Medications Active Scripts Hydrocodone/Acetaminophen (Hydrocodone-Acetamin 7.5-325) 7.5 Mg-325 Mg Tablet, 1 TAB PO Q6HR Y for Pain 4-10, #30 0 Refills Prov:Kristen Cao MD 07/17/17 Rivaroxaban (Xarelto) 15 Mg Tab, 15 MG PO Q12HR for Blood Clot Prevention, #60 TAB 0 Refills Prov:Cary Dallas 07/16/17 Sennosides-Docusate Sodium (Gnp Senna Plus 8.6-50 mg) 8.6 Mg-50 Mg Tab, 1 TAB PO BID for prevent constipation, #60 TAB Prov:Cary Dallas 07/16/17 Polyethylene Glycol 3350 Powder (Polyethylene Glycol 3350 Powder) 17 Gram Pow, 17 GM PO DAILY for prevent constipation for 30 Days Prov:Cary Dallas 07/16/17 Gabapentin (Gabapentin) 100 Mg Cap, 200 MG PO Q8HR for Pain Management, #180 CAP Prov:Cary Dallas 07/16/17 Acetaminophen (Eq Acetaminophen) 325 Mg Tab, 650 MG PO Q4H Y for mild pain/ fever MDD 3gm for 30 Days, #360 TAB Prov:Cary Dallas 07/16/17 Carvedilol (Coreg) 3.125 Mg Tab, 3.125 MG PO BID for Blood Pressure Management, #60 TAB 0 Refills Prov:Cary Dallas 07/16/17 Atorvastatin (Atorvastatin) 20 Mg Tab, 20 MG PO DAILY for Cholesterol Management , #30 TAB 0 Refills Prov:Cary Dallas 07/16/17 Reported Medications Ondansetron (Zofran) 4 Mg Tab, 4 MG PO Q6HR Y for NAUSEA OR VOMITING, TAB 0 Refills 08/11/17 Omeprazole (Omeprazole) 20 Mg Tab, 20 MG PO DAILY, #30 TAB 0 Refills 08/11/17 Polysaccharide Iron Complex (Ferrex 150) 150 Mg Iron Cap, 1 TAB PO BID 08/11/17 Multiple Vitamins W/ Minerals (Multi Vitamin and Mineral) 7.5 Mg Iron-400 Mcg Tab, 1 TAB PO DAILY 08/11/17 Ipratropium-Albuterol Neb (Duoneb) 0.5-2.5 Mg/3 Ml Neb, 1 NEBULE INH Q2HR NEB for SHORTNESS OF BREATH, #120 NEBULE 0 Refills 08/11/17 Ascorbic Acid (Ascorbic Acid) 500 Mg Tab, 500 MG PO BID, TAB 08/11/17 Discontinued Scripts Clotrimazole Topical (Clotrimazole AF Topical) 1% Cream, 1 APPLIC TOPICAL Q8HR for sacral fungal infection, #1 TUBE Apply to bilateral buttocks and sacrum. Prov:Cary Dallas 07/16/17 Ranitidine (Ranitidine) 150 Mg Tab, 150 MG PO BID for Heartburn Management, #60 TAB 0 Refills Prov:Cary Dallas 07/16/17 Wheelchair (Wheelchair) 1 Each Each, EACH, #1 Prov:Cary Dallas 07/14/17 Commode 3-in-1 (Commode 3-in-1) 1 Mis Mis, EA .XX DIRECTED, #1 0 Refills Prov:Cary Dallas Margotrolf JOSEPH 07/14/17 Coded Allergies: No Known Allergies (Verified Adverse Reaction, Unknown, 06/25/17) Review of Systems Constitutional: DENIES: Diaphoretic episodes, Fatigue, Fever, Weight gain, Weight loss, Chills, Dizziness, Change in appetite, Night Sweats Cardiovascular: DENIES: Chest pain, Palpitations, Syncope, Dyspnea on Exertion , PND, Lower Extremity Edema, Orthopnea, Claudication Physical Exam Vitals/I&O Date Time Temp Pulse Resp B/P (MAP) Pulse Ox O2 Delivery O2 Flow Rate FiO2 08/11/17 13:48 97.4 76 16 80/62 (68) 100 Neuro: alert, appropriately disappointed HEENT: NC/AT Neck: no JVD Heart: reg rate Lungs: clear Vascular: R BKA wrapped Extremities: L partial foot amputation, healed Laboratory Tests Test 08/11/17 13:50 White Blood Count 11.1 Red Blood Count 3.89 Hemoglobin 10.9 Hematocrit 33.3 Mean Corpuscular Volume 85.7 Mean Corpuscular Hemoglobin 28.0 Mean Corpuscular Hemoglobin Concent 32.7 Red Cell Distribution Width 17.0 Platelet Count 606 Mean Platelet Volume 7.0 Neutrophils (%) (Auto) 58.0 Lymphocytes (%) (Auto) 29.0 Monocytes (%) (Auto) 11.0 Eosinophils (%) (Auto) 1.7 Basophils (%) (Auto) 0.3 Neutrophils # (Auto) 6.4 Lymphocytes # (Auto) 3.2 Monocytes # (Auto) 1.2 Eosinophils # (Auto) 0.2 Basophils # (Auto) 0.0 CBC Comment DIFF FINAL Differential Comment Prothrombin Time 10.4 Prothromb Time International Ratio 1.0 Blood Urea Nitrogen 8 Creatinine 0.67 Random Glucose 99 Calcium Level 8.9 Sodium Level 138 Potassium Level 4.0 Chloride Level 103 Carbon Dioxide Level 28.4 Anion Gap 7 Estimat Glomerular Filtration Rate 86 Caprini VTE Risk Assessment Caprini VTE Risk Assessment: Mod/High Risk (score >= 2) Caprini Risk Assessment Model Point Value = 1 Point Value = 2 Point Value = 3 Point Value = 5 Age 41-60 Minor surgery BMI > 25 kg/m2 Swollen legs Varicose veins or History of unexplained or recurrent spontaneous Oral contraceptives or hormone replacement Sepsis (< 1 month) Serious lung disease, including pneumonia (< 1 month) Abnormal pulmonary function Acute myocardial infarction Congestive heart failure (< 1 month) History of inflammatory bowel disease Medical patient at bed rest Age 61-74 Arthroscopic surgery Major open surgery (> 45 min) Laparoscopic surgery (> 45 min) Malignancy Confined to bed (> 72 hours) Immobilizing plaster cast Central venous access Age >= 75 History of VTE Family history of VTE Factor V Leiden Prothrombin [id number] Lupus anticoagulant Anticardiolipin antibodies Elevated serum homocysteine Heparin-induced thrombocytopenia Other congenital or acquired thrombophilia Stroke (< 1 month) Elective arthroplasty Hip, pelvis, or leg fracture Acute spinal cord injury (< 1 month) Prophylaxis Regimen Total Risk Factor Score Risk Level Prophylaxis Regimen 0-1 Low Early ambulation 2 Moderate Order ONE of the following: *Sequential Compression Device (SCD) *Heparin 5000 units SQ BID 3-4 Higher Order ONE of the following medications: *Heparin 5000 units SQ TID *Enoxaparin/Lovenox 40 mg SQ daily (WT < 150 kg, CrCl > 30 mL/min) *Enoxaparin/Lovenox 30 mg SQ daily (WT < 150 kg, CrCl > 10-29 mL/min) *Enoxaparin/Lovenox 30 mg SQ BID (WT < 150 kg, CrCl > 30 mL/min) AND/OR *Sequential Compression Device (SCD) 5 or more Highest Order ONE of the following medications: *Heparin 5000 units SQ TID (Preferred with Epidurals) *Enoxaparin/Lovenox 40 mg SQ daily (WT < 150 kg, CrCl > 30 mL/min) *Enoxaparin/Lovenox 30 mg SQ daily (WT < 150 kg, CrCl > 10-29 mL/min) *Enoxaparin/Lovenox 30 mg SQ BID (WT < 150 kg, CrCl > 30 mL/min) AND *Sequential Compression Device (SCD) Assessment and Plan Plan 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
[2017-08-11] MEDS ORDERED: ceFAZolin INJ 1,000 MG VIAL ONE (15:46)
--- NOTE | 2017-08-11 16:46 | HHI.PR ---
cc: Daniel Astorga MD Immediate Post Op Note Procedure Date: August 11, 2017 Pre Op Diagnosis: Nonhealing R BKA Post Op Diagnosis: Nonhealing R BKA Surgeon: Daniel Astorga Office Automation Technician(s): Laura Winston Procedure: R AKA Findings: decent perfusion, marginal muscle anteriorly Additional Information: no infection identified Complications: none Specimen(s) removed: R knee for pathology Estimated blood loss: 50mL Anesthesia: General Drains: None Fluids: 500mL IVF Patient to: PACU Patient Condition: Good Date/Time of Procedure: SEE SURGICAL CARE RECORD Daniel Astorga MD August 11, 2017 16:46
[2017-08-11] MEDS ORDERED: DO NOT ADM ANY ANTICOAGULANT DRUGS PRN (17:00)
[2017-08-11] MEDS ORDERED: SENNOSIDES 8.6 MG TAB PO PRN (17:00)
[2017-08-11] MEDS ORDERED: LACTULOSE SYRUP 20 GM/30 ML CUP PO PRN (17:00)
[2017-08-11] MEDS ORDERED: MAGNESIUM HYDROXIDE SUSP 30 ML CUP PO PRN (17:00)
[2017-08-11] MEDS ORDERED: ENOXAPARIN SODIUM 30 MG/0.3 ML SYRINGE SQ SCH (17:00)
[2017-08-11] MEDS ORDERED: BISACODYL 10 MG SUPP RECTAL PRN (17:00)
[2017-08-11] MEDS ORDERED: HYDROmorphone HCL 2 MG TAB PO PRN (17:00)
[2017-08-11] MEDS ORDERED: MORPHINE SULFATE 4 MG/ML INJ IV PUSH PRN (17:00)
[2017-08-11] MEDS ORDERED: *morphine SULFATE 4 MG/ML PERIprocedure ONLY ONE ×2 (17:03→17:19)
--- NOTE | 2017-08-11 17:13 | MP ---
cc: Daniel Astorga MD DATE OF OPERATION: 08/11/2017 PREOPERATIVE DIAGNOSIS: Nonhealing below knee amputation. POSTOPERATIVE DIAGNOSIS: Nonhealing below knee amputation. PROCEDURE PERFORMED: Right above the knee amputation. SURGEON: Daniel Astorga MD SAND ANALYST SURGEON: Franklin Ames INDICATIONS FOR PROCEDURE: Ms. Rodrigues is a 72-year-old lady who has a failed distal bypass, extensive tissue loss and nonhealing below-knee amputation. She was taken to the operating room for a conversion to an above-knee amputation. DESCRIPTION OF PROCEDURE: Informed consent obtained from the patient. She was taken to the operating room, placed supine on the operating table and appropriate timeout taken to ensure the patient's identity, operative site and planned procedure. The administration of a gram of Ancef was initiated prior to skin incision. We discontinued our single preoperative dose. Everyone in the room agreed with time out and we proceeded. Her right leg was prepped and draped and an incision was made above the knee, carried down to subcutaneous tissue with electrocautery. The incision was fish mouth medially and laterally and the muscle was divided with electrocautery. The femur was divided with an oscillating saw and the posterior muscle was divided and the specimen was passed off the table. The wound was irrigated. The femoral vein and superficial femoral artery were ligated with silk suture. After ensuring hemostasis in the wound, the wound was closed with 2-0 Polysorb and skin xochitl. Sponge and needle counts were correct at the end of the case. I was present, scrubbed, and performed the entire procedure. MD SID Lowe/ROSARIO , 04:50 PM , 05:12 PM
[2017-08-11] MEDS ORDERED: ONDANSETRON ODT 4 MG TAB PO PRN (18:00)
[2017-08-11 20:00] VITALS: BP 121/59; PULSE 69; RESP 18; TEMP 98; O2SAT 95
[2017-08-11] MEDS ORDERED: DOCUSATE SODIUM 50 MG/SENNA 8.6 MG TAB PO SCH (21:00)
[2017-08-11] MEDS: CARVEDILOL 3.125 MG TAB PO SCH (21:13)
[2017-08-11] MEDS: GABAPENTIN 100 MG CAP PO SCH (21:13)
[2017-08-11] MEDS: ASCORBIC ACID 500 MG TAB PO SCH (21:13)
[2017-08-11] MEDS: POLYSACCHARIDE IRON COMPLEX 150 MG CAP PO SCH (21:13)
[2017-08-11] MEDS: DOCUSATE SODIUM 50 MG/SENNA 8.6 MG TAB PO SCH (21:13)
[2017-08-11] MEDS: FAMOTIDINE 20 MG TAB PO SCH (21:13)
[2017-08-11 23:45] VITALS: PULSE 59
[2017-08-12] VITALS: BP 106/58; PULSE 82; RESP 18; TEMP 97.5; O2SAT 96
[2017-08-12] MEDS: GABAPENTIN 100 MG CAP PO SCH ×3 (05:09→20:34)
[2017-08-12 05:23] VITALS: BP 104/59; PULSE 5; RESP 18; TEMP 97.2; O2SAT 96
[2017-08-12 06:40] LABS: HEMATOCRIT 28.6 % (35.0-46.0); HEMOGLOBIN 9.7 GM/DL (11.6-15.3); MEAN CELL VOLUME 84.3 FL (80.0-100.0); MEAN CORPUSCULAR HEMOGLOBIN 28.5 PG (27.0-34.0); MEAN CORPUSCULAR HGB CONC 33.8 % (32.0-36.0); MEAN PLATELET VOLUME 7.2 FL (7.0-11.0); PLATELET COUNT 522 TH/MM3 (150-450); RED BLOOD COUNT 3.39 MIL/MM3 (4.00-5.30); WHITE BLOOD COUNT 10.9 TH/MM3 (4.0-11.0)
[2017-08-12 06:51] LABS: BICARBONATE 28.2 MEQ/L (21.0-32.0); CALCIUM 8.7 MG/DL (8.5-10.1); CREATININE 0.69 MG/DL (0.50-1.00)
[2017-08-12 08:00] VITALS: BP 116/58; PULSE 53; RESP 16; TEMP 97.2; O2SAT 98
[2017-08-12] MEDS: CARVEDILOL 3.125 MG TAB PO SCH ×2 (09:00→20:37)
[2017-08-12] MEDS: MULTIVITAMINS/MINERALS THERAPEUTIC TAB PO SCH (09:02)
[2017-08-12] MEDS: POLYSACCHARIDE IRON COMPLEX 150 MG CAP PO SCH ×2 (09:02→20:34)
[2017-08-12] MEDS: DOCUSATE SODIUM 50 MG/SENNA 8.6 MG TAB PO SCH ×2 (09:02→20:34)
[2017-08-12] MEDS: ASCORBIC ACID 500 MG TAB PO SCH ×2 (09:02→20:34)
[2017-08-12] MEDS: ATORVASTATIN 20 MG TAB PO SCH (09:02)
[2017-08-12] MEDS: POLYETHYLENE GLYCOL 17 GM PKG PO SCH (09:02)
[2017-08-12] MEDS: RIVAROXABAN 15 MG TAB PO SCH ×2 (09:02→20:37)
[2017-08-12] MEDS: FAMOTIDINE 20 MG TAB PO SCH ×2 (09:02→20:34)
[2017-08-12 12:00] VITALS: BP 95/54; PULSE 61; RESP 16; TEMP 97.3; O2SAT 97
--- NOTE | 2017-08-12 13:49 | PD.VS.PN ---
Subjective POD #: 1 Procedure(s): R AKA Subjective/Hospital Course Afebrile 72/F S/P R AKA Pain controlled Dressing to R AKA I/C/D Objective Vitals/I&O Date Time Temp Pulse Resp B/P (MAP) Pulse Ox O2 Delivery O2 Flow Rate FiO2 08/12/17 12:00 97.3 61 16 95/54 (68) 97 08/12/17 08:00 97.2 53 16 116/58 (77) 98 08/12/17 05:23 97.2 5 18 104/59 (74) 96 08/12/17 00:00 97.5 82 18 106/58 (74) 96 08/11/17 23:45 59 08/11/17 20:00 98.0 69 18 121/59 (79) 95 08/11/17 19:00 97.8 72 16 140/85 (103) 95 Room Air 08/11/17 18:30 73 15 143/82 (102) 94 Room Air 08/11/17 18:15 70 15 140/81 (100) 94 Room Air 08/11/17 18:00 74 15 147/81 (103) 94 Room Air 08/11/17 17:45 75 15 145/87 (106) 93 Room Air 08/11/17 17:30 80 15 153/84 (107) 93 Room Air 08/11/17 17:24 15 08/11/17 17:15 82 15 165/80 (108) 92 Room Air 08/11/17 17:08 15 08/11/17 17:00 97.1 83 16 176/82 (113) 100 Nasal Cannula 2 08/11/17 13:48 97.4 76 16 80/62 (68) 100 08/12/17 08/12/17 08/12/17 07:00 15:00 23:00 Intake Total 120 ml Output Total 150 ml Balance -30 ml Exam: GENERAL: A&Ox3,GCS 15, NAD SKIN: Warm and dry. CARDIOVASCULAR: RRR, + S1,S2 RESPIRATORY: BS CTA/No accessory muscle use. GASTROINTESTINAL: Abdomen soft, non-tender, nondistended. MUSCULOSKELETAL: No cyanosis, or edema. Dressing to R AKA I/C/D Laboratory Laboratory Tests Test 08/11/17 13:50 08/12/17 05:25 White Blood Count 11.1 10.9 Red Blood Count 3.89 3.39 Hemoglobin 10.9 9.7 Hematocrit 33.3 28.6 Mean Corpuscular Volume 85.7 84.3 Mean Corpuscular Hemoglobin 28.0 28.5 Mean Corpuscular Hemoglobin Concent 32.7 33.8 Red Cell Distribution Width 17.0 17.0 Platelet Count 606 522 Mean Platelet Volume 7.0 7.2 Neutrophils (%) (Auto) 58.0 Lymphocytes (%) (Auto) 29.0 Monocytes (%) (Auto) 11.0 Eosinophils (%) (Auto) 1.7 Basophils (%) (Auto) 0.3 Neutrophils # (Auto) 6.4 Lymphocytes # (Auto) 3.2 Monocytes # (Auto) 1.2 Eosinophils # (Auto) 0.2 Basophils # (Auto) 0.0 CBC Comment DIFF FINAL Differential Comment Prothrombin Time 10.4 Prothromb Time International Ratio 1.0 Blood Urea Nitrogen 8 13 Creatinine 0.67 0.69 Random Glucose 99 143 Calcium Level 8.9 8.7 Sodium Level 138 138 Potassium Level 4.0 4.2 Chloride Level 103 101 Carbon Dioxide Level 28.4 28.2 Anion Gap 7 9 Estimat Glomerular Filtration Rate 86 83 Assessment and Plan Assessment: (1) S/P BKA (below knee amputation) Status: Acute (2) PVD (peripheral vascular disease) Status: Chronic Plan 72/F 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
[2017-08-12] MEDS ORDERED: WHEEMIS3 (13:51)
[2017-08-12 16:00] VITALS: BP 101/57; PULSE 70; RESP 17; TEMP 97.3; O2SAT 97
[2017-08-12 20:00] VITALS: BP 94/53; PULSE 72; RESP 17; TEMP 97.6; O2SAT 96
[2017-08-13] VITALS: BP 105/61; PULSE 72; RESP 17; TEMP 97.3; O2SAT 98
[2017-08-13 04:00] VITALS: BP 109/60; PULSE 72; RESP 17; TEMP 97.2; O2SAT 97
[2017-08-13] MEDS: GABAPENTIN 100 MG CAP PO SCH ×3 (06:42→20:56)
[2017-08-13 08:00] VITALS: BP 118/56; PULSE 74; RESP 17; TEMP 97.6; O2SAT 96
--- NOTE | 2017-08-13 08:08 | PD.VS.PN ---
Subjective POD #: 2 Procedure(s): R AKA Subjective/Hospital Course looks great pain controlled in good spirits majo po was OOB TC x4h yesterday Objective Vitals/I&O Date Time Temp Pulse Resp B/P (MAP) Pulse Ox O2 Delivery O2 Flow Rate FiO2 08/13/17 04:00 97.2 72 17 109/60 (76) 97 08/13/17 00:00 97.3 72 17 105/61 (76) 98 08/12/17 20:00 97.6 72 17 94/53 (67) 96 08/12/17 16:00 97.3 70 17 101/57 (72) 97 08/12/17 12:00 97.3 61 16 95/54 (68) 97 08/13/17 08/13/17 08/13/17 07:00 15:00 23:00 Intake Total 600 ml Balance 600 ml Exam: alert, no distress R AKA RUSSELL wrap in place Assessment and Plan Assessment: (1) S/P BKA (below knee amputation) Status: Acute (2) PVD (peripheral vascular disease) Status: Chronic Plan POD#2 s/p R AKA looks great pain controlled has been OOB 1. Continue PT/OOB 2. dressing down tomorrow (POD#3) Discharge Planning To rehab tomorrow (POD#3) Daniel Astorga MD August 13, 2017 08:08
[2017-08-13] MEDS: POLYETHYLENE GLYCOL 17 GM PKG PO SCH (09:00)
[2017-08-13] MEDS: FAMOTIDINE 20 MG TAB PO SCH ×2 (09:27→20:57)
[2017-08-13] MEDS: POLYSACCHARIDE IRON COMPLEX 150 MG CAP PO SCH ×2 (09:27→21:00)
[2017-08-13] MEDS: ATORVASTATIN 20 MG TAB PO SCH (09:27)
[2017-08-13] MEDS: CARVEDILOL 3.125 MG TAB PO SCH ×2 (09:27→20:57)
[2017-08-13] MEDS: MULTIVITAMINS/MINERALS THERAPEUTIC TAB PO SCH (09:28)
[2017-08-13] MEDS: RIVAROXABAN 15 MG TAB PO SCH ×2 (09:28→21:01)
[2017-08-13] MEDS: DOCUSATE SODIUM 50 MG/SENNA 8.6 MG TAB PO SCH ×2 (09:28→20:57)
[2017-08-13] MEDS: ASCORBIC ACID 500 MG TAB PO SCH ×2 (09:28→20:56)
[2017-08-13 12:00] VITALS: BP 104/58; PULSE 62; RESP 17; TEMP 97.4; O2SAT 97
[2017-08-13 16:00] VITALS: BP 96/55; PULSE 69; RESP 17; TEMP 97.7; O2SAT 98
--- NOTE | 2017-08-13 18:48 | PD.CONS ---
History of Present Illness Service Plastic surgery Consult Requested By Primary team Reason for Consult Left cheek skin lesion Primary Care Physician No Primary Care Physician Diagnoses: (1) Skin lesion of cheek History of Present Illness 72 yo female status post right AKA after failed right BKA after failed pedal bypass. Plastic surgery consulted for left cheek lesion. Patient reports that she has had this for at least a year. It causes her mild pain. It is easily irritated and bleeds often. She has never had a biopsy. She denies lymphadenopathy. She denies significant sun exposure. She reports that it is been slowly and steadily enlarging. She denies previous skin cancers. Past/Family/Social History Past Medical History HTN PAD Past Surgical History L LE bypass L foot amputation R LE bypass R BKA Social History + tobacco history Family History Noncontributory to presenting complain Home Medications Active Scripts Hydrocodone/Acetaminophen (Hydrocodone-Acetamin 7.5-325) 7.5 Mg-325 Mg Tablet, 1 TAB PO Q6HR Y for Pain 4-10, #30 0 Refills Prov:Kristen Cao MD 07/17/17 Rivaroxaban (Xarelto) 15 Mg Tab, 15 MG PO Q12HR for Blood Clot Prevention, #60 TAB 0 Refills Prov:Cary Dallas 07/16/17 Sennosides-Docusate Sodium (Gnp Senna Plus 8.6-50 mg) 8.6 Mg-50 Mg Tab, 1 TAB PO BID for prevent constipation, #60 TAB Prov:Cary Dallas 07/16/17 Polyethylene Glycol 3350 Powder (Polyethylene Glycol 3350 Powder) 17 Gram Pow, 17 GM PO DAILY for prevent constipation for 30 Days Prov:Cary Dallas 07/16/17 Gabapentin (Gabapentin) 100 Mg Cap, 200 MG PO Q8HR for Pain Management, #180 CAP Prov:Cary Dallas 07/16/17 Acetaminophen (Eq Acetaminophen) 325 Mg Tab, 650 MG PO Q4H Y for mild pain/ fever MDD 3gm for 30 Days, #360 TAB Prov:Cary Dallas 07/16/17 Carvedilol (Coreg) 3.125 Mg Tab, 3.125 MG PO BID for Blood Pressure Management, #60 TAB 0 Refills Prov:Cary Dallas 07/16/17 Atorvastatin (Atorvastatin) 20 Mg Tab, 20 MG PO DAILY for Cholesterol Management , #30 TAB 0 Refills Prov:Cary Dallas 07/16/17 Reported Medications Ondansetron (Zofran) 4 Mg Tab, 4 MG PO Q6HR Y for NAUSEA OR VOMITING, TAB 0 Refills 08/11/17 Omeprazole (Omeprazole) 20 Mg Tab, 20 MG PO DAILY, #30 TAB 0 Refills 08/11/17 Polysaccharide Iron Complex (Ferrex 150) 150 Mg Iron Cap, 1 TAB PO BID 08/11/17 Multiple Vitamins W/ Minerals (Multi Vitamin and Mineral) 7.5 Mg Iron-400 Mcg Tab, 1 TAB PO DAILY 08/11/17 Ipratropium-Albuterol Neb (Duoneb) 0.5-2.5 Mg/3 Ml Neb, 1 NEBULE INH Q2HR NEB for SHORTNESS OF BREATH, #120 NEBULE 0 Refills 08/11/17 Ascorbic Acid (Ascorbic Acid) 500 Mg Tab, 500 MG PO BID, TAB 08/11/17 Discontinued Scripts Clotrimazole Topical (Clotrimazole AF Topical) 1% Cream, 1 APPLIC TOPICAL Q8HR for sacral fungal infection, #1 TUBE Apply to bilateral buttocks and sacrum. Prov:Cary DallasP 07/16/17 Ranitidine (Ranitidine) 150 Mg Tab, 150 MG PO BID for Heartburn Management, #60 TAB 0 Refills Prov:Cary DallasP 07/16/17 Wheelchair (Wheelchair) 1 Each Each, EACH, #1 Prov:Cary DallasP 07/14/17 Commode 3-in-1 (Commode 3-in-1) 1 Mis Mis, EA .XX DIRECTED, #1 0 Refills Prov:Cary Dallas OPAL 07/14/17 Coded Allergies: No Known Allergies (Verified Adverse Reaction, Unknown, 06/25/17) Review of Systems Except as noted in the HPI review of systems negative to presenting complaint Past Family Social History Allergies: Coded Allergies: No Known Allergies (Verified Adverse Reaction, Unknown, 06/25/17) Physical Exam Vital Signs Vital Signs Date Time Temp Pulse Resp B/P (MAP) Pulse Ox O2 Delivery O2 Flow Rate FiO2 08/13/17 16:00 97.7 69 17 96/55 (69) 98 08/13/17 12:00 97.4 62 17 104/58 (73) 97 08/13/17 09:26 20 08/13/17 08:00 97.6 74 17 118/56 (76) 96 08/13/17 08:00 97.6 74 17 118/56 (76) 96 08/13/17 04:00 97.2 72 17 109/60 (76) 97 08/13/17 00:00 97.3 72 17 105/61 (76) 98 08/12/17 20:00 97.6 72 17 94/53 (67) 96 Physical Exam No apparent anxiety alert and oriented 3 moist mucous membranes PERRLA skin without rash respirations nonlabored moves all 4 extremities to command Left labial cheek with 1 cm raised skin lesion with central ulceration roughly 1 cm posterior to the nasolabial fold No lymphadenopathy appreciated Lesion appears to be partial thickness No intraoral component Result Diagram: 08/12/17 0525 08/12/17524 Assessment and Plan Problem List: (1) Skin lesion of cheek ICD Codes: L98.9 - Disorder of the skin and subcutaneous tissue, unspecified Assessment and Plan 72-year-old female with left cheek skin lesion Advised patient that there is great concern that this is a basal cell carcinoma Risks benefits and alternative treatments discussed Advised patient that this should be biopsied within the next 1-2 weeks Patient should follow-up in my clinic following discharge so that the above biopsy may be performed in a controlled setting Patient given my card Patient expresses understanding and agreement with above plan Patient should follow-up in my plastic surgery clinic as soon as she is able following discharge Haseeb Ro MD August 13, 2017 18:48
[2017-08-13 20:00] VITALS: BP 100/57; PULSE 72; RESP 17; TEMP 98.6; O2SAT 97
[2017-08-14 00:26] VITALS: BP 99/54; PULSE 71; RESP 16; TEMP 98.3; O2SAT 96
[2017-08-14] MEDS: GABAPENTIN 100 MG CAP PO SCH ×2 (05:23→14:29)
[2017-08-14 08:00] VITALS: BP 112/63; PULSE 71; RESP 16; TEMP 97.8; O2SAT 97
[2017-08-14] MEDS: CARVEDILOL 3.125 MG TAB PO SCH (09:00)
[2017-08-14] MEDS: POLYSACCHARIDE IRON COMPLEX 150 MG CAP PO SCH (09:21)
[2017-08-14] MEDS: POLYETHYLENE GLYCOL 17 GM PKG PO SCH (09:21)
[2017-08-14] MEDS: RIVAROXABAN 15 MG TAB PO SCH (09:21)
[2017-08-14] MEDS: ASCORBIC ACID 500 MG TAB PO SCH (09:21)
[2017-08-14] MEDS: DOCUSATE SODIUM 50 MG/SENNA 8.6 MG TAB PO SCH (09:21)
[2017-08-14] MEDS: FAMOTIDINE 20 MG TAB PO SCH (09:21)
[2017-08-14] MEDS: ATORVASTATIN 20 MG TAB PO SCH (09:21)
[2017-08-14] MEDS: MULTIVITAMINS/MINERALS THERAPEUTIC TAB PO SCH (09:21)
--- NOTE | 2017-08-14 10:52 | PD.VS.PN ---
Subjective POD #: 3 Procedure(s): R AKA Subjective/Hospital Course Pt w/o pain Pt reported she feels great this am Objective Vitals/I&O Date Time Temp Pulse Resp B/P (MAP) Pulse Ox O2 Delivery O2 Flow Rate FiO2 08/14/17 00:26 98.3 71 16 99/54 (69) 96 08/13/17 20:00 98.6 72 17 100/57 (71) 97 08/13/17 16:00 97.7 69 17 96/55 (69) 98 08/13/17 12:00 97.4 62 17 104/58 (73) 97 08/14/17 08/14/17 08/14/17 07:00 15:00 23:00 Intake Total 880 ml Balance 880 ml Exam: GENERAL: A&Ox3,NAD,GCS15 SKIN: LE Warm and dry. CARDIOVASCULAR: Regular rate and rhythm without murmurs, gallops, or rubs. RESPIRATORY: Breath sounds equal bilaterally. No accessory muscle use. GASTROINTESTINAL: Abdomen soft, non-tender, nondistended. Right AKA incision intact w/o R/D/S/O xochitl intact no erythema present Assessment and Plan Assessment: (1) S/P BKA (below knee amputation) Status: Acute (2) PVD (peripheral vascular disease) Status: Chronic Plan POD#3 s/p R AKA Pt looks good Pain controlled Dressing removed incision intact Plan Pt clear for D/C to [place] rehab for continued PT Arranged out pt f/u Joie Kruse NP [facility] [phone] Discharge Planning Today to Rehab (POD#3) Joie Kruse [facility] August 14, 2017 10:52
[2017-08-14] MEDS ORDERED: ADJUSTABLE COMM1 MIS (10:55)
--- NOTE | 2017-08-14 11:01 | PD.VS.DC ---
Discharge Summary Admission Date: August 11, 2017 at 16:48 Discharge Date: August 14, 2017 Admission Diagnosis: (1) PVD (peripheral vascular disease) (2) S/P BKA (below knee amputation) Discharge Diagnosis: (1) PVD (peripheral vascular disease) ICD Codes: I73.9 - Peripheral vascular disease, unspecified Status: Chronic (2) Above knee amputation status ICD Codes: Z89.619 - Acquired absence of unspecified leg above knee Brief History from admission 72 yo female with R BKA after failed pedal bypass, nonhealing and now with odor. No F/C. Presents for AKA Procedure(s): R AKA Significant Findings GENERAL: A&Ox3,NAD,GCS15 SKIN: LE Warm and dry. CARDIOVASCULAR: Regular rate and rhythm without murmurs, gallops, or rubs. RESPIRATORY: Breath sounds equal bilaterally. No accessory muscle use. GASTROINTESTINAL: Abdomen soft, non-tender, nondistended. Right AKA incision intact w/o R/D/S/O xochitl intact no erythema present Laboratory Tests Test 08/11/17 13:50 08/12/17 05:25 White Blood Count 11.1 TH/MM3 (4.0-11.0) Red Blood Count 3.89 MIL/MM3 (4.00-5.30) 3.39 MIL/MM3 (4.00-5.30) Hemoglobin 10.9 GM/DL (11.6-15.3) 9.7 GM/DL (11.6-15.3) Hematocrit 33.3 % (35.0-46.0) 28.6 % (35.0-46.0) Platelet Count 606 TH/MM3 (150-450) 522 TH/MM3 (150-450) Monocytes (%) (Auto) 11.0 % (0.0-8.0) Monocytes # (Auto) 1.2 TH/MM3 (0-0.9) Estimat Glomerular Filtration Rate 86 ML/MIN (>89) 83 ML/MIN (>89) Random Glucose 143 MG/DL (74-106) Hospital Course: 72 yo female with R BKA after failed pedal bypass, nonhealing and now with odor. No F/C. Presents for AKA Pt s/p R AKA doing well POD 3 pt clear for D/C to [facility] Dressing removed, incision well approximated w/o R/D/S/O Arranged out pt f/u in 1M Allergies Coded Allergies Type Severity Reaction Last Updated Verified No Known Allergies Adverse Reaction Unknown 06/25/17 Yes 08/12/17 08/12/17 08/13/17 08/13/17 08/14/17 08/14/17 06:00 18:00 06:00 18:00 06:00 18:00 Intake Total 120 ml 1000 ml 600 ml 960 ml 780 ml 100 ml Output Total 150 ml Balance -30 ml 1000 ml 600 ml 960 ml 780 ml 100 ml Intake Oral 120 ml 1000 ml 600 ml 960 ml 780 ml 100 ml Output Urine Total 150 ml # Voids 0 2 4 4 4 # Bowel Movements 0 0 Laboratory Tests Test 08/11/17 13:50 08/12/17 05:25 White Blood Count 11.1 TH/MM3 10.9 TH/MM3 Red Blood Count 3.89 MIL/MM3 3.39 MIL/MM3 Hemoglobin 10.9 GM/DL 9.7 GM/DL Hematocrit 33.3 % 28.6 % Mean Corpuscular Volume 85.7 FL 84.3 FL Mean Corpuscular Hemoglobin 28.0 PG 28.5 PG Mean Corpuscular Hemoglobin Concent 32.7 % 33.8 % Red Cell Distribution Width 17.0 % 17.0 % Platelet Count 606 TH/MM3 522 TH/MM3 Mean Platelet Volume 7.0 FL 7.2 FL Neutrophils (%) (Auto) 58.0 % Lymphocytes (%) (Auto) 29.0 % Monocytes (%) (Auto) 11.0 % Eosinophils (%) (Auto) 1.7 % Basophils (%) (Auto) 0.3 % Neutrophils # (Auto) 6.4 TH/MM3 Lymphocytes # (Auto) 3.2 TH/MM3 Monocytes # (Auto) 1.2 TH/MM3 Eosinophils # (Auto) 0.2 TH/MM3 Basophils # (Auto) 0.0 TH/MM3 CBC Comment DIFF FINAL Differential Comment Prothrombin Time 10.4 SEC Prothromb Time International Ratio 1.0 RATIO Blood Urea Nitrogen 8 MG/DL 13 MG/DL Creatinine 0.67 MG/DL 0.69 MG/DL Random Glucose 99 MG/DL 143 MG/DL Calcium Level 8.9 MG/DL 8.7 MG/DL Sodium Level 138 MEQ/L 138 MEQ/L Potassium Level 4.0 MEQ/L 4.2 MEQ/L Chloride Level 103 MEQ/L 101 MEQ/L Carbon Dioxide Level 28.4 MEQ/L 28.2 MEQ/L Anion Gap 7 MEQ/L 9 MEQ/L Estimat Glomerular Filtration Rate 86 ML/MIN 83 ML/MIN Orders Procedure Category Date Status Time Lactated Ringer's MED 08/11/17 In Process 1000 Ml Inj (Lr 1000 M 13:30 Sodium Chlorid 0.9% MED 08/11/17 In Process 500 Ml Inj (Ns 500 M 13:30 Metoprolol Tartrate MED 08/11/17 In Process (Lopressor) 13:30 Povidone Iod 5% MED 08/11/17 In Process Antisepsis Kit 13:30 Chlorhexidine 2% MED 08/11/17 In Process Cloth (Chlorhexidine 13:30 Insulin Human Regular MED 08/11/17 In Process Inj (Novolin R Inj 13:30 Basic Metabolic Panel LAB 08/11/17 Complete (Bmp) 13:13 Complete Blood Count LAB 08/11/17 Complete With Diff 13:13 Prothrombin Time / LAB 08/11/17 Complete Inr (Pt) 13:13 Type And Screen BBK 08/11/17 Complete 13:13 Vancomycin Inj MED 08/11/17 Complete (Vancomycin Inj) 15:17 Cefazolin 2 Gm Premix MED 08/11/17 Complete (Ancef 2 Gm Premix 15:17 Thrombin Top Fowler MED 08/11/17 Complete (Thrombin Top Fowler) 15:17 Am Admit Pre Op Care [facility] 08/11/17 Complete Cefazolin Inj (Ancef MED 08/11/17 Complete Inj) 15:46 Admit To Inpatient ADMITTING 08/11/17 Transmitted Code Status CODE 08/11/17 Transmitted 16:46 Vital Signs (Adult) LEONEL 08/11/17 In Process 16:46 Post Closing Specialist / LEONEL 08/11/17 In Process Telemetry 16:46 Activity Oob Ad Michelle LEONEL 08/12/17 In Process 09:00 Activity Bed Rest LEONEL 08/11/17 In Process 16:[address] Kris CASTANEDA 5/14/18 In Process 16:46 Diet Heart Healthy DIET 08/11/17 Transmitted Dinner Basic Metabolic Panel LAB 08/12/17 Complete (Bmp) 06:00 Cbc No Diff, Includes LAB 08/12/17 Complete Plts 06:00 Case Management CONS 08/11/17 Transmitted Consult Consult Pt Eval & PT 08/11/17 Logged Treat 16:46 Famotidine (Pepcid) MED 08/11/17 In Process 21:00 Oxycodone (Roxicodone) MED 08/11/17 In Process 17:00 Hydromorphone MED 08/11/17 In Process (Dilaudid) 17:00 Morphine Inj MED 08/11/17 In Process (Morphine Inj) 17:00 Enoxaparin Inj MED 08/11/17 Complete (Lovenox Inj) 17:00 Docusate Sodium-Senna MED 08/11/17 Complete (Eryn-Colace) 21:00 Magnesium Hydroxide MED 08/11/17 In Process Liq (Milk Of Magnesi 17:00 Sennosides (Senokot) MED 08/11/17 In Process 17:00 Bisacodyl Supp MED 08/11/17 In Process (Dulcolax Supp) 17:00 Lactulose Liq MED 08/11/17 In Process (Lactulose Liq) 17:00 Ascorbic Acid MED 08/11/17 In Process (Vitamin C) 21:00 Atorvastatin (Lipitor) MED 08/12/17 In Process 09:00 Carvedilol (Coreg) MED 08/11/17 In Process 21:00 Gabapentin (Neurontin) MED 08/11/17 In Process 22:00 Polyethylene Glycol MED 08/12/17 In Process (Miralax) 09:00 Polysaccharide Iron MED 08/11/17 In Process Complex (Nu-Iron) 21:00 Docusate Sodium-Senna MED 08/11/17 In Process (Eryn-Colace) 21:00 Multivitamins-Minerals MED 08/12/17 In Process Therap (Theragran 09:00 Ondansetron Odt MED 08/11/17 In Process (Zofran Odt) 18:00 *Morphine Inj MED 08/11/17 Complete (*Morphine Inj 17:03 Fentanyl Inj MED 08/11/17 Complete (Fentanyl Inj) 17:05 *Morphine Inj MED 08/11/17 Complete (*Morphine Inj 17:19 Nursing Information MED 08/11/17 Complete (Misc Nursing Inform 17:00 Rivaroxaban (Xarelto) MED 08/12/17 In Process 10:00 Class Iv Pacu Ea 30 [facility] 08/11/17 Complete MIN General/Pacu [facility] 08/11/17 Complete Post Anesthesia Oxygen [facility] 08/11/17 Complete Pacu Med Holding [facility] 08/11/17 Complete Hourly (Hub Use Only)In Phy CONS 08/12/17 Transmitted Cons/Ref Ot Request For Service OT 08/12/17 Logged 11:48 Consult Plastic CONS 08/13/17 Transmitted Surgery (Hub Use Only)In Phy CONS 08/13/17 [facility] Transmitted Cons/Ref Lidocaine Pf 1% Inj MED 08/11/17 Complete (Xylocaine-Mpf 1% In 12:00 Ephedrine/Ns 25 Mg/5 MED 08/11/17 Complete Ml Syr (Ephedrine/N 12:00 Dexamethasone Inj MED 08/11/17 Complete (Decadron Inj) 12:00 Ondansetron Inj MED 08/11/17 Complete (Zofran Inj) 12:00 Propofol 200 Mg/20 Ml MED 08/11/17 Complete Inj (Diprivan 200 12:00 Sodium Chloride 0.9% MED 08/11/17 Complete Inj (Ns Inj) 12:00 Attending Discharge DISCHARGE 08/14/17 Transmitted Order Vital Signs Date Time Temp Pulse Resp B/P (MAP) Pulse Ox O2 Delivery O2 Flow Rate FiO2 08/14/17 00:26 98.3 71 16 99/54 (69) 96 08/13/17 20:00 98.6 72 17 100/57 (71) 97 08/13/17 16:00 97.7 69 17 96/55 (69) 98 08/13/17 12:00 97.4 62 17 104/58 (73) 97 08/13/17 09:26 20 08/13/17 08:00 97.6 74 17 118/56 (76) 96 08/13/17 08:00 97.6 74 17 118/56 (76) 96 08/13/17 04:00 97.2 72 17 109/60 (76) 97 08/13/17 00:00 97.3 72 17 105/61 (76) 98 08/12/17 20:00 97.6 72 17 94/53 (67) 96 08/12/17 16:00 97.3 70 17 101/57 (72) 97 08/12/17 12:00 97.3 61 16 95/54 (68) 97 08/12/17 08:00 97.2 53 16 116/58 (77) 98 08/12/17 05:23 97.2 5 18 104/59 (74) 96 08/12/17 00:00 97.5 82 18 106/58 (74) 96 08/11/17 23:45 59 08/11/17 20:00 98.0 69 18 121/59 (79) 95 08/11/17 19:00 97.8 72 16 140/85 (103) 95 Room Air 08/11/17 18:30 73 15 143/82 (102) 94 Room Air 08/11/17 18:15 70 15 140/81 (100) 94 Room Air 08/11/17 18:00 74 15 147/81 (103) 94 Room Air 08/11/17 17:45 75 15 145/87 (106) 93 Room Air 08/11/17 17:30 80 15 153/84 (107) 93 Room Air 08/11/17 17:24 15 08/11/17 17:15 82 15 165/80 (108) 92 Room Air 08/11/17 17:08 15 08/11/17 17:00 97.1 83 16 176/82 (113) 100 Nasal Cannula 2 08/11/17 13:48 97.4 76 16 80/62 (68) 100 Discharge Condition: Good Discharge Disposition: Discharge to SNF Discharge Instructions: DIET You may resume your regular heart healthy diet ACTIVITY Activity as tolerated NO tub baths or swimming until incision is fully healed WOUND CARE Leave open to air You may apply a dry dressing while PT in progress Call to report any increase in pain, swelling or drainage MEDICATIONS You may resume your daily home medications You were prescribed a narcotic pain medication which may cause constipation- Take with an over the counter stool softener You were prescribed a narcotic pain medication which may cause drowsiness- Do not drive while taking this medication Any questions or concerns: Call [facility] at [facility] [phone] Joie KruseP August 14, 2017 11:01
[2017-08-14 12:00] VITALS: BP 102/61; PULSE 76; RESP 18; TEMP 98.9; O2SAT 98
== END 2017-08-14 16:29 | DRG 476 ==
LOC: HSDC 12:50 → EDSTATUS 14:00 → HSDI 16:48 → N07B 19:15
PROVIDERS: ADMIT Surgery; ATTEND Surgery
PROC: 0Y6C0Z3 Detachment at Right Upper Leg, Low, Open Approach (ICD-10-PCS; principal; 2017-08-11 15:59)
DX: T87.89 Other complications of amputation stump (principal); I10 Essential (primary) hypertension; L98.9 Disorder of the skin and subcutaneous tissue, unspecified; I73.9 Peripheral vascular disease, unspecified
CPT/HCPCS: 80048; 85025; 85027; 85610; 86850; 86900; 86901; 88307; 88311; J0690; J1100; J2270; J2405; J3010; J3370; J7120